=== PATIENT | female | born 1945 ===

== ENCOUNTER → 2020-09-19 12:02 | Outpatient (BNVA) | payer MEDICARE, SELFPAY | PROVIDERS: PCP Internal Medicine Geriatric Medicine; Referring Provider Internal Medicine Geriatric Medicine; Visit Provider Internal Medicine Endocrinology, Diabetes & Metabolism | DX: Z13.89 Encounter for screening for other disorder (principal) | CPT/HCPCS: Q3014 ==

== ENCOUNTER 2020-10-02 09:36 | Outpatient (REF) | payer MEDICARE, SELFPAY ==
[2020-10-02 10:21] LABS: Hematocrit 36.7 % (37-47); Hemoglobin 11.9 g/dl (12.0-16.0); Mean Corpuscular HGB Conc 32.4 g/dl (31.0-35.0); Mean Corpuscular Hemoglobin 28.1 pg (27.0-33.0); Mean Corpuscular Volume 86.8 fL (80-98); Mean Platelet Volume 10.5 fL (9.4-12.3); Platelet Count 343 X10*3/uL (160-400); Red Blood Count 4.23 X10*6/uL (4.20-5.50); Red Cell Distribution Width 14.4 % (11.0-16.0); White Blood Count 7.3 X10*3/uL (4.8-10.8)
[2020-10-02 10:29] LABS: Estimated Average Glucose 171 mg/dL; Hemoglobin A1c % 7.6 %
[2020-10-02 10:35] LABS: Alanine Aminotransferase 13 U/L (0-31); Alkaline Phosphatase 58 U/L (39-117); Anion Gap 13 (12-20); Aspartate Amino Transferase 18 U/L (5-31); Bilirubin Total 0.3 mg/dL (0.0-1.0); Blood Urea Nitrogen 31 mg/dL (9-16); Calcium 9.5 mg/dL (8.4-10.2); Carbon Dioxide 29 mmol/L (22-29); Chloride 101 mmol/L (96-108); Cholesterol 168 mg/dL; Estimated Glomerular Filt Rate 39; Glucose Fasting 141 mg/dL (60-99); HDL Cholesterol 30 mg/dL; Potassium 3.9 mmol/l (3.3-5.1); Sodium 139 mmol/L (135-145); Total Protein 7.2 g/dL (6.5-8.0); Triglycerides 405 mg/dL
[2020-10-02 11:01] LABS: Vitamin B12 938 pg/mL (200-900)
[2020-10-02 11:15] LABS: Creatinine Urine 110.07 mg/dL; Microalbum/Creatinine Ratio Ur 30.8 ug/mg cr
[2020-10-03 06:58] LABS: LDL Cholesterol Direct 67 mg/dL (<100)
[2020-10-10 06:53] LABS: Fructosamine 279 umol/L (205-285)
== END 2020-10-02 09:37 | disposition home or self-care (01) ==
LOC: HO.10HDL 09:36
PROVIDERS: Visit Provider Internal Medicine Endocrinology, Diabetes & Metabolism
DX: E11.65 Type 2 diabetes mellitus with hyperglycemia (principal)
CPT/HCPCS: 36415; 80053; 80061; 82043; 82607; 82985; 83036; 83721; 85027

== ENCOUNTER 2020-12-10 11:28 | Outpatient (REF) | payer MEDICARE, SELFPAY ==
--- NOTE | ~2020-12-10 | US_ITS ---
EXAMINATION: US EXTRACRANIAL CAROTID DUPLEX, BILATERAL CLINICAL INFORMATION: Left carotid stenosis COMPARISON: Previous exams most recent October 2019 TECHNIQUE: Real-time ultrasound and Doppler techniques (integrating B-mode 2-D vascular images, Doppler spectral analysis and color-flow Doppler imaging) were utilized to interrogate the extracranial carotid arteries, the vertebral arteries and proximal subclavian arteries bilaterally. The degree of stenosis is determined by criteria similar to NASCET. FINDINGS: Right Side: 1. There is moderate atherosclerotic plaque seen in the bifurcation/proximal ICA region. 2. The common carotid artery PSV proximally is 112 cm/s and distally 66 cm/s. 3. The proximal internal carotid artery velocities are 79 cm/s systolic and 15 cm/s diastolic. 4. The proximal external carotid artery PSV is 146 cm/s. 5. The vertebral artery shows antegrade flow. 6. The subclavian artery waveforms are normal. Left Side: 1. There is moderate atherosclerotic plaque seen in the bifurcation/proximal ICA region. 2. The common carotid artery PSV proximally is 102 cm/s and distally 83 cm/s. 3. The proximal internal carotid artery velocities are 162 cm/s systolic and 35 cm/s diastolic. 4. The proximal external carotid artery PSV is 204 cm/s. 5. The vertebral artery shows antegrade flow. 6. The subclavian artery waveforms are artery waveforms are normal. US/US carotid duplex BI IMPRESSION: 1. RIGHT: Moderate amount of atherosclerotic plaque. 0-49% right ICA stenosis by velocity criteria. 2. LEFT: Moderate amount of atherosclerotic plaque. 50-79% left ICA stenosis by velocity criteria. New left ECA stenosis. 3. There is no change in the category severity of disease when compared to the previous study dated October 2019.
== END 2020-12-10 11:29 | disposition home or self-care (01) ==
LOC: HO.US 11:28
PROVIDERS: PCP Internal Medicine Geriatric Medicine; Visit Provider Surgery Vascular Surgery
DX: I65.22 Occlusion and stenosis of left carotid artery (principal)
CPT/HCPCS: 93880

== ENCOUNTER → 2020-12-20 13:11 | Outpatient (BNVA) | payer MEDICARE, SELFPAY | PROVIDERS: PCP Internal Medicine Geriatric Medicine; Visit Provider Internal Medicine Endocrinology, Diabetes & Metabolism | DX: Z13.89 Encounter for screening for other disorder (principal) | CPT/HCPCS: Q3014 ==

== ENCOUNTER → 2020-12-25 10:49 | Outpatient (BNVA) | payer MEDICARE, SELFPAY | PROVIDERS: PCP Internal Medicine Geriatric Medicine; Visit Provider Surgery Vascular Surgery | DX: I65.23 Occlusion and stenosis of bilateral carotid arteries (principal) | CPT/HCPCS: 99212 ==

== ENCOUNTER → 2021-03-08 14:44 | Outpatient (BNVA) | payer MEDICARE, SELFPAY | PROVIDERS: Visit Provider Student in an Organized Health Care Education/Training Program | DX: M70.62 Trochanteric bursitis, left hip (principal) | CPT/HCPCS: 20610; 99212 ==

== ENCOUNTER → 2021-03-26 09:11 | Outpatient (BNVA) | payer MEDICARE, SELFPAY | PROVIDERS: PCP Internal Medicine Geriatric Medicine; Visit Provider Internal Medicine Endocrinology, Diabetes & Metabolism | CPT/HCPCS: Q3014 ==

== ENCOUNTER 2021-04-18 08:08 | Outpatient (REF) | payer MEDICARE, SELFPAY ==
[2021-04-18 09:00] LABS: MANUAL DIFF FLAG NO
[2021-04-18 09:11] LABS: Estimated Average Glucose 180 mg/dL; Hemoglobin A1c % 7.9 %
[2021-04-18 09:12] LABS: Basophils Percent Auto 0.3 % (0-2); Eosinophils Absolute Auto 0.1 X10*3/uL (0.0-0.4); Eosinophils Percent Auto 1.6 % (0-4); Hematocrit 37.4 % (37-47); Hemoglobin 12.1 g/dl (12.0-16.0); Imm Gran Abs Auto 0.04 X10*3/uL (0.00-0.03); Imm Gran Pct Auto 0.6 % (0.0-0.4); Lymphocytes Absolute Auto 2.5 X10*3/uL (1.2-4.9); Lymphocytes Percent Auto 38.6 % (20-40); Mean Corpuscular HGB Conc 32.4 g/dl (31.0-35.0); Mean Corpuscular Hemoglobin 28.5 pg (27.0-33.0); Mean Corpuscular Volume 88.2 fL (80-98); Mean Platelet Volume 10.2 fL (9.4-12.3); Monocytes Absolute Auto 0.7 X10*3/uL (0.1-1.2); Monocytes Percent Auto 10.3 % (2-11); Neutrophils Absolute Auto 3.1 X10*3/uL (2.0-8.3); Neutrophils Percent Auto 48.6 % (45-73); Platelet Count 340 X10*3/uL (160-400); Red Blood Count 4.24 X10*6/uL (4.20-5.50); Red Cell Distribution Width 14.2 % (11.0-16.0); White Blood Count 6.4 X10*3/uL (4.8-10.8)
[2021-04-18 09:17] LABS: Glucose Urine UA NEG (NEG); Leukocyte Esterase Urine 2+ (NEG); Nitrite Urine NEG (NEG); Specific Gravity - Urine 1.015 (1.005-1.025); Urine Blood 1+ (NEG); Urine Ketones NEG (NEG); Urine Protein NEG (NEG-TRACE)
[2021-04-18 09:37] LABS: Anion Gap 12 (12-20); Blood Urea Nitrogen 21 mg/dL (9-16); Calcium 10.1 mg/dL (8.4-10.2); Carbon Dioxide 31 mmol/L (22-29); Chloride 100 mmol/L (96-108); Estimated Glomerular Filt Rate 47; Magnesium 1.8 mg/dL (1.6-2.6); Phosphorus 2.8 mg/dL (2.7-4.5); Potassium 4.2 mmol/L (3.3-5.1); Sodium 139 mmol/L (135-145)
[2021-04-18 09:39] LABS: Alanine Aminotransferase 14 U/L (0-31); Alkaline Phosphatase 53 U/L (39-117); Anion Gap 11 (12-20); Aspartate Amino Transferase 19 U/L (5-31); Bilirubin Total 0.3 mg/dL (0.0-1.0); Blood Urea Nitrogen 21 mg/dL (9-16); Calcium 10.1 mg/dL (8.4-10.2); Carbon Dioxide 31 mmol/L (22-29); Chloride 101 mmol/L (96-108); Cholesterol 155 mg/dL; Estimated Glomerular Filt Rate 46; Glucose Fasting 193 mg/dL (60-99); HDL Cholesterol 35 mg/dL; LDL Cholesterol Calculated 64 mg/dl; Potassium 4.3 mmol/L (3.3-5.1); Sodium 139 mmol/L (135-145); Triglycerides 281 mg/dL
[2021-04-18 09:39] LABS: Appearance Urine CLEAR; Color Urine YELLOW
[2021-04-18 09:41] LABS: Bacteria Urine TRACE /LPF; Squamous Epithelial Cell Urine TRACE /LPF; WBC Urine 30-49 /HPF (0-4)
[2021-04-18 09:48] LABS: Creatinine Urine 107.98 mg/dL; Microalbum/Creatinine Ratio Ur 40.7 ug/mg cr; Protein/Creatinine Ratio, Ur 0.14 (<0.2); Total Protein Urine Random 15 mg/dL (<12)
[2021-04-18 09:50] LABS: Free T4 (Free Thyroxine) 0.88 ng/dL (0.71-1.85); Thyroid Stimulating Hormone 1.97 uIU/mL (0.32-4.0)
[2021-04-18 10:03] LABS: Vitamin B12 996 pg/mL (200-900)
[2021-04-18 11:08] LABS: Renal w Reflex Lab Use Only Order verified
[2021-04-19 08:41] LABS: LDL Cholesterol Direct 75 mg/dL (<100)
[2021-04-19 13:36] LABS: Calcium (PTHI) 10.1 mg/dL (8.6-10.4); PTHI 41 pg/mL (14-64)
== END 2021-04-18 08:09 | disposition home or self-care (01) ==
LOC: HO.LAB 08:08
PROVIDERS: Absent Provider Internal Medicine Nephrology; PCP Internal Medicine Geriatric Medicine; Visit Provider Internal Medicine Endocrinology, Diabetes & Metabolism
DX: I12.9 Hypertensive chronic kidney disease with stage 1 through stage 4 chronic kidney disease, or unspecified chronic kidney disease (principal); N18.30 Chronic kidney disease, stage 3 unspecified; D63.8 Anemia in other chronic diseases classified elsewhere; E11.22 Type 2 diabetes mellitus with diabetic chronic kidney disease; E55.9 Vitamin D deficiency, unspecified; E11.65 Type 2 diabetes mellitus with hyperglycemia
CPT/HCPCS: 36415; 80051; 80053; 80061; 81001; 82040; 82043; 82306; 82310; 82565; 82607; 83036; 83721; 83735; 83970; 84100; 84155; 84156; 84439; 84443; 84520; 85025; 87086

== ENCOUNTER 2021-06-25 08:48 | Outpatient (REF) | payer MEDICARE, SELFPAY ==
--- NOTE | ~2021-06-25 | XR_ITS ---
EXAMINATION: XR SHOULDER, LEFT CLINICAL INFORMATION: Left shoulder pain. COMPARISON: Left shoulder radiographs dated 03/29/2015. TECHNIQUE: AP external rotation, Grashey, scapular Y, and axillary views of the left shoulder. FINDINGS: No acute fracture or dislocation. Moderate acromioclavicular osteoarthritis with prominent subacromial spurring, increased when compared to the prior examination. Mild glenohumeral joint space narrowing with small marginal osteophytes, increased when compared to the prior examination. No osseous erosion. XR/XR shoulder LT min 2V IMPRESSION: Moderate acromioclavicular osteoarthritis with prominent subacromial spurring, increased. Mild glenohumeral osteoarthritis, increased.
== END 2021-06-25 08:49 | disposition home or self-care (01) ==
LOC: HO.XRAY 08:48
PROVIDERS: PCP Internal Medicine Geriatric Medicine; Visit Provider Nurse Practitioner Family
DX: M25.512 Pain in left shoulder (principal); M70.62 Trochanteric bursitis, left hip
CPT/HCPCS: 73030; 99212

== ENCOUNTER → 2021-09-20 10:58 | Outpatient (BNVA) | payer MEDICARE, SELFPAY | PROVIDERS: PCP Internal Medicine Geriatric Medicine; Visit Provider Physician Assistant | DX: M75.42 Impingement syndrome of left shoulder (principal) | CPT/HCPCS: 99202; J1040 ==

== ENCOUNTER → 2021-11-21 09:53 | Outpatient (BNVA) | payer MEDICARE, SELFPAY | PROVIDERS: PCP Internal Medicine Geriatric Medicine; Visit Provider Nurse Practitioner Gerontology | DX: Z13.89 Encounter for screening for other disorder (principal) | CPT/HCPCS: Q3014 ==

== ENCOUNTER 2021-12-05 08:16 | Outpatient (REF) | payer MEDICARE, SELFPAY ==
[2021-12-05 10:37] LABS: Hematocrit 37.1 % (37.0-47.0); Hemoglobin 12.2 g/dl (12.0-16.0); Mean Corpuscular HGB Conc 32.9 g/dl (31.0-35.0); Mean Corpuscular Hemoglobin 28.4 pg (27.0-33.0); Mean Corpuscular Volume 86.5 fL (80.0-98.0); Mean Platelet Volume 10.9 fL (9.4-12.3); Platelet Count 329 X10*3/uL (160-400); Red Blood Count 4.29 X10*6/uL (4.20-5.50); Red Cell Distribution Width 14.8 % (11.0-16.0); White Blood Count 7.3 X10*3/uL (4.8-10.8)
[2021-12-05 10:46] LABS: Estimated Average Glucose 183 mg/dL
[2021-12-05 10:52] LABS: Albumin Level 3.9 g/dL (3.5-5.0); Anion Gap 13 (12-20); Blood Urea Nitrogen 26 mg/dL (9-16); Calcium 10.2 mg/dL (8.4-10.2); Carbon Dioxide 30 mmol/L (22-29); Chloride 98 mmol/L (96-108); Estimated Glomerular Filt Rate 44; Magnesium 1.7 mg/dL (1.6-2.6); Phosphorus 3.4 mg/dL (2.7-4.5); Sodium 137 mmol/L (135-145)
[2021-12-05 10:54] LABS: Alanine Aminotransferase 11 U/L (0-31); Albumin Level 3.9 g/dL (3.5-5.0); Alkaline Phosphatase 50 U/L (39-117); Anion Gap 13 (12-20); Aspartate Amino Transferase 15 U/L (5-31); Bilirubin Total 0.4 mg/dL (0.0-1.0); Blood Urea Nitrogen 26 mg/dL (9-16); Calcium 10.3 mg/dL (8.4-10.2); Carbon Dioxide 30 mmol/L (22-29); Chloride 99 mmol/L (96-108); Cholesterol 162 mg/dL; Estimated Glomerular Filt Rate 45; Glucose Fasting 191 mg/dL (60-99); HDL Cholesterol 35 mg/dL; LDL Cholesterol Calculated 77 mg/dl; Potassium 4.2 mmol/L (3.3-5.1); Sodium 138 mmol/L (135-145); Total Protein 7.1 g/dL (6.5-8.0); Triglycerides 252 mg/dL
[2021-12-05 11:06] LABS: Free T4 (Free Thyroxine) 0.84 ng/dL (0.71-1.85); Thyroid Stimulating Hormone 4.61 uIU/mL (0.32-4.0)
[2021-12-05 11:10] LABS: Creatinine Urine 46.66 mg/dL; Microalbum/Creatinine Ratio Ur 27.8 ug/mg cr
[2021-12-05 11:11] LABS: Creatinine Urine 45.81 mg/dL; Total Protein Urine Random < 7 mg/dL (<12)
[2021-12-05 11:14] LABS: Vitamin D 25-OH Total 37.2 ng/mL (>30)
[2021-12-05 11:23] LABS: Vitamin B12 943 pg/mL (200-900)
[2021-12-05 11:26] LABS: Appearance Urine CLEAR; Color Urine YELLOW; Glucose Urine UA NEG (NEG); Leukocyte Esterase Urine NEG (NEG); Nitrite Urine NEG (NEG); PH 6.5 (5.0-8.0); Urine Blood NEG (NEG); Urine Ketones NEG (NEG); Urine Protein NEG (NEG-TRACE)
[2021-12-05 12:12] LABS: RBC Urine 0-2 /HPF (0); WBC Urine 0-2 /HPF (0-4)
[2021-12-06 12:47] LABS: Calcium (PTHI) 10.3 mg/dL (8.6-10.4); PTHI 29 pg/mL (14-64)
[2021-12-07 01:42] LABS: LDL Cholesterol Direct 81 mg/dL (<100)
== END 2021-12-05 08:17 | disposition home or self-care (01) ==
LOC: HO.10HDL 08:16
PROVIDERS: Absent Provider Nurse Practitioner Gerontology; Referring Provider Internal Medicine Nephrology; Visit Provider Internal Medicine Endocrinology, Diabetes & Metabolism
DX: E11.65 Type 2 diabetes mellitus with hyperglycemia (principal); E11.22 Type 2 diabetes mellitus with diabetic chronic kidney disease; E11.21 Type 2 diabetes mellitus with diabetic nephropathy; N18.30 Chronic kidney disease, stage 3 unspecified; D50.9 Iron deficiency anemia, unspecified; D63.8 Anemia in other chronic diseases classified elsewhere
CPT/HCPCS: 36415; 80051; 80053; 80061; 81001; 82040; 82043; 82306; 82310; 82565; 82607; 83036; 83721; 83735; 83970; 84100; 84156; 84439; 84443; 84520; 85027; 87086

== ENCOUNTER 2021-12-16 11:10 | Outpatient (REF) | payer MEDICARE, SELFPAY ==
--- NOTE | ~2021-12-16 | US_ITS ---
EXAMINATION: US EXTRACRANIAL CAROTID DUPLEX, BILATERAL CLINICAL INFORMATION: This is a 76-year-old female with carotid artery disease. Previous left carotid endarterectomy. COMPARISON: Comparison is made to a previous study dated 12/10/2020 which demonstrated 0-49% right internal carotid artery stenosis and 50-79% left internal carotid artery stenosis. TECHNIQUE: Real-time ultrasound and Doppler techniques (integrating B-mode 2-D vascular images, Doppler spectral analysis and color-flow Doppler imaging) were utilized to interrogate the extracranial carotid arteries, the vertebral arteries and proximal subclavian arteries bilaterally. The degree of stenosis is determined by criteria similar to NASCET. FINDINGS: Right Side: 1. There is minimal atherosclerotic plaque seen in the bifurcation/proximal ICA region. 2. The common carotid artery PSV proximally is 67 cm/s and distally 58 cm/s. 3. The proximal internal carotid artery velocities are 66 cm/s systolic and 15 cm/s diastolic. 4. The proximal external carotid artery PSV is 90 cm/s. 5. The vertebral artery shows antegrade flow. 6. The subclavian artery waveforms are normal. Left Side: 1. There is moderate atherosclerotic plaque seen in the bifurcation/proximal ICA region. 2. The common carotid artery PSV proximally is 75 cm/s and distally 68 cm/s. 3. The proximal internal carotid artery velocities are 141 cm/s systolic and 29 cm/s diastolic. 4. The proximal external carotid artery PSV is 160 cm/s. 5. The vertebral artery shows antegrade flow. 6. The subclavian artery waveforms are normal. US/US carotid duplex BI IMPRESSION: 1. RIGHT: Minimal, non-hemodynamically significant stenosis of the proximal right internal carotid artery corresponding to a 0-49% stenosis by velocity criteria. 2. LEFT: Minimal, non-hemodynamically significant stenosis of the proximal left internal carotid artery corresponding to a 0-49% stenosis by velocity criteria. Although the velocity is greater than 125 cm/s, the patient has a history of endarterectomy. The general consensus is to use the velocity greater than 250 cm/s in order to give the patient a 50-79% stenosis following endarterectomy. 3. There is no change in the category severity of disease when compared to the previous study dated 12/10/2020.
== END 2021-12-16 11:11 | disposition home or self-care (01) ==
LOC: HO.US 11:10
PROVIDERS: PCP Internal Medicine Geriatric Medicine; Visit Provider Surgery Vascular Surgery
DX: I65.23 Occlusion and stenosis of bilateral carotid arteries (principal)
CPT/HCPCS: 93880

== ENCOUNTER → 2022-01-28 10:49 | Outpatient (BNVA) | payer OTHER, SELFPAY | PROVIDERS: PCP Internal Medicine Geriatric Medicine; Visit Provider Surgery Vascular Surgery | DX: I65.23 Occlusion and stenosis of bilateral carotid arteries (principal) | CPT/HCPCS: 99212 ==

== ENCOUNTER → 2022-03-14 12:48 | Outpatient (BNVA) | payer OTHER, SELFPAY | PROVIDERS: PCP Internal Medicine Geriatric Medicine; Visit Provider Nurse Practitioner Family | DX: M70.62 Trochanteric bursitis, left hip (principal); M54.50 Low back pain, unspecified; M75.42 Impingement syndrome of left shoulder; M25.561 Pain in right knee | CPT/HCPCS: 99212 ==

== ENCOUNTER → 2022-04-15 10:04 | Outpatient (BNVA) | payer OTHER, SELFPAY | PROVIDERS: PCP Internal Medicine Geriatric Medicine; Visit Provider Nurse Practitioner Family | DX: G89.4 Chronic pain syndrome (principal); M53.3 Sacrococcygeal disorders, not elsewhere classified; M47.816 Spondylosis without myelopathy or radiculopathy, lumbar region; E11.40 Type 2 diabetes mellitus with diabetic neuropathy, unspecified | CPT/HCPCS: 99202 ==

== ENCOUNTER 2022-04-22 11:18 | Outpatient (REF) | payer OTHER, SELFPAY ==
--- NOTE | ~2022-04-22 | XR_ITS ---
EXAMINATION: XR LUMBOSACRAL SPINE WITH OBLIQUES CLINICAL INFORMATION: Spondylosis without myelopathy or radiculopathy. COMPARISON: None TECHNIQUE: AP, both oblique, and lateral views of the lumbar spine. Lateral view of the lumbosacral junction. FINDINGS: There is mild dextroscoliosis of lumbar spine. There is loss of disc at virtually at every disc level with ventral spondylosis. No acute fracture or lytic process seen. There is no pars defect or listhesis. There is bilateral mild facet joint arthropathy. The paravertebral soft tissues are normal. SI joints are normal. There is a likely small bone island right sacrum. XR/XR lumbar spine 6V w bending IMPRESSION: Mild dextroscoliosis mid lumbar spine with degenerative disc changes and spondylosis virtually at every disc level. No visible acute fracture or dislocation seen. No lytic or sclerotic process seen.
== END 2022-04-22 11:19 | disposition home or self-care (01) ==
LOC: HO.XRAY 11:18
PROVIDERS: Absent Provider Nurse Practitioner Family; PCP Internal Medicine Geriatric Medicine; Visit Provider Nurse Practitioner Family
DX: M47.816 Spondylosis without myelopathy or radiculopathy, lumbar region (principal); M53.3 Sacrococcygeal disorders, not elsewhere classified; G89.4 Chronic pain syndrome
CPT/HCPCS: 72114

== ENCOUNTER → 2022-04-28 15:23 | Outpatient (BNVA) | payer OTHER, SELFPAY | PROVIDERS: PCP Internal Medicine Geriatric Medicine; Visit Provider Nurse Practitioner Family | DX: G89.4 Chronic pain syndrome (principal); M47.816 Spondylosis without myelopathy or radiculopathy, lumbar region; M53.3 Sacrococcygeal disorders, not elsewhere classified; E11.40 Type 2 diabetes mellitus with diabetic neuropathy, unspecified | CPT/HCPCS: Q3014 ==

== ENCOUNTER 2022-05-16 07:37 | Day surgery (SDC) | payer OTHER, SELFPAY ==
[2022-05-12 13:24] VITALS: BMI 29.9
--- NOTE | 2022-05-15 08:55 | P.CONAN_ITS ---
Documented by User: Rajwinder Fuller NP 05/15/22 08:59 HPI - Anesthesia Eval Consult details Narrative: 77yo F for Upper Endoscopy with Balloon Dilitation PMFSH Active Problems Active Problems: All Active Problems (Updated 05/12/22 @ 13:17 by Shey Bansal RN) Carotid stenosis, bilateral (Acute) Trochanteric bursitis, left hip (Acute) Left shoulder pain (Acute) Impingement syndrome, shoulder, left (Acute) Chronic painful diabetic neuropathy (Acute) Lumbar spondylosis (Acute) Sacroiliac joint dysfunction of both sides (Acute) Chronic pain syndrome (Acute) Vitamin D deficiency (Acute) Diabetes type 2, uncontrolled (Acute) Obesity (BMI 30-39.9) (Acute) Hypertension (Acute) Dyslipidemia (Acute) assisted (current) use of insulin (Acute) Diabetic nephropathy associated with type 2 diabetes mellitus (Acute) Past Medical History Medical History CVA (cerebral vascular accident) Diabetes type 2, uncontrolled Diabetic nephropathy associated with type 2 diabetes mellitus Dyslipidemia GERD (gastroesophageal reflux disease) 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 Obesity (BMI 30-39.9) Osteoporosis Vitamin D deficiency Family History Family History Father Kidney disease Mother GI bleed Arthritis of knee HTN (hypertension) Surgical History Surgical History History of coronary angioplasty with insertion of stent History of esophagogastroduodenoscopy (EGD) Hx of cholecystectomy Hx of colonoscopy Hx of endarterectomy Hx of hysterectomy Social History Social History Household Members: None Housing: Apartment Alcohol intake: never Patient Tobacco Use Status: Never used Tobacco Use of substances other than those prescribed or required for medical reasons: No Advance Directives: No Advance Directives Information Provided: Yes Meds Allergies Allergy/AdvReac Type Severity Reaction Status Date / Time Sulfa (Sulfonamide Allergy Intermediate RASH Verified 04/28/22 15:25 Antibiotics) [SULFA (SULFONAMIDE ANTIBIOTICS)] ciprofloxacin [CIPROFLOXACIN] Allergy Unknown PER H&P Verified 04/28/22 15:25 Home Medications Medication Instructions Recorded Confirmed Last Taken Type aspirin 81 mg tablet,delayed 81 mg PO DAILY 09/19/20 05/12/22 Unknown History release (Adult Low Dose Aspirin) blood sugar diagnostic (FreeStyle #10 ea 09/19/20 03/14/22 Unknown History Lite Strips) lancets 28 gauge (FreeStyle #100 ea 09/19/20 03/14/22 Unknown History Lancets) losartan 100 1 tab PO DAILY 09/19/20 05/12/22 Unknown History mg-hydrochlorothiazide 25 mg tablet metoprolol succinate 100 mg 100 mg PO BID 09/19/20 05/12/22 Unknown History tablet,extended release 24 hr omeprazole 20 mg capsule,delayed 20 mg PO DAILY 09/19/20 05/12/22 Unknown History release buspirone 30 mg tablet 15 mg PO BID 12/20/20 05/12/22 Unknown History clotrimazole 2 % vaginal cream vaginal 12/20/20 03/14/22 Unknown History hydroxyzine HCl 10 mg tablet 10 mg PO BEDTIME 12/20/20 05/12/22 Unknown History melatonin 3 mg tablet 3 mg PO BEDTIME 12/20/20 05/12/22 Unknown History tramadol 50 mg tablet 50 mg PO TID PRN pain 12/20/20 05/12/22 Unknown History amlodipine 10 mg tablet 10 mg PO DAILY 09/20/21 05/12/22 Unknown History cefdinir 300 mg capsule mg PO 09/20/21 03/14/22 Unknown History clobetasol 0.05 % topical ointment g topical 09/20/21 03/14/22 Unknown History clotrimazole 1 % topical cream appl topical BEDTIME 09/20/21 03/14/22 Unknown History lancets 33 gauge (TRUEplus Lancets) #100 ea 09/20/21 03/14/22 Unknown History lidocaine HCl 2 % mucosal solution ml PO 09/20/21 03/14/22 Unknown History (Lidocaine Viscous) albuterol sulfate 90 mcg/actuation 2 puff PO Q4-6H PRN Wheezing 01/28/2204/19 Unknown History aerosol inhaler dulaglutide 3 mg/0.5 mL 3 mg subcut QWEEK 01/28/22 05/12/22 Unknown History subcutaneous pen injector (Trulicity) ketoconazole 2 % topical cream appl topical 01/28/22 03/14/22 Unknown History lactulose 10 gram/15 mL oral 15 ml PO DAILY 01/28/22 03/14/22 Unknown History solution Exam Exam Date and Time: May 15, 2022 0855 Height,Weight and Vital Signs: Height 4 ft 11.5 in Weight 68.492 kg Pertinent Lab Results Pertinent Lab Results: Laboratory Tests 12/05/21 12/05/21 08:20 08:20 WBC 7.3 Hgb 12.2 Hct 37.1 Plt Count 329 Sodium 137 Potassium 4.0 Chloride 98 Carbon Dioxide 30 H BUN 26 H Creatinine 1.19 Assessment and Plan Assessment Anesthesia Assessment: Chart Reviewed Documented by User: Shayna Mayberry MD 05/16/22 08:41 PMFSH Past Medical History Medical History CVA (cerebral vascular accident) Diabetes type 2, uncontrolled Diabetic nephropathy associated with type 2 diabetes mellitus Dyslipidemia GERD (gastroesophageal reflux disease) Hypertension assisted (current) use of insulin Obesity (BMI 30-39.9) Osteoporosis Vitamin D deficiency Family History Family History Father Kidney disease Mother GI bleed Arthritis of knee HTN (hypertension) Surgical History Surgical History History of coronary angioplasty with insertion of stent History of esophagogastroduodenoscopy (EGD) Hx of cholecystectomy Hx of colonoscopy Hx of endarterectomy Hx of hysterectomy History of Problems with Anesthesia: No Social History Social History Household Members: None Housing: Apartment Alcohol intake: never Patient Tobacco Use Status: Never used Tobacco Use of substances other than those prescribed or required for medical reasons: No Advance Directives: No Advance Directives Information Provided: Yes Meds Allergies Allergy/AdvReac Type Severity Reaction Status Date / Time Sulfa (Sulfonamide Allergy Intermediate RASH Verified 04/28/22 15:25 Antibiotics) [SULFA (SULFONAMIDE ANTIBIOTICS)] ciprofloxacin [CIPROFLOXACIN] Allergy Unknown PER H&P Verified 04/28/22 15:25 Home Medications Medication Instructions Recorded Confirmed Last Taken Type aspirin 81 mg tablet,delayed 81 mg PO DAILY 09/19/20 05/12/22 Unknown History release (Adult Low Dose Aspirin) blood sugar diagnostic (FreeStyle #10 ea 09/19/20 03/14/22 Unknown History Lite Strips) lancets 28 gauge (FreeStyle #100 ea 09/19/20 03/14/22 Unknown History Lancets) losartan 100 1 tab PO DAILY 09/19/20 05/12/22 Unknown History mg-hydrochlorothiazide 25 mg tablet metoprolol succinate 100 mg 100 mg PO BID 09/19/20 05/12/22 Unknown History tablet,extended release 24 hr omeprazole 20 mg capsule,delayed 20 mg PO DAILY 09/19/20 05/12/22 Unknown History release buspirone 30 mg tablet 15 mg PO BID 12/20/20 05/12/22 Unknown History clotrimazole 2 % vaginal cream vaginal 12/20/20 03/14/22 Unknown History hydroxyzine HCl 10 mg tablet 10 mg PO BEDTIME 12/20/20 05/12/22 Unknown History melatonin 3 mg tablet 3 mg PO BEDTIME 12/20/20 05/12/22 Unknown History tramadol 50 mg tablet 50 mg PO TID PRN pain 12/20/20 05/12/22 Unknown History amlodipine 10 mg tablet 10 mg PO DAILY 09/20/21 05/12/22 Unknown History cefdinir 300 mg capsule mg PO 09/20/21 03/14/22 Unknown History clobetasol 0.05 % topical ointment g topical 09/20/21 03/14/22 Unknown History clotrimazole 1 % topical cream appl topical BEDTIME 09/20/21 03/14/22 Unknown History lancets 33 gauge (TRUEplus Lancets) #100 ea 09/20/21 03/14/22 Unknown History lidocaine HCl 2 % mucosal solution ml PO 09/20/21 03/14/22 Unknown History (Lidocaine Viscous) albuterol sulfate 90 mcg/actuation 2 puff PO Q4-6H PRN Wheezing 01/28/22 05/12/22 Unknown History aerosol inhaler dulaglutide 3 mg/0.5 mL 3 mg subcut QWEEK 01/28/22 05/12/22 Unknown History subcutaneous pen injector (Trulicity) ketoconazole 2 % topical cream appl topical 01/28/22 03/14/22 Unknown History lactulose 10 gram/15 mL oral 15 ml PO DAILY 01/28/22 03/14/22 Unknown History solution Exam Airway Mallampati Class: II TM Dist: >3cm Neck ROM: Full Denture: Upper Loose/Missing/Broken Teeth: Yes and Upper Heart: RRR Lungs: CTA Assessment and Plan Assessment Anesthesia Assessment: Anesthesia Plan Discussed Final Anesthetic Review History of Problems with Anesthesia: No NPO: Yes ASA Class: III Final Preanesthetic Review: Meds/Allgs Chart Reviewed, Consent Obtained/Reviewed and Anes Risks/Benef Reviewed Patient Risk: Intermediate Procedure Risk: Intermediate Anesthetic Plan Anesthetic Plan: MAC: Disposition: Standard PACU
[2022-05-16 08:07] VITALS: BMI 29.9
[2022-05-16 08:32] VITALS: BP 130/60; PULSE 56; RESP 15; TEMP 36.2; O2SAT 96
[2022-05-16] MEDS: Lactated Ringers 1,000 ML 100 ML IVCONT (08:33)
[2022-05-16 09:00] LABS: Glucose, Whole Blood 152 mg/dL (60-115)
--- NOTE | 2022-05-16 09:02 | P.HPSUR_ITS ---
Pre-Procedural Eval Section A Date of Service: 05/16/22 Section B Chief Complaint: Dysphagia, unspecified Details of Present Illness: see H&P no changes Relevant Family History (Specify if Yes): No Relevant Social History: None Present Medications: see [facility] assessment Medical History: No relevant PMH Allergies: Allergies Allergy/AdvReac Type Severity Reaction Status Date / Time Sulfa (Sulfonamide Allergy Intermediate RASH Verified 04/28/22 15:25 Antibiotics) [SULFA (SULFONAMIDE ANTIBIOTICS)] ciprofloxacin [CIPROFLOXACIN] Allergy Unknown PER H&P Verified 04/28/22 15:25 Review of Systems Sugical H&P ROS: Negative: Constitution, Cardiovascular, Respiratory, Neurological, Psychiatric, Hem-Onc, Allergic/Immunologic, Gastrointestinal, Genitourinary, Musculoskeletal, Integumentary, Endocrine and Eyes/Ears/Nose/Throat Exam Surgical H&P Exam: Normal: HEENT, Normal: Heart, Normal: Lungs, Normal: Extremities, Normal: Abdomen, Normal: Skin and Normal: Neurological Plan Diagnosis/Plan: Unchanged I have reviewed the history and physical and performed a pertinent physical examination on my patient. No changes have occurred unless specified.
[2022-05-16 09:28] VITALS: BP 125/51; PULSE 83; RESP 16; TEMP 36.8; O2SAT 94
--- NOTE | 2022-05-16 09:32 | PM.OP ---
Brief Operative Note Date of Service: 05/16/22 Pre-op diagnosis: dysphagia Post-op diagnosis: same Procedure: egd balloon dilation Surgeon: Juanpablo Madsen Anesthesia: MAC Was an Report Writer used for this Procedure?: No Estimated blood loss (mL): 2 Pathology: none sent Condition: stable Disposition: PACU
[2022-05-16 09:43] VITALS: BP 117/51; PULSE 75; RESP 17; O2SAT 93
[2022-05-16 09:58] VITALS: BP 147/70; PULSE 75; RESP 17; TEMP 36.8; O2SAT 98
--- NOTE | 2022-05-16 21:18 | OP_ITS ---
SURGEON: Juanpablo Madsen MD INDICATIONS: Dysphagia. PREOPERATIVE DIAGNOSIS: POSTOPERATIVE DIAGNOSIS: PROCEDURE PERFORMED: Upper endoscopy with balloon dilation. ESTIMATED BLOOD LOSS: COMPLICATIONS: ANESTHESIA: Monitored anesthesia care. ASSISTANTS: SPECIMENS: DESCRIPTION OF PROCEDURE: A history and physical was performed. The risks and benefits of the procedure were explained to the patient. Informed consent was obtained. The patient was placed in the supine position. The Olympus video gastroscope was introduced into the esophagus, stomach, and duodenum. Examination was performed. The scope was removed. She tolerated the procedure well was taken to the recovery area in stable condition. FINDINGS: 1. Esophagus: The esophagus had a sigmoid appearance to it with poor motility. There was retained saliva. This was washed and suctioned. The EG junction was easily passed with the endoscope. No stricture was identified, no mass was seen, and there was no esophagitis. 2. Stomach: The stomach showed multiple benign-appearing gastric polyps. 3. Duodenum: The bulb and second portion were normal. 4. Balloon dilation of the lower esophageal sphincter was performed with a 20 mm balloon inflated to its recommended pressure for 60 seconds for 2 separate inflations. The sphincter appeared widely patent at the termination of the procedure. IMPRESSION: Dysphagia. RECOMMENDATION: Follow up as needed. MD LOUISE Crockett/FIDELL / [id number]
== END 2022-05-16 10:27 | disposition home or self-care (01) ==
PROVIDERS: PCP Internal Medicine Geriatric Medicine; Visit Provider Internal Medicine Gastroenterology
PROC: (CPT 43249; principal; 2022-05-16 09:00)
DX: R13.10 Dysphagia, unspecified (principal); K22.4 Dyskinesia of esophagus; K21.9 Gastro-esophageal reflux disease without esophagitis; K31.7 Polyp of stomach and duodenum; I25.10 Atherosclerotic heart disease of native coronary artery without angina pectoris; Z98.61 Coronary angioplasty status; E78.5 Hyperlipidemia, unspecified; I10 Essential (primary) hypertension; E11.40 Type 2 diabetes mellitus with diabetic neuropathy, unspecified; Z79.4 Long term (current) use of insulin; Z79.899 Other long term (current) drug therapy; Z79.82 Long term (current) use of aspirin; Z88.2 Allergy status to sulfonamides; Z88.1 Allergy status to other antibiotic agents; Z86.73 Personal history of transient ischemic attack (TIA), and cerebral infarction without residual deficits; Z90.49 Acquired absence of other specified parts of digestive tract
CPT/HCPCS: 43249; 82947; C1726

== ENCOUNTER → 2022-05-28 10:39 | Outpatient (BNVA) | payer OTHER, SELFPAY | PROVIDERS: PCP Internal Medicine Geriatric Medicine; Visit Provider Registered Nurse Diabetes Educator | DX: E11.21 Type 2 diabetes mellitus with diabetic nephropathy (principal) | CPT/HCPCS: 99211 ==

== ENCOUNTER 2022-07-08 12:02 | Outpatient (REF) | payer OTHER, SELFPAY ==
[2022-07-08 14:25] LABS: Alanine Aminotransferase 14 U/L (0-31); Aspartate Amino Transferase 22 U/L (5-31); Cholesterol 156 mg/dL; HDL Cholesterol 36 mg/dL; LDL Cholesterol Calculated 77 mg/dl; Triglycerides 219 mg/dL
== END 2022-07-08 12:03 | disposition home or self-care (01) ==
LOC: HO.10HDL 12:02
PROVIDERS: Visit Provider Internal Medicine Cardiovascular Disease
DX: E78.5 Hyperlipidemia, unspecified (principal)
CPT/HCPCS: 36415; 80061; 84450; 84460

== ENCOUNTER → 2022-12-04 13:56 | Outpatient (BNVA) | payer OTHER, SELFPAY | PROVIDERS: PCP Internal Medicine Geriatric Medicine; Visit Provider Nurse Practitioner Family | DX: M47.816 Spondylosis without myelopathy or radiculopathy, lumbar region (principal); G89.4 Chronic pain syndrome | CPT/HCPCS: 99212 ==

== ENCOUNTER 2023-01-16 09:46 | Outpatient (REF) | payer OTHER, SELFPAY ==
[2023-01-16 11:30] LABS: MANUAL DIFF FLAG NO
[2023-01-16 11:45] LABS: Appearance Urine Clear; Color Urine Yellow; Glucose Urine UA Negative (Negative); Leukocyte Esterase Urine Moderate (2+) (Negative); Nitrite Urine Negative (Negative); UMIC TRIGGER UA YES; Urine Blood Negative (Negative); Urine Ketones Negative (Negative); Urine Protein Negative (Neg-Trace)
[2023-01-16 11:52] LABS: Basophils Absolute Auto 0.1 X10*3/uL (0.0-0.2); Basophils Percent Auto 0.7 % (0-2); Eosinophils Absolute Auto 0.3 X10*3/uL (0.0-0.4); Eosinophils Percent Auto 3.5 % (0-4); Hematocrit 37.9 % (37.0-47.0); Hemoglobin 12.2 g/dl (12.0-16.0); Imm Gran Abs Auto 0.03 X10*3/uL (0.00-0.03); Imm Gran Pct Auto 0.4 % (0.0-0.4); Lymphocytes Absolute Auto 2.2 X10*3/uL (1.2-4.9); Lymphocytes Percent Auto 29.1 % (20-40); Mean Corpuscular HGB Conc 32.2 g/dl (31.0-35.0); Mean Corpuscular Volume 87.1 fL (80.0-98.0); Mean Platelet Volume 10.4 fL (9.4-12.3); Monocytes Absolute Auto 0.8 X10*3/uL (0.1-1.2); Monocytes Percent Auto 10.1 % (2-11); Neutrophils Absolute Auto 4.2 x10*3/uL (2.0-8.3); Neutrophils Percent Auto 56.2 % (45-73); Platelet Count 334 X10*3/uL (160-400); Red Blood Count 4.35 X10*6/uL (4.20-5.50); White Blood Count 7.5 X10*3/uL (4.8-10.8)
[2023-01-16 12:06] LABS: Bacteria Urine None Seen (None Seen); Hyaline Casts Urine 0-2 /LPF (0-2); RBC Urine 0-2 /HPF (0-2); Squamous Epithelial Cell Urine 0-2 /HPF (0-2)
[2023-01-16 12:21] LABS: Alanine Aminotransferase 13 U/L (0-31); Albumin Level 4.2 g/dL (3.5-5.0); Alkaline Phosphatase 51 U/L (39-117); Anion Gap 14 (12-20); Aspartate Amino Transferase 19 U/L (5-31); Bilirubin Total 0.4 mg/dL (0.0-1.0); Blood Urea Nitrogen 27 mg/dL (9-16); Calcium 10.4 mg/dL (8.4-10.2); Carbon Dioxide 29 mmol/L (22-29); Chloride 101 mmol/L (96-108); Cholesterol 180 mg/dL; Estimated Glomerular Filt Rate 49; Glucose Fasting 164 mg/dL (60-99); HDL Cholesterol 34 mg/dL; LDL Cholesterol Calculated 94 mg/dl; Sodium 140 mmol/L (135-145); Total Protein 7.3 g/dL (6.5-8.0); Triglycerides 260 mg/dL
[2023-01-16 12:31] LABS: Albumin Level 4.2 g/dL (3.5-5.0); Anion Gap 14 (12-20); Blood Urea Nitrogen 27 mg/dL (9-16); Calcium 10.4 mg/dL (8.4-10.2); Carbon Dioxide 28 mmol/L (22-29); Chloride 102 mmol/L (96-108); Estimated Glomerular Filt Rate 50; Magnesium 1.7 mg/dL (1.6-2.6); Phosphorus 3.6 mg/dL (2.7-4.5); Sodium 140 mmol/L (135-145)
[2023-01-16 12:51] LABS: Vitamin D 25-OH Total 42.7 ng/mL (>30)
[2023-01-16 13:05] LABS: Creatinine Urine 147.17 mg/dL; Microalbum/Creatinine Ratio Ur 15.6 ug/mg cr; Protein/Creatinine Ratio, Ur 0.07 (<0.2); Total Protein Urine Random 10 mg/dL (<12)
[2023-01-19 13:28] LABS: Calcium (PTHI) 10.7 mg/dL (8.6-10.4); PTHI 20 pg/mL (16-77)
== END 2023-01-16 09:47 | disposition home or self-care (01) ==
LOC: HO.10HDL 09:46
PROVIDERS: Absent Provider Internal Medicine Geriatric Medicine; Visit Provider Internal Medicine Nephrology
DX: E11.59 Type 2 diabetes mellitus with other circulatory complications (principal); I12.9 Hypertensive chronic kidney disease with stage 1 through stage 4 chronic kidney disease, or unspecified chronic kidney disease; E11.22 Type 2 diabetes mellitus with diabetic chronic kidney disease; N18.31 Chronic kidney disease, stage 3a; R82.90 Unspecified abnormal findings in urine
CPT/HCPCS: 36415; 80051; 80053; 80061; 81001; 82040; 82043; 82306; 82310; 82565; 83735; 83970; 84100; 84156; 84520; 85025; 87086

== ENCOUNTER 2023-02-18 12:38 | Outpatient (REF) | payer OTHER, SELFPAY ==
--- NOTE | ~2023-02-18 | MM_ITS ---
EXAMINATION: MM SCREENING DIGITAL BREAST TOMOSYNTHESIS, BILATERAL CLINICAL INFORMATION: Screening. Asymptomatic. The lifetime risk of breast cancer based on the Tyrer-Cuzick Model is 1.5%. COMPARISON: Mammography: December 04, 2017 and studies dating back to May 23, 2013 TECHNIQUE: Digital breast tomosynthesis is performed in both the craniocaudal and mediolateral oblique views along with computer-aided detection (CAD). Synthesized 2D images are generated from the tomosynthesis. FINDINGS: The breasts are almost entirely fatty (ACR BI-RADS breast composition Category a). There are no significant masses, abnormal calcifications, or other abnormalities. MM/MM tomosynthesis screening BI IMPRESSION: No significant changes from prior exam. ASSESSMENT: BI-RADS 1: Negative RECOMMENDATION: Routine annual mammography screening. This patient's information was entered into a reminder system with a target due date for their next mammogram.
== END 2023-02-18 12:39 | disposition home or self-care (01) ==
LOC: HO.MAMMO 12:38
PROVIDERS: PCP Internal Medicine Geriatric Medicine; Visit Provider Internal Medicine Geriatric Medicine
DX: Z12.31 Encounter for screening mammogram for malignant neoplasm of breast (principal)
CPT/HCPCS: 77063; 77067

== ENCOUNTER 2023-02-19 11:05 | Outpatient (REF) | payer OTHER, SELFPAY ==
--- NOTE | ~2023-02-19 | US_ITS ---
EXAMINATION: US EXTRACRANIAL CAROTID DUPLEX, BILATERAL CLINICAL INFORMATION: History of left endarterectomy. COMPARISON: 12/16/2021. TECHNIQUE: Real-time ultrasound and Doppler techniques (integrating B-mode 2-D vascular images, Doppler spectral analysis and color-flow Doppler imaging) were utilized to interrogate the extracranial carotid arteries, the vertebral arteries and proximal subclavian arteries bilaterally. The degree of stenosis is determined by criteria similar to NASCET. FINDINGS: RIGHT SIDE: 1. There is mild atherosclerotic plaque seen in the bifurcation/proximal ICA region. 2. The common carotid artery PSV proximally is 81 cm/s and distally 70 cm/s. 3. The proximal internal carotid artery velocities are 62 cm/s systolic and 17 cm/s diastolic. 4. The proximal external carotid artery PSV is 110 cm/s. 5. The vertebral artery shows antegrade flow. 6. The subclavian artery waveforms are normal. LEFT SIDE: 1. There is minimal atherosclerotic plaque seen in the bifurcation/proximal ICA region. 2. The common carotid artery PSV proximally is 87 cm/s and distally 76 cm/s. 3. The proximal internal carotid artery velocities are 94 cm/s systolic. The diastolic velocity was not measured. 4. The proximal external carotid artery PSV is 174 cm/s. 5. The vertebral artery shows antegrade flow. 6. The subclavian artery waveforms are normal. US/US carotid duplex BI IMPRESSION: 1. RIGHT: Minimal, non-hemodynamically significant stenosis of the proximal right internal carotid artery corresponding to a 0-49% stenosis by velocity criteria. 2. LEFT: Minimal, non-hemodynamically significant stenosis of the proximal left internal carotid artery corresponding to a 0-49% stenosis by velocity criteria. 3. There is no change in the category severity of disease when compared to the previous study dated 12/16/2021.
== END 2023-02-19 11:06 | disposition home or self-care (01) ==
LOC: HO.US 11:05
PROVIDERS: PCP Internal Medicine Geriatric Medicine; Visit Provider Surgery Vascular Surgery
DX: I65.23 Occlusion and stenosis of bilateral carotid arteries (principal)
CPT/HCPCS: 93880

== ENCOUNTER → 2023-03-24 10:52 | Outpatient (BNVA) | payer OTHER, SELFPAY | PROVIDERS: PCP Internal Medicine Geriatric Medicine; Visit Provider Surgery Vascular Surgery | DX: I65.23 Occlusion and stenosis of bilateral carotid arteries (principal) | CPT/HCPCS: 99212 ==

== ENCOUNTER 2023-05-07 12:53 | Outpatient (REF) | payer OTHER, SELFPAY ==
[2023-05-07 16:13] LABS: MANUAL DIFF FLAG NO
[2023-05-07 16:27] LABS: Basophils Absolute Auto 0.1 X10*3/uL (0.0-0.2); Basophils Percent Auto 0.8 % (0-2); Eosinophils Absolute Auto 0.1 X10*3/uL (0.0-0.4); Eosinophils Percent Auto 1.5 % (0-4); Hematocrit 38.9 % (37.0-47.0); Hemoglobin 12.6 g/dl (12.0-16.0); Imm Gran Abs Auto 0.03 X10*3/uL (0.00-0.03); Imm Gran Pct Auto 0.4 % (0.0-0.4); Lymphocytes Absolute Auto 2.1 X10*3/uL (1.2-4.9); Lymphocytes Percent Auto 27.6 % (20-40); Mean Corpuscular HGB Conc 32.4 g/dl (31.0-35.0); Mean Corpuscular Hemoglobin 28.4 pg (27.0-33.0); Mean Corpuscular Volume 87.8 fL (80.0-98.0); Mean Platelet Volume 10.7 fL (9.4-12.3); Monocytes Absolute Auto 0.7 X10*3/uL (0.1-1.2); Monocytes Percent Auto 8.6 % (2-11); Neutrophils Absolute Auto 4.6 x10*3/uL (2.0-8.3); Neutrophils Percent Auto 61.1 % (45-73); Platelet Count 367 X10*3/uL (160-400); Red Blood Count 4.43 X10*6/uL (4.20-5.50); Red Cell Distribution Width 13.8 % (11.0-16.0); White Blood Count 7.6 X10*3/uL (4.8-10.8)
[2023-05-07 16:55] LABS: Estimated Average Glucose 157 mg/dL; Hemoglobin A1c % 7.1 %
[2023-05-07 17:00] LABS: Alanine Aminotransferase 14 U/L (0-31); Albumin Level 4.2 g/dL (3.5-5.0); Alkaline Phosphatase 55 U/L (39-117); Anion Gap 14 (12-20); Aspartate Amino Transferase 20 U/L (5-31); Bilirubin Total 0.3 mg/dL (0.0-1.0); Blood Urea Nitrogen 17 mg/dL (9-16); Calcium 10.9 mg/dL (8.4-10.2); Carbon Dioxide 28 mmol/L (22-29); Chloride 99 mmol/L (96-108); Estimated Glomerular Filt Rate 52; Glucose Random 194 mg/dL (60-115); Potassium 4.3 mmol/L (3.3-5.1); Sodium 137 mmol/L (135-145); Total Protein 8.1 g/dL (6.5-8.0)
[2023-05-07 17:07] LABS: TSH reflex Free T4 3.03 uIU/mL (0.32-4.0)
== END 2023-05-07 12:54 | disposition home or self-care (01) ==
LOC: HO.HHCL 12:53
PROVIDERS: Visit Provider Student in an Organized Health Care Education/Training Program
DX: R68.81 Early satiety (principal); E11.9 Type 2 diabetes mellitus without complications
CPT/HCPCS: 36415; 80053; 83036; 84443; 85025

== ENCOUNTER 2023-05-20 10:01 | Outpatient (AMB) | payer OTHER, SELFPAY ==
[2023-05-20 10:03] VITALS: BP 132/68; PULSE 65; O2SAT 98; BMI 31.2
--- NOTE | 2023-05-20 10:03 | MHC.OFFVIS ---
Intake Vital Signs 05/20/23 10:03 Height 4 ft 10 in Weight 149 lb 4.047 oz BMI 31.2 BP 132/68 Blood Pressure Location Rt brachial Position Sitting Pulse 65 Pulse Source Pulse Oximeter Pulse Oximetry (%) 98 Oxygen Delivery Method Room Air Intake Visit Reasons: OA Intake Note: Patient presents for follow up OA. Allergies Sulfa (Sulfonamide Antibiotics) [SULFA (SULFONAMIDE ANTIBIOTICS)] Allergy (Intermediate, Verified 05/20/23 10:07) RASH ciprofloxacin [CIPROFLOXACIN] Allergy (Unknown, Verified 05/20/23 10:07) PER H&P Medication List - Last Reconciled 05/20/23 by Norbert Schmidt MD acarbose 100 mg PO TID 90 days acetaminophen ER (Mapap Arthritis Pain) 650 mg PO BID PRN albuterol sulfate 90 mcg/actuation 2 puffs PO Q4-6H PRN amlodipine 10 mg PO DAILY aspirin (Adult Low Dose Aspirin) 81 mg PO DAILY atorvastatin 80 mg PO BEDTIME blood sugar diagnostic (FreeStyle Lite Strips) As directed buspirone 15 mg PO BID cholecalciferol (vitamin D3) 50 mcg PO DAILY 90 days clobetasol 0.05% grams topical clotrimazole 2% vaginal clotrimazole 1% appl topical BEDTIME diclofenac sodium 1% (Arthritis Pain (diclofenac)) 2 grams topical QID dulaglutide (Trulicity) 4.5 mg (0.5 mL) subcut QWEEK fenofibrate 54 mg PO DAILY gabapentin 300 mg PO BID hydroxyzine HCl 10 mg PO BEDTIME insulin degludec (Tresiba FlexTouch U-200 insulin) 50 units (0.25 mL) subcut BEDTIME 90 days ketoconazole 2% appl topical lactulose 15 mL PO DAILY lancets (FreeStyle Lancets) As directed lancets (TRUEplus Lancets) As directed lidocaine 5% PLACE 2 PATCHES TOPICALLY FOR UP TO 12 HOURS DAILY NEEDED FOR PAIN, THEN REMOVE FOR 12 HOURS lidocaine HCl 2% (Lidocaine Viscous) mL PO losartan-hydrochlorothiazide 100-25 mg 1 tab PO DAILY melatonin 3 mg PO BEDTIME metoprolol succinate ER 100 mg PO BID Novolog FlexPen U-100 Insulin (insulin aspart U-100) 10 - 12 units (0.1 - 0.12 mL) subcut TID 30 days NS omega-3 fatty acids 2,000 mg (2 x 1,000 mg) PO BID 90 days omeprazole 20 mg PO DAILY pen needle, diabetic (BD Yary 2nd Gen Pen Needle) 5 times a day tramadol 50 mg PO TID PRN HPI HPI Comments History of Present Illness Details The patient returns for evaluation of her osteoarthritis. Her daughter accompanies her and is translating for us. Patient has had longstanding back pain that radiates to the right buttock area. There is also pain in the knee. She gives a history of a childhood injury in the knee. The knee pain has worsened over the last 10 years. The daughter says there were thoughts about trying surgery but the patient was felt to be a high surgical risk. She did have an injection in the knee but that made the symptoms worse so she does not want to try that option again. She has also seen Pain Management. They were proposing some diagnostic injections but the patient decided against that as well. She currently is taking tramadol 50 t.i.d., gabapentin 300 b.i.d., and acetaminophen 650 t.i.d. if needed. Those measures are somewhat helpful. She denies any daytime sedation. [facility] Medical History CVA (cerebral vascular accident) Diabetes type 2, uncontrolled Diabetic nephropathy associated with type 2 diabetes mellitus Dyslipidemia GERD (gastroesophageal reflux disease) Hypertension [employer] (current) use of insulin Obesity (BMI 30-39.9) Osteoporosis Vitamin D deficiency Surgical History History of coronary angioplasty with insertion of stent History of esophagogastroduodenoscopy (EGD) Hx of cholecystectomy Hx of colonoscopy Hx of endarterectomy Hx of hysterectomy Family History Father Kidney disease Mother GI bleed Arthritis of knee HTN (hypertension) Social History Household Members: None Housing: Apartment Alcohol intake: never Patient Tobacco Use Status: Never used Tobacco Review of Systems Const Details: Some intentional weight loss recently. Negative for appetite change, fever, chills, malaise and fatigue Eyes Details: Negative for vision change, dry eyes,headaches and dizziness ENT Details: Negative for hearing change, tinnitus, oral ulcer, nose bleeds and oral dryness. Card Details: Negative chest pain, edema and syncope Resp Details: Negative for SOB, cough and wheezing GI Details: Negative indigestion/heartburn, nausea, abdominal pain, bowel changes, diarrhea, constipation and bloody stool. Skin/Breast Details: Negative for itching, rash, hives, Raynaud's symptoms, sun sensitivity, and skin cancer Endo Details: Negative for polyuria and polydypsia Haider/Lymph Details: Negative for excessive bruising or bleeding. Physical Exam Vital Signs: Last Vital Signs Pulse 65 05/20/23 10:03 BP 132/68 05/20/23 10:03 Pulse Ox 98 05/20/23 10:03 Oxygen Delivery Method Room Air 05/20/23 10:03 BMI result Body Mass Index 31.2 APPEARANCE: Patient in no acute distress EYES no redness, pupils equal and reactive to light, eyelids normal. No temporal artery tenderness, redness or swelling. EXTREMITIES: No edema, no calf tenderness, normal peripheral pulses. JOINT EXAM: Cervical Spine:? Full range of motion without pain; no tenderness. Thoracic Spine:? Scoliosis.? No tenderness on palpation. Lumbar Spine:? Pain with flexion and extension.? No tenderness to palpation over the lumbar spine.? Tenderness to palpation over the lumbar spinal muscles on the right. Hands: Normal pain-free range of motion without tenderness, swelling, increased warmth or erythema. 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 Wrists: Normal pain-free range of motion without tenderness, swelling, increased warmth or erythema. Elbows: Normal pain-free range of motion without tenderness, swelling, increased warmth or erythema. Shoulders:??LEFT:? Full range of motion, with slight tenderness to palpation over the AC joint. ? RIGHT: Full range of motion without pain. No tenderness, weakness, swelling, increased warmth or erythema. Hips:? Right: There is lumbar pain with the extremes of flexion, internal rotation, or external rotation. No groin pain with motion. Left: Full range of motion without pain. Hip bursa:? Mild bilateral trochanteric tenderness. Knees:? LEFT:?? Normal pain-free range of motion with mild patellofemoral crepitus. There is some slight medial tenderness without effusion, soft tissue swelling, increased warmth or erythema.? Right: There is mild patellofemoral crepitus and moderate pain with flexion more than 45 degrees. There is more pain with attempts at full extension or flexion beyond 90 degrees. There is moderate medial and slight lateral tenderness without redness, warmth or effusion.usion or crepitation Ankles: Normal pain-free range of motion without tenderness, swelling, increased warmth or erythema. Feet: Right: There is mild bony enlargement, mild hallux valgus deformity but no tenderness at the 1st MTP joint. Other joints have no pain-free range of motion without tenderness, swelling, increased warmth or erythema.? Left: There is mild hallux valgus deformity and bony enlargement tenderness at the 1st MTP joint. Second toe crosses over the great toe, slight erythema to the dorsum of the 2nd toe, no swelling or warmth. ? ? Results Reviewed Results Reviewed: [address] [address] XRay Report Signed Patient: Dori Calles MR#: [id number] : 1945 Acct:[id number] Age/Sex: 76 / F ADM Date: 04/22/[address]: Suyapa MCNULTY Ordering Physician: Suyapa Tavarez Date of Service: 04/22/22 Procedure(s): XR lumbar spine 6V w bending Accession Number(s): [id number] cc: Suyapa Tavarez~ EXAMINATION: XR LUMBOSACRAL SPINE WITH OBLIQUES CLINICAL INFORMATION: Spondylosis without myelopathy or radiculopathy.? COMPARISON: None? TECHNIQUE: AP, both oblique, and lateral views of the lumbar spine. Lateral view of the lumbosacral junction.? FINDINGS: There is mild dextroscoliosis of lumbar spine. There is loss of disc at virtually at every disc level with ventral spondylosis. No acute fracture or lytic process seen. There is no pars defect or listhesis. There is bilateral mild facet joint arthropathy. The paravertebral soft tissues are normal. SI joints are normal. There is a likely small bone island right sacrum.? XR/XR lumbar spine 6V w bending IMPRESSION: Mild dextroscoliosis mid lumbar spine with degenerative disc changes and spondylosis virtually at every disc level. No visible acute fracture or dislocation seen. No lytic or sclerotic process seen. Dictated By: Jose Juan Reed MD Assessment & Plan Assessment & Plan (1) Osteoarthritis of knees, bilateral: Comment: much worse on the right Code(s): M17.0 - Bilateral primary osteoarthritis of knee (2) Lumbar spondylosis: Code(s): M47.816 - Spondylosis without myelopathy or radiculopathy, lumbar region Plan The patient has osteoarthritis in the right knee and possibly some in the left as well. The right knee is more symptomatic. Treatment options with corticosteroid injection were tried but not helpful. She does not want to go for physical therapy and she was told that surgery would be too risky. For the lower back pain that radiates to the buttock that also seems like it is due to osteoarthritis. She had gone to Pain Management. They wanted to do a diagnostic injection but she declined. I told him that would be her remaining option to try to pursue something with them. I do not have any additional options to treatment outside of physical therapy which she is not interested in for now. She will follow-up in the future if need be and continue with her medicines to her primary doctor. Coding Level of Care Code Est Pt Level 3 (87483) Diagnoses Osteoarthritis of knees, bilateral M17.0 Lumbar spondylosis M47.816
== END 2023-05-20 11:03 | disposition home or self-care (01) ==
PROVIDERS: PCP Internal Medicine Geriatric Medicine; Visit Provider Internal Medicine Rheumatology
DX: M17.0 Bilateral primary osteoarthritis of knee (principal); M47.816 Spondylosis without myelopathy or radiculopathy, lumbar region
CPT/HCPCS: 99213

== ENCOUNTER → 2023-05-20 10:01 | Outpatient (BNVA) | payer OTHER, SELFPAY | PROVIDERS: Visit Provider Internal Medicine Rheumatology | DX: M17.0 Bilateral primary osteoarthritis of knee (principal); M47.816 Spondylosis without myelopathy or radiculopathy, lumbar region | CPT/HCPCS: 99212 ==

== ENCOUNTER 2023-09-23 08:53 | Outpatient (REF) | payer OTHER, SELFPAY ==
[2023-09-23 09:21] LABS: MANUAL DIFF FLAG NO
[2023-09-23 09:54] LABS: Basophils Percent Auto 0.6 % (0-2); Eosinophils Absolute Auto 0.3 X10*3/uL (0.0-0.4); Eosinophils Percent Auto 4.2 % (0-4); Hematocrit 35.8 % (37.0-47.0); Hemoglobin 11.7 g/dl (12.0-16.0); Imm Gran Abs Auto 0.03 X10*3/uL (0.00-0.03); Imm Gran Pct Auto 0.4 % (0.0-0.4); Lymphocytes Absolute Auto 2.7 X10*3/uL (1.2-4.9); Lymphocytes Percent Auto 38.6 % (20-40); Mean Corpuscular HGB Conc 32.7 g/dl (31.0-35.0); Mean Corpuscular Hemoglobin 28.2 pg (27.0-33.0); Mean Corpuscular Volume 86.3 fL (80.0-98.0); Mean Platelet Volume 9.9 fL (9.4-12.3); Monocytes Absolute Auto 0.7 X10*3/uL (0.1-1.2); Monocytes Percent Auto 10.3 % (2-11); Neutrophils Absolute Auto 3.1 x10*3/uL (2.0-8.3); Neutrophils Percent Auto 45.9 % (45-73); Platelet Count 354 X10*3/uL (160-400); Red Blood Count 4.15 X10*6/uL (4.20-5.50); Red Cell Distribution Width 13.9 % (11.0-16.0); White Blood Count 6.9 X10*3/uL (4.8-10.8)
[2023-09-23 10:39] LABS: Estimated Average Glucose 166 mg/dL; Hemoglobin A1c % 7.4 % (<6.0)
[2023-09-23 10:41] LABS: Alanine Aminotransferase 11 U/L (0-31); Albumin Level 3.8 g/dL (3.5-5.0); Alkaline Phosphatase 46 U/L (39-117); Anion Gap 14 (12-20); Aspartate Amino Transferase 18 U/L (5-31); Bilirubin Total 0.2 mg/dL (0.0-1.0); Blood Urea Nitrogen 16 mg/dL (9-16); Calcium 10.2 mg/dL (8.4-10.2); Carbon Dioxide 27 mmol/L (22-29); Chloride 101 mmol/L (96-108); Estimated Glomerular Filt Rate 59; Glucose Random 102 mg/dL (60-115); Potassium 3.8 mmol/L (3.3-5.1); Sodium 138 mmol/L (135-145); Total Protein 7.4 g/dL (6.5-8.0)
[2023-09-23 10:58] LABS: TSH reflex Free T4 1.99 uIU/mL (0.32-4.0)
== END 2023-09-23 08:54 | disposition home or self-care (01) ==
LOC: HO.LAB 08:53
PROVIDERS: PCP Internal Medicine Geriatric Medicine; Visit Provider Student in an Organized Health Care Education/Training Program
DX: R68.81 Early satiety (principal); E11.9 Type 2 diabetes mellitus without complications
CPT/HCPCS: 36415; 80053; 83036; 84443; 85025

== ENCOUNTER 2024-02-08 07:32 | Outpatient (REF) | payer OTHER, SELFPAY ==
[2024-02-08 10:49] LABS: MANUAL DIFF FLAG NO
[2024-02-08 11:04] LABS: Appearance Urine Clear; Color Urine Yellow; Glucose Urine UA Negative (Negative); Leukocyte Esterase Urine Negative (Negative); Nitrite Urine Negative (Negative); Specific Gravity - Urine 1.015 (1.005-1.025); UMIC TRIGGER UA YES; Urine Blood Trace (Negative); Urine Ketones Negative (Negative); Urine Protein Negative (Neg-Trace)
[2024-02-08 11:07] LABS: Bacteria Urine None Seen (None Seen); Hyaline Casts Urine 0-2 /LPF (0-2); RBC Urine 0-2 /HPF (0-2); Squamous Epithelial Cell Urine 0-2 /HPF (0-2); WBC Urine 0-5 /HPF (0-5)
[2024-02-08 11:13] LABS: Basophils Absolute Auto 0.1 X10*3/uL (0.0-0.2); Basophils Percent Auto 0.7 % (0-2); Eosinophils Absolute Auto 0.2 X10*3/uL (0.0-0.4); Eosinophils Percent Auto 3.1 % (0-4); Hematocrit 36.8 % (37.0-47.0); Hemoglobin 12.3 g/dl (12.0-16.0); Imm Gran Abs Auto 0.03 X10*3/uL (0.00-0.03); Imm Gran Pct Auto 0.4 % (0.0-0.4); Lymphocytes Absolute Auto 2.1 X10*3/uL (1.2-4.9); Lymphocytes Percent Auto 29.8 % (20-40); Mean Corpuscular HGB Conc 33.4 g/dl (31.0-35.0); Mean Corpuscular Hemoglobin 28.3 pg (27.0-33.0); Mean Corpuscular Volume 84.8 fL (80.0-98.0); Mean Platelet Volume 9.8 fL (9.4-12.3); Monocytes Absolute Auto 0.8 X10*3/uL (0.1-1.2); Monocytes Percent Auto 11.9 % (2-11); Neutrophils Absolute Auto 3.8 x10*3/uL (2.0-8.3); Neutrophils Percent Auto 54.1 % (45-73); Platelet Count 339 X10*3/uL (160-400); Red Blood Count 4.34 X10*6/uL (4.20-5.50); Red Cell Distribution Width 13.7 % (11.0-16.0); White Blood Count 7.1 X10*3/uL (4.8-10.8)
[2024-02-08 11:15] LABS: Creatinine Urine 84.83 mg/dL; Microalbum/Creatinine Ratio Ur 43.6 ug/mg cr (<30); Protein/Creatinine Ratio, Ur 0.14 (<0.2); Total Protein Urine Random 12 mg/dL (<12)
[2024-02-08 11:18] LABS: Anion Gap 11 (12-20); Blood Urea Nitrogen 20 mg/dL (9-16); Calcium 10.1 mg/dL (8.4-10.2); Carbon Dioxide 27 mmol/L (22-29); Chloride 101 mmol/L (96-108); Estimated Glomerular Filt Rate 60; Magnesium 1.8 mg/dL (1.6-2.6); Potassium 3.3 mmol/L (3.3-5.1); Sodium 136 mmol/L (135-145)
[2024-02-08 11:23] LABS: Parathyroid Hormone Intact 55.9 pg/mL (8.7-77.1)
[2024-02-08 11:35] LABS: Vitamin D 25-OH Total 32.3 ng/mL (>30)
== END 2024-02-08 07:33 | disposition home or self-care (01) ==
LOC: HO.10HDL 07:32
PROVIDERS: Visit Provider Internal Medicine Nephrology
DX: I12.9 Hypertensive chronic kidney disease with stage 1 through stage 4 chronic kidney disease, or unspecified chronic kidney disease (principal); E11.22 Type 2 diabetes mellitus with diabetic chronic kidney disease; N18.31 Chronic kidney disease, stage 3a; R82.90 Unspecified abnormal findings in urine
CPT/HCPCS: 36415; 80051; 81001; 82040; 82043; 82306; 82310; 82565; 82570; 83735; 83970; 84100; 84156; 84520; 85025; 87086

== ENCOUNTER 2024-02-24 13:10 | Outpatient (REF) | payer OTHER, SELFPAY ==
--- NOTE | ~2024-02-24 | MM_ITS ---
EXAMINATION: MM SCREENING DIGITAL BREAST TOMOSYNTHESIS, BILATERAL CLINICAL INFORMATION: Screening. Asymptomatic. COMPARISON: Mammography: This study is compared with prior exams dating back to 2017. TECHNIQUE: Digital breast tomosynthesis is performed in both the craniocaudal and mediolateral oblique views along with computer-aided detection (CAD). Synthesized 2D images are generated from the tomosynthesis. FINDINGS: There are scattered areas of fibroglandular density (ACR BI-RADS breast composition Category b). There are no significant masses, abnormal calcifications, or other abnormalities. Scattered benign calcifications are present in each breast. MM/MM tomosynthesis screening BI IMPRESSION: No mammographic evidence of malignancy. ASSESSMENT: BI-RADS BI-RADS 2 - Benign Findings RECOMMENDATION: Routine annual mammography screening. 1 year F/U This examination should not preclude the clinical evaluation of a suspicious palpable abnormality. This patient's information was entered into a reminder system with a target due date for their next mammogram.
== END 2024-02-24 13:11 | disposition home or self-care (01) ==
LOC: HO.MAMMO 13:10
PROVIDERS: PCP Internal Medicine Geriatric Medicine; Visit Provider Internal Medicine Geriatric Medicine
DX: Z12.31 Encounter for screening mammogram for malignant neoplasm of breast (principal)
CPT/HCPCS: 77063; 77067

== ENCOUNTER → 2024-02-24 13:30 | Outpatient (BNV) | payer OTHER, SELFPAY | PROVIDERS: PCP Internal Medicine Geriatric Medicine; Visit Provider Radiology Diagnostic Radiology | DX: Z12.31 Encounter for screening mammogram for malignant neoplasm of breast (principal) | CPT/HCPCS: 77063; 77067 ==

== ENCOUNTER 2024-03-23 10:52 | Outpatient (REF) | payer OTHER, SELFPAY ==
--- NOTE | ~2024-03-23 | US_ITS ---
EXAMINATION: US EXTRACRANIAL CAROTID DUPLEX, BILATERAL CLINICAL INFORMATION: Bilateral carotid artery stenosis status post left endarterectomy. COMPARISON: Carotid ultrasound 02/19/2023. TECHNIQUE: Real-time ultrasound and Doppler techniques (integrating B-mode 2-D vascular images, Doppler spectral analysis and color-flow Doppler imaging) were utilized to interrogate the extracranial carotid arteries, the vertebral arteries and proximal subclavian arteries bilaterally. The degree of stenosis is determined by criteria similar to NASCET. FINDINGS: Right Side: 1. There is moderate atherosclerotic plaque seen in the bifurcation/proximal ICA region. 2. The common carotid artery PSV proximally is 74 cm/s and distally 71 cm/s. 3. The proximal internal carotid artery velocities are 70 cm/s systolic and 13 cm/s diastolic. 4. The proximal external carotid artery PSV is 94 cm/s. 5. The vertebral artery shows antegrade flow. 6. The subclavian artery waveforms are normal. Left Side: 1. There is minimal atherosclerotic plaque seen in the bifurcation/proximal ICA region. Postoperative changes are seen. 2. The common carotid artery PSV proximally is 86 cm/s and distally 71 cm/s. 3. The proximal internal carotid artery velocities are 98 cm/s systolic and 17 cm/s diastolic. 4. The proximal external carotid artery PSV is 147 cm/s. 5. The vertebral artery shows antegrade flow. 6. The subclavian artery waveforms are normal. US/US carotid duplex BI IMPRESSION: 1. RIGHT: Minimal, non-hemodynamically significant stenosis of the proximal right internal carotid artery corresponding to a 0-49% stenosis by velocity criteria. 2. LEFT: Minimal, non-hemodynamically significant stenosis of the proximal left internal carotid artery corresponding to a 0-49% stenosis by velocity criteria. 3. There is no change in the category severity of disease when compared to the previous study dated 02/19/2023.
== END 2024-03-23 10:53 | disposition home or self-care (01) ==
LOC: HO.US 10:52
PROVIDERS: PCP Internal Medicine Geriatric Medicine; Visit Provider Surgery Vascular Surgery
DX: I65.23 Occlusion and stenosis of bilateral carotid arteries (principal)
CPT/HCPCS: 93880

== ENCOUNTER 2024-03-29 10:52 | Outpatient (AMB) | payer OTHER, SELFPAY ==
--- NOTE | 2024-03-29 10:58 | A.OFFVIS_ITS ---
Intake Visit Reasons: Follow Up 03/23 carotid US Intake Note: Patient presents for follow up 03/23 Carotid US. Patient has no complaints. Allergies Sulfa (Sulfonamide Antibiotics) [SULFA (SULFONAMIDE ANTIBIOTICS)] Allergy (Intermediate, Verified 05/20/23 10:07) RASH ciprofloxacin [CIPROFLOXACIN] Allergy (Unknown, Verified 05/20/23 10:07) PER H&P HPI HPI Follow Up 03/23 carotid US: Details: Very pleasant 78-year-old female presents for routine surveillance follow-up regarding her carotids. She had carotid endarterectomy performed nearly 5 years ago. She reports she is doing relatively well. Of note she is being maintained on high-dose statin and aspirin. She now presents for routine ultrasound surveillance follow-up. [facility] Medical History CVA (cerebral vascular accident) Diabetes type 2, uncontrolled Diabetic nephropathy associated with type 2 diabetes mellitus Dyslipidemia GERD (gastroesophageal reflux disease) Hypertension [facility] (current) use of insulin Obesity (BMI 30-39.9) Osteoporosis Vitamin D deficiency Surgical History History of coronary angioplasty with insertion of stent History of esophagogastroduodenoscopy (EGD) Hx of cholecystectomy Hx of colonoscopy Hx of endarterectomy Hx of hysterectomy Family History Father Kidney disease Mother GI bleed Arthritis of knee HTN (hypertension) Social History Household Members: None Housing: Apartment Alcohol intake: never Patient Tobacco Use Status: Never used Tobacco Review of Systems Const All systems reviewed & are unremarkable except as noted in HPI and below Reports no additional complaints ENT Reports Normal hearing present Card Denies chest pain, Denies chest pain at rest, Denies chest pain with activity and Denies pedal edema Resp Denies cough GI Denies abdominal pain Musc Denies abnormal gait, Denies muscle cramps and Denies radiating pain into limb Skin/Breast Denies skin ulcer and Denies wounds Neuro Reports Normal hearing present and Denies abnormal gait Psych Reports no additional complaints Physical Exam Const General: cooperative, healthy appearing and comfortable Orientation/consciousness: oriented to person, oriented to place and oriented to time HEENT Head: Yes normal to inspection Neck Neck: Yes normal visual inspection Carotids: no bruits Chest Chest palpation & inspection: normal inspection of the chest Resp Effort & Inspection: normal respiratory effort and able to speak in complete sentences Auscultation: clear to auscultation bilaterally, no crackles, no rales, no rhonchi and no wheezes Cardio Rate: regular rate Rhythm: regular rhythm Heart sounds: S1 normal heart sound present and S2 normal heart sound present Bruits: no carotid bruits Peripheral pulses: Peripheral pulses 2+ throughout GI Inspection: Yes normal to inspection Skin Wounds: no wounds Hair: normal Neuro General: oriented to person, oriented to place and oriented to time Cranial nerves: Yes CN's II-XII intact bilaterally and Yes Normal hearing present Cognition (Neuro): normal cognition Motor exam (neuro): 5/5 motor strength present throughout Extrem Other: venous exam: No significant superficial varicosities or spider telangi ectasias, minimal edema General: No clubbing, No cyanosis and No edema Psych Appearance: grossly normal Mental Status: mental status grossly normal Speech and movement: Normal speech and movement present Results Reviewed Results Reviewed: Carotid ultrasound dated 03/23/2024 demonstrates bilateral 0-49% stenosis with right peak systolic of 70 and left peak systolic of 98. Written report and images were reviewed. Assessment & Plan Assessment & Plan (1) Carotid stenosis, bilateral: Comment: 02/03/2018 - Left carotid endarterectomy Code(s): I65.23 - Occlusion and stenosis of bilateral carotid arteries Category: Medical Plan: In short patient has asymptomatic carotid disease. We have reviewed signs and symptoms of a stroke. We also discussed risk factor modification inclusive a healthy diet low in cholesterol. The patient will follow up with us with surveillance ultrasound of the carotids 1 year. Should there be any changes or signs or symptoms of a stroke we will be happy to see them back sooner. Thank you for allowing us to participate in this patient's care. If there are any questions or concerns please do not hesitate to contact us. Orders: Orders US carotid duplex BI 1 Year I65.23 - Occlusion and stenosis of bilateral carotid arteries Coding Level of Care Code Est Pt Level 4 (48053) Diagnoses Carotid stenosis, bilateral I65.23
== END 2024-03-29 11:29 | disposition home or self-care (01) ==
PROVIDERS: PCP Internal Medicine Geriatric Medicine; Visit Provider Surgery Vascular Surgery
DX: I65.23 Occlusion and stenosis of bilateral carotid arteries (principal)
CPT/HCPCS: 99213

== ENCOUNTER → 2024-03-29 10:52 | Outpatient (BNVA) | payer OTHER, SELFPAY | PROVIDERS: PCP Internal Medicine Geriatric Medicine; Visit Provider Surgery Vascular Surgery | DX: I65.23 Occlusion and stenosis of bilateral carotid arteries (principal); Z95.5 Presence of coronary angioplasty implant and graft; Z98.890 Other specified postprocedural states | CPT/HCPCS: 99212 ==

== ENCOUNTER 2024-05-16 08:49 | Outpatient (REF) | payer OTHER, SELFPAY ==
[2024-05-16 09:10] LABS: MANUAL DIFF FLAG NO
[2024-05-16 09:22] LABS: Basophils Absolute Auto 0.1 X10*3/uL (0.0-0.2); Basophils Percent Auto 0.9 % (0-2); Eosinophils Absolute Auto 0.4 X10*3/uL (0.0-0.4); Eosinophils Percent Auto 5.3 % (0-4); Hematocrit 35.6 % (37.0-47.0); Hemoglobin 11.9 g/dl (12.0-16.0); Imm Gran Abs Auto 0.04 X10*3/uL (0.00-0.03); Imm Gran Pct Auto 0.5 % (0.0-0.4); Lymphocytes Absolute Auto 2.1 X10*3/uL (1.2-4.9); Lymphocytes Percent Auto 27.1 % (20-40); Mean Corpuscular HGB Conc 33.4 g/dl (31.0-35.0); Mean Corpuscular Hemoglobin 28.9 pg (27.0-33.0); Mean Corpuscular Volume 86.4 fL (80.0-98.0); Mean Platelet Volume 9.3 fL (9.4-12.3); Monocytes Absolute Auto 0.9 X10*3/uL (0.1-1.2); Monocytes Percent Auto 11.1 % (2-11); Neutrophils Absolute Auto 4.2 x10*3/uL (2.0-8.3); Neutrophils Percent Auto 55.1 % (45-73); Platelet Count 334 X10*3/uL (160-400); Red Blood Count 4.12 X10*6/uL (4.20-5.50); Red Cell Distribution Width 14.6 % (11.0-16.0); White Blood Count 7.7 X10*3/uL (4.8-10.8)
[2024-05-16 09:48] LABS: Estimated Average Glucose 151 mg/dL; Hemoglobin A1c % 6.9 % (<6.0)
[2024-05-16 10:04] LABS: Alanine Aminotransferase 14 U/L (0-31); Albumin Level 3.9 g/dL (3.5-5.0); Alkaline Phosphatase 43 U/L (39-117); Anion Gap 13 (12-20); Aspartate Amino Transferase 17 U/L (5-31); Bilirubin Total 0.2 mg/dL (0.0-1.0); Blood Urea Nitrogen 20 mg/dL (9-16); Calcium 10.3 mg/dL (8.4-10.2); Carbon Dioxide 26 mmol/L (22-29); Chloride 103 mmol/L (96-108); Cholesterol 126 mg/dL (<200); Estimated Glomerular Filt Rate > 60; Glucose Random 111 mg/dL (60-115); HDL Cholesterol 32 mg/dL (>40); LDL Cholesterol Calculated 49 mg/dL (<100); Potassium 3.6 mmol/L (3.3-5.1); Sodium 138 mmol/L (135-145); Total Protein 6.9 g/dL (6.5-8.0); Triglycerides 229 mg/dL (<150)
[2024-05-16 10:53] LABS: Creatinine Urine 80.24 mg/dL; Microalbum/Creatinine Ratio Ur 21.1 ug/mg cr (<30)
== END 2024-05-16 08:50 | disposition home or self-care (01) ==
LOC: HO.LAB 08:49
PROVIDERS: PCP Internal Medicine Geriatric Medicine; Visit Provider Internal Medicine Geriatric Medicine
DX: I12.9 Hypertensive chronic kidney disease with stage 1 through stage 4 chronic kidney disease, or unspecified chronic kidney disease (principal); E11.22 Type 2 diabetes mellitus with diabetic chronic kidney disease; N18.30 Chronic kidney disease, stage 3 unspecified; E11.59 Type 2 diabetes mellitus with other circulatory complications; I77.9 Disorder of arteries and arterioles, unspecified; Z79.4 Long term (current) use of insulin
CPT/HCPCS: 36415; 80053; 80061; 82043; 82570; 83036; 85025

== ENCOUNTER 2024-08-10 12:40 | Outpatient (AMB) | payer OTHER, SELFPAY ==
--- NOTE | 2024-08-10 12:56 | MHC.OFFVIS ---
Vital Signs 08/10/24 13:01 Height 4 ft 10 in Weight 149 lb 7.574 oz BMI 31.2 BP 112/60 Blood Pressure Location Rt brachial Position Sitting Pulse 64 Pulse Source Pulse Oximeter Pulse Oximetry (%) 94 Oxygen Delivery Method Room Air Intake Visit Reasons: OA Intake Note: Patient presents for OA. 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 Polisher Services: Chopping Machine Operator Offered & Declined Chopping Machine Operator Name: Lizeth Jara Information Interpreted: non-clinical & clinical Accompanied by: Daughter Allergies Sulfa (Sulfonamide Antibiotics) [SULFA (SULFONAMIDE ANTIBIOTICS)] Allergy (Intermediate, Verified 08/10/24 13:01) RASH ciprofloxacin [CIPROFLOXACIN] Allergy (Unknown, Verified 08/10/24 13:01) PER H&P Medication List - Last Reconciled 08/10/24 by Buster Hoang MD acarbose 100 mg PO TID 90 days acetaminophen ER (Mapap Arthritis Pain) 650 mg PO BID PRN albuterol sulfate 90 mcg/actuation 2 puffs PO Q4-6H PRN amlodipine 10 mg PO DAILY aspirin (Adult Low Dose Aspirin) 81 mg PO DAILY atorvastatin 80 mg PO BEDTIME blood sugar diagnostic (FreeStyle Lite Strips) As directed buspirone 15 mg PO BID cholecalciferol (vitamin D3) 50 mcg PO DAILY 90 days clobetasol 0.05% grams topical clotrimazole 2% vaginal clotrimazole 1% appl topical BEDTIME diclofenac sodium 1% (Arthritis Pain (diclofenac)) 2 grams topical QID dulaglutide (Trulicity) 4.5 mg (0.5 mL) subcut QWEEK fenofibrate 54 mg PO DAILY gabapentin 300 mg PO BID hydroxyzine HCl 10 mg PO BEDTIME insulin degludec (Tresiba FlexTouch U-200 insulin) 50 units (0.25 mL) subcut BEDTIME 90 days ketoconazole 2% appl topical lactulose 15 mL PO DAILY lancets (FreeStyle Lancets) As directed lancets (TRUEplus Lancets) As directed lidocaine 5% PLACE 2 PATCHES TOPICALLY FOR UP TO 12 HOURS DAILY NEEDED FOR PAIN, THEN REMOVE FOR 12 HOURS lidocaine HCl 2% (Lidocaine Viscous) mL PO losartan-hydrochlorothiazide 100-25 mg 1 tab PO DAILY melatonin 3 mg PO BEDTIME metoprolol succinate ER 100 mg PO BID Novolog FlexPen U-100 Insulin (insulin aspart U-100) 10 - 12 units (0.1 - 0.12 mL) subcut TID 30 days NS omega-3 fatty acids 2,000 mg (2 x 1,000 mg) PO BID 90 days omeprazole 20 mg PO DAILY pen needle, diabetic (BD Yary 2nd Gen Pen Needle) 5 times a day tramadol 50 mg PO TID PRN HPI Comments Details: This is an 79-year-old female with fibromyalgia and osteoarthritis who presents for follow-up. She was last seen by Dr. Schmidt 05/2023. She states that she has generalized osteoarthritis and gets injections in her shoulders, bilateral trochanteric bursae and knees every 4 months or so by [facility]. With regards to her back pain she was told that her back pain is likely muscular and no injection could be done. Patient was evaluated by pain management in 04/2022 and a diagnostic procedure was suggested but patient did not want to proceed with it. She states that she is here requesting gabapentin refill as no other provider was giving her that. She states that gabapentin does help. She takes it twice a day. The pain gets much worse if she does not take it. COUNT INCLUDES THE [facility] Medical History Osteoporosis GERD (gastroesophageal reflux disease) CVA (cerebral vascular accident) Vitamin D deficiency Diabetes type 2, uncontrolled Obesity (BMI 30-39.9) Hypertension Dyslipidemia [facility] (current) use of insulin Diabetic nephropathy associated with type 2 diabetes mellitus Surgical History History of esophagogastroduodenoscopy (EGD) Hx of cholecystectomy Hx of hysterectomy Hx of endarterectomy Hx of colonoscopy History of coronary angioplasty with insertion of stent Family History Father Kidney disease Mother GI bleed Arthritis of knee HTN (hypertension) Social History Household Members: None Housing: Apartment Alcohol intake: never Patient Tobacco Use Status: Never used Tobacco Review of Systems Const Reports weakness Musc Reports back pain, Reports arthralgias, Reports limited range of motion and Reports radiating pain into limb Neuro Reports weakness Physical Exam Vital Signs: Last Vital Signs Pulse 64 08/10/24 13:01 BP 112/60 08/10/24 13:01 Pulse Ox 94 08/10/24 13:01 Oxygen Delivery Method Room Air 08/10/24 13:01 BMI result Body Mass Index 31.2 Const General: cooperative, healthy appearing and comfortable Nutritional Appearance: obese Orientation/consciousness: patient oriented x3 Limitations: ambulation with walker HEENT Head: Yes normocephalic and Yes atraumatic Mouth: moist mucous membranes Resp Effort & Inspection: normal respiratory effort and able to speak in complete sentences Skin General skin exam: no rashes or lesions noted Neuro General: patient oriented x3 Extrem Other: No active synovitis Normal range of motion of shoulders No knee pain with flexion-extension bilaterally right knee pain with full flexion and extension No knee swelling or warmth bilaterally Negative straight leg raise test bilaterally Few fibromyalgia tender points Assessment & Plan Assessment & Plan (1) Lumbar spondylosis: Code(s): M47.816 - Spondylosis without myelopathy or radiculopathy, lumbar region Category: Medical Plan: This is an 79-year-old female with generalized osteoarthritis and fibromyalgia who presents for follow-up. She states that she is running out of gabapentin and needs refill. States that gabapentin has helped her pain without any side effects. Patient follows up regularly with [facility] and she was told that her back pain is likely muscular and injections would not be helpful. Patient was evaluated by pain management here at [facility] 2 years ago and a diagnostic procedure was suggested and patient did not want to proceed with it. Gabapentin refilled. Referred patient back to pain management (2) Osteoarthritis of knees, bilateral: Comment: much worse on the right Code(s): M17.0 - Bilateral primary osteoarthritis of knee Category: Medical Plan: Gets injections in both knees approximately every 4 months. Follow-up with [facility] Plan I spent 30 minutes reviewing patient's chart, evaluating patient, counseling patient and documenting in the chart Orders: Referrals Pain Management Referral M47.816 - Spondylosis without myelopathy or radiculopathy, lumbar region Coding Level of Care Code Est Pt Level 3 (38270) Diagnoses Lumbar spondylosis M47.816 Osteoarthritis of knees, bilateral M17.0
[2024-08-10 13:01] VITALS: BP 112/60; PULSE 64; O2SAT 94; BMI 31.2
== END 2024-08-10 13:20 | disposition home or self-care (01) ==
PROVIDERS: PCP Internal Medicine Geriatric Medicine; Visit Provider Student in an Organized Health Care Education/Training Program
DX: M47.816 Spondylosis without myelopathy or radiculopathy, lumbar region (principal); M17.0 Bilateral primary osteoarthritis of knee
CPT/HCPCS: 99213

== ENCOUNTER → 2024-08-10 12:40 | Outpatient (BNVA) | payer OTHER, SELFPAY | PROVIDERS: PCP Internal Medicine Geriatric Medicine; Visit Provider Student in an Organized Health Care Education/Training Program | DX: M47.816 Spondylosis without myelopathy or radiculopathy, lumbar region (principal); M17.0 Bilateral primary osteoarthritis of knee | CPT/HCPCS: 99212 ==

== ENCOUNTER 2024-08-30 11:10 | Outpatient (AMB) | payer OTHER, SELFPAY ==
--- NOTE | 2024-08-30 11:17 | MHC.OFFVIS ---
Vital Signs 08/30/24 11:25 Height 4 ft 10 in Weight 149 lb 2 oz BMI 31.2 BP 171/76 H Blood Pressure Location Lt brachial Position Sitting Pulse 69 Pulse Source Pulse Oximeter Pulse Oximetry (%) 97 Oxygen Delivery Method Room Air Intake Visit Reasons: Spondylosis without myelopathy or radiculopathy Intake Note: Pain today 05/28 Carbon Paste Mixer Operator Required: Yes Carbon Paste Mixer Operator Language: Gun Club Manager Services: Carbon Paste Mixer Operator Offered & Declined Carbon Paste Mixer Operator Name: Daughters Accompanied by: Daughter Allergies Sulfa (Sulfonamide Antibiotics) [SULFA (SULFONAMIDE ANTIBIOTICS)] Allergy (Intermediate, Verified 08/30/24 11:27) RASH ciprofloxacin [CIPROFLOXACIN] Allergy (Unknown, Verified 08/30/24 11:27) PER H&P HPI Comments Details: Patient presents today for follow-up for chronic low back pain. director of home health services was declined by patient as she requests her daughter to assist with translation today. She was last seen in our office in 05/07/2022 with plans for diagnostic lumbar medial branch blocks for axial low back pain. Patient denies any recent trauma, injury, or falls. She reports back pain that is mostly axial but also periodically radiates into her left groin and thigh with walking. Patient also suffers from significant right knee pain due to advanced osteoarthritis and was attempted knee surgery at [facility] but could not go through the surgery per family. SLR testing is negative on exam today. Back pain is significantly aggravated with axial rotations and extension. Patient is interested to proceed with diagnostic lumbar medial branch blocks for potential RFA procedure. Denies any fever or chills, burning, numbness or tingling, bladder or bowel dysfunction or saddle anesthesia. PRIOR 04/28/22: Patient presents today via telehealth encounter to discuss lumbar spine xray results. Her daughter Lizeth is present during today's visit to assist with translation per patient's request. Patient continues to reports axial, non-radiating low back pain worsened with back extension and every movement. Her lumbar spine xray showed mild dextroscoliosis mid lumbar spine with degenerative disc changes and spondylosis virtually at every disc level.?We discussed diagnostic lumbar MBBs for potential RFA vs temporary peripheral nerve stimulation with SPRINT device. She was provided with pamphlets at previous visit. Patient cannot tolerate physical therapy due to significant pain. She takes daily Plavix and aspirin. We will obtain clearance from Dr. Thompson to hold medications for 7 days prior to diagnostic lumbar injections. Patient denies any fever, chills, malaise, abdominal or groin pain, numbness, tingling, bladder/bowel dysfunction or saddle anesthesia. PRIOR: Patient is a pleasant 76 years old Indonesian speaking female who presents today for evaluation of chronic and multiple pain generators, including left shoulder, right knee, bilateral hip and axial non radiating lower back pain. Her most concerning pain is lower back pain. She reports her pain is aggravated by any movement, walking, standing, sitting and climbing stairs. Patient is followed by rheumatology for multiple joint pain and orthopedic services for shoulder, knee and hip pain. Patient denies previous back surgery and was told she is not a surgical candidate due to significant cardiac comorbidities. She has right hip pain with internal and external rotations. Patient denies any fever, chills, abdominal or groin pain, numbness, tingling, bladder/bowel dysfunction or saddle anesthesia. She reports intermittent weakness. Ambulates with slow antalgic gait with assistance of a cane. Previously she has tried cortisone injections in her left shoulder, right knee and left hip with good results. Right total knee replacement was attempted twice in 2014, but the patient became sick and currently cannot undergo surgery due to multiple comorbidities. She has cardiac stents, previous left carotid endarterectomy in 2018 and CVA in 2018. Patient follows Dr. Thompson for routine surveillance follow-up regarding her carotid stenosis and has been asymptomatic. She takes Plavix and aspirin daily. Patient reports she is scheduled for endoscopy with Dr. Madsen with sedation next month. Patient tries to manage her pain with tramadol, gabapentin and Tylenol but has continued symptoms which limits her ADL?s, affects her mobility, sleep, mood and quality of life. She denies previous physical therapy, chiropractic manipulation, massage, TENS unit or aquatic therapy. Currently she is not pursuing PT due to significant pain. Lumbar imaging was ordered in February but was not completed yet. She is hesitant about interventional procedures, especially injections. 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 Diabetic nephropathy associated with type 2 diabetes mellitus Surgical History History of esophagogastroduodenoscopy (EGD) Hx of cholecystectomy Hx of hysterectomy Hx of endarterectomy Hx of colonoscopy History of coronary angioplasty with insertion of stent Family History Father Kidney disease Mother GI bleed Arthritis of knee HTN (hypertension) Social History Household Members: None Housing: Apartment Alcohol intake: never Patient Tobacco Use Status: Never used Tobacco Review of Systems Const All systems reviewed & are unremarkable except as noted in HPI and below Physical Exam Vital Signs: Last Vital Signs Pulse 69 08/30/24 11:25 BP 171/76 H 08/30/24 11:25 Pulse Ox 97 08/30/24 11:25 Oxygen Delivery Method Room Air 08/30/24 11:25 BMI result Body Mass Index 31.2 General: Appears afebrile. Alert and oriented. Mood and affect appropriate. Follows and participates in conversation appropriately. Respiratory effort is unlabored. No cough. Able to transition from sit to stand unassisted. Uses walker with ambulation/transfers. Ambulates with normal heel strike and toe off on the left, increased pain on the right due to LBP and knee pain. General: Yes no CVA tenderness Back/Spine/Pelvis Other: Limited lumbar ROM due to pain. Antalgic gait with mild limping. Painful facet loading bilaterally. There is no radiation of the pain in lower extremities but axial low back pain extends into buttocks and lateral hip areas, left>right. The palpation of the lumbar spine reveals significant tenderness on paraspinal regions of lower lumbar spine. Demonstrates 4/5 strength of quadriceps bilaterally as well as 4/5 flexion/dorsiflexion of feet against resistance. 2+ pedal pulses bilaterally. Mild groin and bilateral lateral hip pain with I/E hip rotations. No tenderness in the projection of bilateral GTs. Pallavi signs positive bilaterally. Silas?s and Stinchfield tests positive bilaterally, left>right. Back: no CVA tenderness Cervical Spine: cervical ROM normal, cervical muscular tenderness, No Cervical spine tenderness and No step off deformity Thoracic/Lumbar Spine: thoracic and lumbar spine normal to inspection, No Thoracic/lumbar spine scar(s), Lasegue's sign negative, straight leg raise negative bilaterally, pain with thoraco-lumbar ROM, paraspinal muscle tenderness, thoraco-lumbar ROM limited with forward flexion (WNL) and with lateral flexion to the left (limited by pain), Thoracic/lumbar scoliosis, No thoracic spinal tenderness and lumbar spinal tenderness (L3-S1) Pelvis: buttock tenderness bilaterally and no sciatic notch tenderness Sacroiliac joints: bilaterally tender to palpation Sacrum: no tenderness Extrem General: Yes capillary refill normal, Yes no clubbing, cyanosis or edema and Yes no calf tenderness Right lower extremity: knee (Limited ROM due to pain.) Details: normal to inspection, tenderness Location: of the medial joint line and of the lateral joint line and crepitus; no swelling, no ecchymosis and no unusual warmth Results Reviewed Results Reviewed: XR LUMBOSACRAL SPINE WITH OBLIQUES 04/22/22 FINDINGS: There is mild dextroscoliosis of lumbar spine. There is loss of disc at virtually at every disc level with ventral spondylosis. No acute fracture or lytic process seen. There is no pars defect or listhesis. There is bilateral mild facet joint arthropathy. The paravertebral soft tissues are normal. SI joints are normal. There is a likely small bone island right sacrum. IMPRESSION: Mild dextroscoliosis mid lumbar spine with degenerative disc changes and spondylosis virtually at every disc level. No visible acute fracture or dislocation seen. No lytic or sclerotic process seen. Assessment & Plan Assessment & Plan (1) Lumbar spondylosis: Code(s): M47.816 - Spondylosis without myelopathy or radiculopathy, lumbar region Category: Medical (2) Sacroiliac joint dysfunction of both sides: Code(s): M53.3 - Sacrococcygeal disorders, not elsewhere classified Category: Medical (3) Chronic pain syndrome: Code(s): G89.4 - Chronic pain syndrome Category: Medical (4) Obesity (BMI 30-39.9): Code(s): E66.9 - Obesity, unspecified Category: Medical (5) Osteoarthritis of knees, bilateral: Comment: much worse on the right Code(s): M17.0 - Bilateral primary osteoarthritis of knee Category: Medical Plan Schedule for Diagnostic Bilateral L3-L4-L5 MBBs with local and fluoroscopy for potential lumbar medial branch RFA. We also discussed Sprint PNS, patient lives alone and is hesitant towards any implants. Informational pamphlets provided to patient and family. All questions and concerns have been answered and patient agreed with the plan. Follow up for injections and sooner as needed. Anticoagulation: Patient is on Aspirin and instructions given on when to stop. Justification for interventional therapy: ? Patient with average pain > 6/10 ? Patient has exhausted conservative therapy ? Patient unable to tolerate physical therapy due to pain The risks, consequences, alternatives, and benefits of various treatment options were discussed with the patient in great detail, including conservative management, injections and procedures. Coding Level of Care Code Est Pt Level 4 (83393) Complex EM visit Add On G2211 Diagnoses Lumbar spondylosis M47.816 Sacroiliac joint dysfunction of both sides M53.3 Chronic pain syndrome G89.4 Obesity (BMI 30-39.9) E66.9 Osteoarthritis of knees, bilateral M17.0
[2024-08-30 11:25] VITALS: BP 171/76; PULSE 69; O2SAT 97; BMI 31.2
== END 2024-08-30 12:25 | disposition home or self-care (01) ==
PROVIDERS: PCP Internal Medicine Geriatric Medicine; Visit Provider Nurse Practitioner Family
DX: M47.816 Spondylosis without myelopathy or radiculopathy, lumbar region (principal); M53.3 Sacrococcygeal disorders, not elsewhere classified; G89.4 Chronic pain syndrome; E66.9 Obesity, unspecified; M17.0 Bilateral primary osteoarthritis of knee
CPT/HCPCS: 99214; G2211

== ENCOUNTER → 2024-08-30 11:10 | Outpatient (BNVA) | payer OTHER, SELFPAY | PROVIDERS: PCP Internal Medicine Geriatric Medicine; Visit Provider Nurse Practitioner Family | DX: M47.816 Spondylosis without myelopathy or radiculopathy, lumbar region (principal); M53.3 Sacrococcygeal disorders, not elsewhere classified; M17.0 Bilateral primary osteoarthritis of knee; G89.4 Chronic pain syndrome; E66.9 Obesity, unspecified; Z68.31 Body mass index [BMI] 31.0-31.9, adult | CPT/HCPCS: 99212 ==

== ENCOUNTER 2024-12-13 06:47 | Outpatient (REF) | payer OTHER, SELFPAY ==
--- NOTE | ~2024-12-13 | FL_ITS ---
EXAMINATION: FL GUIDANCE ONLY HISTORY: M47.816 - Spondylosis without myelopathy or radiculopathy, lumbar region COMPARISON: None available. TECHNIQUE: Fluoroscopy time: 0.5 minutes. Cumulative Dose: 7.29 mGy. DAP: 0.112 mGym2 Images: 12. FINDINGS: Images demonstrate needles and contrast material in the regions of the bilateral L3-4, L4-5, L5-S1 facet joints. FL/FL guidance in treatment room IMPRESSION: Fluoroscopy during procedure. Please see procedure report for additional information. Electronically signed by: Austin Brock MD 12/14/2024 07:41 AM EST
--- OUTSIDE RECORDS SUMMARY | 2024-12-13 06:49 | XMS_ITS ---
Author Organization [facility] Address [address] [place] [address] Care Team Providers Care Junk Dealer Name Role Phone Name Suresh BENJAMIN Primary Care Provider Juanpablo Medina Jr Unavailable [phone] ALLERGIES Allergen (clinical drug ingredient) Drug/Non Drug Allergy documented on EMR Reaction Allergy Type Onset Date Status Sulfa blisters Drug Allergy Active ciprofloxacin Cipro itching Drug Allergy Act berta REASON FOR VISIT Patient presents today for abd pain MEDICATIONS Medication SIG (Take, Route, Frequency, Duration) Notes Start Date End Date Status Tresiba FlexTouch 200 UNIT/ML 100 units Subcutaneous QD Ac tive Trulicity 1.5 MG/0.5ML 0.5ml Subcutaneou s once a week Active Melatonin 3 MG 1 capsule at bedtime as needed with food Orally Once a day/bedtime Active Omeprazole 20 MG 1 Orally Twice a day for 30 days 02/08/2024 Active Losartan Potassium-HCTZ 100-25 MG 1 tablet Orally Once a day Active traMADol HCl 50 MG 1 tablet as needed O rally TID Active Acarbose 100 MG as directed Oral thr ee times a day Active Omeprazole 20 MG 1 capsule Orally Twi ce daily Active Metoprolol Succinate ER 100 MG 1 tablet Orally twice a day Active amLODIPine Besylate 10 MG 1 tablet Orall y Once a day Active busPIRone HCl 30 MG 1 tablet Orally once a day Active Aspir-Low 81 MG 1 tablet Orally Once a day Active Atorvastatin Calcium 80 MG 1 tablet Oral ly Once a day Active Acetaminophen ER 650 MG 2 tablets as nee ded Orally every 8 hrs Active Fenofibrate 54 MG 1 tablet with food O rally Once a day Active Vitamin D 50 MCG (1999) 1 tablet Oral ly Once a day Active Vitamin D3 Active [place] 3 1000 MG 1 capsule Orally twi ce a day Active NovoLOG 70/30 FlexPen ReliOn Active Gabapentin 300 MG 1 capsule Orally Onc e a day for 30 day(s) Active VITAL SIGNS Temperature 97.7 degrees Fahrenheit 01/25/20 24 Blood pressure systolic 000 mm Hg 01/25/20 24 Blood pressure diastolic 00 mm Hg 024 Height 59.5 in 01/25/2024 Weight 147 lbs 01/25/2024 BMI 29.19 kg/m2 01/25/2024 Encounters Encounter Location Date Provider Diagnosis [facility] [address] [place] [address] 01/25/2024 Juanpablo Madsen Jr Gastroesophageal reflux disease without esophagitis K21.9 and Dysphagia, unspecified type R13.10 ASSESSMENTS Encounter Date Diagnosis Assessment Notes Treatment Notes Treatment Clinical Notes 01/25/2024 Gastroesophageal reflux disease without esophagitis (ICD-10 - K21.9) Gastroesophageal reflux disease material was printed 01/25/2024 Dysphagia, unspecified type (ICD-10 - R13.10) PLAN OF TREATMENT Medication Medication Name Sig Start Date Stop Date Notes Omeprazole 20 MG 1 Orally Twice a day for 30 days 02/08/20 24 Treatment Notes Assessment Notes Gastroesophageal reflux dise ase without esophagitis Gastroesophageal reflux disease material was printed Next Appt Details Follow Up: 1 Year, Reason:
--- OUTSIDE RECORDS SUMMARY | 2024-12-13 06:49 | XMS_ITS | Clinical Summary ---
Author Organization [facility] Address [address] [facility] [address] [place] [address] Phone Care Team Providers Care Footwear Stitcher Name Role Phone Name, Suresh BENJAMIN Primary Care Provider [phone] Allergies Active Allergy Reactions Criticality Noted Date Comments Ciprofloxacin Other (see comments) 04/09/2021 Sulfa Antibiotics Other (see comments) 04/09/20 21 Trimethoprim Hives Medium 01/17/2011 Medications traMADol (ULTRAM) 50 MG tablet Take 1 tablet by mouth 3 (three) times a day Active senna (SENOKOT) 8.6 MG tablet Take 2 tablets by mouth 1 (one) time each day Active nystatin (MYCOSTATIN) powder Apply topically 3 (three) times a day Active nitroglycerin (NITROSTAT) 0.4 MG SL tablet as directed Activ e metoprolol succinate XL (TOPROL-XL) 100 MG 24 hr tablet Take 1 tablet by mouth 2 (two) times a day Active losartan-hydroCH LOROthiazide (HYZAAR) 100-25 MG per tablet Take 1 tablet by mouth 1 (one) time each day Active lidocaine (LMX) 4 % cream by Other route 1 (one) time each day Active insulin degludec (Tresiba FlexTouch) 200 UNIT/ML injection as directed Active insulin aspart (NovoLOG FLEXPEN) 100 UNIT/ML injection as directed Active gabapentin (NEURONTIN) 100 MG capsule 300 mg Active ergocalciferol (VITAMIN D-2) 1.25 MG (44026 UT) capsule Comments: Filled Date: Jul 30 2020 12:09PM Patient Notes: TAKE 1 CAPSULE BY MOUTH ONCE A MONTH Duration: 84 09/01/20 19 Active Dulaglutide (Trulicity) 1.5 MG/0.5ML solution pen-injector Inject 1.5 mg under the skin 1 (one) time per week Active clopidogrel (PLAVIX) 75 MG tablet Take 1 tablet by mouth 1 (one) time each day Active Cholecalciferol 125 MCG (5000 UT) tablet Take 1 tablet by mouth 1 (one) time each day Active busPIRone (BUSPAR) 15 MG tablet Take 30 mg by mouth in the morning and 30 mg in the evening. Active atorvastatin (LIPITOR) 80 MG tablet Take 1 tablet by mouth at bed time Active aspirin (ST MILO) 81 MG EC tablet Take 1 tablet by mouth 1 (one) time each day Active amLODIPine (NORVASC) 5 MG tablet Take 10 mg by mouth 1 (one) time each day 05/31/20 18 Active albuterol HFA (PROVENTIL HFA;VENTOLIN HFA) 108 (90 Base) MCG/ACT inhaler 2 puffs by Other route 2 (two) times a day Active acetaminophen (TYLENOL) 500 MG tablet Take 2 tablets by mouth 3 (three) times a day Active [place]-3 1000 MG capsule Take 2 capsules by mouth 2 (two) times a day Active acarbose (PRECOSE) 100 MG tablet Take 100 mg by mouth 3 times a day 03/04/20 21 Active Mapap Arthritis Pain 650 MG 8 hr tablet 04/03/20 21 Active cholecalciferol (VITAMIN D-3) 50 MCG (2000 UT) capsule RAHAT Serrano 02/12/20 21 Active [facility] Clotrimazole 3 2 % vaginal cream INSERT 1 APPLICATORFUL VAGINALLY AT BEDTIME FOR 3 DAYS 02/13/20 21 Active Diclofenac Sodium 1 % gel APPLY 2 GRAM BY TOPICAL ROUTE 3 TIMES EVERY DAY TO THE AFFECTED AREA(S) 03/04/20 21 Active fenofibrate (TRICOR) 54 MG tablet Take 54 mg by mouth 1 (one) time each day 03/04/20 21 Active melatonin 3 MG tablet 1.5 mg 04/15/20 21 Active nystatin (MYCOSTATIN) 285364 UNIT/ML suspension TAKE 1 MILLILITER BY ORAL ROUTE 5 TIMES EVERY DAY 01/24/20 21 Active omeprazole (PriLOSEC) [address] capsule 04/09/20 21 Active Active Problems Problem Noted Date Diagnosed Date Computed tomography result abnormal 02/05/2023 Dysphagia 02/05/2023 Gastric polyp 02/05/2023 Coronary arteriosclerosis 01/23/2022 Hyperlipidemia 01/23/2022 Neuropathy 01/23/2022 Retinal disorder 01/23/2022 Hypertensive disorder 01/23/2022 Stage 3a chronic kidney disease 01/23/2022 Stage 3a chronic kidney disease 04/23/2021 Anemia of chronic disease 04/09/2021 Chronic kidney disease stage 3 04/09/2021 Hypertensive chronic kidney disease, unspecified, with chronic kidney disease stage I through stage IV, or unspecified 04/09/2021 Type 2 diabetes mellitus without complication Vitamin D deficiency 04/09/2021 Carotid territory transient ischemic attack 01/18 Disorder of carotid artery 02/10/2018 Stented coronary artery 11/18/2017 Anxiety 04/13/2012 Carpal tunnel syndrome 04/13/2012 Diverticular disease of colon 04/13/2012 Generalized osteoarthritis 04/13/2012 Gastro-esophageal reflux disease without esophag itis 04/13/2012 Hyperparathyroidism due to renal insufficiency 0 04/13/2012 Neuropathy due to diabetes mellitus 04/13/2012 Irritable bowel syndrome 04/13/2012 Iron deficiency anemia 04/13/2012 Nonproliferative retinopathy due to diabetes fahad litus 04/13/2012 Osteoporosis 04/13/2012 Esophageal dysmotility 04/13/2012 Obesity 03/22/2012 Immunizations Name Administration Dates Next Due Hepatitis B 04/12/2004,12/18/2003,11/17/2003 Influenza Split High Dose Pr eservative Free IM 08/03/2019,07/13/2018,07/06/2017 Influenza Vaccine, Quadrival ent, Adjuvanted 06/22/2020 Influenza, Quadrivalent, Pre servative Free 08/04/2019,09/19/2015 Influenza, Quadrivalent, Wit h Preservative 10/10/2022,10/22/2016 Influenza, Trivalent, Adjuvanted 08/23/2014 Influenza, Unspecified 08/05/2021,06/19/2021, Moderna SARS-COV-2 12/31/2022, 2,09/18/2021,12/28,11/30/2020 Pneumococcal Conjugate 13-Valent 11/06/2013 Pneumococcal Polysaccharide 11/18/2017, 4,08/19/2000 Shingrix 05/28/2021,06/22/2020 Td 02/11/1996 Tdap 10/22/2016 Zoster 10/22/2016,11/20/2015 Family History Medical History Relation Comments Diabetes Child 1 daughters Kidney disease Child 2 son Diabetes Mother Heart disease Mother Hypertension Mother Stroke Mother Cancer Sibling pancreais Relation Status Comments Child 1 Child 2 Father Mother Sibling Social History Tobacco Use Types Packs/Day Years Used Date Smoking Tobacco: Never Alcohol Use Standard Drinks/Week Comments No 0 (1 standard drink = 0.6 oz pur e alcohol) Comments Unknown Sex and Gender Information Value Date Recorded Sex Assigned at Not on file Legal Sex Female 5:13 PM EST Gender Identity Not on file Sexual Orientation Not on file Last Filed Vital Signs Vital Sign Reading Time Taken Comments Blood Pressure 119/62 03/15/2024 1:57 PM EDT Pulse 64 03/15/2024 1:57 PM EDT Temperature - - Respiratory Rate - - Oxygen Saturation 94% 03/15/2024 1:57 PM EDT Inhaled Oxygen Concentration - - Weight 90.1 kg (198 lb 9.6 oz) 03/15/2024 1:57 P M EDT Height 147.3 cm (4' 10 ) 02/28/2019 12:00 PM EDT Body Mass Index 41.51 02/28/2019 12:00 PM EDT Plan of Treatment Upcoming Encounters Date Type Department Care Team (Late st Contact Info) Description 03/16/2025 1:00 PM EDT Office Visit [facility] [address] [place] [id number] Rolly Mishra MD [address] [facility] [address] [place] [address] Health Maintenance Due Date Last Done Comments Diabetes: Ophthalmology Exam 11/18/2020 Diabetes: Pedal Pulse Checked 11/18/2020 Diabetes: Sensory Foot Exam 11/18/2020 Diabetes: Visual Foot Exam 11/18/2020 Diabetes: Hemoglobin A1C 12/23/2023 023, 12/31/2022, 10/02/2020, Additional history exists Influenza Vaccine (#1) 2024 2, 08/05/2021, 06/19/2021, Additional history exists Hepatitis B Vaccine Aged Out 04/12/2004, 12/18/2003, 11/17/2003 No longer eligible based on patient's age to complete this topic Pneumococcal Vaccine: 65+ Years Completed 11/18/2017, 11/06/2013, 11/06/2013, Additional history exists Procedures Procedure Name Priority Date/Time Associated Diagnosis Comments BLOOD PANEL (HC) Routine 10/02/2020 12:0 0 AM EST from Last 3 Months or Most Recently Relevant to Health Maintenance Results * (ABNORMAL) Blood Panel (10/02/2020 12:00 AM EST) Potassium 3.9 3.5 - 5.1 mmol/L [facility] Carbon Dioxide (CO2) 29 22 - 30 mmol/L [facility] eGFR Non- 39(L) >60 ml/min [facility] Triglycerides 405(H) <150 mg/dl [facility] Hematocrit 36.7(L) 38 - 50 % [facility] Comments From [facility] [facility] BUN 31(H) 9 - 20 mg/dl [facility] HDL 30(L) >40 mg/dl [facility] Sodium 139 137 - 145 mmol/L [facility] Creatinine 1.32(H) 0.70 - 1.30 mg/dl [facility] Calcium 9.5 8.4 - 10.2 mg/dl [facility] Hgb 11.9(L) 13.0 - 16.5 g/dl [facility] Platelets 343 140 - 440 k/uL [facility] Cholesterol 168 <200 mg/dl [facility] Hemoglobin A1C 7.6(H) <5 % [facility] 10/02/2020 us [facility] [id number] LICITED RESULTS Final Result [facility] from Last 3 Months or Most Recently Relevant to Health Maintenance Insurance , [facility] [address] [place] [address] [facility] ([id number]) [address] [place] [address] [facility] ([id number]) Care Teams Footwear Stitcher Relationship Specialty Start Date End Date Name, MD Suresh [address] [place] [address] [phone] PCP - General 10/29/20
--- OUTSIDE RECORDS SUMMARY | 2024-12-13 06:49 | XMS_ITS | Encounter Summary ---
Author Organization [employer] Address [address] [facility] [address] [place] [address] Care Team Providers Care Environmental Conflict Manager Name Role Phone Name, Suresh BENJAMIN Primary Care Provider [phone] Reason for Visit * Reason Comments Med Refill Encounter Details Date Type Department Care Team ([facility] st Contact Info) Description 06/07/2024 Refill [facility] MEDICINE [address] [place] [address] Renata Ballard FNP [address] [place] [address] Pain Social History Tobacco Use Types Packs/Day Years Used Date Smoking Tobacco: Never Smokeless Tobacco: Never Alcohol Use Standard Drinks/Week Comments Never 0 (1 standard drink = 0.6 oz pur e alcohol) Alcohol Answer Date Recorded Frequency of Alcohol Consumption Not on file 04/15/2024 Average Number of Drinks Not on file 024 Frequency of Binge Drinking Not on file 03/20 Score 0 04/15/2024 Depression Answer Date Recorded Patient Health Questionnaire-9 Score 7 04/15/2024 Patient Health Questionnaire-9 Score 7 04/15/2024 Last PHQ-9: Questionnaire Data Not on file 0 04/15/2024 Housing Stability Answer Date Recorded What is your housing situation today? I have yeimi rutherford 04/15/[address] you li ve. Do you have problems with any of the following? None of the above 04/15/2024 Food Insecurity Answer Date Recorded Within the past 12 months, y ou worried that your food would run out before you got money to buy more: Never True 04/15/2024 Within the past 12 months,th e food you bought just didn't last and you didn't have enough money to get more: Never True Transportation Answer Date Recorded In the past 12 months, has l ack of transportation kept you from medical appts, meetings, work or from getting things needed for daily living? No 04/15/2024 Utilities Answer Date Recorded In the past 12 months, has t he electric, gas, oil or water company threatened to shut off services in your home? No 04/15/2024 Depression Answer Date Recorded Patient Health Questionnaire-2 Score 4 04/15/2024 Comments Unknown Sex and Gender Information Value Date Recorded Sex Assigned at Female 08/18/2022 10:14 AM EDT Legal Sex Female 10:14 AM EDT Gender Identity Female 08/18/2022 10:14 AM EDT Sexual Orientation Straight 08/18/2022 10 :14 AM EDT documented as of this encounter Plan of Treatment Not on file documented as of this encounter Visit Diagnoses Diagnosis Pain Generalized pain documented in this encounter Additional Health Concerns Assessment Noted Time PHQ-9 Depression Total Score: 7 04/15/20 24 11:05 AM EDT documented as of this encounter Care Teams Environmental Conflict Manager Relationship Specialty Start Date End Date Name, MD Suresh [address] [place] [id number] PCP - General Family Medicine 11/18/17 documented as of this encounter
--- OUTSIDE RECORDS SUMMARY | 2024-12-13 06:50 | XMS_ITS | Encounter Summary ---
Author Organization [employer] Address [address] [facility] [address] [place] [address] Care Team Providers Care Patent Drafter Name Role Phone Name, Suresh BENJAMIN Primary Care Provider [phone] Reason for Visit * Reason Comments Med Refill Encounter Details Date Type Department Care Team ([facility] st Contact Info) Description 10/18/2023 Refill [facility] MEDICINE [address] [place] [address] Name, MD Suresh [address] [place] [address] Essential hypertension Social History Tobacco Use Types Packs/Day Years Used Date Smoking Tobacco: Never Smokeless Tobacco: Never Alcohol Use Standard Drinks/Week Comments Never 0 (1 standard drink = 0.6 oz pur e alcohol) PHQ-2 Answer Date Recorded Patient Health Questionnaire-2 Score 0 10/10/2022 Housing Stability Answer Date Recorded What is your housing situation today? I have yeimi rutherford 08/04/[address] you li ve. Do you have problems with any of the following? None of the above 08/04/2023 Food Insecurity Answer Date Recorded Within the past 12 months, y ou worried that your food would run out before you got money to buy more: Never True 08/04/2023 Within the past 12 months,th e food you bought just didn't last and you didn't have enough money to get more: Never True Transportation Answer Date Recorded In the past 12 months, has l ack of transportation kept you from medical appts, meetings, work or from getting things needed for daily living? No 08/04/2023 Utilities Answer Date Recorded In the past 12 months, has t he electric, gas, oil or water company threatened to shut off services in your home? No 08/04/2023 Depression Answer Date Recorded Patient Health Questionnaire-2 Score 0 10/10/2022 Comments Unknown Sex and Gender Information Value Date Recorded Sex Assigned at Female 08/18/2022 10:14 AM EDT Legal Sex Female 10:14 AM EDT Gender Identity Female 08/18/2022 10:14 AM EDT Sexual Orientation Straight 08/18/2022 10 :14 AM EDT documented as of this encounter Plan of Treatment Not on file documented as of this encounter Visit Diagnoses Diagnosis Essential hypertension Unspecified essential hypertension documented in this encounter Care Teams Patent Drafter Relationship Specialty Start Date End Date Name, MD Suresh [address] [place] [address] PCP - General Family Medicine 11/18/17 documented as of this encounter
--- OUTSIDE RECORDS SUMMARY | 2024-12-13 06:50 | XMS_ITS | Encounter Summary ---
Author Organization [employer] Address [address] [facility] [address] [place] [address] Care Team Providers Care Outsole Splicer Name Role Phone Name, Suresh BENJAMIN Primary Care Provider Reason for Visit * Reason Comments Med Refill Encounter Details Date Type Department Care Team ([facility] st Contact Info) Description 11/27/2024 Refill [facility] MEDICINE [address] [place] [address] Name, MD Suresh [address] [place] [address] Social History Tobacco Use Types Packs/Day Years [...] Recorded Patient Health Questionnaire-2 Score 4 04/15/2024 Internet Access Answer Date Recorded Internet Access Q1 No 06/17/2024 Internet Access Q2 I do not want or need it 05/21 Comments Unknown Sex and Gender Information Value Date Recorded Sex Assigned at Female 08/18/2022 10:14 AM EDT Legal Sex Female 10:14 AM EDT Gender Identity Female 08/18/2022 10:14 AM EDT Sexual Orientation Straight 08/18/2022 10 :14 AM EDT documented as of this encounter Plan of Treatment Not on file documented as of this encounter Visit Diagnoses Not on filedocumented in this encounter Additional Health Concerns Assessment Noted Time PHQ-9 Depression Total Score: 7 04/15/20 24 11:05 AM EDT documented as of this encounter Care Teams Outsole Splicer Relationship Specialty Start Date End Date Name, MD Suresh [address] [place] [address] PCP - General Family Medicine 11/18/17 documented as of this encounter
--- OUTSIDE RECORDS SUMMARY | 2024-12-13 06:50 | XMS_ITS | Encounter Summary ---
Author Organization [employer] Address [address] [facility] [address] [place] [address] Care Team Providers Care Safety Coordinator Name Role Phone Name, Suresh BENJAMIN Primary Care Provider Reason for Visit * Reason Comments Med Refill Encounter Details Date Type Department Care Team ([facility] st Contact Info) Description 12/01/2024 Refill [facility] MEDICINE [address] [place] [address] Name, MD Suresh [address] [place] [address] Chronic low back pain without sciatica, unspecified back pain laterality; Pain Social History Tobacco Use Types Packs/Day [...] as of this encounter Visit Diagnoses Diagnosis Chronic low back pain without sciatica, unspecified back pain laterality Pain Generalized pain documented in this encounter Additional Health Concerns Assessment Noted Time PHQ-9 Depression Total Score: 7 04/15/20 24 11:05 AM EDT documented as of this encounter Care Teams Safety Coordinator Relationship Specialty Start Date End Date Name, MD Suresh [address] [place] [id number] PCP - General Family Medicine 11/18/17 documented as of this encounter
--- OUTSIDE RECORDS SUMMARY | 2024-12-13 06:50 | XMS_ITS | Encounter Summary ---
Author Organization [employer] Address [address] [facility] [address] [place] [address] Care Team Providers Care Software Controls Engineer Name Role Phone Name, Suresh BENJAMIN Primary Care Provider [phone] Reason for Visit * Reason Comments Med Refill Encounter Details Date Type Department Care Team ([facility] st Contact Info) Description 05/22/2023 Refill [facility] MEDICINE [address] [place] [address] Name, MD Suresh [address] [place] [id number] Social History Tobacco Use Types Packs/Day Years Used Date Smoking Tobacco: Never Smokeless Tobacco: Never PHQ-2 Answer Date Recorded Patient Health Questionnaire-2 Score 0 10/10/2022 Depression Answer Date Recorded Patient Health Questionnaire-2 [...] Diagnoses Not on filedocumented in this encounter Care Teams Software Controls Engineer Relationship Specialty Start Date End Date NameSuresh MD [address] [place] [id number] PCP - General Family Medicine 11/18/17 documented as of this encounter
--- OUTSIDE RECORDS SUMMARY | 2024-12-13 06:50 | XMS_ITS | Data Portability ---
Author Organization [place] - [facility], Allergy Address [address] [place] [address] Care Team Providers Care Drywall Contractor Name Role Phone NAME, JADA Primary Care Provider Assessment Encounter Date Assessment Date Assessment LastModified by Organization Details LastModified Time 10/05/2024 10/05/2024 Patient presents for evaluation of the ears, reporting frequent pruritus. She has given up Q-tips since last evaluated. Today the ears are free of cerumen. There is no otorrhea. The skin is quite dry. Recommend 2 to 3 drops of mineral oil once weekly at bedtime. Should this provide insufficient relief, patient to call for consideration of fluocinolone. She brings with her a broken pair of hearing aids that are quite old. We reviewed that her, [employer] insurance does provide benefit toward new hearing aids. She was provided with a list of locations that can facilitate this. [email or web address] Not available 10/05/2024 15:15:20 Plan of Treatment Reminders Order Date Submit Date Provider Last Modified By Organization Details Last Modified Time Details Appointments None record ed. Lab None record ed. Referral None record ed. Procedures None record ed. Surgeries None record ed. Imaging None record ed. Medication Orders None record ed. Patient TargetsNo targets recorded. Patient InstructionsNo instructions recorded. Reason for Referral None Reported. Problems Name Problem SNOMED Code Status Onset Date Resolution Date Notes Provider Name and Address Organization Details Recorded Time Mixed conductiv e and sensorine ural hearing loss of right ear [id number] 105 Active 2017 Mixed conductiv e and sensorine ural hearing loss, unilatera l, right ear with restricte d hearing on the contralat eral side; Note: Date Diagnosed : 01/07/2018 1:52 PM (H90.A31) Not Available [facility] 4 02:26:28 [facility] [id number] Active 2022 [facility], unspecifi ed; Note: Date Diagnosed : 03/25/2023 4:15 PM (L21.9) Not Available [facility] 4 02:26:46 Central perforati on of left tympanic membrane [id number] 72888 Active 2016 Central perforati on of tympanic membrane, left ear; Note: Date Diagnosed : 03/06/2017 2:34 PM (H72.02) Not Available [facility] 4 02:26:48 Impacted cerumen of bilateral ears [id number] 08682 Active 2017 Impacted cerumen, bilateral ; Note: Date Diagnosed : 8 1:01 PM (H61.23) Not Available [facility] 4 02:26:40 Sensorine ural hearing loss in left ear 86984210689 109 Active 2017 Sensorine ural hearing loss, unilatera l, left ear, with restricte d hearing on the contralat eral side; Note: Date Diagnosed : 01/07/2018 1:52 PM (H90.A22) Not Available [facility] 4 02:26:42 Sensorine ural hearing loss of bilateral ears 187226269 Active 2015 Sensorine ural hearing loss, bilateral ; Note: Date Diagnosed : 6 1:26 PM (H90.3) Not Available [facility] 4 02:26:17 Impacted cerumen in left ear 62938783906 83054 Active 2017 Impacted cerumen, left ear; Note: Date Diagnosed : 11/24/2017 1:55 PM (H61.22) Not Available [facility] 4 02:26:44 Diffuse otitis externa 83780401 Active 2016 Diffuse otitis externa, left ear; Note: Date Diagnosed : 08/24/2017 11:10 AM (H60.312) Not Available [facility] 4 02:26:26 Mixed conductiv e and sensorine ural hearing loss, bilateral 267614981 Active 11/25/ 2016 Mixed conductiv e and sensorine ural hearing loss, bilateral ; Note: Date Diagnosed : 6 11:59 AM (H90.6) Not Available [facility] 4 02:26:25 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 68904429271 70709 Active 2016 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 , bilateral ; Location: bilateral Note: Date Diagnosed : 08/24/2017 11:10 AM (H61.323) Not Available [facility] 4 02:26:49 Stenosis of bilateral external ear canals due to and following inflammat ion 59228859410 35779 Active 2016 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 , bilateral ; Location: bilateral Note: Date Diagnosed : 08/24/2017 11:10 AM (H61.323) Not Available [facility] 4 02:26:49 Disorder of nasal sinus 8569588 Active 2019 Other specified disorders of nose and nasal sinuses; Note: Date Diagnosed : 06/22/2020 12:34 PM (J34.8) Not Available [facility] 4 02:26:41 Disorder of the nose 72272903 Active 2019 Other specified disorders of nose and nasal sinuses; Note: Date Diagnosed : 06/22/2020 12:34 PM (J34.8) Not Available [facility] 4 02:26:42 Itching of skin 688742682 Active 2023 MERVIN JERONIMO PA-C [address] [place] [address] [place], [address] , [facility] - [facility] 4 15:15:24 Problem Notes None recorded. Medical Equipment None Reported. Allergies Allergen ID Allergen Name Allergen Category Reaction Reaction Severity Criticality Documentation Date Start Date Code Code System Note Provider Name and Address Organization Details Recorded Time 701603 Cipro medicatio n Not available Not available Not available 10/05/2024 62502 3 RxNorm Nandini lowe [place] - [facility] 4 14:42:48 949205 trimethop rim medicatio n Not available Not available Not available 10/05/2024 48281 RxNorm Nandini lowe [place] - [facility] 4 14:42:56 04430 Substance with sulfonami de structure and antibacte rial mechanism of action (substanc e) medicatio n other Not available Not available 03/01/2024 93829 8003 SNOMED React ion: unkno wn, unspe cifie d;; Not Available [facility] 4 00:57:24 Medications Name Sig Start Date Stop Date Status Note LastModified by Organization Details LastModified Time atorvasta tin 40 mg tablet 04/09 completed Medicati on ID: [id number] D uration Value: 90 Reason: () Brand Name: atorvast atin Sen d Method: E-Prescr ibed Sub s Allowed: subs OK Speci al Instruct ion: TAKE 1 TABLET BY MOUTH EVERY DAY Medi cationGe nericNam e: atorvast atin Not Available Not Available Not Available atorvasta tin 80 mg tablet 2017 active Medicati on ID: [id number] D uration Value: 30 Brand Name: atorvast atin Sen d Method: E-Prescr ibed Sub s Allowed: subs OK Medic ationGen ericName : atorvast atin Not Available Not Available Not Available nystatin 100,000 unit/mL oral suspensio n TAKE 4 ML BY MOUTH/TH ROAT 4 TIMES A DAY FOR 14 DAYS active Not Available Not Available No t Available atorvasta tin 20 mg tablet 04/09 completed Medicati on ID: [id number] D uration Value: 90 Reason: () Brand Name: atorvast atin Sen d Method: E-Prescr ibed Sub s Allowed: subs OK Speci al Instruct ion: TAKE 1 TABLET (20MG) BY ORAL ROUTE EVERY DAY Medi cationGe nericNam e: atorvast atin Not Available Not Available Not Available triamcino lone acetonide 0.5 % topical cream 06/22 completed Medicati on ID: [id number] D uration Value: 7 Reason: () Brand Name: triamcin olone acetonid e Send Method: E-Prescr ibed Sub s Allowed: subs OK Speci al Instruct ion: APPLY A THIN LAYER TO THE AFFECTED AREA OF UPPER BACK TWICE DAILY Me dication GenericN jeffry: triamcin olone acetonid e Not Available Not Available Not Available cetirizin e 10 mg tablet TAKE 1 TABLET BY MOUTH EVERY DAY NEEDED active Not Available Not Available No t Available Lidocaine Viscous 2 % mucosal solution TAKE 15 ML BY MOUTH EVERY 3 HOURS. SWISH AND SWALLOW DIRECTED 10/05 completed Not Available Not Available Not Available senna 8.6 mg tablet 10/05 completed Medicati on ID: [id number] D uration Value: 30 Brand Name: senna Se nd Method: E-Prescr ibed Sub s Allowed: subs OK Speci al Instruct ion: TAKE 2 TABLET BY ORAL ROUTE EVERY DAY NEEDED FOR CONSTIPA TION Med icationG enericNa me: senna Not Available Not Available Not Available clonazepa m 0.5 mg tablet 06/22 completed Medicati on ID: [id number] D uration Value: 30 Reason: () Brand Name: clonazep am Send Method: E-Prescr ibed Sub s Allowed: subs OK Medic ationGen ericName : clonazep am Not Available Not Available Not Available betametha sone, augmented 0.05 % topical cream active Medicati on ID: [id number] D uration Value: 7 Brand Name: betameth asone, augmente d Send Method: E-Prescr ibed Sub s Allowed: subs OK Medic ationGen ericName : betameth asone, augmente d Not Available Not Available Not Available metoprolo l succinate ER 100 mg tablet,ex tended release 24 hr TAKE 1 TABLET BY MOUTH TWICE A DAY active Not Available Not Available No t Available triamcino lone acetonide 0.5 % topical ointment 10/05 completed Medicati on ID: [id number] D uration Value: 14 Brand Name: triamcin olone acetonid e Send Method: E-Prescr ibed Sub s Allowed: subs OK Speci al Instruct ion: APPLY TWICE A DAY TO AFFECTED AREA FOR 2 WEEKS,TH EN DAILY FOR 2 WEEKS Me dication GenericN jeffry: triamcin olone acetonid e Not Available Not Available Not Available melatonin 3 mg tablet 10/05 completed Medicati on ID: [id number] D uration Value: 30 Brand Name: doc n Send Method: E-Prescr ibed Sub s Allowed: subs OK Medic ationGen ericName : melatoni n Not Available Not Available Not Available clopidogr el 75 mg tablet 2015 active Medicati on ID: [id number] D uration Value: 90 Brand Name: clopidog rel Send Method: E-Prescr ibed Sub s Allowed: subs OK Speci al Instruct ion: TAKE 1 TABLET EVERY DAY Medi cationGe nericNam e: clopidog rel Not Available Not Available Not Available aspirin 81 mg tablet,de layed release TAKE 1 TABLET BY MOUTH EVERY DAY IN THE MORNING active Not Available Not Available No t Available tramadol 50 mg tablet TAKE 1 TABLET BY MOUTH EVERY 8 (EIGHT) HOURS IF NEEDED FOR SEVERE PAIN FOR UP TO 28 DAYS. active Not Available Not Available No t Available acetamino phen ER 650 mg tablet,ex tended release TAKE 1 TABLET BY MOUTH EVERY 8 HOURS NEEDED. DO NOT CRUSH/BR EAK/CHEW active Not Available Not Available No t Available losartan 100 mg-hydroc hlorothia zide 25 mg tablet TAKE 1 TABLET BY MOUTH EVERY DAY IN THE MORNING active Not Available Not Available No t Available famotidin e 20 mg tablet TAKE 1 TABLET TWICE A DAY ORALLY FOR BREAKTHR OUGH ACID REFLUX 30 DAYS active Not Available Not Available No t Available lidocaine HCl 4 % (40 mg/mL) mucosal solution DIRECTED MOUTH/TH ROAT TWICE A DAY NEEDED. SWISH AND SPIT. DO NOT SWALLOW. 14 DAYS active Not Available Not Available No t Available hydrocort isone-fuad tic acid 1 %-2 % ear drops 06/22 completed Medicati on ID: [id number] D uration Value: 10 Reason: () Brand Name: hydrocor tisone-a cetic acid Sen d Method: E-Prescr ibed Sub s Allowed: subs OK Speci al Instruct ion: INSTILL 3 DROPS IN THE AFFECTED EAR NEEDED FOR ITCHINES S Medica tionGene ricName: hydrocor tisone-a cetic acid Not Available Not Available Not Available OneTouch Ultra Test strips USE TO CHECK BLOOD SUGAR BY SUBCUTAN EOUS ROUTE THREE TIMES PER DAY. active Not Available Not Available No t Available amlodipin e 10 mg tablet TAKE 1 TABLET BY MOUTH EVERY DAY IN THE MORNING active Not Available Not Available No t Available acarbose 100 mg tablet TAKE 1 TABLET BY MOUTH 3 TIMES A DAY WITH BREAKFAS T LUNCH AND EVENING MEAL active Not Available Not Available No t Available buspirone 30 mg tablet TAKE 1 TABLET BY MOUTH EVERY DAY active Not Available Not Available No t Available lidocaine 5 % topical patch APPLY 1 PATCH TOPICALL Y TO SKIN, LEAVE ON FOR 12 HOURS AND OFF FOR 12 HOURS DIRECTED 10/05 completed Not Available Not Available Not Available nitroglyc david 0.4 mg sublingua l tablet PLEASE SEE ATTACHED FOR DETAILED DIRECTIO NS active Not Available Not Available No t Available docusate sodium 100 mg capsule 10/05 completed Medicati on ID: [id number] D uration Value: 30 Brand Name: docusate sodium S end Method: E-Prescr ibed Sub s Allowed: subs OK Speci al Instruct ion: TAKE 1 CAPSULE (100MG) BY ORAL ROUTE 2 TIMES EVERY DAY Medi cationGe nericNam e: docusate sodium Not Available Not Available Not Available gabapenti n 300 mg capsule TAKE 1 CAPSULE BY MOUTH TWICE A DAY active Not Available Not Available No t Available omeprazol e 20 mg capsule,d elayed release TAKE 1 CAPSULE BY MOUTH TWICE A DAY active Not Available Not Available No t Available mupirocin 2 % topical ointment Apply 1 a small amount to affected area twice a day 10/05 completed Medicati on ID: [id number] D uration Value: 14 Prescri bed By Name: CRISTOFER Jackson nd Name: mupiroci n Send Method: E-Prescr ibed Sub s Allowed: subs OK Medic ationGen ericName : mupiroci n Not Available Not Available Not Available mirtazapi ne 15 mg tablet 10/05 completed Medicati on ID: [id number] D uration Value: 30 Brand Name: mirtazap ine Send Method: E-Prescr ibed Sub s Allowed: subs OK Speci al Instruct ion: TAKE 1 TABLET BY MOUTH AT BEDTIME Medicati onGeneri cName: mirtazap ine Not Available Not Available Not Available gabapenti n 100 mg capsule 04/09 completed Medicati on ID: [id number] D uration Value: 90 Reason: () Brand Name: gabapent in Send Method: E-Prescr ibed Sub s Allowed: subs OK Speci al Instruct ion: TAKE 1 CAPSULE IN THE MORNING AND AFTERNOO N, THEN 3 CAPSULES IN THE EV ENING Me dication GenericN jeffry: gabapent in Not Available Not Available Not Available nystatin 100,000 unit/gram topical powder APPLY TO AFFECTED AREA TWICE A DAY active Not Available Not Available No t Available ipratropi um bromide 42 mcg (0.06 %) nasal spray 06/22 completed Medicati on ID: [id number] D uration Value: 90 Reason: () Brand Name: ipratrop ium bromide Send Method: E-Prescr ibed Sub s Allowed: subs OK Speci al Instruct ion: SPRAY ONCE INTO EACH NOSTRIL TWICE A DAY Medi cationGe nericNam e: ipratrop ium bromide Not Available Not Available Not Available hydroxyzi ne HCl 10 mg tablet TAKE 1 TABLET BY MOUTH EVERY DAY NEEDED active Not Available Not Available No t Available clotrimaz ole 1 % topical cream 10/05 completed Medicati on ID: [id number] D uration Value: 45 Brand Name: clotrima zole Sen d Method: E-Prescr ibed Sub s Allowed: subs OK Medic ationGen ericName : clotrima zole Not Available Not Available Not Available Ventolin HFA 90 mcg/actua tion aerosol inhaler 2016 active Medicati on ID: [id number] D uration Value: 17 Brand Name: Ventolin HFA Send Method: E-Prescr ibed Sub s Allowed: subs OK Speci al Instruct ion: INHALE 2 PUFF BY INHALATI ON ROUTE EVERY 4 - 6 HOURS NEEDED M edicatio nGeneric Name: Ventolin HFA Not Available Not Available Not Available buspirone 15 mg tablet 06/22 completed Medicati on ID: [id number] D uration Value: 30 Reason: () Brand Name: buspiron e Send Method: E-Prescr ibed Sub s Allowed: subs OK Speci al Instruct ion: TAKE 1 1/2 TABLET BY MOUTH TWICE A DAY Medi cationGe nericNam e: buspiron e Not Available Not Available Not Available Estrace 0.01% (0.1 mg/gram) vaginal cream 06/22 completed Medicati on ID: [id number] D uration Value: 90 Reason: () Brand Name: Estrace Send Method: E-Prescr ibed Sub s Allowed: subs OK Speci al Instruct ion: APPLY DIRECTED 3 TIMES A WEEK FOR MONTH 1, TWICE A WEEK FOR MONTH 2 , AND ONCE A WEEK FOR MONTH 3 Medica tionGene ricName: Estrace Not Available Not Available Not Available TobraDex 0.3 %-0.1 % eye drops,oswaldo pension 10/05 completed Medicati on ID: [id number] D uration Value: 14 Prescri bed By Name: CRISTOFER Rosa nd Name: TobraDex Send Method: E-Prescr ibed Sub s Allowed: subs OK Speci al Instruct ion: Instill 4 drops into left ear BID for 2 weeks. Sit with drops in ear x 5 minutes Medicati onGeneri cName: TobraDex Not Available Not Available Not Available Novolog FlexPen U-100 Insulin aspart 100 unit/mL (3 mL) subcutane ous INJECT 12-14 UNITS 3 TIMES A DAY WITH MEALS active Not Available Not Available No t Available Ciprodex 0.3 %-0.1 % ear drops,oswaldo pension 4 drop 10/05 completed Medicati on ID: [id number] D uration Value: 14 Prescri bed By Name: CRISTOFER Aguilar nd Name: Ciprodex Send Method: E-Prescr ibed Sub s Allowed: subs OK Medic ationGen ericName : Ciprodex Not Available Not Available Not Available rosuvasta tin 40 mg tablet TAKE 1 TABLET BY MOUTH EVERY DAY active Not Available Not Available No t Available lactulose 10 gram/15 mL oral solution TAKE 15MLS BY MOUTH EVERY DAY 10/05 completed Not Available Not Available Not Available omega-3 acid ethyl esters 1 gram capsule 10/05 completed Medicati on ID: [id number] D uration Value: 90 Brand Name: omega-3 acid ethyl esters S end Method: E-Prescr ibed Sub s Allowed: subs OK Medic ationGen ericName : omega-3 acid ethyl esters Not Available Not Available Not Available Pain Relief Extra Strength (acetamin ophen) 500 mg tablet 10/05 completed Medicati on ID: [id number] D uration Value: 30 Brand Name: Pain Relief Extra Strength Send Method: E-Prescr ibed Sub s Allowed: subs OK Speci al Instruct ion: TOME DOS TABLETAS POR VIA ORAL KACI VECES AL SUNSHINE CUANDO SEA NECESARI O FOR 30 DAYS Med icationG enericNa me: Pain Relief Extra Strength Not Available Not Available Not Available Diphenhis t 06/22 completed Medicati on ID: [id number] D uration Value: 1 Reason: () Brand Name: Diphenhi st Send Method: E-Prescr ibed Sub s Allowed: subs OK Speci al Instruct ion: TAKE 20 ML BY MOUTH EVERY 4 HOURS - EVERY 6 HOURS NEEDED M edicatio nGeneric Name: Diphenhi st Not Available Not Available Not Available fenofibra te nanocryst allized 145 mg tablet 06/22 completed Medicati on ID: [id number] D uration Value: 90 Reason: () Brand Name: fenofibr ate nanocrys tallized Send Method: E-Prescr ibed Sub s Allowed: subs OK Speci al Instruct ion: TAKE 1 TABLET BY MOUTH EVERY DAY Medi cationGe nericNam e: fenofibr ate nanocrys tallized Not Available Not Available Not Available Lantus Solostar U-100 Insulin 100 unit/mL (3 mL) subcutane ous pen 2015 active Medicati on ID: [id number] D uration Value: 30 Brand Name: Lantus Solostar Send Method: E-Prescr ibed Sub s Allowed: subs OK Speci al Instruct ion: INJECT 50 UNITS TWICE A DAY Medi cationGe nericNam e: Lantus Solostar Not Available Not Available Not Available Humalog KwikPen (U-100) Insulin 100 unit/mL subcutane ous 10/05 completed Medicati on ID: [id number] D uration Value: 30 Brand Name: Humalog KwikPen Send Method: E-Prescr ibed Sub s Allowed: subs OK Speci al Instruct ion: INJECT 20 UNTS 3 TIMES A DAY Medi cationGe nericNam e: Humalog KwikPen Not Available Not Available Not Available melatonin 5 mg tablet PLEASE SEE ATTACHED FOR DETAILED DIRECTIO NS active Not Available Not Available No t Available cholecalc iferol (vitamin D3) 50 mcg (2,000 unit) capsule TAKE 1 CAPSULE BY MOUTH EVERY DAY active Not Available Not Available No t Available fenofibra te 54 mg tablet TAKE 1 TABLET BY MOUTH AT NOON DAILY active Not Available Not Available No t Available melatonin -pyridoxi ne HCl (vitamin B6) 1 mg-10 mg tablet 2019 active Medicati on ID: [id number] D uration Value: 90 Brand Name: fahadatorashmi n Send Method: E-Prescr ibed Sub s Allowed: subs OK Speci al Instruct ion: TAKE 1 TABLET BY MOUTH EVERY DAY Medi cationGe nericNam e: melatoni n Not Available Not Available Not Available Systane Balance 0.6 % eye drops 2015 active Medicati on ID: [id number] B rand Name: Systane Balance Send Method: E-Prescr ibed Sub s Allowed: subs OK Medic ationGen ericName : Systane Balance Not Available Not Available Not Available TRUEplus Lancets 33 gauge USE TO CHECK BLOOD SUGAR 3 TIMES A DAY 10/05 completed Not Available Not Available Not Available Trulicity 1.5 mg/0.5 mL subcutane ous pen injector INJECT ONE PEN (=1.5MG) SUBCUTAN EOUSLY ONCE A WEEK DIRECTED active Not Available Not Available No t Available Tresiba FlexTouch U-200 insulin 200 unit/mL (3 mL) subcutane ous pen INJECT 50 UNITS SUBCUTAN EOUSLY AT BEDTIME active Not Available Not Available No t Available BD Yary 2nd Gen Pen Needle 32 gauge x 5/32 USE DIRECTED 4 TIMES A DAY WITH INSULIN active Not Available Not Available No t Available Trulicity 3 mg/0.5 mL subcutane ous pen injector INJECT 1 PEN UNDER THE SKIN ONCE A WEEK DIRECTED 10/05 completed Not Available Not Available Not Available Vitals None Recorded Social History None recorded. Functional Status None recorded. Mental Status None recorded. Family History Nothing Reported. Medical History Condition Response Diabetes Y Anemia Y Anxiety Y GERD/Reflux Y Hyperlipidemia Y Hypertension Y Kidney Disease Y Gynecological HistoryNo gynecological history recorded. Obstetrics History GPAL:G 0 P 0 0 0 0 Past Encounters Encounter ID Performer Location Encounter Start Date Encounter Closed Date Diagnosis/Indication Diagnosis SNOMED-CT Code Diagnosis ICD10 Code Diagnosis Note [id number] ZOE MARY MD [facility] [address] [place] [address] 10/05/2024 14:33:22 10/05/2024 15:12:17 Itching of skin 117143309 L29.9 Sensorineu ral hearing loss of bilateral ears [id number] H90.3 Health Concerns Section Related Observation LastModified by Organization Detai ls LastModified Time None Recorded Concern Status LastModified by Organization Details LastModified Time None Recorded Advance Directives Directive None Recorded Payers Encounter Date Sequence Insurance Name Policy Number Policy Mendoza Covered Member ID Mendoza Member ID Guarantor Name 10/05/2024 1 [facility] - DOS ON OR AFTER 2023 - CUSTODIAL OPTIONS AND ONE CARE (MEDICARE REPLACEMENT/AD VANTAGE - PPO) Dori Palma [id number] Dori Palma Notes Date Note Type Note Provider Name and Address Organization Details Recorded Time 10/05/2024 text/html 79 year old female presents with daughter for evaluation of ears. Reports they are very itchy. Has given up Q-tip use. Brings with her a very old pair of hearing aids, states one isn't working. States the hearing seems stable and there is no otalgia nor otorrhea. ZOE MARY MD [address] [place] [address], [place], [address], [facility] - [facility] 10/05/2024 16:49:15 OBGyn Episode No OBEpisode recorded.
--- OUTSIDE RECORDS SUMMARY | 2024-12-13 06:50 | XMS_ITS | Encounter Summary ---
Author Organization [employer] Address [address] [facility] [address] [place] [address] Care Team Providers Care Vehicle Cost Engineer Name Role Phone Name, Suresh BENJAMIN Primary Care Provider [phone] Encounter Details Date Type Department Care Team ([facility] st Contact Info) Description 11/13/2023 Abstract [facility] [address] [place] [address] Name, MD Suresh [address] [place] [address] Social History Tobacco Use Types Packs/Day Years [...] on filedocumented in this encounter Care Teams Vehicle Cost Engineer Relationship Specialty Start Date End Date Name, MD Suresh [address] [place] [address] PCP - General Family Medicine 11/18/17 documented as of this encounter
--- OUTSIDE RECORDS SUMMARY | 2024-12-13 06:50 | XMS_ITS | Encounter Summary ---
Author Organization [employer] Address [address] [facility] [address] [place] [address] Care Team Providers Care Tick Sewer Name Role Phone Name, Suresh BENJAMIN Primary Care Provider [phone] Reason for Visit * Reason Onset Date Comments Med Refill 06/23/2023 Encounter Details Date Type Department Care Team (Late st Contact Info) Description 06/23/2023 Refill [facility] [address] [place] [address] Michelle Hernandez, DIGITAL FORENSIC ANALYST [address] [place] [address] Routine health maintenance Social History Tobacco Use Types Packs/Day Years [...] as of this encounter Visit Diagnoses Diagnosis Routine health maintenance Unspecified examination documented in this encounter Care Teams Tick Sewer Relationship Specialty Start Date End Date Name, MD Suresh [address] [place] [address] PCP - General Family Medicine 11/18/17 documented as of this encounter
--- OUTSIDE RECORDS SUMMARY | 2024-12-13 06:50 | XMS_ITS | Encounter Summary ---
Author Organization [employer] Address [address] [facility] [address] [place] [address] Care Team Providers Care Fruit Peeler Name Role Phone Name, Suresh BENJAMIN Primary Care Provider [phone] Reason for Visit * Reason Onset Date Comments Appointment Request 12/21/2023 Encounter Details Date Type Department Care Team ([facility] st Contact Info) Description 12/21/2023 Telephone [facility] MEDICINE [address] [place] [address] Name, MD Suresh [address] [place] [address] Appointment Request Social History Tobacco Use Types Packs/Day Years [...] AM EDT documented as of this encounter Miscellaneous Notes * Telephone Encounter - Kaden Joe - 12/21/2023 3:14 PM EST Tc from Daughter requesting to change follow up 01/05 to a telephone visit. Please contact daughter at [phone]. documented in this encounter Plan of Treatment Not on file documented as of this encounter Visit Diagnoses Not on filedocumented in this encounter Care Teams Fruit Peeler Relationship Specialty Start Date End Date Name, MD Suresh [address] [place] [address] PCP - General Family Medicine 11/18/17 documented as of this encounter
--- OUTSIDE RECORDS SUMMARY | 2024-12-13 06:50 | XMS_ITS | Encounter Summary ---
Author Organization [employer] Address [address] [facility] [address] [place] [address] Care Team Providers Care Rn Care Transition Name Role Phone Name, Suresh BENJAMIN Primary Care Provider [phone] Reason for Visit * Reason Onset Date Comments Medication Question 09/23/2023 Durable Medical Equipment 09/23/2023 BOOST Encounter Details Date Type Department Care Team ([facility] st Contact Info) Description 09/23/2023 Telephone [facility] MEDICINE [address] [place] [address] Name, MD Suresh [address] [place] [address] Medication Question; Durable Medical Equipment (BOOST) Social History Tobacco Use Types Packs/Day Years [...] encounter Miscellaneous Notes * Telephone Encounter - Bonnie Joe - 09/25/2023 2:05 PM EST Order for Boost was generated and placed on provider desk for review and signature. * Telephone Encounter - Tom Stern - 09/23/2023 11:17 AM EST Tc from patients daughter requesting a new script for BOOST Glucose Control?? Nutritional Drink states [employer] no longer carry Glucerna documented in this encounter Plan of Treatment Not on file documented as of this encounter Visit Diagnoses Not on filedocumented in this encounter Care Teams Rn Care Transition Relationship Specialty Start Date End Date Name, MD Suresh [address] [place] [id number] PCP - General Family Medicine 11/18/17 documented as of this encounter
--- OUTSIDE RECORDS SUMMARY | 2024-12-13 06:50 | XMS_ITS | Data Portability ---
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 The injection at this time symptoms are most consistent with trochanteric bursitis and hip tendinopathy of the bilateral hips. No evidence of any significant intra-articular findings including osteoarthritis. Patient does have some likely SI joint pathology contributing to her pain discomfort and. Recommended following up with a mortgage protection specialist no significant improvement of such. Recommended at this time also staggered injection secondary to her diabetic status. Patient agrees to this treatment plan. See her back in 2 weeks for injection of the left hip. [email or web address] Not available 02/26/2024 15:11:49 Plan of Treatment Reminders Order Date Submit Date Provider Last Modified By Organization Details Last Modified Time Details Appointments RECHECK 15 2024 10:30A M Rafael Marshall PA-C Not available Not available Not available Lab None recorded . Referral physical therapis t referral - DIAGNOSI S: Suspecte d Left rotator cuff tearEval uate and Lgqps0f/ week x 6 weeksGoa l: - Decrease pain/swe lling - Increase range of motion - Increase strength and/or enduranc eRecomme nded Modaliti es: - Heat prior to stretchi ng- Ice at the end of the session- Addition al modaliti es prn, but emphasis should be on manual therapyP recautio ns: WBAT, no motion restrict ionsTher apeutic Exercise : - Passive, active-a ssist, active range of motion as tolerate d, focusing on gradual progress ion over time- SUBMAXIM AL isometri c rotator cuff strength ening: light only, stop if any pain- Scapular stabiliz er strength ening (shrugs/ retracti ons) WITHOUT resistan ce- Anterior deltoid strength ening: see attached exercise sEmphasi ze importan ce of home program, 2x/day 2023 024 cstamand Not available 07/06/2024 11:28:33 Procedures None recorded . Surgeries None recorded . Imaging XR, shoulder , 2 or more view 2023 0[facility], [address], [place], [address], 08/19/2024 11:38:02 XR, shoulder , 2 or more view - R shoulder 4 view (215) spanishs peaking 2023 024 [facility], [address], [address], [place], [address], 08/19/2024 11:38:02 XR, shoulder , 2 or more view - L shoulder and cspine 1 view, 4 view rm 214 2023 024 cstamand [facility], [address], [address], [place], [address], 07/06/2024 11:28:33 XR, cervical spine, 1 view 2023 024 [facility], [address], [address], [place], [address], 07/06/2024 11:28:33 XR, hip, unilater al, 2 or 3 view - 310 2v left hip new problem 2023 024 bpuchalsori [facility], [address], [address], [place], [address], 02/26/2024 15:25:08 XR, hip, unilater al, 2 or 3 view - 310 2v left hip new problem 2023 024 bpuchalski [facility], [address], [address], , [address], 02/26/2024 15:25:08 Medication Orders None recorded . Patient TargetsNo targets recorded. Patient InstructionsNo instructions recorded. Reason for Referral Physical Therapist Referral for Pain of left shoulder joint DIAGNOSIS: Suspected Left rotator cuff tearEvaluate and Zbype5m/week x 6 weeksGoal: - Decrease pain/swelling - Increase range of motion - Increase strength and/or enduranceRecommended Modalities: - Heat prior to stretching- Ice at the end of the session- Additional modalities prn, but emphasis should be on manual therapyPrecautions: WBAT, no motion restrictionsTherapeutic Exercise: - Passive, active-assist, active range of motion as tolerated, focusing on gradual progression over time- SUBMAXIMAL isometric rotator cuff strengthening: light only, stop if any pain- Scapular stabilizer strengthening (shrugs/retractions) WITHOUT resistance- Anterior deltoid strengthening: see attached exercisesEmphasize importance of home program, 2x/day Referring Physician: Debora García, Orthopedic Surgery, [id number] Encounter Date: 06/13/2024 Results Created Date Observation Date Name Description Value Unit Range Abnormal Flag Note LastModifiedBy Organization Detail LastModifiedTime 02/26/20 24 02/26/2024 XR, hip, unila teral , 2 or 3 view [email or web address]:/ [email or web address] ?Encry pted=s hAaTro YD8dLq bEUv6g %2BXZw aYqtaq 0bqfl% 2Fg9IQ a4ajBk vP9nXo QUaueC m3YtLR FvZlgJ JJ8mAn HZtai3 0n8046 AC0Kva H%2BNU KfeUC8 mr84%3 D INTERFACE [facility] [address], , [address], 02/26/2024 14:24:40 02/26/20 24 02/26/2024 XR, hip, unila teral , 2 or 3 view [email or web address]:/ [email or web address] ?Encry pted=s hAaTro YD8dLq bEUv6g %2BXZw aYqtaq 0bqfl% 2Fg9IQ a4ajBk vP9nXo QUaueC m3YtLR FvZlgJ JJ8mAn HZtai3 2m7728 AC0Kva H%2BNU KfeUC8 mr84%3 D INTERFACE [facility] [address], , [address], 02/26/2024 14:24:42 06/13/20 24 06/13/2024 XR, shoul carolynn, 2 or more view [email or web address]:/ [email or web address] ?Encry pted=s hAaTro YD8dLq bEUv6g %2BXZw aYqtaq 0bqfl% 2Fg9IQ a4ajBk vP9nXo QUaueC m3YtLR FvZlgJ JJ8mAn HZtai3 6w9174 AC0Kra XWGUaf eUC8mr 84%3D [email or web address] [facility] [address], , [address], 06/13/2024 15:36:11 06/13/20 24 06/13/2024 XR, shoul carolynn, 2 or more view [email or web address] ?Encry pted=s hAaTro YD8dLq bEUv6g %2BXZw aYqtaq 0bqfl% 2Fg9IQ a4ajBk vP9nXo QUaueC m3YtLR FvZlgJ JJ8mAn HZtai3 0q4936 AC0Kra XWGUaf eUC8mr 84%3D [email or web address] [facility] [address], , [address], 06/13/2024 15:35:58 06/13/20 24 06/13/2024 XR, cervi italia spine , 1 view [email or web address]:/ [email or web address] ?Encry pted=s hAaTro YD8dLq bEUv6g %2BXZw aYqtaq 0bqfl% 2Fg9IQ a4ajBk vP9nXo QUaueC m3YtLR FvZlgJ JJ8mAn HZtai3 8r3300 AC0Kra XWGUKD eUC8mr 84%3D INTERFACE [facility] [address], , [address], 06/13/2024 15:08:39 06/13/20 24 06/13/2024 XR, cervi italia spine , 1 view [email or web address]:/ [email or web address] ?Encry pted=s hAaTro YD8dLq bEUv6g %2BXZw aYqtaq 0bqfl% 2Fg9IQ a4ajBk vP9nXo QUaueC m3YtLR FvZl JJ8Alamo HZtai3 0y7464 AC0Kra XWGUKD eUC8mr 84%3D INTERFACE [facility] [address], , [address], 06/13/2024 15:08:41 07/25/20 24 07/25/2024 XR, shoul carolynn, 2 or more view [email or web address]:/ [email or web address] ?Encry pted=s hAaTro YD8dLq bEUv6g %2BXZw aYqtaq 0bqfl% 2Fg9IQ a4ajBk vP9nXo QUaueC m3YtLR FvZlg JJ8mAn HZtai3 3j6106 AC0Kqa 36DWau vKiQtr MwF INTERFACE [facility] [address], , [address], 07/25/2024 15:52:11 07/25/20 24 07/25/2024 XR, shoul carolynn, 2 or more view [email or web address]:/ [email or web address] ?Encry pted=s hAaTro YD8dLq bEUv6g %2BXZw aYqtaq 0bqfl% 2Fg9IQ a4ajBk vP9nXo QUaueC m3YtLR FvZlgJ JJ8mAn HZtai3 3t6097 AC0Kqa 36DWau vKiQtr MwF INTERFACE [facility] [address], , [address], 07/25/2024 15:52:14 07/25/20 24 07/25/2024 XR, gus carolynn, 2 or more view http:/ [email or web address] ?Encry pted=s hAaTro YD8dLq bEUv6g %2BXZw aYqtaq 0bqfl% 2Fg9IQ a4ajBk vP9nXo QUaueC m3YtLR FvZlgJ JJ8Alamo HZtai3 9t7435 AC0Kqa nWDUKK iKiQtr MwF INTERFACE [facility] [address], , [address], 07/25/2024 16:06:08 07/25/20 24 07/25/2024 gus GUPTA, 2 or more view http:/ [email or web address] ?Encry pted=s hAaTro YD8dLq bEUv6g %2BXZw aYqtaq 0bqfl% 2Fg9IQ a4ajBk vP9nXo QUaueC m3YtLR FvZlg JJ8mAn HZtai3 2f6146 AC0Kqa nWDUKK iKiQtr MwF INTERFACE [facility] [address] [facility] [address], , [address], 07/25/2024 16:06:11 Result Notes None recorded. Procedures Surgical History Date Name Laterality Status Provider Name and Address Organization Details Recorded Time 5 Knee Kenalog 1cc L/R completed Rafael Marshall PA-C [address], , [address], [facility] 11/10/2024 15:34:31 4 Sports Shoulder completed Debora García MD [address] [facility], , [address], [facility] 08/20/2024 13:07:34 4 Sports Shoulder completed Debora García MD [address] [facility], , [address], [facility] 06/13/2024 15:55:01 4 Hip Kenalog 1cc Injection, L/R completed Rafael Marshall PA-C [address] [facility], , [address], [facility] 03/15/2024 10:48:22 4 Hip Kenalog 1cc Injection, L/R completed Rafael Marshall PA-C [address] [facility], , [address], [facility] 02/26/2024 15:11:06 Imaging Results Imaging Date Name Status LastModified by Organiz ation Details LastModified Time 02/26/2024 XR, hip, unilateral, 2 or 3 view completed [facility] [address] [facility], , [address], 02/26/2024 14:24:40 02/26/2024 XR, hip, unilateral, 2 or 3 view completed INTERFACE [facility] [address] [facility], , [address], 02/26/2024 14:24:42 06/13/2024 XR, shoulder, 2 or more view [place] [address] [facility] [address], , [address], 06/13/2024 15:36:11 06/13/2024 XR, shoulder, 2 or more view completed [place] [address] [facility] [address], , [address], 06/13/2024 15:35:58 06/13/2024 XR, cervical spine, 1 view completed [facility]FACE [facility] [address], , [address], 06/13/2024 15:08:39 06/13/2024 XR, cervical spine, 1 view completed [facility] [address], , [address], 06/13/2024 15:08:41 07/25/2024 XR, shoulder, 2 or more view completed INTERFACE [facility] [address], , [address], 07/25/2024 15:52:11 07/25/2024 XR, shoulder, 2 or more view completed INTERFACE [facility] [address], , [address], 07/25/2024 15:52:14 07/25/2024 XR, shoulder, 2 or more view completed INTERFACE [facility] [address], , [address], 07/25/2024 16:06:08 07/25/2024 XR, shoulder, 2 or more view completed INTERFACE [facility] [address], , [address], 07/25/2024 16:06:11 Procedure Notes None recorded. Medical Equipment None Reported. Allergies Allergen ID Allergen Name Allergen Category Reaction Reaction Severity Criticality Documentation Date Start Date Code Code System Note Provider Name and Address Organization Details Recorded Time 569908 apple extract food Not available Not available Not available 02/26/2024 08934 65 RxNorm SHERINE lowe [facility] 14:06:39 668008 plum preparati on food Not available Not available Not available 02/26/2024 95835 7 RxNorm SHERINE lowe [facility] 14:06:44 063849 Substance with sulfonami de structure and antibacte rial mechanism of action (substanc e) medicatio n Not available Not available Not available 02/26/2024 23170 8003 SNOMED SHERINE BATEMAN [facility]3] [facility] 4 14:06:49 513855 Cipro medicatio n Not available Not available Not available 02/26/2024 65835 3 RxNorm SHERINE BATEMAN [facility]3] [facility] 4 14:06:53 Medications Name Sig Start Date Stop Date Status Note LastModified by Organization Details LastModified Time atorvastati n 80 mg tablet TAKE 1 TABLET BY MOUTH EVERY MORNING active Not Available Not Available No t Available nystatin 100,000 unit/mL oral suspension TAKE 4 ML BY MOUTH/THR OAT 4 TIMES A DAY FOR 14 DAYS active Not Available Not Available No t Available cetirizine 10 mg tablet TAKE 1 TABLET BY MOUTH EVERY DAY NEEDED active Not Available Not Available No t Available Lidocaine Viscous 2 % mucosal solution TAKE 15 ML BY MOUTH EVERY 3 HOURS. SWISH AND SWALLOW DIRECTED 02/25 completed Not Available Not Available Not Available ondansetron HCl 4 mg tablet TAKE 1 TABLET BY MOUTH EVERY 8 HOURS NEEDED FOR NAUSEA AND VOMITING FOR UP TO 7 DAYS 02/25 completed Not Available Not Available Not Available metoprolol succinate ER 100 mg tablet,exte nded release 24 hr TAKE 1 TABLET BY MOUTH TWICE A DAY active Not Available Not Available No t Available melatonin 3 mg tablet TAKE 1 TABLET BY MOUTH AT BEDTIME NEEDED :FOR INSOMNIA active Not Available Not Available No t Available aspirin 81 mg tablet,fernanda yed release TAKE 1 TABLET BY MOUTH EVERY DAY IN THE MORNING active Not Available Not Available No t Available tramadol 50 mg tablet TAKE 1 TABLET BY MOUTH EVERY 8 (EIGHT) HOURS IF NEEDED FOR SEVERE PAIN FOR UP TO 28 DAYS. active Not Available Not Available No t Available acetaminoph en ER 650 mg tablet,exte nded release TAKE 1 TABLET BY MOUTH EVERY 8 HOURS NEEDED. DO NOT CRUSH/KYLEIGH AK/CHEW active Not Available Not Available No t Available losartan 100 mg-hydrochl orothiazide 25 mg tablet TAKE 1 TABLET BY MOUTH EVERY DAY IN THE MORNING active Not Available Not Available No t Available famotidine 20 mg tablet TAKE 1 TABLET TWICE A DAY ORALLY FOR BREAKTHRO UGH ACID REFLUX 30 DAYS active Not Available Not Available No t Available lidocaine HCl 4 % (40 mg/mL) mucosal solution DIRECTED MOUTH/THR OAT TWICE A DAY NEEDED. SWISH AND SPIT. DO NOT SWALLOW. 14 DAYS active Not Available Not Available No t Available OneTouch Ultra Test strips USE TO CHECK BLOOD SUGAR BY SUBCUTANE OUS ROUTE THREE TIMES PER DAY. active Not Available Not Available No t Available amlodipine 10 mg tablet TAKE 1 TABLET BY MOUTH EVERY DAY IN THE MORNING active Not Available Not Available No t Available acarbose 100 mg tablet TAKE 1 TABLET BY MOUTH 3 TIMES A DAY WITH BREAKFAST LUNCH AND EVENING MEAL active Not Available Not Available No t Available buspirone 30 mg tablet TAKE 1 TABLET BY MOUTH EVERY DAY active Not Available Not Available No t Available lidocaine 5 % topical patch APPLY 1 PATCH TOPICALLY TO SKIN, LEAVE ON FOR 12 HOURS AND OFF FOR 12 HOURS DIRECTED active Not Available Not Available No t Available nitroglycer in 0.4 mg sublingual tablet PLEASE SEE ATTACHED FOR DETAILED DIRECTION S active Not Available Not Available No t Available gabapentin 300 mg capsule TAKE 1 CAPSULE BY MOUTH TWICE A DAY active Not Available Not Available No t Available omeprazole 20 mg capsule,del ayed release TAKE 1 CAPSULE BY MOUTH TWICE A DAY active Not Available Not Available No t Available clobetasol 0.05 % topical ointment APPLY A THIN LAYER TOPICALLY TO AFFECTED AREAS AT BEDTIME 02/25 completed Not Available Not Available Not Available nystatin 100,000 unit/gram topical powder APPLY TO AFFECTED AREA TWICE A DAY active Not Available Not Available No t Available albuterol sulfate HFA 90 mcg/actuati on aerosol inhaler INHALE 2 PUFFS EVERY 4 TO 6 HOURS NEEDED FOR WHEEZING active Not Available Not Available No t Available hydroxyzine HCl 10 mg tablet TAKE 1 TABLET BY MOUTH EVERY DAY NEEDED active Not Available Not Available No t Available clotrimazol e 1 % topical cream APPLY TO AFFECTED AREA TWICE A DAY IN THE MORNING AND IN THE EVENING 02/25 completed Not Available Not Available Not Available Novolog FlexPen U-100 Insulin aspart 100 unit/mL (3 mL) subcutaneou s INJECT 12-14 UNITS 3 TIMES A DAY WITH MEALS active Not Available Not Available No t Available rosuvastati n 40 mg tablet TAKE 1 TABLET BY MOUTH EVERY DAY active Not Available Not Available No t Available lactulose 10 gram/15 mL oral solution TAKE 15MLS BY MOUTH EVERY DAY active Not Available Not Available No t Available melatonin 5 mg tablet TAKE 1-2 TABLETS BY MOUTH EVERY NIGHT AT BEDTIME NEEDED FOR INSOMNIA active Not Available Not Available No t Available cholecalcif jordin (vitamin D3) 50 mcg (2,000 unit) capsule TAKE 1 CAPSULE BY MOUTH EVERY DAY active Not Available Not Available No t Available fenofibrate 54 mg tablet TAKE 1 TABLET BY MOUTH AT NOON DAILY active Not Available Not Available No t Available blood pressure test kit-large cuff USE TO CHECK BLOOD PRESSURE ONCE DAILY 02/25 completed Not Available Not Available Not Available TRUEplus Lancets 33 gauge USE TO CHECK BLOOD SUGAR 3 TIMES A DAY 02/25 completed Not Available Not Available Not Available Trulicity 1.5 mg/0.5 mL subcutaneou s pen injector INJECT ONE PEN (=1.5MG) SUBCUTANE OUSLY ONCE A WEEK DIRECTED active Not Available Not Available No t Available Tresiba FlexTouch U-200 insulin 200 unit/mL (3 mL) subcutaneou s pen INJECT 50 UNITS SUBCUTANE OUSLY AT BEDTIME active Not Available Not Available No t Available BD Yary 2nd Gen Pen Needle 32 gauge x 5/32 USE DIRECTED 4 TIMES A DAY WITH INSULIN 02/25 completed Not Available Not Available Not Available OneTouch Ultra2 Meter USE DIRECTED 3 TIMES A DAY 02/25 completed Not Available Not Available Not Available Trulicity 3 mg/0.5 mL subcutaneou s pen injector INJECT 1 PEN UNDER THE SKIN ONCE A WEEK DIRECTED active Not Available Not Available No t Available Vitals Date Recorded Body height Body mass index (BMI) Body weight Provider Name and Address Organization Details Last Updated DateTime 02/26/2024 147.32 cm 31.3 kg/m2 49719.86 g SHERINE BATEMAN [facility] 02/26/2024 14:06:35 Date Recorded Body height Provider Name an d Address Organization Details Last Updated DateTime 03/15/2024 147.32 cm ARCHIE LOBATO [facility] 03/15/2024 10:29:27 Date Recorded Body height Body mass index (BMI) Body weight Provider Name and Address Organization Details Last Updated DateTime 06/13/2024 147.32 cm 31.3 kg/m2 93063.86 g ELSIE SHIN [facility] 06/13/2024 14:59:13 Date Recorded Body height Body mass index (BMI) Body weight Provider Name and Address Organization Details Last Updated DateTime 07/25/2024 147.32 cm 31.3 kg/m2 48892.86 g ELSIE SHIN [facility] 07/25/2024 15:27:05 Date Recorded Body height Body mass index (BMI) Body weight Provider Name and Address Organization Details Last Updated DateTime 11/10/2024 147.32 cm 31.3 kg/m2 05606.86 g Arin Perla [facility] 11/10/2024 14:50:16 Social History None recorded. Functional Status None recorded. Mental Status None recorded. Family History Nothing Reported. Medical History Condition Response Allergies/Hayfever N Coronary Artery Disease N Breathing or lung disorders N Anxiety/Depression N Emphysema N Nerve Disorders N Thyroid Problems N COPD N Pacemaker N Kidney/Bladder Problems Y Anemia N Vascular Disease N Heart Trouble Y Heart Attack (TN) N Gastrointestinal Disease N Cholesterol N Diabetes Y Autoimmune disease N Bleeding Disorder N Orthotics N Seizures/Epilepsy N Arthritis Y Blood Clot N AIDS/HIV N Congestive Heart Failure (CHF) N Acid Reflux (GERD) N Cancer N Stroke Y Asthma N Circulation Problems N Peripheral Vascular Disease N Sleep Apnea N Hepatitis N Heart Disease N Rheumatoid Arthritis N Pulmonary Embolism N Arrhythmia N Headaches N Fibromyalgia N Hypertension Y Osteoporosis N Gynecological HistoryNo gynecological history recorded. Obstetrics History GPAL:G 0 P 0 0 0 0 Past Encounters Encounter ID Performer Location Encounter Start Date Encounter Closed Date Diagnosis/Indication Diagnosis SNOMED-CT Code Diagnosis ICD10 Code Diagnosis Note [id number] C[facility]ST[facility] [address] [place] [address] 02/26/2024 13:54:00 02/26/2024 15:13:27 Pain of left hip joint [id number] 20595 M25.552 Pain in ri ght hip joint 0854820449 10053 M25.551 Bilateral greater trochanteric pain syndrome of lower limbs [id number] 6860339 M70.61 M70.62 You have been provided with a cortisone injection in order to reduce the pain and inflammati on that you are experienci ng. The injection consists of two medication s. Cortisone (an anti-infla mmatory that will take 48-72 hours to take effect) and Lidocaine (a numbing agent that will last 2-3 hours). Please note that not everyone will have a lasting response following the injection. PATIENT INSTRUCTIO NSOnce the Lidocaine wears off, you may have an increase in your pain. I recommend icing the affected area for 20 minutes 3-4 times per day.It is recommende d that you refrain from any high level activities using the joint or limb that was injected for approximat darcy 24-48 hours. Normal day-to-day activities are generally not a problem.PO SSIBLE SIDE EFFECTSInd ividuals with dark complexion s may experience some skin discolorat ion locally at the site of the injection. There is the possibilit y of an increase in discomfort within 48 hours following the injection. This is called a ? f lare? . To help minimize the chances of this, please see the post-injec tion instructio ns above.Ther e is a less than 1% chance of an infection. If you notice any signs of infection (redness, warmth, drainage, fever greater than 100 degrees) please call our office or contact us through the portal [facility]. [id number] C[facility]ST[facility] Silva [address] [place] [address] 03/15/2024 10:27:54 04/05/2024 12:32:37 Trochanteric bursitis of left hip [id number] 61748 M70.62 You have been provided with a cortisone injection in order to reduce the pain and inflammati on that you are experienci ng. The injection consists of two medication s. Cortisone (an anti-infla mmatory that will take 48-72 hours to take effect) and Lidocaine (a numbing agent that will last 2-3 hours). Please note that not everyone will have a lasting response following the injection. PATIENT INSTRUCTIO NSOnce the Lidocaine wears off, you may have an increase in your pain. I recommend icing the affected area for 20 minutes 3-4 times per day.It is recommende d that you refrain from any high level activities using the joint or limb that was injected for approximat darcy 24-48 hours. Normal day-to-day activities are generally not a problem.PO SSIBLE SIDE EFFECTSInd ividuals with dark complexion s may experience some skin discolorat ion locally at the site of the injection. There is the possibilit y of an increase in discomfort within 48 hours following the injection. This is called a ? f lare? . To help minimize the chances of this, please see the post-injec tion instructio ns above.Ther e is a less than 1% chance of an infection. If you notice any signs of infection (redness, warmth, drainage, fever greater than 100 degrees) please call our office or contact us through the portal [facility]. [id number] MD Nicho Reynosoadelaida [address] [place] [address] 06/13/2024 14:40:37 07/06/2024 11:28:33 Pain of left shoulder joint [id number] M25.429 [id number] MD Nicho Reynosoadelaida [address] [place], [place] [address] 07/25/2024 14:39:59 08/19/2024 11:38:02 Pain of right shoulder joint [id number] M25.704 [id number] [facility] [address] [place] [address] 11/10/2024 14:36:46 11/22/2024 15:06:05 Osteoarthritis of right knee joint [id number] 60756 M17.11 The patient is ambulatory , but has weakness and/or instabilit y of their extremity which requires stabilizat ion from this semi-rigid /rigid orthosis to improve their function.V erbal and written instructio ns for the use and applicatio n of this item were given. Patient was instructed that should the brace result in increased pain, decreased sensation, increased swelling or an overall worsening of their medical condition, to please contact our office immediatel y. You have been provided with a cortisone injection in order to reduce the pain and inflammati on that you are experienci ng. The injection consists of two medication s. Cortisone (an anti-infla mmatory that will take 48-72 hours to take effect) and Lidocaine (a numbing agent that will last 2-3 hours). Please note that not everyone will have a lasting response following the injection. PATIENT INSTRUCTIO NSOnce the Lidocaine wears off, you may have an increase in your pain. I recommend icing the affected area for 20 minutes 3-4 times per day.It is recommende d that you refrain from any high level activities using the joint or limb that was injected for approximat darcy 24-48 hours. Normal day-to-day activities are generally not a problem.PO SSIBLE SIDE EFFECTSInd ividuals with dark complexion s may experience some skin discolorat ion locally at the site of the injection. There is the possibilit y of an increase in discomfort within 48 hours following the injection. This is called a ? f lare? . To help minimize the chances of this, please see the post-injec tion instructio ns above.Ther e is a less than 1% chance of an infection. If you notice any signs of infection (redness, warmth, drainage, fever greater than 100 degrees) please call our office or contact us through the portal [facility]. Health Concerns Section Related Observation LastModified by Organization Detai ls LastModified Time None Recorded Concern Status LastModified by Organization Details LastModified Time None Recorded Advance Directives Directive None Recorded Payers Encounter Date Sequence Insurance Name Policy Number Policy Mendoza Covered Member ID Mendoza Member ID Guarantor Name 02/26/2024 1 [facility] - DOS ON OR AFTER 2023 - ONE CARE (MEDICARE REPLACEMENT/AD VANTAGE - HMO) Dori Palma [id number] Dori Urrutia 03/15/2024 1 [facility] - DOS ON OR AFTER 2023 - ONE CARE (MEDICARE REPLACEMENT/AD VANTAGE - HMO) Dori Palma [id number] Dori Urrutia 06/13/2024 1 [facility] - DOS ON OR AFTER 2023 - [employer] (MEDICARE REPLACEMENT/AD VANTAGE - HMO) Dori Urrutia [id number] Dori Urrutia 07/25/2024 1 [facility] - DOS ON OR AFTER 2023 - [employer] (MEDICARE REPLACEMENT/AD VANTAGE - HMO) Dori Urrutia [id number] Dori Urrutia 11/10/2024 1 [facility] - DOS ON OR AFTER 2023 - [employer] (MEDICARE REPLACEMENT/AD VANTAGE - HMO) Dori Urrutia [id number] Dori Urrutia Notes Date Note Type Note Provider Name and Address Organization Details Recorded Time 02/26/2024 text/html I am seeing the patient today under the supervision of {{Dr. Irina Shi* Dr. Torrey Valdez}} who was available but who did not see the patient. Patient is in for evaluation of bilateral hip pain. Patient reports that the pain has been going on for a number of months. Does not recall any injury to account for this. Pain is in the lateral aspect of the bilateral hips and has difficulty ambulating getting up from a seated position. Pain will radiate to the posterior aspect of her hip into her low back. Patient states that she has had similar symptoms years ago underwent cortisone injections which had worked well for her. No groin pain. Rafael Marshall PA-C [address] [facility] [address], , [phone], [facility] 02/26/2024 15:12:42 03/15/2024 text/html I am seeing the patient today under the supervision of {{Dr. Irina Garcia#}} who was available but who did not see the patient. The patient presents today for follow-up. Has known trochanteric bursitis of the {{Left* Right Bi-late ral}} hip. Patient is undergoing staggered injection secondary to diabetes. Patient reports on the right side did get excellent relief of symptoms to date. Did have small increase in her blood sugars which was easily controllable. PAST MEDICAL/SURGICAL HISTORY Past medical history is reviewed per intake sheet. PHYSICAL FINDINGS On physical examination, the patient is well appearing and in no apparent distress, alert and oriented x3. Gait is symmetric. Examination of the hip reveals the skin to be intact, normal musculature, continued tenderness on palpation over the greater trochanter. No pain with range of motion of the hip, has full range of motion, no crepitus noted with range of motion. No significant pain with straight leg raise. ASSESSMENT Symptomatic trochanteric bursitis of the {{Left* Right Bi-late ral}} hip. PLAN I reviewed the findings with the patient, at this time recommend going forward with the left hip injection as previously had plan. Did get excellent relief from the right, did explain to her that I would continue staggered injections going forward approximately 1 to 2 weeks apart to help optimize her blood sugar control. Did also explain to her that she may discuss any sort of premedication with her diabetes provider. Patient agrees to this treatment plan. All questions asked and answered. Rafael Marshall PA-C [address] [place] [address] [address], , [address], [facility] 03/15/2024 10:48:52 06/13/2024 text/html Chief Complaint: Left shoulder pain HPI: This is an 79-year-old wyxba-ypfo-cocgkzvg disabled woman with left shoulder pain beginning about a month ago. She was climbing up into her son's car, using her arm on at overhead handle to pull herself in when she developed sudden pain in the shoulder. This has been persistent since. She has been taking Tylenol, which helps somewhat. No injections or therapy to this point. Complains of pain over the lateral brachium, exacerbated by overhead movements. Occasional crepitus. Denies numbness or tingling. PMH: History of stroke 2021, heart disease, hypertension, hypercholesterolemia, kidney/bladder problems, diabetes, vitamin D deficiency PSH: Carpal tunnel surgery, right knee surgery, kidney stone removal Meds: Amlodipine, nitroglycerin, NovoLog, Trulicity, fenofibrate, gabapentin, lactulose, acarbose, losartan, aspirin, vitamin D, metoprolol, Tresiba, rosuvastatin, melatonin, buspirone, hydroxyzine, omeprazole, tramadol Allergies: Sulfa, ciprofloxacin. Also allergies to apple and plum. Social Hx: Disabled. Presents with her daughter. Ambulates without assistive device. Family Hx: noncontributory ROS: Negative x12 except as noted above in the HPI Past family, medical, social history and review of systems have been reviewed and updated on the medical history sheet saved to the patient's chart. A 12-point review of systems is negative x12 except as noted above and/or on the medical history sheet. Examination: Pleasant 79-year-old woman in no acute distress. 4 feet 10 inches, 150 pounds. On exam of the left upper extremity, skin over the shoulder is intact. No effusion, no gross atrophy. Tendency to shoulder protraction. Tender to palpation throughout. Active and passive forward elevation 160, no crepitus noted. Passive external rotation 65 with negative ER lag. Internal rotation limited to greater trochanter. Limited more by pain and stiffness. 4/5 strength with empty can with pain, 5/5 with internal and external rotation, both also causing pain. Negative Yergason's. Sensation intact in an axillary distribution. Fires EPL, FPL and intrinsics. Hand is warm and well-perfused. Imaginv of the Left shoulder ordered and obtained at [facility] today were reviewed during the visit. These demonstrate increased glenohumeral joint space, which may reflect effusion. Difficult to make out on outlet view, but AP view suggest a large anterior acromial spur. No proximal migration humeral head. Humeral head centered on axillary view. No dystrophic calcium deposition. Impression: 79-year-old rmald-sxxy-oqjcvusf disabled woman with shoulder morphology which would predispose to rotator cuff tear and 1 month history of left pain following a pulling injury. Exam concerning for possible rotator cuff tear. Plan: Findings options for management reviewed the patient. Would recommend starting with a course of nonoperative treatment. To this end, we will go forward with cortisone injection today. Also provided with prescription for physical therapy. Discussed that if the cortisone injection provides complete relief, no need to go forward with therapy, if she continues to have symptoms following cortisone, would recommend moving forward with therapy as prescribed. For occasional aches and pains, the patient can take jpgh-okc-vswvhls medication such as Tylenol or anti-inflammatories as needed; risks and benefits of medication discussed. Should call with more persistent pain. We will leave follow up open ended at this point. However should symptoms worsen or fail to improve to the patient's satisfaction, she is encouraged to give the office a call to be seen back for further evaluation and management. [employer] [facility] speech recognition dishing machine operator software was used to create portions of this document. An attempt at proofreading has been made to minimize errors. Please call for corrections. Debora García MD [address] [place] [address] [address], , [phone], [facility] 06/13/2024 17:20:18 07/25/2024 text/html Chief Complaint: Left shoulder pain HPI: This is an 79-year-old fulal-itzh-xmdfxdmr disabled woman who I met 6 weeks ago with complaints of left shoulder pain after an injury pulling herself up into her son's car. We did a cortisone injection on 06/13/2024 which helped her symptoms here significantly, with improved range of motion and almost no pain. Presents today for new evaluation of her Right shoulder. Pain here began with a fall shortly after our visit in the office. Notes difficulty and pain raising the arm since this occurred. Feels this along the subacromial space radiating to the lateral brachium. Some radiation to the scapula. Denies neck pain. Particularly bothersome at nighttime sleeping and with lifting. Overhead reach not as bothersome. Denies crepitus. No treatment thus far. Pain Complains of pain over the lateral brachium, exacerbated by overhead movements. Occasional crepitus. Denies numbness or tingling. Past family, medical, social history and review of systems have been reviewed and updated on the medical history sheet saved to the patient's chart. A 12-point review of systems is negative x12 except as noted above and/or on the medical history sheet. Examination: Pleasant 79-year-old woman in no acute distress. 4 feet 10 inches, 150 pounds. On exam of the Right upper extremity, skin over the shoulder is intact. No effusion, no gross atrophy. Tendency to shoulder protraction. Tender to palpation throughout. Active and passive forward elevation 160, no crepitus noted. Passive external rotation 65 with negative ER lag. Internal rotation limited to greater trochanter. Limited more by pain than stiffness. 4/5 strength with empty can with pain, 5/5 with internal and external rotation, both also causing pain. Negative Yergason's. Sensation intact in an axillary distribution. Fires EPL, FPL and intrinsics. Hand is warm and well-perfused. Imaginv of the right shoulder ordered and obtained at [facility] today were reviewed during the visit. These demonstrate good preservation of glenohumeral joint space. Type II acromion. No proximal migration humeral head. Humeral head centered on axillary view. No dystrophic calcium deposition. Impression: 79-year-old mvxul-brqr-lkhuzqqg disabled woman with shoulder morphology which would predispose to rotator cuff tear and 2.5 right shoulder month history of left pain following a pulling injury. Symptoms resolved with cortisone injection. Right shoulder symptoms beginning following a fall 5 weeks ago. Exam again concerning for at least degenerative cuff disease is not traumatic rotator cuff tear Plan: Findings options for management reviewed the patient. As with her left shoulder, for the right shoulder I would recommend starting with a course of nonoperative treatment. To this end, we will go forward with cortisone injection today. Also provided with prescription for physical therapy. Discussed that if the cortisone injection provides complete relief, no need to go forward with therapy, if she continues to have symptoms following cortisone, would recommend moving forward with therapy as prescribed. For occasional aches and pains, the patient can take rxhl-itg-ewqsqff medication such as Tylenol or anti-inflammatories as needed; risks and benefits of medication discussed. Should call with more persistent pain. We will leave follow up open ended at this point. However should symptoms worsen or fail to improve to the patient's satisfaction, she is encouraged to give the office a call to be seen back for further evaluation and management. [facility] speech recognition dishing machine operator software was used to create portions of this document. An attempt at proofreading has been made to minimize errors. Please call for corrections. Debora García MD [address] [place] [address] [address], , [address], [facility] 08/20/2024 13:08:33 11/10/2024 text/html I am seeing the patient today under the supervision of {{Dr. Irina Sih* Dr Raymundo Garcia}} Who was available but who did not see the patient. HPI: Patient comes in for recheck of {{left right* bilater al}} knee pain. Has known osteoarthritis in the lateral compartment of the knee(s). Been treated conservatively with cortisone injection to this point with {{ 10#}} weeks relief of symptoms. No new injury or modalities. Patient reports getting prescription for edema knee brace but was unable to obtain 1. Past family, medical, social history and review of systems has been reviewed, updated and is located in the patient? s chart. Examination:The patient is well appearing and in no apparent distress. Alert and oriented x3. Vital signs per intake sheet. Examination of the {{left right* bilater al}} knee reveals no effusion erythema or warmth. Decreased range of motion. Lower extremity valgus deformity with lateral laxity. Point tender over the lateral joint line. Calf soft and nontender. 4+/5 strength of knee flexion extension. Impression: Osteoarthritis Plan: Nature of the diagnosis discussed with the patient today. Both surgical and nonsurgical options were reviewed. This point recommend a repeat cortisone injection. Patient agreed. Recommended a new knee brace and updated prescription given. Anterior lateral portal was used. See prodecure note. Follow-up with us in 3 months for discussion of continued conservative management versus total joint arthroplasty. Rafael Marshall PA-C [address], , [address], [place] [facility] 11/10/2024 15:35:00 OBGyn Episode No OBEpisode recorded.
--- OUTSIDE RECORDS SUMMARY | 2024-12-13 06:50 | XMS_ITS | Encounter Summary ---
Author Organization [employer] Address [address] [facility] [address] [place] [address] Care Team Providers Care Wire Temperer Name Role Phone Name, Suresh BENJAMIN Primary Care Provider [phone] Reason for Visit * Reason Comments Med Refill Encounter Details Date Type Department Care Team ([facility] st Contact Info) Description 08/12/2023 Refill [facility] [address] [place] [address] Michelle Hernandez, DERRICK BOAT RUNNER [address] [place] [address] Type 2 diabetes mellitus with hyperglycemia, with long-term current use of insulin ([facility]) Social History Tobacco Use Types Packs/Day Years [...] as of this encounter Visit Diagnoses Diagnosis Type 2 diabetes mellitus with hyperglycemia, with long-term current use of insulin ([facility]) documented in this encounter Care Teams Wire Temperer Relationship Specialty Start Date End Date Name, MD Suresh [address] [place] [address] PCP - General Family Medicine 11/18/17 documented as of this encounter
--- OUTSIDE RECORDS SUMMARY | 2024-12-13 06:50 | XMS_ITS | Patient Health Record ---
Author Organization [facility] Address [address] [place] [address] Care Team Providers Care Detective Captain Name Role Phone Name Suresh BENJAMIN Primary Care Provider Juanpablo Medina Jr Unavailable ALLERGIES Allergen (clinical drug ingredient) Drug/Non Drug Allergy documented on EMR Reaction Allergy Type Onset Date Status Sulfa blisters Drug Allergy Active ciprofloxacin Cipro itching Drug Allergy Act berta REASON FOR REFERRAL No Information MEDICATIONS Medication SIG (Take, Route, Frequency, Duration) Notes Start Date End Date Status Vitamin D 50 MCG (1999) 1 tablet Oral ly Once a day Active traMADol HCl 50 MG 1 tablet as needed O rally TID Active Vitamin D3 Active Acarbose 100 MG as directed Oral thr ee times a day Active Cyrus 3 1000 MG 1 capsule Orally twi ce a day Active NovoLOG 70/30 FlexPen ReliOn Active Metoprolol Succinate ER 100 MG 1 tablet Orally twice a day Active busPIRone HCl 30 MG 1 tablet Orally once a day Active Aspir-Low 81 MG 1 tablet Orally Once a day Active amLODIPine Besylate 10 MG 1 tablet Orall y Once a day Active Atorvastatin Calcium 80 MG 1 tablet Oral ly Once a day Active Acetaminophen ER 650 MG 2 tablets as nee ded Orally every 8 hrs Active Omeprazole 20 MG TAKE 1 CAPSULE BY UTH TWICE A DAY for 90 Active Fenofibrate 54 MG 1 tablet with food O rally Once a day Active Tresiba FlexTouch 200 UNIT/ML 100 units Subcutaneous QD Ac tive Gabapentin 300 MG 1 capsule Orally Onc e a day for 30 day(s) Active Trulicity 1.5 MG/0.5ML 0.5ml Subcutaneou s once a week Active Melatonin 3 MG 1 capsule at bedtime as needed with food Orally Once a day/bedtime Active Losartan Potassium-HCTZ 100-25 MG 1 tablet Orally Once a day Active IMMUNIZATIONS Vaccine Route Administration Date Status Comme nts Influenza Unknown 09/01/2018 Administered Influenza Unknown 06/19/2021 Administered Influenza Unknown 08/11/2023 Administered SOCIAL HISTORY Sex Assigned At : Social History Observation Description Sex Assigned At Unknown PROBLEMS Problem Type ICD Code Onset Dates Problem Status W/U Status Risk SNOMED Code Notes Problem Irritable bowel syndrome without diarrhea (K58.9) Active confirmed 22318193 Problem Dysphagia (R13.10) Active confirmed Dys phagia (62230960) Problem Gastroesophageal reflux disease without esophagitis (K21.9) Active confirmed 057034738 Problem Gastric polyp (K31.7) Active confirmed Gastric polyp (88077723) Problem Esophageal dysmotility (K22.4) Active confirmed 782069175 Problem Dysphagia, unspecified type (R13.10) Active confirmed 27021024 Problem Abnormal CT scan (R93.89) Active confirmed 333737482 VITAL SIGNS Temperature 97.7 degrees Fahrenheit 01/25/2024 Blood pressure diastolic 00 mm Hg 01/25/2024 Height 59.5 in 01/25/2024 Blood pressure systolic 000 mm Hg 01/25/2024 Weight 147 lbs 01/25/2024 BMI 29.19 kg/m2 01/25/2024 Encounters Encounter Location Date Provider Diagnosis [facility] [address] [place] [address] 01/25/2024 Juanpablo Madsen Jr Gastroesophageal reflux disease without esophagitis K21.9 and Dysphagia, unspecified type R13.10 ASSESSMENTS Encounter Date Diagnosis Assessment Notes Treatment Notes Treatment Clinical Notes 01/25/2024 Gastroesophageal reflux disease without esophagitis (ICD-10 - K21.9) Gastroesophageal reflux disease material was printed 01/25/2024 Dysphagia, unspecified type (ICD-10 - R13.10) PLAN OF TREATMENT Pending Test Test Name Order Date XR BARIUM SWALLOW-ESOPHAGUS 11/12/2016 XR BARIUM SWALLOW-ESOPHAGUS 01/06/2018 XR GI SERIES 08/21/2011 XR GI SERIES 11/19/2012 XR GI SERIES 02/29/2016 Future Test Test Name Order Date UPPER GI ENDOSCOPY BALLOOON DILATION OF ESOPH 01/04/2014 UPPER GI ENDOSCOPY BALLOOON DILATION OF ESOPH 01/06/2018 UPPER GI ENDOSCOPY BALLOOON DILATION OF ESOPH 12/31/2018 UPPER GI ENDOSCOPY 04/10/2022 Insurance Providers Payer Name Payer Address Payer Phone Subscriber Number Group Number Insured Name Patient Relationship to Insured Coverage Start Date Coverage End Date [facility] [address] Attn Claims JASEN Yousif [id number] CL AGUILERA Self - patient is the insured MEDICAL (GENERAL) HISTORY Medical History History ICD Code Gastroesophageal reflux dise ase with esophageal dysmotility, last upper endoscopy with balloon dilation 05/09. coronary artery disease,status-post [employer]LEVATOR INST[employer] APPRENTICE stent placement diabetes with diabetic neuropathy hyperlipidemia degenerative joint disease colonoscopy 2017, tubular adenoma, follo wup optional based on age. stroke Surgical History Surgery Date(Month/Year) cholecystectomy hysterectomy cleaned out artery 02/02/2018
--- OUTSIDE RECORDS SUMMARY | 2024-12-13 06:50 | XMS_ITS | Encounter Summary ---
Author Organization [employer] Address [address] [facility] [address] [place] [address] Care Team Providers Care Greens Cutter Name Role Phone Name, Suresh BENJAMIN Primary Care Provider [phone] Reason for Visit * Reason Onset Date Comments Med Refill 06/23/2023 Encounter Details Date Type Department Care Team (Late st Contact Info) Description 06/23/2023 Refill [facility] [address] [place] [address] Gela Loza MD [address] [place] [address] Social History Tobacco Use Types Packs/Day Years [...] on filedocumented in this encounter Care Teams Greens Cutter Relationship Specialty Start Date End Date Name, MD Suresh [address] [place] [address] PCP - General Family Medicine 11/18/17 documented as of this encounter
--- OUTSIDE RECORDS SUMMARY | 2024-12-13 06:50 | XMS_ITS | Encounter Summary ---
Author Organization [employer] Address [address] [facility] [address] [place] [address] Care Team Providers Care Exercise Physiology Professor Name Role Phone Name, Suresh BENJAMIN Primary Care Provider [phone] Encounter Details Date Type Department Care Team ([facility] st Contact Info) Description 09/27/2022 Orders Only [facility] [address] [place] [address] Name, MD Suresh [address] [place] [address] Social History Tobacco Use Types Packs/Day Years Used Date Smoking Tobacco: Never Assessed Comments Unknown Sex and Gender Information Value Date Recorded Sex Assigned at Female 08/18/2022 10:14 AM EDT Legal Sex Female 10:14 AM EDT Gender Identity Female 08/18/2022 10:14 AM EDT Sexual Orientation Straight 08/18/2022 10 :14 AM EDT documented as of this encounter Plan of Treatment Not on file documented as of this encounter Procedures Procedure Name Priority Date/Time Associated Diagnosis Comments CULTURE, URINE, ROUTINE Routine 01/16/2023 10:38 AM EDT PROTEIN CREATININE RATIO, URINE Routine 01/16/2023 10:20 AM EDT ALBUMIN, RANDOM URINE W/CREATININE Routine 01/16/2023 10:20 AM EDT URINALYSIS, COMPLETE Routine 01/16/2023 10:20 AM EDT COMPREHENSIVE METABOLIC PANEL, FASTING Routine 01/16/2023 10:10 AM EDT VITAMIN D,25-OH,TOTAL,IA Routine 01/16/2023 10:10 AM EDT CREATININE, SERUM Routine 01/16/2023 10: 10 AM EDT CBC WITH AUTO DIFFERENTIAL Routine 01/16/2023 10:10 AM EDT UREA NITROGEN (BUN) Routine 01/16/2023 1 0:10 AM EDT PHOSPHATE ( PHOSPHORUS) Routine 01/16/2023 10:10 AM EDT PTH, INTACT WITHOUT CALCIUM Routine 01/16/2023 10:10 AM EDT MAGNESIUM Routine 01/16/2023 10:10 AM EDT CALCIUM Routine 01/16/2023 10:10 AM EDT ALBUMIN Routine 01/16/2023 10:10 AM EDT LIPID PANEL, STANDARD Routine 01/16/2023 10:10 AM EDT ELECTROLYTE PANEL Routine 01/16/2023 10: 10 AM EDT documented in this encounter Results * Culture, Urine, Routine (01/16/2023 10:38 AM EDT) 01/16/2023 10:3 8 AM EDT 01/16/2023 11:29 AM EDT Comment:[facility] Narrative [facility] - 01/17/2023 1:11 PM EDT Urine Culture Report Result Urine Culture < 10,000 cfu/ml Specimen Source: Urine clean catch us [facility] Exter nal Provider LAB MICROBIOLOGY - GENERAL ORDERABLES Final Result [facility] [address] [place] [address] [phone] * Protein Creatinine Ratio, Urine (01/16/2023 10:20 AM EDT) Protein, Total, Random Urine 10 <12 mg/dL [facility] Protein/Creatin ine Ratio, Ur 0.07 <0.2 [facility] Comment:The spot urine prote in:creatinine ratio may increase to 0.3during normal . 01/16/2023 10:2 0 AM EDT 01/16/2023 11:29 AM EDT [facility] External Provider LAB URI NE ORDERABLES Final Result Performing Organization Address [facility] de Phone Number [facility] [address] [place] [address] [phone] * Albumin, Random Urine W/Creatinine (01/16/2023 10:20 AM EDT) Creatinine, Urine 147.17 mg/dL [facility] Microalbumin Urine 23.0 mg/L [facility] Microalbum Creatinine Ratio Ur 15.6 ug/mg cr [facility] Comment:Albumin/Creatinine R atio Reference Ranges: Normal: < 30 ug/mg creatinine Microalbuminuria: 30 - 300 ug/mg creatinineClinical Albuminuria: > 300 ug/mg creatinine 01/16/2023 10:2 0 AM EDT 01/16/2023 11:29 AM EDT [facility] External Provider LAB URI NE ORDERABLES Final Result Performing Organization Address [facility]/ZIP Co de Phone Number [facility] [address] [place] [address] [phone] * (ABNORMAL) Urinalysis Complete (01/16/2023 10:20 AM EDT) Color Urine Yellow [facility] Appearance Urine Clear [facility] PH 6.0 5.0 - 9.0 [facility] Glucose Urine UA Negative Negative mg/dL [facility] Urine Blood Negative Negative [facility] Specific Wilson - Urine 1.020 1.005 - 1.025 [facility] Urine Protein Negative Neg-Trace mg/dL [facility] Urine Ketones Negative Negative mg/dL [facility] Nitrite Urine Negative Negative [facility] Leukocyte Esterase Urine Moderate (2+)(A) Negative [facility] RBC Urine 0-2 0 - 2 /HPF [facility] Urine WBC 11-20(A) 0 - 5 /HPF [facility] Urine Squamous Epithelial Cell 0-2 0 - 2 /HPF [facility] Urine Bacteria None Seen None Seen [facility] Hyaline Casts, Urine 0-2 0 - 2 /LPF [facility] 01/16/2023 10:2 0 AM EDT 01/16/2023 11:29 AM EDT us [facility] External Provider LAB URI NE ORDERABLES Final Result [facility] [address], [place] [phone] * (ABNORMAL) PTH, Intact Without Calcium (01/16/2023 10:10 AM EDT) PTHI 20 16 - 77 pg/mL [facility] Comment:Interpretive Guide I ntact PTH Calcium -------Normal Parathyroid Normal NormalHypoparathyroidism Low or Low Normal LowHyperparathyroidism Primary Normal or High High Secondary High Normal or Low Tertiary High HighNon-Parathyroid Hypercalcemia Low or Low Normal High Calcium (PTHI) 10.7(A) 8.6 - 10.4 mg/dL [facility] Comment:THIS TEST WAS PERFOR MED AT:[facility] [place] [id number] LEAHY MD 01/16/2023 10:1 0 AM EDT 01/16/2023 11:26 AM EDT [facility] External Provider LAB BLO OD ORDERABLES Final Result [facility] [address] [place] [address] [phone] * Vitamin D, 25-Hydroxy, Total, Immunoassay (01/16/2023 10:10 AM EDT) Vitamin D 25-OH Total 42.7 >30 ng/mL [facility] Comment:Health Based Referen ce Values*< 20 ng/mL [id number] ng/mL Insufficient> 30 ng/mL Sufficient*Whitney MARS. N Engl J Med. 2007;357:266-280Care must be taken in interpreting Vitamin D results fromdifferent laboratories and methodologies. Published datademonstrated that results from patients undergoinghemodialysis may show a negative bias when tested withvarious automated 25-OH vitamin D assays when compared toLC-MS/MS.When testing samples from patients whose predominant form ofVitamin D is Vitamin D2, such as patients receiving VitaminD2 supplementation, results that are subtherapeutic shouldbe confirmed with another method such as LC-MS/MS. 01/16/2023 10:1 0 AM EDT 01/16/2023 11:26 AM EDT [facility] External Provider LAB BLO OD ORDERABLES Final Result [facility] [address] [place] [address] [phone] * Albumin (01/16/2023 10:10 AM EDT) Albumin Level 4.2 3.5 - 5.0 g/dL [facility] 01/16/2023 10:1 0 AM EDT 01/16/2023 11:26 AM EDT [facility] External Provider LAB BLO OD ORDERABLES Final Result Performing Organization Address [facility] Co de Phone Number [facility] [address] [place] [phone] * Magnesium (01/16/2023 10:10 AM EDT) Magnesium 1.7 1.6 - 2.6 mg/dL [facility] 01/16/2023 10:1 0 AM EDT 01/16/2023 11:26 AM EDT [facility] External Provider LAB BLO OD ORDERABLES Final Result Performing Organization Address [facility] Phone Number [facility] [address] [place] [phone] * Phosphate (As Phosphorus) (01/16/2023 10:10 AM EDT) Phosphorus 3.6 2.7 - 4.5 mg/dL [facility] 01/16/2023 10:1 0 AM EDT 01/16/2023 11:26 AM EDT [facility] External Provider LAB BLO OD ORDERABLES Final Result Performing Organization Address [facility] de Phone Number [facility] [address] [place] [phone] * (ABNORMAL) Calcium (01/16/2023 10:10 AM EDT) Calcium 10.4(H) 8.4 - 10.2 mg/dL [facility] 01/16/2023 10:1 0 AM EDT 01/16/2023 11:26 AM EDT [facility] External Provider LAB BLO OD ORDERABLES Final Result Performing Organization Address [facility]/ZIP Co de Phone Number [facility] [address] [place] [phone] [phone] * Creatinine, Serum (01/16/2023 10:10 AM EDT) Creatinine, Serum 1.06 0.5 - 1.4 mg/dL [facility] Estimated Glomerular Filt Rate 50 [facility] Comment:NOTE: For -Am erican individuals, multiply the result by 1.210.Chronic Kidney Disease: Estimated GFR < 60 mL/min/[id number] Kidney Disease: Estimated GFR < 15 mL/min/1.73m2 01/16/2023 10:1 0 AM EDT 01/16/2023 11:26 AM EDT [facility] External Provider LAB BLO OD ORDERABLES Final Result Performing Organization Address [facility] Co de Phone Number [facility] [address] [place] [phone] * (ABNORMAL) BUN (Blood Urea Nitrogen) (01/16/2023 10:10 AM EDT) Urea Nitrogen (BUN) 27(H) 9 - 16 mg/dL [facility] 01/16/2023 10:1 0 AM EDT 01/16/2023 11:26 AM EDT [facility] External Provider LAB BLO OD ORDERABLES Final Result Performing Organization Address City/[facility]/ZIP Co de Phone Number [facility] [address] [place] [phone] * Electrolyte Panel (01/16/2023 10:10 AM EDT) Sodium 140 135 - 145 mmol/L [facility] Potassium 4.0 3.3 - 5.1 mmol/L [facility] Chloride 102 96 - 108 mmol/L [facility] Carbon Dioxide 28 22 - 29 mmol/L [facility] Anion Gap 14 12 - 20 [facility] 01/16/2023 10:1 0 AM EDT 01/16/2023 11:26 AM EDT [facility] External Provider LAB BLO OD ORDERABLES Final Result Performing Organization Address [facility] Co de Phone Number [facility] [address] [place] [phone] * Lipid Panel, Standard (01/16/2023 10:10 AM EDT) Triglycerides 260 mg/dL [facility] Comment:Desirable Triglyceri de: less than 150 mg/dLBorderline High Triglyceride 150-199 mg/dLHigh Triglyceride: 200-499 mg/dLVery High Triglyceride: greater than or equal to 5OO mg/dL Cholesterol 180 mg/dL [facility] Comment:Desirable Cholestero l: less than 200 mg/dLBorderline High Cholesterol: 200-239 mg/dLHigh Cholesterol: greater than 239 mg/dL LDL Cholesterol Calculated 94 mg/dl [facility] Comment:Desirable LDL: less than 100 mg/dLNear Optimal/Above Optimal LDL: 110- 129 mg/dLBorderline High LDL: 130-159 mg/dLHigh LDL: 160-189 mg/dLVery High LDL: greater than or equal to 190 mg/dL HDL Cholesterol 34 mg/dL [facility] Comment:Desirable HDL: great er than 40 mg/dL Note: This HDL assay may give artificially low results in patients with liver disease. 01/16/2023 10:1 0 AM EDT 01/16/2023 11:26 AM EDT [facility] External Provider LAB BLO OD ORDERABLES Final Result Performing Organization Address [facility] Co de Phone Number [facility] [address] [place] [address] [phone] * (ABNORMAL) Comprehensive Metabolic Panel, Fasting (01/16/2023 10:10 AM EDT) Sodium 140 135 - 145 mmol/L [facility] Potassium 4.0 3.3 - 5.1 mmol/L [facility] Chloride 101 96 - 108 mmol/L [facility] Carbon Dioxide 29 22 - 29 mmol/L [facility] Anion Gap 14 12 - 20 [facility] Urea Nitrogen (BUN) 27(H) 9 - 16 mg/dL [facility] Creatinine, Serum 1.08 0.5 - 1.4 mg/dL [facility] Estimated Glomerular Filt Rate 49 [facility] Comment:NOTE: For -Am erican individuals, multiply the result by 1.210.Chronic Kidney Disease: Estimated GFR < 60 mL/min/[id number] Kidney Disease: Estimated GFR < 15 mL/min/1.73m2 Glucose Fasting 164(H) 60 - 99 mg/dL [facility] Comment:A fasting glucose of 126 mg/dl or greater on more than oneoccasion is considered diagnostic of diabetes. Calcium 10.4(H) 8.4 - 10.2 mg/dL [facility] Bilirubin, Total 0.4 0.0 - 1.0 mg/dL [facility] Aspartate Amino Transferase 19 5 - 31 U/L [facility] Alanine Aminotransferase 13 0 - 31 U/L [facility] Total Protein 7.3 6.5 - 8.0 g/dL [facility] Albumin Level 4.2 3.5 - 5.0 g/dL [facility] Alkaline Phosphatase 51 39 - 117 U/L [facility] 01/16/2023 10:1 0 AM EDT 01/16/2023 11:26 AM EDT us [facility] External Provider LAB BLO OD ORDERABLES Final Result [facility] [address] [place] [phone] * CBC auto differential (01/16/2023 10:10 AM EDT) Pathologist [facility] White Blood Count 7.5 4.8 - 10.8 X10*3/uL [facility] Red Blood Count 4.35 4.20 - 5.50 X10*6/uL [facility] Hemoglobin 12.2 12.0 - 16.0 g/dl [facility] Hematocrit 37.9 37.0 - 47.0 % [facility] Mean Corpuscular Volume 87.1 80.0 - 98.0 fL [facility] Mean Corpuscular Hemoglobin 28.0 27.0 - 33.0 pg [facility] Mean Corpuscular HGB Conc 32.2 31.0 - 35.0 g/dl [facility] Red Cell Distribution Width 14.0 11.0 - 16.0 % [facility] Platelet Count 334 160 - 400 X10*3/uL [facility] Mean Platelet Volume 10.4 9.4 - 12.3 fL [facility] Neutrophils Percent Auto 56.2 45 - 73 % [facility] Imm Gran Pct Auto 0.4 0.0 - 0.4 % [facility] Lymphocytes Percent Auto 29.1 20 - 40 % [facility] Monocytes Percent Auto 10.1 2 - 11 % [facility] Eosinophils Percent Auto 3.5 0 - 4 % [facility] Basophils Percent Auto 0.7 0 - 2 % [facility] NRBC Pct Auto 0.0 0.0 - 0.2 /100WBC [facility] Neutrophils Absolute Auto 4.2 2.0 - 8.3 x10*3/uL [facility] Imm Gran Abs Auto 0.03 0.00 - 0.03 X10*3/uL [facility] Lymphocytes Absolute Auto 2.2 1.2 - 4.9 X10*3/uL [facility] Monocytes Absolute Auto 0.8 0.1 - 1.2 X10*3/uL [facility] Eosinophils Absolute Auto 0.3 0.0 - 0.4 X10*3/uL [facility] Basophils Absolute Auto 0.1 0.0 - 0.2 X10*3/uL [facility] NRBC Abs Auto 0.000 0.0 - 0.012 X10*3/uL [facility] 01/16/2023 10:1 0 AM EDT 01/16/2023 11:26 AM EDT [facility] External Provider LAB BLO OD ORDERABLES Final Result [facility] [address] [place] [phone] documented in this encounter Visit Diagnoses Not on filedocumented in this encounter Care Teams Exercise Physiology Professor Relationship Specialty Start Date End Date Name, MD Suresh [address] [place] [address] PCP - General Family Medicine 11/18/17 documented as of this encounter
--- OUTSIDE RECORDS SUMMARY | 2024-12-13 06:50 | XMS_ITS | Clinical Summary ---
Author Organization [employer] Address [address] [place] [address] 7[address] [place] [address] Care Team Providers Care Customs Consultant Name Role Phone Name, Suresh BENJAMIN Primary Care Provider [phone] Allergies Active Allergy Reactions Criticality Noted Date Comments Ciprofloxacin Itching,Rash Medium 06/24/2018 Other Reaction(s): itching Sulfa Antibiotics Hives Medium 01/17/2011 Other Reaction(s): blisters Trimethoprim Hives Medium 01/17/2011 Medications busPIRone (Buspar) 30 MG tablet Take 30 mg by mouth 1 (one) time each day. 022 Active gabapentin (Neurontin) 300 MG capsule TAKE 1 CAPSULE BY MOUTH TWICE A DAY 022 Active hydrOXYzine HCl (Atarax) 10 MG tablet Take 1 tablet by mouth if needed each day. 022 Active melatonin 3 MG tablet Take 1 tablet by mouth if needed at bedtime for sleep. 022 Active Nutritional Supplements (Glucerna Shake) liquid one can twice a day 019 Active Amado-3 Fatty Acids (OMEGA 3 PO) Chew 2 gummies by mouth once daily 018 Active docusate sodium (Colace) 100 MG capsule Take 100 mg by mouth 2 times daily. Active Magnesium Citrate 200 MG tablet Take by mouth. Activ e ergocalciferol (Vitamin D-2) 50 MCG (2000 UT) capsule TAKE 1 CAPSULE BY MOUTH EVERY DAY 90 capsule 1 023 Active Blood Pressure kit Use once a day at home 1 kit 023 Active clobetasol (Temovate) 0.05 % ointment APPLY A THIN LAYER TOPICALLY TO AFFECTED AREAS AT BEDTIME 30 g 023 Active TRUEplus Lancets 33G miscIndications: Type 2 diabetes mellitus with hyperglycemia, with long-term current use of insulin (CMS/HCC) USE TO CHECK BLOOD SUGAR 3 TIMES A DAY 100 each 3 023 Active Blood Glucose Monitoring Suppl (ONE TOUCH ULTRA 2) w/Device kit Use 3 times a day 1 kit 023 Active clotrimazole (Lotrimin) 1 % creamIndications :Tinea APPLY TO AFFECTED AREA TWICE A DAY IN THE MORNING AND IN THE EVENING 15 g 1 023 Active albuterol (Ventolin HFA) 108 (90 Base) MCG/ACT inhaler TAKE 2 PUFFS BY MOUTH EVERY 4 TO 6 HOURS NEEDED 18 g 1 023 Active omeprazole (PriLOSEC) [address] capsuleIndicatio ns:Gastroesophag eal reflux disease without esophagitis TAKE 1 CAPSULE BY MOUTH TWICE A DAY DIRECTED 180 capsule 1 024 Active lactulose (Chronulac) 10 GM/15ML solutionIndicati ons:Routine health maintenance TAKE 15MLS BY MOUTH EVERY DAY 473 mL 3 024 Active lidocaine (Xylocaine) 2 % solutionIndicati ons:Type 2 diabetes mellitus with other circulatory complications (CMS/HCC) TAKE 15 ML BY MOUTH EVERY 3 HOURS. SWISH AND SWALLOW DIRECTED 200 mL 024 Active NovoLOG FLEXPEN 100 UNIT/ML pen INJECT 12-14 UNITS 3 TIMES A DAY WITH MEALS 15 mL 3 024 Active dulaglutide (Trulicity) 1.5 MG/0.5ML solution pen-injectorIndi cations:Type 2 diabetes mellitus with other circulatory complication, with long-term current use of insulin (CMS/HCC) Inject 1.5 mg under the skin 1 (one) time per week. 4 each 024 Active nitroglycerin (Nitrostat) 0.[address] 1 TABLET (0.4 MG) UNDER THE TONGUE EVERY 5 (FIVE) MINUTES IF NEEDED FOR CHEST PAIN. MAY USE UP TO THREE TABLETS. SEEK MEDICAL ATTENTION IF NO RELIEF. 300 tablet 1 024 Active nystatin (Mycostatin) 484708 UNIT/GM powder Apply topically 2 times daily. 60 g 2 024 2024 Active metoprolol succinate XL (Toprol-XL) 100 MG 24 hr tablet TAKE 1 TABLET BY MOUTH TWICE A DAY 180 tablet 3 024 Active rosuvastatin (Crestor) 40 MG tablet TAKE 1 TABLET BY MOUTH EVERY DAY 90 tablet 3 024 Active Tresiba FlexTouch 200 UNIT/ML injection INJECT 50 UNITS SUBCUTANEOUSLY AT BEDTIME 18 mL 3 024 Active aspirin (Aspirin Low Dose) 81 MG EC tablet TAKE 1 TABLET BY MOUTH EVERY DAY IN THE MORNING 90 tablet 1 024 Active losartan-hydroCH LOROthiazide (Hyzaar) 100-25 MG tabletIndication s:Essential hypertension TAKE 1 TABLET BY MOUTH EVERY DAY IN THE MORNING 90 tablet 3 024 Active glucose blood (OneTouch Ultra) test stripIndications :Type 2 diabetes mellitus with other circulatory complications (CMS/HCC) USE TO CHECK BLOOD SUGAR BY SUBCUTANEOUS ROUTE THREE TIMES PER DAY. 100 strip 11 024 Active cetirizine (ZyrTEC) 10 MG tabletIndication s:Seasonal allergies TAKE 1 TABLET BY MOUTH EVERY DAY NEEDED 90 tablet 1 024 Active amLODIPine (Norvasc) 10 MG tabletIndication s:Hypertension, unspecified type TAKE 1 TABLET BY MOUTH EVERY DAY IN THE MORNING 90 tablet 1 024 Active fenofibrate (Tricor) 54 MG tabletIndication s:Hypertriglycer idemia TAKE 1 TABLET BY MOUTH AT NOON DAILY 90 tablet 1 025 Active cholecalciferol VITAMIN D (Vitamin D-3) 50 MCG (1999 UT) capsule TAKE 1 CAPSULE BY MOUTH EVERY DAY 90 capsule 025 Active acarbose (Precose) 100 MG tablet TAKE 1 TABLET BY MOUTH 3 TIMES A DAY WITH BREAKFAST LUNCH AND EVENING MEAL 270 tablet 1 025 Active traMADol (Ultram) 50 MG tabletIndication s:Chronic low back pain without sciatica, unspecified back pain laterality TAKE 1 TABLET BY MOUTH EVERY 8 (EIGHT) HOURS IF NEEDED FOR SEVERE PAIN FOR UP TO 28 DAYS. 84 tablet 025 Active acetaminophen (Tylenol 8 Hour) 650 MG ER tabletIndication s:Pain TAKE 1 TABLET BY MOUTH EVERY 8 HOURS NEEDED. DO NOT CRUSH/BREAK/CHEW 100 tablet 1 025 Active acarbose (Precose) 100 MG tablet TAKE 1 TABLET BY MOUTH 3 TIMES A DAY BREAKFAST LUNCH AND EVENING MEAL 270 tablet 1 024 2024 Discontinued acetaminophen (Tylenol 8 Hour) 650 MG ER tabletIndication s:Pain TAKE 1 TABLET BY MOUTH EVERY 8 HOURS NEEDED. DO NOT CRUSH/BREAK/CHEW 100 tablet 1 024 2024 Discontinued traMADol (Ultram) 50 MG tabletIndication s:Chronic low back pain without sciatica, unspecified back pain laterality TAKE 1 TABLET (50 MG) BY MOUTH EVERY 8 (EIGHT) HOURS IF NEEDED FOR SEVERE PAIN FOR UP TO 28 DAYS. 84 tablet 024 2024 Discontinued Active Problems Problem Noted Date Diagnosed Date Abnormal CT scan 01/06/2024 Dysphagia 01/06/2024 Irritable bowel syndrome without diarrhea 2023 Hammer toe 09/02/2023 Bunion 09/02/2023 Early satiety 05/07/2023 Assessment & Plan (05/07/2023 10:26 PM EDT): Pt reports early satiety x 6 weeks ,and since yesterday some nausea and mild abd discomfort . In no acute distress w benign abd exam Pt w hx of esophageal stricture needing ballon dilation . Pt on GLP1 but states to be using trulicity 3 mg x last couple of years and states tolerating well so seems less likely -CT abd/pelvic 2019: There is fluid distention of the distal esophagus. status post cholecystectomy. There is partial fatty atrophy of the pancreas. There are a few subcentimeter hypoattenuating lesions in the left kidney, suggestive of cysts. No hydronephrosis, hydroureter, or calculi seen. No perinephric stranding. -referred back to her GI may need repeat EGD and gastric empty study . Pt may have symptoms associated w esophageal stricture ,gastroparesis associated w her DM2- did referral but pt states will go today to GI office to try to get an earlier apt -zofran prn and advised to take her PPIs BID as rec by GI -taking now only daily dose -hydration -alarm signs and symptoms in case needs to go to ED -alarm signs and symptoms -labs today -if symptoms persist w no major findings w GI may need to consider to decrease or hold trulicity to monitor x symptoms -pt missed apt w PCP 2 days ago to f chronic conditions -tried to reschedule a earlier f up w PCP but pt can not come in afternoon x found earlier visit ---will be on recall x next 4 weeks - Urethral disorder 05/07/2023 Assessment & Plan (05/08/2023 8:47 AM EDT): Reports chronic on and off itching of her urethra -not currently Denies symptoms as dysuria, freq, SP pain nor foul smelling urine -reports to be responsive to use of clotrimazole -had UA w grain grader in 12/2022 w neg ucx < 10col ,noted WBC -clotrimazole if symptoms recur -if symptoms persist may need to consider to sent for urine fungal cx and eval pyuria and sent swab fungal cx of area of discomfort Hypertriglyceridemia 09/15/2018 Essential hypertension 06/01/2018 Assessment & Plan (05/07/2023 10:23 PM EDT): Mild elevated BP today ,pt reports to be complaint w her BP meds -possible associated w her GI symptoms ? -to f w PCP in 4 weeks to monitor BP TIA involving left internal carotid artery 02/10 Disorder of carotid artery 02/10/2018 Stented coronary artery 11/18/2017 Type 2 diabetes mellitus 11/18/2017 Osteoporosis 04/13/2012 Nonproliferative diabetic retinopathy 04/13/2012 Iron deficiency anemia 04/13/2012 Hyperparathyroidism due to renal insufficiency 0 04/13/2012 Stricture of esophagus 04/13/2012 Diverticular disease of colon 04/13/2012 Diabetic neuropathy 04/13/2012 Peripheral vascular disease 04/13/2012 Anxiety 04/13/2012 Carpal tunnel syndrome 04/13/2012 Gastroesophageal reflux disease without esophagi tis 04/13/2012 Generalized osteoarthritis 04/13/2012 Irritable bowel syndrome 04/13/2012 Stage 3 chronic kidney disease 04/13/2012 Obesity 03/22/2012 Hyperlipidemia 03/22/2012 Assessment & Plan (05/07/2023 10:17 PM EDT): Pt reports not taking atorvastatin given tablets are too big I called pharmacy and confirmed there are no other brands of atorvastatin that pt can take easier but was explained that rosuvastatin is a smaller pill . -stopped atorvastatin and switched to crestor 40 mg for equivalent dose of atorvastatin 80 mg Coronary artery disease involving blackfeet coronar y artery 04/13/1994 Encounters Date Type Department Care Team Description 12/01/2024 Refill [facility] [address] [place] [address] Name, MD Suresh Chronic low back pain without sciatica, unspecified back pain laterality; Pain 11/27/2024 Refill [facility] [address] [place] [address] Name, MD Suresh 10/30/2024 Refill [facility] [address] [place] [address] Name, MD Suresh 10/29/2024 Refill [facility] [address] [place] [address] Name, MD Suresh Hypertriglyceridemia 10/05/2024 Refill [facility] [address] [place] [address] Name, MD Suresh Seasonal allergies; Hypertension, unspecified type 10/03/2024 Telephone [facility] [address] [place] [phone] Sandra Garcia MA DME from [employer] from Last 3 Months Immunizations Name Administration Dates Next Due Hep B, adult 04/12/2004,12/18/2003,11/17/2003 Influenza High-dose Quadriva lent Preservative Free 08/06/2023,08/05/2021 Influenza Quadrivalent Adjuvanted 06/22/2020 Influenza injectable quadriv alent IIV4 with preservative 10/10/2022,10/22/2016 Influenza injectable quadriv alent preservative free 08/04/2019,09/19/2015 Influenza, High Dose Seasona l, Preservative Free 08/03/2019,07/13/2018,07/06/2017 Influenza, IIV3, injectable 06/19/2021, 8 Influenza, Unspecified 08/05/2021,06/19/2021, Influenza, seasonal, injecta ble, preservative free 08/23/2014 Influenza, trivalent, adjuvanted 08/23/2014 Moderna Covid-19 Vaccine 12+ 03/10/2022, 09/18/2021,12/28/2020,11/30 Moderna Covid-19 Vaccine 6+ Bivalent 12/31/2022 Pneumococcal Conjugate PCV 13 11/06/2013 Pneumococcal Polysaccharide PPSV23 11/18/2017,,08/19/2000 RSV Adjuvant 09/15/2023 TD (adult), 2 Lf tetanus tox oid, preservative free, adsorbed 02/11/1996 Tdap 10/22/2016 Zoster, Recombinant 05/28/2021,06/22/2020 Zoster, live 10/22/2016,11/20/2015 Social History Tobacco Use Types Packs/Day Years Used Date Smoking Tobacco: Never Smokeless Tobacco: Never Tobacco Cessation:Counseling Given: Not Answered Alcohol Use Standard Drinks/Week Comments Never 0 [...] Orientation Straight 08/18/2022 10 :14 AM EDT Last Filed Vital Signs Vital Sign Reading Time Taken Comments Blood Pressure 134/62 04/15/2024 10:59 AM EDT Pulse 53 04/15/2024 10:59 AM EDT Temperature 36.2 ??C (97.2 ??F) 04/15/2024 10:59 AM E DT Respiratory Rate 20 04/15/2024 10:59 AM EDT Oxygen Saturation 98% 04/15/2024 10:59 AM EDT Inhaled Oxygen Concentration - - Weight 69.6 kg (153 lb 6.4 oz) 04/15/2024 10:59 AM EDT Height 147.3 cm (4' 10 ) 04/15/2024 10:59 AM EDT Body Mass Index 32.06 04/15/2024 10:59 AM EDT Plan of Treatment Health Maintenance Due Date Last Done Comments Eye Exam 1955 Diabetes: Foot Exam 09/02/2024 09/02/2023, 09/02/2023, 09/02/2023, Additional history exists Diabetes: Hemoglobin A1C 11/16/2024 024, 04/15/2024, 09/23/2023, Additional history exists Alcohol/Substance Use Screening 04/15/2025 04/15/2024 Depression Screening 04/15/2025 04/15/2024, 04/15/20 24 SDOH Screening 04/15/2025 04/15/2024 Tobacco Screening 04/15/2025 04/15/2024 Diabetes: Urine Protein Screening 05/16/2025 05/16/2024, 02/08/2024, 01/16/2023, Additional history exists Lipid Panel 05/16/2025 05/16/2024, 12/19, 04/18/2021, Additional history exists DTaP/Tdap/Td Vaccines (2 - Td or Tdap) 10/22/2026 10/22/2016, 02/11/1996 Hepatitis B Vaccines Completed 04/12/2004, 12/18/2003, 11/17/2003 Pneumococcal Vaccine: 50+ Years Completed 11/18/2017, 11/06/2013, 11/06/2013, Additional history exists Zoster Vaccines Completed 05/28/2021, 01/2020, 10/22/2016, Additional history exists RSV Patients and Patients Aged 60 years or older Completed 09/15/2023 COVID-19 Vaccine Completed 07/27/2024, , 03/10/2022, Additional history exists Influenza Vaccine Completed 07/27/2024, , 08/06/2023, Additional history exists HIB Vaccines Aged Out No longer eligi ble based on patient's age to complete this topic HPV Vaccines Aged Out No longer eligi ble based on patient's age to complete this topic Hepatitis A Vaccines Aged Out No long er eligible based on patient's age to complete this topic IPV Vaccines Aged Out No longer eligi ble based on patient's age to complete this topic Meningococcal Vaccine Aged Out No arya alba eligible based on patient's age to complete this topic RSV under 20 months Aged Out No longe r eligible based on patient's age to complete this topic Rotavirus Vaccines Aged Out No longer eligible based on patient's age to complete this topic Procedures Procedure Name Priority Date/Time Associated Diagnosis Comments HEMOGLOBIN A1C Routine 05/16/2024 9:08 AM EDT Type 2 diabetes mellitus with other circulatory complication, with long-term current use of insulin ([facility]) Essential hypertension LIPID PANEL, STANDARD Routine 05/16/2024 9:08 AM EDT Type 2 diabetes mellitus with other circulatory complication, with long-term current use of insulin ([facility]) Essential hypertension ALBUMIN, RANDOM URINE W/CREATININE Routine 05/16/2024 12:00 AM EDT Type 2 diabetes mellitus with other circulatory complication, with long-term current use of insulin ([facility]) Essential hypertension from Last 3 Months or Most Recently Relevant to Health Maintenance Results * (ABNORMAL) Hemoglobin A1c (05/16/2024 9:08 AM EDT) Hemoglobin A1c 6.9(H) <6.0 % [facility] Comment:Hemoglobin A1C Refer ence Range Adults: 4.8 - 6.0 % Non diabetic: < 6.0 % Goal: < 7.0 %Additional Action Suggested: > 8.0 %Note: Hemoglobin A1c results are invalid for patients with abnormal amounts of HbF. Blood transfusions may impact the HbA1c concentration in the patient sample. Estimated Average Glucose 151 mg/dL [facility] Comment:eAG = Estimated ave rage glucose which is %A1C expressed asaverage glucose, using the formula of the [id number] Glucose study (ADAG), Diabetes Care, Vol.31,#8,May. 2007 Blood Venous blood specimen / Unknown 05/16/2024 9:08 AM EDT 05/16/2024 9:08 AM EDT us Suresh Name LAB BLOOD ORDERABLES Final Resul t [facility] [address] [place] [phone] * (ABNORMAL) Lipid Panel, Standard (05/16/2024 9:08 AM EDT) Triglycerides 229(H) <150 mg/dL [facility] Comment:Desirable Triglyceri de: less than 150 mg/dLBorderline High Triglyceride 150-199 mg/dLHigh Triglyceride: 200-499 mg/dLVery High Triglyceride: greater than or equal to 5OO mg/dL Cholesterol 126 <200 mg/dL [facility] Comment:Desirable Cholestero l: less than 200 mg/dLBorderline High Cholesterol: 200-239 mg/dLHigh Cholesterol: greater than 239 mg/dL LDL Cholesterol Calculated 49 <100 mg/dL [facility] Comment:Desirable LDL: less than 100 mg/dLNear Optimal/Above Optimal LDL: 110- 129 mg/dLBorderline High LDL: 130-159 mg/dLHigh LDL: 160-189 mg/dLVery High LDL: greater than or equal to 190 mg/dL HDL Cholesterol 32(L) >40 mg/dL [facility] Comment:Desirable HDL: great er than 40 mg/dL Note: This HDL assay may give artificially low results in patients with liver disease. Blood Venous blood specimen / Unknown 05/16/2024 9:08 AM EDT 05/16/2024 9:08 AM EDT us Suresh Rosenthal MD LAB BLOOD ORDERABLES Final Resul t Performing Organization Address [facility] Co de Phone Number [facility] [address] [place] [phone] * Albumin, Random Urine W/Creatinine (05/16/2024 12:00 AM EDT) Creatinine, Urine 80.24 mg/dL [facility] Microalbumin Urine 17.0 mg/L [facility] Microalbum Creatinine Ratio Ur 21.1 <30 ug/mg cr [facility] Comment:Albumin/Creatinine R atio Reference Ranges: Normal: < 30 ug/mg creatinine Microalbuminuria: 30 - 300 ug/mg creatinineClinical Albuminuria: > 300 ug/mg creatinine Urine (Urine, Random) 05/16/2024 05/16/2024 us Suresh Rosenthal MD LAB URINE ORDERABLES Final Resul t Performing Organization Address [facility] Co de Phone Number [facility] [address] [place] [phone] from Last 3 Months or Most Recently Relevant to Health Maintenance Insurance [address] [place] [id number] [facility] Care Teams Customs Consultant Relationship Specialty Start Date End Date Name, MD Suresh [address] [place] [address] PCP - General Family Medicine 11/18/17
--- OUTSIDE RECORDS SUMMARY | 2024-12-13 06:50 | XMS_ITS | Encounter Summary ---
Author Organization [employer] Address [address] [facility] [address]t [place] [address] Care Team Providers Care Rocket Engine Component Mechanic Name Role Phone Name, Suresh BENJAMIN Primary Care Provider [phone] Reason for Visit * Reason Comments Med Refill Encounter Details Date Type Department Care Team ([facility] st Contact Info) Description 06/17/2024 Refill [facility] [address] [place] [address] Renata Ballard, PRICILA [address] [place] [address] Chronic low back pain without sciatica, unspecified back pain laterality Social History Tobacco Use Types Packs/Day Years [...] pain without sciatica, unspecified back pain laterality documented in this encounter Additional Health Concerns Assessment Noted Time PHQ-9 Depression Total Score: 7 04/15/20 24 11:05 AM EDT documented as of this encounter Care Teams Rocket Engine Component Mechanic Relationship Specialty Start Date End Date Name, MD Suresh [address] [place] [phone] PCP - General Family Medicine 11/18/17 documented as of this encounter
--- OUTSIDE RECORDS SUMMARY | 2024-12-13 06:50 | XMS_ITS | Encounter Summary ---
Author Organization [employer] Address [address] [facility] [address] [place] [address] Care Team Providers Care Plunket Nurse Name Role Phone Name, Suresh BENJAMIN Primary Care Provider [phone] Reason for Visit * Reason Comments Med Refill Encounter Details Date Type Department Care Team ([facility] st Contact Info) Description 01/02/2023 Refill [facility] [address] [place] [address] Name, MD Suresh [address] [place] [address] Type 2 diabetes mellitus with other circulatory complications (CMS/HCC); Type 2 diabetes mellitus with other circulatory complications (CMS/HCC); Chronic low back pain without sciatica, unspecified [...] Orientation Straight 08/18/2022 10 :14 AM EDT COVID-19 Exposure Response Date Recorded In the last 10 days, have yo u been in contact with someone who was confirmed or suspected to have Coronavirus/COVID-19? Unable to assess 01/03/2023 4:54 PM EDT documented as of this encounter Plan of Treatment Not on file documented as of this encounter Visit Diagnoses Diagnosis Type 2 diabetes mellitus with other circulatory complications (CMS/HCC) Chronic low back pain without sciatica, unspecified back pain laterality documented in this encounter Care Teams Plunket Nurse Relationship Specialty Start Date End Date Name, MD Suresh [address] [place] [address] PCP - General Family Medicine 11/18/17 documented as of this encounter
--- OUTSIDE RECORDS SUMMARY | 2024-12-13 06:50 | XMS_ITS | Encounter Summary ---
Author Organization [employer] Address [address] [facility] [address] [place] [address] Care Team Providers Care Shipping/Receiving Manager Name Role Phone Name, Suresh BENJAMIN Primary Care Provider [phone] Reason for Visit * Reason Comments Med Refill Encounter Details Date Type Department Care Team (Late st Contact Info) Description 12/01/2022 Refill [facility] [address] [place] [address] Michelle Hernandez, PROMOTIONAL REPRESENTATIVE [address] [place] [address] Tinea; Pain Social History Tobacco Use Types Packs/Day [...] as of this encounter Visit Diagnoses Diagnosis Tinea Dermatophytosis of unspecified site Pain Generalized pain documented in this encounter Care Teams Shipping/Receiving Manager Relationship Specialty Start Date End Date Name, MD Suresh [address] [place] [address] PCP - General Family Medicine 11/18/17 documented as of this encounter
== END 2024-12-13 06:48 | disposition home or self-care (01) ==
LOC: CF 06:47
PROVIDERS: Visit Provider Anesthesiology
DX: M47.816 Spondylosis without myelopathy or radiculopathy, lumbar region (principal)
CPT/HCPCS: 64493; 64494; J2003; J2795; Q9967

== ENCOUNTER 2024-12-13 14:13 | Outpatient (AMB) | payer OTHER, SELFPAY ==
--- NOTE | 2024-12-13 14:20 | A.OFFVIS_ITS ---
Vital Signs 12/13/24 15:51 12/13/24 15:52 BP 147/69 H 147/64 H Blood Pressure Location Lt brachial Lt brachial Position Sitting Sitting Pulse 69 63 Pulse Source Pulse Oximeter Pulse Oximeter Pulse Oximetry (%) 94 94 Oxygen Delivery Method Room Air Room Air Comment Pre-Op Post-Op Intake Visit Reasons: BILATERAL DIAGNOSTIC L3, L4, DRL5 MBB Allergies Sulfa (Sulfonamide Antibiotics) [SULFA (SULFONAMIDE ANTIBIOTICS)] Allergy (Intermediate, Verified 08/30/24 11:27) RASH ciprofloxacin [CIPROFLOXACIN] Allergy (Unknown, Verified 08/30/24 11:27) PER H&P PFSH Medical History Osteoporosis GERD (gastroesophageal reflux disease) CVA (cerebral vascular accident) Vitamin D deficiency Diabetes type 2, uncontrolled Obesity (BMI 30-39.9) Hypertension 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 Diabetic nephropathy associated with type 2 diabetes mellitus Surgical History History of esophagogastroduodenoscopy (EGD) Hx of cholecystectomy Hx of hysterectomy Hx of endarterectomy Hx of colonoscopy History of coronary angioplasty with insertion of stent Family History Father Kidney disease Mother GI bleed Arthritis of knee HTN (hypertension) Social History Household Members: None Housing: Apartment Alcohol intake: never Patient Tobacco Use Status: Never used Tobacco Physical Exam Vital Signs: Last Vital Signs Pulse 63 12/13/24 15:52 BP 147/64 H 12/13/24 15:52 Pulse Ox 94 12/13/24 15:52 Oxygen Delivery Method Room Air 12/13/24 15:52 Assessment & Plan Assessment & Plan (1) Spondylosis without myelopathy or radiculopathy, lumbar region: Code(s): M47.816 - Spondylosis without myelopathy or radiculopathy, lumbar region Category: Medical Plan Diagnostic bilateral medial branch block L3, L4, dorsal ramus L5. Informed consent was thoroughly explained to the patient before the procedure.? The patient came to the operating room.? He was positioned prone on operating table with a pillow under her abdomen.? Time-out was performed delineating correct site and side of the procedure, nature of the injection, name and date of of the patient. The lower back and upper buttocks of the patient was prepped with ChloraPrep and draped with sterile utility towels.? C-arm was brought over the operating field and the point of interest were delineated as confluence of the superior articular process of L3, L4 vertebra and L5 vertebra bilaterally with co rresponding transverse process bilateral, as well as confluence of the superior articular process of S1 on the bilaterally with sacral ala on the bilateral. The point of interest projection to the skin was injected with small amount of mixture of lidocaine 2% and ropivacaine 0.5%. After that 22 gauge 3-1/2 inch needle was driven to point of interest in tunnel vision fashion. When needle gently contacted the bone injection of the contrast was performed delineating no intravascular and no intrathecal spread of the contrast. After that injection of the small amount of ropivacaine 0.5% less than 1 cc into each target site was performed. Upon completion of the injections the needle was removed sterile Band-Aids were applied. The patient tolerated procedure well. He was given a pain diary to complete after the procedure. Orders: Orders FL guidance in treatment room Today M47.816 - Spondylosis without myelopathy or radiculopathy, lumbar region Coding Level of Care Code Procedure Only Diagnoses Spondylosis without myelopathy or radiculopathy, lumbar region M47.816
[2024-12-13 15:51] VITALS: BP 147/69; PULSE 69; O2SAT 94
[2024-12-13 15:52] VITALS: BP 147/64; PULSE 63; O2SAT 94
--- OUTSIDE RECORDS SUMMARY | 2024-12-13 17:48 | XMS_ITS | Clinical Summary ---
Author Organization [facility] Address [address] [facility] [address] [place] [address] Phone Care Team Providers Care Wage Hand Name Role Phone Name, Suresh BENJAMIN Primary Care Provider [phone] Allergies Active Allergy Reactions Criticality Noted Date [...] mg Active ergocalciferol (VITAMIN D-2) 1.25 MG (09812 UT) capsule Comments: Filled Date: Jul 30 [...] mouth 3 (three) times a day Active [place]-3 1000 MG capsule Take 2 capsules by [...] 1.5 mg 04/15/20 21 Active nystatin (MYCOSTATIN) 399501 UNIT/ML suspension TAKE 1 MILLILITER BY ORAL [...] Visit [facility] [address] [place] [phone] Rolly Mishra MD [address] [facility] [address] [place] [address] Health Maintenance Due Date Last Done Comments [...] 38 - 50 % PVNMA Comments From [facility]NMA BUN 31(H) 9 - 20 mg/dl [...] % PVNMA 10/02/2020 us [facility] Conversion LAB [id number] LICITED RESULTS Final Result PVNMA from Last 3 Months or Most Recently Relevant to Health Maintenance Insurance , [facility] [address] [place] [address] [facility] ([id number]) [address] [place] [address] [facility] ([id number]) Care Teams Wage Hand Relationship Specialty Start Date End Date Name, MD Suresh [address] [place] [address] [phone] PCP - General 10/29/20
--- OUTSIDE RECORDS SUMMARY | 2024-12-13 17:48 | XMS_ITS | Encounter Summary ---
Author Organization [employer] Address [address] 7t [place] [address] Care Team Providers Care Bridge Ironworker Helper Name Role Phone Name, Suresh BENJAMIN Primary Care Provider [phone] Reason for Visit * Reason Comments Med Refill Encounter Details Date Type Department Care Team ([facility] st Contact Info) Description 06/07/2024 Refill [facility] MEDICINE [address] [place] [address] Renata Ballard FNP 230 [place] [address] Pain Social History Tobacco Use Types Packs/Day [...] documented as of this encounter Care Teams Bridge Ironworker Helper Relationship Specialty Start Date End Date Name, MD Suresh [address] [place] [id number] PCP - General Family Medicine 11/18/17 documented as of this encounter
--- OUTSIDE RECORDS SUMMARY | 2024-12-13 17:48 | XMS_ITS | Encounter Summary ---
Author Organization [employer] Address [address] [facility] 7t [place] [address] Care Team Providers Care Textile Clothing And Footwear Mechanic Name Role Phone Name, Suresh BENJAMIN Primary Care Provider [phone] Reason for Visit * Reason Comments Med Refill Encounter Details Date Type Department Care Team ([facility] st Contact Info) Description 12/01/2024 Refill [facility] MEDICINE 230 [place] [address] Name, MD Suresh 230 [place] [address] Chronic low back pain without sciatica, unspecified [...] documented as of this encounter Care Teams Textile Clothing And Footwear Mechanic Relationship Specialty Start Date End Date Name, MD Suresh [address] [place] [id number] PCP - General Family Medicine 11/18/17 documented as of this encounter
--- OUTSIDE RECORDS SUMMARY | 2024-12-13 17:48 | XMS_ITS | Encounter Summary ---
Author Organization [employer] Address [address] [facility] 7 [place] [address] Care Team Providers Care Block Cleaner Name Role Phone Name, Suresh BENJAMIN Primary Care Provider [phone] Reason for Visit * Reason Comments Med Refill Encounter Details Date Type Department Care Team (Late st Contact Info) Description 05/22/2023 Refill [facility] MEDICINE 230 [place] [address] Name, MD Suresh [address] [place] [address] Social History Tobacco Use Types Packs/Day Years [...] on filedocumented in this encounter Care Teams Block Cleaner Relationship Specialty Start Date End Date NameSuresh MD [address] [place] [phone] PCP - General Family Medicine 11/18/17 documented as of this encounter
--- OUTSIDE RECORDS SUMMARY | 2024-12-13 17:48 | XMS_ITS | Clinical Summary ---
Author Organization [employer] Address [address] [place] [address] 7t [place] [address] Care Team Providers Care Community Relations Officer Name Role Phone Name, Suresh BENJAMIN Primary Care Provider [phone] Allergies Active Allergy Reactions Criticality Noted Date [...] one can twice a day 019 Active Milligan-3 Fatty Acids (OMEGA 3 PO) Chew 2 [...] 300 tablet 1 024 Active nystatin (Mycostatin) 900344 UNIT/GM powder Apply topically 2 times daily. 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 04/13/1994 Encounters Date Type Department Care Team Description 12/01/2024 Refill [facility] MEDICINE [address] [place] [address] Name, MD Suresh Chronic low back pain without sciatica, unspecified back pain laterality; Pain 11/27/2024 Refill [facility] [address] [place] [address] Name, MD Suresh 10/30/2024 Refill [facility] [address] [place] [address] Name, MD Suresh 10/29/2024 Refill [facility] [address] [place] [address] Name, MD Suresh Hypertriglyceridemia 10/05/2024 Refill [facility] [address] [place] [address] Name, MD Suresh Seasonal allergies; Hypertension, unspecified type 10/03/2024 Telephone [facility] MEDICINE [address] [place] [address] Sandra Garcia MA DME from [employer] from [...] complication, with long-term current use of insulin ([facility]) Essential hypertension LIPID PANEL, STANDARD Routine 05/16/2024 9:08 AM EDT Type 2 diabetes mellitus with other circulatory complication, with long-term current use of insulin ([facility]) Essential hypertension ALBUMIN, RANDOM URINE W/CREATININE Routine 05/16/2024 12:00 AM EDT Type 2 diabetes mellitus with other circulatory complication, with long-term current use of insulin ([facility]) Essential hypertension from Last 3 Months or Most Recently Relevant to Health Maintenance Results * (ABNORMAL) Hemoglobin A1c (05/16/2024 9:08 AM EDT) Hemoglobin A1c 6.9(H) <6.0 % [facility] Comment:Hemoglobin A1C Refer ence Range Adults: 4.8 - 6.0 % Non diabetic: < 6.0 % Goal: < 7.0 %Additional Action Suggested: > 8.0 %Note: Hemoglobin A1c results are invalid for patients with abnormal amounts of HbF. Blood transfusions may impact the HbA1c concentration in the patient sample. Estimated Average Glucose 151 mg/dL [facility] Comment:eAG = Estimated ave rage glucose which is %A1C expressed asaverage glucose, using the formula of the K1T-LycrbpfRlzocus Glucose study (ADAG), Diabetes Care, Vol.31,#8,May. 2007 Blood Venous blood specimen / Unknown 05/16/2024 9:08 AM EDT 05/16/2024 9:08 AM EDT us Suresh Name LAB BLOOD ORDERABLES Final Resul t [facility] [address] [place] [phone] * (ABNORMAL) Lipid Panel, Standard (05/16/2024 9:08 AM EDT) Triglycerides 229(H) <150 mg/dL [facility] Comment:Desirable Triglyceri de: less than 150 mg/dLBorderline High Triglyceride 150-199 mg/dLHigh Triglyceride: 200-499 mg/dLVery High Triglyceride: greater than or equal to 5OO mg/dL Cholesterol 126 <200 mg/dL [facility] Comment:Desirable Cholestero l: less than 200 mg/dLBorderline High Cholesterol: 200-239 mg/dLHigh Cholesterol: greater than 239 mg/dL LDL Cholesterol Calculated 49 <100 mg/dL [facility] Comment:Desirable LDL: less than 100 mg/dLNear Optimal/Above Optimal LDL: 110- 129 mg/dLBorderline High LDL: 130-159 mg/dLHigh LDL: 160-189 mg/dLVery High LDL: greater than or equal to 190 mg/dL HDL Cholesterol 32(L) >40 mg/dL [facility] Comment:Desirable HDL: great er than 40 mg/dL Note: This HDL assay may give artificially low results in patients with liver disease. Blood Venous blood specimen / Unknown 05/16/2024 9:08 AM EDT 05/16/2024 9:08 AM EDT us Suresh Rosenthal MD LAB BLOOD ORDERABLES Final Resul t Performing Organization Address [facility] Co de Phone Number [facility] [address] [place] [phone] * Albumin, Random Urine W/Creatinine (05/16/2024 12:00 AM EDT) Creatinine, Urine 80.24 mg/dL [facility] Microalbumin Urine 17.0 mg/L [facility] Microalbum Creatinine Ratio Ur 21.1 <30 ug/mg cr [facility] Comment:Albumin/Creatinine R atio Reference Ranges: Normal: < 30 ug/mg creatinine Microalbuminuria: 30 - 300 ug/mg creatinineClinical Albuminuria: > 300 ug/mg creatinine Urine (Urine, Random) 05/16/2024 05/16/2024 us Suresh Rosenthal MD LAB URINE ORDERABLES Final Resul t Performing Organization Address [facility] Co de Phone Number [facility] [address] [place] [phone] from Last 3 Months or Most Recently Relevant to Health Maintenance Insurance * Guarantor: Dori Calles Account Type Relation to Patient Date of Phone Billing Address Personal/Family Self [address] [place] [address] [place] [id number] [facility] Care Teams Community Relations Officer Relationship Specialty Start Date End Date Name, MD Suresh 230 [place] [address] PCP - General Family Medicine 11/18/17
--- OUTSIDE RECORDS SUMMARY | 2024-12-13 17:48 | XMS_ITS | Encounter Summary ---
Author Organization [employer] Address [address] [facility] 7t [place] [address] Care Team Providers Care Cradle Placer Name Role Phone Name, Suresh BENJAMIN Primary Care Provider [phone] Reason for Visit * Reason Comments Med Refill Encounter Details Date Type Department Care Team ([facility] st Contact Info) Description 10/18/2023 Refill [facility] MEDICINE 230 [place] [address] Name, MD Suresh 230 [place] [address] Essential hypertension Social History Tobacco Use Types [...] hypertension documented in this encounter Care Teams Cradle Placer Relationship Specialty Start Date End Date Name, MD Suresh 230 [place] [address] PCP - General Family Medicine 11/18/17 documented as of this encounter
--- OUTSIDE RECORDS SUMMARY | 2024-12-13 17:48 | XMS_ITS | Encounter Summary ---
Author Organization [employer] Address [address] [facility] 7t [place] [address] Care Team Providers Care Lumber Material Handler Name Role Phone Name, Suresh BENJAMIN Primary Care Provider [phone] Reason for Visit * Reason Comments Med Refill Encounter Details Date Type Department Care Team ([facility] st Contact Info) Description 01/02/2023 Refill [facility] 230 [place] [address] Name, MD Suresh [address] [place] [address] Type 2 diabetes mellitus with other circulatory [...] laterality documented in this encounter Care Teams Lumber Material Handler Relationship Specialty Start Date End Date Name, MD Suresh [address] [place] [address] PCP - General Family Medicine 11/18/17 documented as of this encounter
--- OUTSIDE RECORDS SUMMARY | 2024-12-13 17:48 | XMS_ITS | Encounter Summary ---
Author Organization [employer] Address [address] [facility] 7 [place] [address] Care Team Providers Care Hospital Librarian Name Role Phone Name, Suresh BENJAMIN Primary Care Provider [phone] Reason for Visit * Reason Onset Date Comments Med Refill 06/23/2023 Encounter Details Date Type Department Care Team (Late st Contact Info) Description 06/23/2023 Refill [facility] MEDICINE 230 [place] [address] Gela Loza MD 230 [place] [address] Social History Tobacco Use Types Packs/Day Years [...] on filedocumented in this encounter Care Teams Hospital Librarian Relationship Specialty Start Date End Date Name, MD Suresh [address] [place] [address] PCP - General Family Medicine 11/18/17 documented as of this encounter
--- OUTSIDE RECORDS SUMMARY | 2024-12-13 17:48 | XMS_ITS | Encounter Summary ---
Author Organization [employer] Address [address] [facility] 7t [place] [address] Care Team Providers Care Teacher Vocational Training Name Role Phone Name, Suresh BENJAMIN Primary Care Provider [phone] Reason for Visit * Reason Comments Med Refill Encounter Details Date Type Department Care Team ([facility] st Contact Info) Description 11/27/2024 Refill [facility] MEDICINE 230 [place] [address] Name, MD Suresh [address] [place] [address] Social History Tobacco Use Types Packs/Day Years [...] documented as of this encounter Care Teams Teacher Vocational Training Relationship Specialty Start Date End Date Name, MD Suresh [address] [place] [address] PCP - General Family Medicine 11/18/17 documented as of this encounter
--- OUTSIDE RECORDS SUMMARY | 2024-12-13 17:48 | XMS_ITS | Encounter Summary ---
Author Organization [employer] Address [address] [facility] 7t [place] [address] Care Team Providers Care Correspondence School Teacher Name Role Phone Name, Suresh BENJAMIN Primary Care Provider [phone] Reason for Visit * Reason Comments Med Refill Encounter Details Date Type Department Care Team ([facility] st Contact Info) Description 06/17/2024 Refill [facility] MEDICINE 230 [place] [address] Renata Ballard, PRICILA 230 [place] [address] Chronic low back pain without sciatica, unspecified [...] documented as of this encounter Care Teams Correspondence School Teacher Relationship Specialty Start Date End Date Name, MD Suresh [address] [place] [address] PCP - General Family Medicine 11/18/17 documented as of this encounter
--- OUTSIDE RECORDS SUMMARY | 2024-12-13 17:48 | XMS_ITS | Encounter Summary ---
Author Organization [employer] Address [address] [facility] 7t [place] [address] Care Team Providers Care Emergency Management System Director Name Role Phone Name, Suresh BENJAMIN Primary Care Provider [phone] Reason for Visit * Reason Comments Med Refill Encounter Details Date Type Department Care Team ([facility] st Contact Info) Description 08/12/2023 Refill [facility] MEDICINE 230 [place] [address] Michelle Hernandez, ASSISTANT QUALITY MANAGER [address] [place] [address] Type 2 diabetes mellitus with hyperglycemia, with long-term current use of insulin ([facility]) Social History Tobacco Use Types Packs/Day Years [...] hyperglycemia, with long-term current use of insulin ([facility]) documented in this encounter Care Teams Emergency Management System Director Relationship Specialty Start Date End Date Name, MD Suresh 230 [place] [address] PCP - General Family Medicine 11/18/17 documented as of this encounter
--- OUTSIDE RECORDS SUMMARY | 2024-12-13 17:48 | XMS_ITS | Encounter Summary ---
Author Organization [employer] Address [address] [facility] 7t [place] [address] Care Team Providers Care Lease Operator Name Role Phone Name, Suresh BENJAMIN Primary Care Provider [phone] Reason for Visit * Reason Comments Med Refill Encounter Details Date Type Department Care Team (Late st Contact Info) Description 12/01/2022 Refill [facility] MEDICINE [address] [place] [address] Michelle Hernandez, PLASTIC SHEETS SUPERVISOR [address] [place] [address] Tinea; Pain Social History Tobacco Use Types [...] pain documented in this encounter Care Teams Lease Operator Relationship Specialty Start Date End Date Name, MD Suresh 230 [place] [address] PCP - General Family Medicine 11/18/17 documented as of this encounter
--- OUTSIDE RECORDS SUMMARY | 2024-12-13 17:48 | XMS_ITS | Encounter Summary ---
Author Organization [employer] Address [address] [facility] 7t [place] [address] Care Team Providers Care Food Vendor Name Role Phone Name, Suresh BENJAMIN Primary Care Provider [phone] Reason for Visit * Reason Onset Date Comments Medication Question 09/23/2023 Durable Medical Equipment 09/23/2023 BOOST Encounter Details Date Type Department Care Team ([facility] st Contact Info) Description 09/23/2023 Telephone [facility] MEDICINE 230 [place] [address] Name, MD Suresh [address] [place] [address] Medication Question; Durable Medical Equipment (BOOST) Social [...] on filedocumented in this encounter Care Teams Food Vendor Relationship Specialty Start Date End Date Name, MD Suresh [address] [place] [address] PCP - General Family Medicine 11/18/17 documented as of this encounter
--- OUTSIDE RECORDS SUMMARY | 2024-12-13 17:48 | XMS_ITS | Encounter Summary ---
Author Organization [employer] Address [address] [facility] 7t [place] [address] Care Team Providers Care Aircraft Systems Repairer Name Role Phone Name, Suresh BENJAMIN Primary Care Provider [phone] Reason for Visit * Reason Onset Date Comments Med Refill 06/23/2023 Encounter Details Date Type Department Care Team (Late st Contact Info) Description 06/23/[address] [facility] MEDICINE 230 [place] [address] Michelle Hernandez, COUNT TEAM CLERK [address] [place] [address] Routine health maintenance Social History Tobacco Use [...] examination documented in this encounter Care Teams Aircraft Systems Repairer Relationship Specialty Start Date End Date Name, MD Suresh 230 [place] [address] PCP - General Family Medicine 11/18/17 documented as of this encounter
--- OUTSIDE RECORDS SUMMARY | 2024-12-13 17:48 | XMS_ITS | Encounter Summary ---
Author Organization [employer] Address [address] [facility] [address] [place] [address] Care Team Providers Care Basketball Player Name Role Phone Name, Suresh BENJAMIN Primary Care Provider [phone] Encounter Details Date Type Department Care Team ([facility] st Contact Info) Description 09/27/2022 Orders Only [facility] [address] [place] [address] Name, MD Suresh [address] [place] [address] Social History Tobacco Use Types Packs/Day Years [...] 8 AM EDT 01/16/2023 11:29 AM EDT Comment:[facility] Narrative [facility] - 01/17/2023 1:11 PM EDT Urine Culture Report Result Urine Culture < 10,000 cfu/ml Specimen Source: Urine clean catch us [facility] Exter nal Provider LAB MICROBIOLOGY - GENERAL ORDERABLES Final Result [facility] [address] [place] [address] [phone] * Protein Creatinine Ratio, Urine (01/16/2023 10:20 AM EDT) Protein, Total, Random Urine 10 <12 mg/dL [facility] Protein/Creatin ine Ratio, Ur 0.07 <0.2 [facility] Comment:The spot urine prote in:creatinine ratio may increase to 0.3during normal . 01/16/2023 10:2 0 AM EDT 01/16/2023 11:29 AM EDT [facility] External Provider LAB URI NE ORDERABLES Final Result Performing Organization Address [place] de Phone Number [facility] [address] [place] [address] [phone] * Albumin, Random Urine W/Creatinine (01/16/2023 10:20 AM EDT) Creatinine, Urine 147.17 mg/dL [facility] Microalbumin Urine 23.0 mg/L [facility] Microalbum Creatinine Ratio Ur 15.6 ug/mg cr [facility] Comment:Albumin/Creatinine R atio Reference Ranges: Normal: < 30 ug/mg creatinine Microalbuminuria: 30 - 300 ug/mg creatinineClinical Albuminuria: > 300 ug/mg creatinine 01/16/2023 10:2 0 AM EDT 01/16/2023 11:29 AM EDT [facility] External Provider LAB URI NE ORDERABLES Final Result Performing Organization Address [place]/ZIP Co de Phone Number [facility] [address] [place] [address] [phone] * (ABNORMAL) Urinalysis Complete (01/16/2023 10:20 AM EDT) Color Urine Yellow [facility] Appearance Urine Clear [facility] PH 6.0 5.0 - 9.0 [facility] Glucose Urine UA Negative Negative mg/dL [facility] Urine Blood Negative Negative [facility] Specific [place] - Urine 1.020 1.005 - 1.025 [facility] Urine Protein Negative Neg-Trace mg/dL [facility] Urine Ketones Negative Negative mg/dL [facility] Nitrite Urine Negative Negative [facility] Leukocyte Esterase Urine Moderate (2+)(A) Negative [facility] RBC Urine 0-2 0 - 2 /HPF [facility] Urine WBC 11-20(A) 0 - 5 /HPF [facility] Urine Squamous Epithelial Cell 0-2 0 - 2 /HPF [facility] Urine Bacteria None Seen None Seen [facility] Hyaline Casts, Urine 0-2 0 - 2 /LPF [facility] 01/16/2023 10:2 0 AM EDT 01/16/2023 11:29 AM EDT us [facility] External Provider LAB URI NE ORDERABLES Final Result [facility] [address] [place], [place] [phone] * (ABNORMAL) PTH, Intact Without Calcium (01/16/2023 10:10 AM EDT) PTHI 20 16 - 77 pg/mL [facility] Comment:Interpretive Guide I ntact PTH Calcium -------Normal Parathyroid Normal NormalHypoparathyroidism Low or Low Normal LowHyperparathyroidism Primary Normal or High High Secondary High Normal or Low Tertiary High HighNon-Parathyroid Hypercalcemia Low or Low Normal High Calcium (PTHI) 10.7(A) 8.6 - 10.4 mg/dL [facility] Comment:THIS TEST WAS PERFOR MED AT:[facility] [place] [id number] LEAHY MD 01/16/2023 10:1 0 AM EDT 01/16/2023 11:26 AM EDT [facility] External Provider LAB BLO OD ORDERABLES Final Result [facility] [address] [place] [address] [phone] * Vitamin D, 25-Hydroxy, Total, Immunoassay (01/16/2023 10:10 AM EDT) Vitamin D 25-OH Total 42.7 >30 ng/mL [facility] Comment:Health Based Referen ce Values*< 20 ng/mL Auxgjfcjc09-50 ng/mL Insufficient> 30 ng/mL Sufficient*Whitney MARS. N [...] 0 AM EDT 01/16/2023 11:26 AM EDT [facility] External Provider LAB BLO OD ORDERABLES Final Result [facility] [address] [place] [address] [phone] * Albumin (01/16/2023 10:10 AM EDT) Albumin Level 4.2 3.5 - 5.0 g/dL [facility] 01/16/2023 10:1 0 AM EDT 01/16/2023 11:26 AM EDT [facility] External Provider LAB BLO OD ORDERABLES Final Result Performing Organization Address [place] Co de Phone Number [facility] [address] [place] [phone] * Magnesium (01/16/2023 10:10 AM EDT) Magnesium 1.7 1.6 - 2.6 mg/dL [facility] 01/16/2023 10:1 0 AM EDT 01/16/2023 11:26 AM EDT [facility] External Provider LAB BLO OD ORDERABLES Final Result Performing Organization Address [facility] Phone Number [facility] [address] [place] [phone] * Phosphate (As Phosphorus) (01/16/2023 10:10 AM EDT) Phosphorus 3.6 2.7 - 4.5 mg/dL [facility] 01/16/2023 10:1 0 AM EDT 01/16/2023 11:26 AM EDT [facility] External Provider LAB BLO OD ORDERABLES Final Result Performing Organization Address [facility] de Phone Number [facility] [address] [place] [phone] * (ABNORMAL) Calcium (01/16/2023 10:10 AM EDT) Calcium 10.4(H) 8.4 - 10.2 mg/dL [facility] 01/16/2023 10:1 0 AM EDT 01/16/2023 11:26 AM EDT [facility] External Provider LAB BLO OD ORDERABLES Final Result Performing Organization Address [place]/ZIP Co de Phone Number [facility] [address] [place] [address] [phone] * Creatinine, Serum (01/16/2023 10:10 AM EDT) Creatinine, Serum 1.06 0.5 - 1.4 mg/dL [facility] Estimated Glomerular Filt Rate 50 [facility] Comment:NOTE: For -Am erican individuals, multiply the result by 1.210.Chronic Kidney Disease: Estimated GFR < 60 mL/min/1.90p3Lmfoif Kidney Disease: Estimated GFR < 15 mL/min/1.73m2 01/16/2023 10:1 0 AM EDT 01/16/2023 11:26 AM EDT [facility] External Provider LAB BLO OD ORDERABLES Final Result Performing Organization Address [place] Co de Phone Number [facility] [address] [place] [phone] * (ABNORMAL) BUN (Blood Urea Nitrogen) (01/16/2023 10:10 AM EDT) Urea Nitrogen (BUN) 27(H) 9 - 16 mg/dL [facility] 01/16/2023 10:1 0 AM EDT 01/16/2023 11:26 AM EDT [facility] External Provider LAB BLO OD ORDERABLES Final Result Performing Organization Address City/[facility]/ZIP Co de Phone Number [facility] [address] [place] [address] [phone] * Electrolyte Panel (01/16/2023 10:10 AM EDT) Sodium 140 135 - 145 mmol/L [facility] Potassium 4.0 3.3 - 5.1 mmol/L [facility] Chloride 102 96 - 108 mmol/L [facility] Carbon Dioxide 28 22 - 29 mmol/L [facility] Anion Gap 14 12 - 20 [facility] 01/16/2023 10:1 0 AM EDT 01/16/2023 11:26 AM EDT [facility] External Provider LAB BLO OD ORDERABLES Final Result Performing Organization Address [place] Co de Phone Number [facility] [address] [place] [address] [phone] * Lipid Panel, Standard (01/16/2023 10:10 AM EDT) Triglycerides 260 mg/dL [facility] Comment:Desirable Triglyceri de: less than 150 mg/dLBorderline High Triglyceride 150-199 mg/dLHigh Triglyceride: 200-499 mg/dLVery High Triglyceride: greater than or equal to 5OO mg/dL Cholesterol 180 mg/dL [facility] Comment:Desirable Cholestero l: less than 200 mg/dLBorderline High Cholesterol: 200-239 mg/dLHigh Cholesterol: greater than 239 mg/dL LDL Cholesterol Calculated 94 mg/dl [facility] Comment:Desirable LDL: less than 100 mg/dLNear Optimal/Above Optimal LDL: 110- 129 mg/dLBorderline High LDL: 130-159 mg/dLHigh LDL: 160-189 mg/dLVery High LDL: greater than or equal to 190 mg/dL HDL Cholesterol 34 mg/dL [facility] Comment:Desirable HDL: great er than 40 mg/dL Note: This HDL assay may give artificially low results in patients with liver disease. 01/16/2023 10:1 0 AM EDT 01/16/2023 11:26 AM EDT [facility] External Provider LAB BLO OD ORDERABLES Final Result Performing Organization Address [place] Co de Phone Number [facility] [address] [place] [address] [phone] * (ABNORMAL) Comprehensive Metabolic Panel, Fasting (01/16/2023 10:10 AM EDT) Sodium 140 135 - 145 mmol/L [facility] Potassium 4.0 3.3 - 5.1 mmol/L [facility] Chloride 101 96 - 108 mmol/L [facility] Carbon Dioxide 29 22 - 29 mmol/L [facility] Anion Gap 14 12 - 20 [facility] Urea Nitrogen (BUN) 27(H) 9 - 16 mg/dL [facility] Creatinine, Serum 1.08 0.5 - 1.4 mg/dL [facility] Estimated Glomerular Filt Rate 49 [facility] Comment:NOTE: For -Am erican individuals, multiply the result by 1.210.Chronic Kidney Disease: Estimated GFR < 60 mL/min/1.96m5Nrnpqt Kidney Disease: Estimated GFR < 15 mL/min/1.73m2 Glucose Fasting 164(H) 60 - 99 mg/dL [facility] Comment:A fasting glucose of 126 mg/dl or greater on more than oneoccasion is considered diagnostic of diabetes. Calcium 10.4(H) 8.4 - 10.2 mg/dL [facility] Bilirubin, Total 0.4 0.0 - 1.0 mg/dL [facility] Aspartate Amino Transferase 19 5 - 31 U/L [facility] Alanine Aminotransferase 13 0 - 31 U/L [facility] Total Protein 7.3 6.5 - 8.0 g/dL [facility] Albumin Level 4.2 3.5 - 5.0 g/dL [facility] Alkaline Phosphatase 51 39 - 117 U/L [facility] 01/16/2023 10:1 0 AM EDT 01/16/2023 11:26 AM EDT us [facility] External Provider LAB BLO OD ORDERABLES Final Result [facility] [address] [place] [phone] [phone] * CBC auto differential (01/16/2023 10:10 AM EDT) Pathologist [facility] White Blood Count 7.5 4.8 - 10.8 X10*3/uL [facility] Red Blood Count 4.35 4.20 - 5.50 X10*6/uL [facility] Hemoglobin 12.2 12.0 - 16.0 g/dl [facility] Hematocrit 37.9 37.0 - 47.0 % [facility] Mean Corpuscular Volume 87.1 80.0 - 98.0 fL [facility] Mean Corpuscular Hemoglobin 28.0 27.0 - 33.0 pg [facility] Mean Corpuscular HGB Conc 32.2 31.0 - 35.0 g/dl [facility] Red Cell Distribution Width 14.0 11.0 - 16.0 % [facility] Platelet Count 334 160 - 400 X10*3/uL [facility] Mean Platelet Volume 10.4 9.4 - 12.3 fL [facility] Neutrophils Percent Auto 56.2 45 - 73 % [facility] Imm Gran Pct Auto 0.4 0.0 - 0.4 % [facility] Lymphocytes Percent Auto 29.1 20 - 40 % [facility] Monocytes Percent Auto 10.1 2 - 11 % [facility] Eosinophils Percent Auto 3.5 0 - 4 % [facility] Basophils Percent Auto 0.7 0 - 2 % [facility] NRBC Pct Auto 0.0 0.0 - 0.2 /100WBC [facility] Neutrophils Absolute Auto 4.2 2.0 - 8.3 x10*3/uL [facility] Imm Gran Abs Auto 0.03 0.00 - 0.03 X10*3/uL [facility] Lymphocytes Absolute Auto 2.2 1.2 - 4.9 X10*3/uL [facility] Monocytes Absolute Auto 0.8 0.1 - 1.2 X10*3/uL [facility] Eosinophils Absolute Auto 0.3 0.0 - 0.4 X10*3/uL [facility] Basophils Absolute Auto 0.1 0.0 - 0.2 X10*3/uL [facility] NRBC Abs Auto 0.000 0.0 - 0.012 X10*3/uL [facility] 01/16/2023 10:1 0 AM EDT 01/16/2023 11:26 AM EDT [facility] External Provider LAB BLO OD ORDERABLES Final Result [facility] [address] [place] [address] [phone] documented in this encounter Visit Diagnoses Not on filedocumented in this encounter Care Teams Basketball Player Relationship Specialty Start Date End Date Name, MD Suresh [address] [place] [address] PCP - General Family Medicine 11/18/17 documented as of this encounter
--- OUTSIDE RECORDS SUMMARY | 2024-12-13 17:49 | XMS_ITS | Encounter Summary ---
Author Organization [employer] Address [address] [facility] [address] [place] [address] Care Team Providers Care Electric Fork Operator Name Role Phone Name, Suresh BENJAMIN Primary Care Provider [phone] Reason for Visit * Reason Onset Date Comments Appointment Request 12/21/2023 Encounter Details Date Type Department Care Team ([facility] st Contact Info) Description 12/21/2023 Telephone [facility] [address] [place] [address] Name, MD Suresh [address] [place] [address] Appointment Request Social History Tobacco Use Types [...] a telephone visit. Please contact daughter at [phone]. documented in this encounter Plan of Treatment Not on file documented as of this encounter Visit Diagnoses Not on filedocumented in this encounter Care Teams Electric Fork Operator Relationship Specialty Start Date End Date Name, MD Surehs [address] [place] [address] PCP - General Family Medicine 11/18/17 documented as of this encounter
--- OUTSIDE RECORDS SUMMARY | 2024-12-13 17:49 | XMS_ITS | Encounter Summary ---
Author Organization [employer] Address [address] [facility] [address] [place] [address] Care Team Providers Care Water Regulator And Valve Repairer Name Role Phone Name, Suresh BENJAMIN Primary Care Provider [phone] Encounter Details Date Type Department Care Team ([facility] st Contact Info) Description 11/13/2023 Abstract [facility] [address] [place] [address] Name, MD Suresh [address] [place] [address] Social History Tobacco Use Types Packs/Day Years [...] on filedocumented in this encounter Care Teams Water Regulator And Valve Repairer Relationship Specialty Start Date End Date Name, MD Suresh [address] [place] [address] PCP - General Family Medicine 11/18/17 documented as of this encounter
== END 2024-12-13 16:11 | disposition home or self-care (01) ==
LOC: HO.PMCPRC 14:13
PROVIDERS: PCP Internal Medicine Geriatric Medicine; Visit Provider Anesthesiology
DX: M47.816 Spondylosis without myelopathy or radiculopathy, lumbar region (principal)
CPT/HCPCS: 64493; 64494

== ENCOUNTER 2024-12-16 13:04 | Outpatient (AMB) | payer OTHER, SELFPAY ==
--- NOTE | 2024-12-16 13:06 | MHC.OFFVIS ---
Vital Signs 12/16/24 13:10 Height 4 ft 10 in Weight 150 lb BMI 31.3 BP 170/79 H Blood Pressure Location Lt brachial Position Sitting Pulse 75 Pulse Source Pulse Oximeter Pulse Oximetry (%) 98 Oxygen Delivery Method Room Air Intake Visit Reasons: BILATERAL DIAGNOSTIC L3, L4, DRL5 MBB Intake Note: Pain today 12/26 Waste Transportation Technician Required: Yes Waste Transportation Technician Language: Director Meetings Services: Waste Transportation Technician Offered & Declined Waste Transportation Technician Name: Daugther Accompanied by: Family/Other Allergies Sulfa (Sulfonamide Antibiotics) [SULFA (SULFONAMIDE ANTIBIOTICS)] Allergy (Intermediate, Verified 12/16/24 13:11) RASH ciprofloxacin [CIPROFLOXACIN] Allergy (Unknown, Verified 12/16/24 13:11) PER H&P HPI Comments Details: Patient presents today to assess response to bilateral diagnostic L3-L4 DR L5 MBB on 12/13/[address] Drummond. Patient reports 100% pain relief for first 24 hours and ongoing 70% pain relief since procedure with significant improvement in her daily activities and functioning, better ROM, better tolerance to sit or stand upright and better sleep. Patient denies radiating leg pain. She is interested to proceed with lumbar medial branch RFA as next steps. She is aware repeat diagnostic injections might be necessary prior to radiofrequency. Patient declined neuromodulation with temporary or permanent PNS or SCS devices. Denies any recent cough, cold, infection, fever or other significant changes in medical history since last office visit. Past Procedures: 12/13/24: Bilateral Diagnostic L3-L4 DR L5 MBB-100% pain relief x24 hours, ongoing 70% pain relief PRIOR: Patient presents today for follow-up for chronic low back pain. public health engineer was declined by patient as she requests her daughter to assist with translation today. She was last seen in our office in 05/07/2022 with plans for diagnostic lumbar medial branch blocks for axial low back pain. Patient denies any recent trauma, injury, or falls. She reports back pain that is mostly axial but also periodically radiates into her left groin and thigh with walking. Patient also suffers from significant right knee pain due to advanced osteoarthritis and was attempted knee surgery at [facility] but could not go through the surgery per family. SLR testing is negative on exam today. Back pain is significantly aggravated with axial rotations and extension. Patient is interested to proceed with diagnostic lumbar medial branch blocks for potential RFA procedure. Denies any fever or chills, burning, numbness or tingling, bladder or bowel dysfunction or saddle anesthesia. PRIOR 04/28/22: Patient presents today via telehealth encounter to discuss lumbar spine xray results. Her daughter Lizeth is present during today's visit to assist with translation per patient's request. Patient continues to reports axial, non-radiating low back pain worsened with back extension and every movement. Her lumbar spine xray showed mild dextroscoliosis mid lumbar spine with degenerative disc changes and spondylosis virtually at every disc level.?We discussed diagnostic lumbar MBBs for potential RFA vs temporary peripheral nerve stimulation with SPRINT device. She was provided with pamphlets at previous visit. Patient cannot tolerate physical therapy due to significant pain. She takes daily Plavix and aspirin. We will obtain clearance from Dr. Thompson to hold medications for 7 days prior to diagnostic lumbar injections. Patient denies any fever, chills, malaise, abdominal or groin pain, numbness, tingling, bladder/bowel dysfunction or saddle anesthesia. PRIOR: Patient is a pleasant 76 years old Arabic speaking female who presents today for evaluation of chronic and multiple pain generators, including left shoulder, right knee, bilateral hip and axial non radiating lower back pain. Her most concerning pain is lower back pain. She reports her pain is aggravated by any movement, walking, standing, sitting and climbing stairs. Patient is followed by rheumatology for multiple joint pain and orthopedic services for shoulder, knee and hip pain. Patient denies previous back surgery and was told she is not a surgical candidate due to significant cardiac comorbidities. She has right hip pain with internal and external rotations. Patient denies any fever, chills, abdominal or groin pain, numbness, tingling, bladder/bowel dysfunction or saddle anesthesia. She reports intermittent weakness. Ambulates with slow antalgic gait with assistance of a cane. Previously she has tried cortisone injections in her left shoulder, right knee and left hip with good results. Right total knee replacement was attempted twice in 2014, but the patient became sick and currently cannot undergo surgery due to multiple comorbidities. She has cardiac stents, previous left carotid endarterectomy in 2018 and CVA in 2018. Patient follows Dr. Thompson for routine surveillance follow-up regarding her carotid stenosis and has been asymptomatic. She takes Plavix and aspirin daily. Patient reports she is scheduled for endoscopy with Dr. Madsen with sedation next month. Patient tries to manage her pain with tramadol, gabapentin and Tylenol but has continued symptoms which limits her ADL?s, affects her mobility, sleep, mood and quality of life. She denies previous physical therapy, chiropractic manipulation, massage, TENS unit or aquatic therapy. Currently she is not pursuing PT due to significant pain. Lumbar imaging was ordered in February but was not completed yet. She is hesitant about interventional procedures, especially injections. 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 Diabetic nephropathy associated with type 2 diabetes mellitus Surgical History History of esophagogastroduodenoscopy (EGD) Hx of cholecystectomy Hx of hysterectomy Hx of endarterectomy Hx of colonoscopy History of coronary angioplasty with insertion of stent Family History Father Kidney disease Mother GI bleed Arthritis of knee HTN (hypertension) Social History Household Members: None Housing: Apartment Alcohol intake: never Patient Tobacco Use Status: Never used Tobacco Review of Systems Const All systems reviewed & are unremarkable except as noted in HPI and below Physical Exam Vital Signs: Last Vital Signs Pulse 75 12/16/24 13:10 BP 170/79 H 12/16/24 13:10 Pulse Ox 98 12/16/24 13:10 Oxygen Delivery Method Room Air 12/16/24 13:10 BMI result Body Mass Index 31.3 General: Appears afebrile. Alert and oriented. Mood and affect appropriate. Follows and participates in conversation appropriately. Respiratory effort is unlabored. No cough. Able to transition from sit to stand unassisted. Uses walker with ambulation/transfers. Ambulates with normal heel strike and toe off on the left, increased pain on the right due to LBP and knee pain. General: Yes no CVA tenderness Back/Spine/Pelvis Other: Limited lumbar ROM due to pain. Antalgic gait with mild limping. Painful facet loading bilaterally. The palpation of the lumbar spine reveals mild tenderness on paraspinal regions of lower lumbar spine. Demonstrates 4/5 strength of quadriceps bilaterally as well as 4/5 flexion/dorsiflexion of feet against resistance. 2+ pedal pulses bilaterally. Mild groin and bilateral lateral hip pain with I/E hip rotations. No tenderness in the projection of bilateral GTs. Pallavi signs positive bilaterally. Silas?s and Stinchfield tests positive bilaterally, left>right. Back: no CVA tenderness Cervical Spine: cervical ROM normal, cervical muscular tenderness, No Cervical spine tenderness and No step off deformity Thoracic/Lumbar Spine: thoracic and lumbar spine normal to inspection, No Thoracic/lumbar spine scar(s), Lasegue's sign negative, straight leg raise negative bilaterally, pain with thoraco-lumbar ROM, paraspinal muscle tenderness, thoraco-lumbar ROM limited, Thoracic/lumbar scoliosis, No thoracic spinal tenderness and lumbar spinal tenderness (L4-S1) Pelvis: buttock tenderness bilaterally Sacroiliac joints: bilaterally tender to palpation Sacrum: no tenderness Extrem General: Yes capillary refill normal, Yes no clubbing, cyanosis or edema and Yes no calf tenderness Results Reviewed Results Reviewed: XR LUMBOSACRAL SPINE WITH OBLIQUES 04/22/22 FINDINGS: There is mild dextroscoliosis of lumbar spine. There is loss of disc at virtually at every disc level with ventral spondylosis. No acute fracture or lytic process seen. There is no pars defect or listhesis. There is bilateral mild facet joint arthropathy. The paravertebral soft tissues are normal. SI joints are normal. There is a likely small bone island right sacrum. IMPRESSION: Mild dextroscoliosis mid lumbar spine with degenerative disc changes and spondylosis virtually at every disc level. No visible acute fracture or dislocation seen. No lytic or sclerotic process seen. Assessment & Plan Assessment & Plan (1) Lumbar spondylosis: Code(s): M47.816 - Spondylosis without myelopathy or radiculopathy, lumbar region Category: Medical (2) Sacroiliac joint dysfunction of both sides: Code(s): M53.3 - Sacrococcygeal disorders, not elsewhere classified Category: Medical (3) Chronic pain syndrome: Code(s): G89.4 - Chronic pain syndrome Category: Medical Plan Schedule for Bilateral L3-L4-L5 Medial Branch RFA with sedation (per patient's request) and fluoroscopy given successful results with diagnostic lumbar medial branch blocks. Expectations, risks and benefits were reviewed. We also discussed Sprint PNS and SCS trial vs implant, patient lives alone and is hesitant towards any implants. All questions and concerns have been answered and patient agreed with the plan. Follow up for injections and sooner as needed. Anticoagulation: Patient is on Aspirin and instructions given on when to stop. Justification for interventional therapy: ? Patient with average pain > 6/10 ? Patient has exhausted conservative therapy ? Patient unable to tolerate physical therapy due to pain ? Bilateral Diagnostic L3-L4 DR L5 MBB-100% pain relief x24 hours The risks, consequences, alternatives, and benefits of various treatment options were discussed with the patient in great detail, including conservative management, injections and procedures. Coding Level of Care Code Est Pt Level 3 (60027) Complex EM visit Add On G2211 Diagnoses Lumbar spondylosis M47.816 Sacroiliac joint dysfunction of both sides M53.3 Chronic pain syndrome G89.4
[2024-12-16 13:10] VITALS: BP 170/79; PULSE 75; O2SAT 98; BMI 31.3
--- OUTSIDE RECORDS SUMMARY | 2024-12-16 15:08 | XMS_ITS | Encounter Summary ---
Author Organization [employer] Address [address] [facility] 7t [place] [address] Care Team Providers Care Child Specialist Name Role Phone Name, Suresh BENJAMIN Primary Care Provider [phone] Reason for Visit * Reason Comments Med Refill Encounter Details Date Type Department Care Team ([facility] st Contact Info) Description 06/07/2024 Refill [facility] MEDICINE [address] [place] [address] Renata Ballard FNP [address] [place] [address] Pain Social History Tobacco Use Types Packs/Day [...] documented as of this encounter Care Teams Child Specialist Relationship Specialty Start Date End Date Name, MD Suresh [address] [place] [id number] PCP - General Family Medicine 11/18/17 documented as of this encounter
--- OUTSIDE RECORDS SUMMARY | 2024-12-16 15:08 | XMS_ITS ---
Author Organization [facility] Address [address] [place] [address] Care Team Providers Care Alley Worker Name Role Phone Name Suresh BENJAMIN Primary Care Provider Juanpablo Medina Jr Unavailable ALLERGIES Allergen (clinical drug ingredient) Drug/Non Drug Allergy documented on EMR Reaction Allergy Type Onset Date Status Sulfa blisters Drug Allergy Active Cipro itching Drug Allergy Active REASON FOR VISIT Patient presents today for [...] Once a day Active Vitamin D3 Active Corydon 3 1000 MG 1 capsule Orally twi [...] 01/25/2024 Encounters Encounter Location Date Provider Diagnosis [facility] [address] [place] [address] 01/25/2024 Juanpablo Madsen Jr Gastroesophageal reflux disease [...]
--- OUTSIDE RECORDS SUMMARY | 2024-12-16 15:08 | XMS_ITS | Clinical Summary ---
Author Organization [employer] Address [address] [place] [address] 7t [place] [address] Care Team Providers Care Medicine Assistant Name Role Phone Name, Suresh BENJAMIN Primary Care Provider [phone] Allergies Active Allergy Reactions Criticality Noted Date [...] one can twice a day 019 Active Toomsuba-3 Fatty Acids (OMEGA 3 PO) Chew 2 [...] 300 tablet 1 024 Active nystatin (Mycostatin) 616580 UNIT/GM powder Apply topically 2 times daily. [...] to use of clotrimazole -had UA w neon tube pumper in 12/2022 w neg ucx < 10col [...] atorvastatin 80 mg Coronary artery disease involving [place] coronar y artery 04/13/1994 Encounters Date Type Department Care Team Description 12/01/2024 Refill [facility] MEDICINE [address] [place] [address] Name, MD Suresh Chronic low back pain without sciatica, unspecified back pain laterality; Pain 11/27/2024 Refill [facility] MEDICINE [address] [place] [address] Name, MD Suresh 10/30/2024 Refill [facility] MEDICINE [address] [place] [address] Name, MD Suresh 10/29/2024 Refill [facility] MEDICINE [address] [place] [address] Name, MD Suresh Hypertriglyceridemia 10/05/2024 Refill [facility] MEDICINE [address] [place] [address] Name, MD Suresh Seasonal allergies; Hypertension, unspecified type 10/03/2024 Telephone [facility] MEDICINE [address] [place] [address] Sandra Garcia MA DME from [employer] from [...] complication, with long-term current use of insulin ([facility]) Essential hypertension LIPID PANEL, STANDARD Routine 05/16/2024 9:08 AM EDT Type 2 diabetes mellitus with other circulatory complication, with long-term current use of insulin ([facility]) Essential hypertension ALBUMIN, RANDOM URINE W/CREATININE Routine 05/16/2024 12:00 AM EDT Type 2 diabetes mellitus with other circulatory complication, with long-term current use of insulin ([facility]) Essential hypertension from Last 3 Months or Most Recently Relevant to Health Maintenance Results * (ABNORMAL) Hemoglobin A1c (05/16/2024 9:08 AM EDT) Hemoglobin A1c 6.9(H) <6.0 % [facility] Comment:Hemoglobin A1C Refer ence Range Adults: 4.8 - 6.0 % Non diabetic: < 6.0 % Goal: < 7.0 %Additional Action Suggested: > 8.0 %Note: Hemoglobin A1c results are invalid for patients with abnormal amounts of HbF. Blood transfusions may impact the HbA1c concentration in the patient sample. Estimated Average Glucose 151 mg/dL [facility] Comment:eAG = Estimated ave rage glucose which is %A1C expressed asaverage glucose, using the formula of the [id number] Glucose study (ADAG), Diabetes Care, Vol.31,#8,May. 2007 Blood Venous blood specimen / Unknown 05/16/2024 9:08 AM EDT 05/16/2024 9:08 AM EDT us Suresh Name LAB BLOOD ORDERABLES Final Resul t [facility] [address] [place] [phone] * (ABNORMAL) Lipid Panel, Standard (05/16/2024 9:08 AM EDT) Triglycerides 229(H) <150 mg/dL [facility] Comment:Desirable Triglyceri de: less than 150 mg/dLBorderline High Triglyceride 150-199 mg/dLHigh Triglyceride: 200-499 mg/dLVery High Triglyceride: greater than or equal to 5OO mg/dL Cholesterol 126 <200 mg/dL [facility] Comment:Desirable Cholestero l: less than 200 mg/dLBorderline High Cholesterol: 200-239 mg/dLHigh Cholesterol: greater than 239 mg/dL LDL Cholesterol Calculated 49 <100 mg/dL [facility] Comment:Desirable LDL: less than 100 mg/dLNear Optimal/Above Optimal LDL: 110- 129 mg/dLBorderline High LDL: 130-159 mg/dLHigh LDL: 160-189 mg/dLVery High LDL: greater than or equal to 190 mg/dL HDL Cholesterol 32(L) >40 mg/dL [facility] Comment:Desirable HDL: great er than 40 mg/dL Note: This HDL assay may give artificially low results in patients with liver disease. Blood Venous blood specimen / Unknown 05/16/2024 9:08 AM EDT 05/16/2024 9:08 AM EDT us Suresh Rosenthal MD LAB BLOOD ORDERABLES Final Resul t Performing Organization Address [facility] Co de Phone Number [facility] [address] [place] [phone] * Albumin, Random Urine W/Creatinine (05/16/2024 12:00 AM EDT) Creatinine, Urine 80.24 mg/dL [facility] Microalbumin Urine 17.0 mg/L [facility] Microalbum Creatinine Ratio Ur 21.1 <30 ug/mg cr [facility] Comment:Albumin/Creatinine R atio Reference Ranges: Normal: < 30 ug/mg creatinine Microalbuminuria: 30 - 300 ug/mg creatinineClinical Albuminuria: > 300 ug/mg creatinine Urine (Urine, Random) 05/16/2024 05/16/2024 us Suresh Rosenthal MD LAB URINE ORDERABLES Final Resul t Performing Organization Address [facility] Co de Phone Number [facility] [address] [place] [phone] from Last 3 Months or Most Recently Relevant to Health Maintenance Insurance [address] [place] [id number] [facility] Care Teams Medicine Assistant Relationship Specialty Start Date End Date Name, MD Suresh [address] [place] [address] PCP - General Family Medicine 11/18/17
--- OUTSIDE RECORDS SUMMARY | 2024-12-16 15:08 | XMS_ITS | Encounter Summary ---
Author Organization [employer] Address [address] [facility] 7t [place] [address] Care Team Providers Care Horticultural Specialty Grower Field Name Role Phone Name, Suresh BENJAMIN Primary Care Provider [phone] Reason for Visit * Reason Comments Med Refill Encounter Details Date Type Department Care Team ([facility] st Contact Info) Description 11/27/2024 Refill [facility] MEDICINE [address] [place] [address] Name, MD Suresh [address] [place] [address] Social History Tobacco Use Types Packs/Day Years [...] documented as of this encounter Care Teams Horticultural Specialty Grower Field Relationship Specialty Start Date End Date Name, MD Suresh [address] [place] [address] PCP - General Family Medicine 11/18/17 documented as of this encounter
--- OUTSIDE RECORDS SUMMARY | 2024-12-16 15:08 | XMS_ITS | Encounter Summary ---
Author Organization [employer] Address [address] [facility] 7t [place] [address] Care Team Providers Care Principal Java Developer Name Role Phone Name, Suresh BENJAMIN Primary Care Provider [phone] Reason for Visit * Reason Onset Date Comments Med Refill 06/23/2023 Encounter Details Date Type Department Care Team (Late st Contact Info) Description 06/23/2023 Refill [facility] MEDICINE [address] [place] [address] Michelle Hernandez, SENIOR CYTOTECHNOLOGIST [address] [place] [address] Routine health maintenance Social History Tobacco Use [...] examination documented in this encounter Care Teams Principal Java Developer Relationship Specialty Start Date End Date Name, MD Suresh [address] [place] [address] PCP - General Family Medicine 11/18/17 documented as of this encounter
--- OUTSIDE RECORDS SUMMARY | 2024-12-16 15:08 | XMS_ITS | Encounter Summary ---
Author Organization [facility] Address [address] [facility] 7t [place] [address] Care Team Providers Care Cryptologist Name Role Phone Name, Suresh BENJAMIN Primary Care Provider [phone] Reason for Visit * Reason Comments Med Refill Encounter Details Date Type Department Care Team (Late st Contact Info) Description 05/22/2023 Refill [facility] MEDICINE [address] [place] [address] Name, MD Suresh [address] [place] [phone] Social History Tobacco Use Types Packs/Day Years [...] on filedocumented in this encounter Care Teams Cryptologist Relationship Specialty Start Date End Date NameSuresh MD [address] [place] [phone] PCP - General Family Medicine 11/18/17 documented as of this encounter
--- OUTSIDE RECORDS SUMMARY | 2024-12-16 15:08 | XMS_ITS | Encounter Summary ---
Author Organization [employer] Address [address] [facility] 7t [place] [address] Care Team Providers Care Diplomatic Interpreter/Translator Name Role Phone Name, Suresh BENJAMIN Primary Care Provider [phone] Reason for Visit * Reason Comments Med Refill Encounter Details Date Type Department Care Team ([facility] st Contact Info) Description 12/01/2024 Refill [facility] MEDICINE [address] [place] [address] Name, MD Suresh [address] [place] [address] Chronic low back pain without sciatica, unspecified [...] documented as of this encounter Care Teams Diplomatic Interpreter/Translator Relationship Specialty Start Date End Date Name, MD Suresh [address] [place] [phone] PCP - General Family Medicine 11/18/17 documented as of this encounter
--- OUTSIDE RECORDS SUMMARY | 2024-12-16 15:08 | XMS_ITS | Clinical Summary ---
Author Organization [facility] Address [address] [facility] [address] [place] [address] Phone Care Team Providers Care Stapler Coil Unit Name Role Phone Name, Suresh BENJAMIN Primary Care Provider [phone] Allergies Active Allergy Reactions Criticality Noted Date [...] mg Active ergocalciferol (VITAMIN D-2) 1.25 MG (94184 UT) capsule Comments: Filled Date: Jul 30 [...] mouth 3 (three) times a day Active Felicity-3 1000 MG capsule Take 2 capsules by [...] 1.5 mg 04/15/20 21 Active nystatin (MYCOSTATIN) 031888 UNIT/ML suspension TAKE 1 MILLILITER BY ORAL [...] Visit [facility] [address] [place] [phone] Rolly Mishra MD [address] [facility] [address] [place] [address] Health Maintenance Due Date Last Done Comments [...] 38 - 50 % PVNMA Comments From [facility] PVNMA BUN 31(H) 9 - 20 mg/dl [...] % PVNMA 10/02/2020 us [facility] [id number] LICITED RESULTS Final Result PVNMA from Last 3 Months or Most Recently Relevant to Health Maintenance Insurance , [facility] [address] [place] [address] [facility] ([id number]) [address] [place] [address] [facility] ([id number]) Care Teams Stapler Coil Unit Relationship Specialty Start Date End Date Name, MD Suresh [address] [place] [address] [phone] PCP - General 10/29/20
--- OUTSIDE RECORDS SUMMARY | 2024-12-16 15:08 | XMS_ITS | Encounter Summary ---
Author Organization [employer] Address [address] [facility] 7t [place] [address] Care Team Providers Care Poultry Hatchery Man Name Role Phone Name, Suresh BENJAMIN Primary Care Provider [phone] Reason for Visit * Reason Comments Med Refill Encounter Details Date Type Department Care Team ([facility] st Contact Info) Description 06/17/2024 Refill [facility] MEDICINE [address] [place] [address] Renata Ballard, PRICILA [address] [place] [address] Chronic low back pain without sciatica, unspecified [...] documented as of this encounter Care Teams Poultry Hatchery Man Relationship Specialty Start Date End Date Name, MD Suresh [address] [place] [phone] PCP - General Family Medicine 11/18/17 documented as of this encounter
--- OUTSIDE RECORDS SUMMARY | 2024-12-16 15:08 | XMS_ITS | Encounter Summary ---
Author Organization [employer] Address [address] [facility] [address] [place] [address] Care Team Providers Care Accounting Support Specialist Name Role Phone Name, Suresh BENJAMIN Primary Care Provider [phone] Encounter Details Date Type Department Care Team ([facility] st Contact Info) Description 09/27/2022 Orders Only [facility] [address] [place] [address] Name, MD Suresh [address] [place] [address] Social History Tobacco Use Types Packs/Day Years [...] 8 AM EDT 01/16/2023 11:29 AM EDT Comment:[facility] Narrative [facility] - 01/17/2023 1:11 PM EDT Urine Culture Report Result Urine Culture < 10,000 cfu/ml Specimen Source: Urine clean catch us [facility] Exter nal Provider LAB MICROBIOLOGY - GENERAL ORDERABLES Final Result [facility] [address] [place] [address] [phone] * Protein Creatinine Ratio, Urine (01/16/2023 10:20 AM EDT) Protein, Total, Random Urine 10 <12 mg/dL [facility] Protein/Creatin ine Ratio, Ur 0.07 <0.2 [facility] Comment:The spot urine prote in:creatinine ratio may increase to 0.3during normal . 01/16/2023 10:2 0 AM EDT 01/16/2023 11:29 AM EDT [facility] External Provider LAB URI NE ORDERABLES Final Result Performing Organization Address [facility] de Phone Number [facility] [address] [place] [address] [phone] * Albumin, Random Urine W/Creatinine (01/16/2023 10:20 AM EDT) Creatinine, Urine 147.17 mg/dL [facility] Microalbumin Urine 23.0 mg/L [facility] Microalbum Creatinine Ratio Ur 15.6 ug/mg cr [facility] Comment:Albumin/Creatinine R atio Reference Ranges: Normal: < 30 ug/mg creatinine Microalbuminuria: 30 - 300 ug/mg creatinineClinical Albuminuria: > 300 ug/mg creatinine 01/16/2023 10:2 0 AM EDT 01/16/2023 11:29 AM EDT [facility] External Provider LAB URI NE ORDERABLES Final Result Performing Organization Address [facility]/ZIP Co de Phone Number [facility] [address] [place] [address] [phone] * (ABNORMAL) Urinalysis Complete (01/16/2023 10:20 AM EDT) Color Urine Yellow [facility] Appearance Urine Clear [facility] PH 6.0 5.0 - 9.0 [facility] Glucose Urine UA Negative Negative mg/dL [facility] Urine Blood Negative Negative [facility] Specific [place] - Urine 1.020 1.005 - 1.025 [facility] Urine Protein Negative Neg-Trace mg/dL [facility] Urine Ketones Negative Negative mg/dL [facility] Nitrite Urine Negative Negative [facility] Leukocyte Esterase Urine Moderate (2+)(A) Negative [facility] RBC Urine 0-2 0 - 2 /HPF [facility] Urine WBC 11-20(A) 0 - 5 /HPF [facility] Urine Squamous Epithelial Cell 0-2 0 - 2 /HPF [facility] Urine Bacteria None Seen None Seen [facility] Hyaline Casts, Urine 0-2 0 - 2 /LPF [facility] 01/16/2023 10:2 0 AM EDT 01/16/2023 11:29 AM EDT us [facility] External Provider LAB URI NE ORDERABLES Final Result [facility] [address] [place], [place] [phone] * (ABNORMAL) PTH, Intact Without Calcium (01/16/2023 10:10 AM EDT) PTHI 20 16 - 77 pg/mL [facility] Comment:Interpretive Guide I ntact PTH Calcium -------Normal Parathyroid Normal NormalHypoparathyroidism Low or Low Normal LowHyperparathyroidism Primary Normal or High High Secondary High Normal or Low Tertiary High HighNon-Parathyroid Hypercalcemia Low or Low Normal High Calcium (PTHI) 10.7(A) 8.6 - 10.4 mg/dL [facility] Comment:THIS TEST WAS PERFOR MED AT:[facility] [place] [id number] LEAHY MD 01/16/2023 10:1 0 AM EDT 01/16/2023 11:26 AM EDT [facility] External Provider LAB BLO OD ORDERABLES Final Result [facility] [address] [place] [address] [phone] * Vitamin D, 25-Hydroxy, Total, Immunoassay (01/16/2023 10:10 AM EDT) Vitamin D 25-OH Total 42.7 >30 ng/mL [facility] Comment:Health Based Referen ce Values*< 20 ng/mL Rsiplpiaw20-21 ng/mL Insufficient> 30 ng/mL Sufficient*Whitney MARS. N [...] 0 AM EDT 01/16/2023 11:26 AM EDT [facility] External Provider LAB BLO OD ORDERABLES Final Result [facility] [address] [place] [phone] [phone] * Albumin (01/16/2023 10:10 AM EDT) Albumin Level 4.2 3.5 - 5.0 g/dL [facility] 01/16/2023 10:1 0 AM EDT 01/16/2023 11:26 AM EDT [facility] External Provider LAB BLO OD ORDERABLES Final Result Performing Organization Address [facility] Co de Phone Number [facility] [address] [place] [phone] * Magnesium (01/16/2023 10:10 AM EDT) Magnesium 1.7 1.6 - 2.6 mg/dL [facility] 01/16/2023 10:1 0 AM EDT 01/16/2023 11:26 AM EDT [facility] External Provider LAB BLO OD ORDERABLES Final Result Performing Organization Address [facility] Phone Number [facility] [address] [place] [phone] * Phosphate (As Phosphorus) (01/16/2023 10:10 AM EDT) Phosphorus 3.6 2.7 - 4.5 mg/dL [facility] 01/16/2023 10:1 0 AM EDT 01/16/2023 11:26 AM EDT [facility] External Provider LAB BLO OD ORDERABLES Final Result Performing Organization Address [facility] de Phone Number [facility] [address] [place] [phone] * (ABNORMAL) Calcium (01/16/2023 10:10 AM EDT) Calcium 10.4(H) 8.4 - 10.2 mg/dL [facility] 01/16/2023 10:1 0 AM EDT 01/16/2023 11:26 AM EDT [facility] External Provider LAB BLO OD ORDERABLES Final Result Performing Organization Address [facility]/ZIP Co de Phone Number [facility] [address] [place] [address] [phone] * Creatinine, Serum (01/16/2023 10:10 AM EDT) Creatinine, Serum 1.06 0.5 - 1.4 mg/dL [facility] Estimated Glomerular Filt Rate 50 [facility] Comment:NOTE: For -Am erican individuals, multiply the result by 1.210.Chronic Kidney Disease: Estimated GFR < 60 mL/min/[id number] Kidney Disease: Estimated GFR < 15 mL/min/1.73m2 01/16/2023 10:1 0 AM EDT 01/16/2023 11:26 AM EDT [facility] External Provider LAB BLO OD ORDERABLES Final Result Performing Organization Address [facility] Co de Phone Number [facility] [address] [place] [phone] * (ABNORMAL) BUN (Blood Urea Nitrogen) (01/16/2023 10:10 AM EDT) Urea Nitrogen (BUN) 27(H) 9 - 16 mg/dL [facility] 01/16/2023 10:1 0 AM EDT 01/16/2023 11:26 AM EDT [facility] External Provider LAB BLO OD ORDERABLES Final Result Performing Organization Address City/[facility]/ZIP Co de Phone Number [facility] [address] [place] [phone] [phone] * Electrolyte Panel (01/16/2023 10:10 AM EDT) Sodium 140 135 - 145 mmol/L [facility] Potassium 4.0 3.3 - 5.1 mmol/L [facility] Chloride 102 96 - 108 mmol/L [facility] Carbon Dioxide 28 22 - 29 mmol/L [facility] Anion Gap 14 12 - 20 [facility] 01/16/2023 10:1 0 AM EDT 01/16/2023 11:26 AM EDT [facility] External Provider LAB BLO OD ORDERABLES Final Result Performing Organization Address [facility] Co de Phone Number [facility] [address] [place] [address] [phone] * Lipid Panel, Standard (01/16/2023 10:10 AM EDT) Triglycerides 260 mg/dL [facility] Comment:Desirable Triglyceri de: less than 150 mg/dLBorderline High Triglyceride 150-199 mg/dLHigh Triglyceride: 200-499 mg/dLVery High Triglyceride: greater than or equal to 5OO mg/dL Cholesterol 180 mg/dL [facility] Comment:Desirable Cholestero l: less than 200 mg/dLBorderline High Cholesterol: 200-239 mg/dLHigh Cholesterol: greater than 239 mg/dL LDL Cholesterol Calculated 94 mg/dl [facility] Comment:Desirable LDL: less than 100 mg/dLNear Optimal/Above Optimal LDL: 110- 129 mg/dLBorderline High LDL: 130-159 mg/dLHigh LDL: 160-189 mg/dLVery High LDL: greater than or equal to 190 mg/dL HDL Cholesterol 34 mg/dL [facility] Comment:Desirable HDL: great er than 40 mg/dL Note: This HDL assay may give artificially low results in patients with liver disease. 01/16/2023 10:1 0 AM EDT 01/16/2023 11:26 AM EDT [facility] External Provider LAB BLO OD ORDERABLES Final Result Performing Organization Address [facility] Co de Phone Number [facility] [address] [place] [address] [phone] * (ABNORMAL) Comprehensive Metabolic Panel, Fasting (01/16/2023 10:10 AM EDT) Sodium 140 135 - 145 mmol/L [facility] Potassium 4.0 3.3 - 5.1 mmol/L [facility] Chloride 101 96 - 108 mmol/L [facility] Carbon Dioxide 29 22 - 29 mmol/L [facility] Anion Gap 14 12 - 20 [facility] Urea Nitrogen (BUN) 27(H) 9 - 16 mg/dL [facility] Creatinine, Serum 1.08 0.5 - 1.4 mg/dL [facility] Estimated Glomerular Filt Rate 49 [facility] Comment:NOTE: For -Am erican individuals, multiply the result by 1.210.Chronic Kidney Disease: Estimated GFR < 60 mL/min/[id number] Kidney Disease: Estimated GFR < 15 mL/min/1.73m2 Glucose Fasting 164(H) 60 - 99 mg/dL [facility] Comment:A fasting glucose of 126 mg/dl or greater on more than oneoccasion is considered diagnostic of diabetes. Calcium 10.4(H) 8.4 - 10.2 mg/dL [facility] Bilirubin, Total 0.4 0.0 - 1.0 mg/dL [facility] Aspartate Amino Transferase 19 5 - 31 U/L [facility] Alanine Aminotransferase 13 0 - 31 U/L [facility] Total Protein 7.3 6.5 - 8.0 g/dL [facility] Albumin Level 4.2 3.5 - 5.0 g/dL [facility] Alkaline Phosphatase 51 39 - 117 U/L [facility] 01/16/2023 10:1 0 AM EDT 01/16/2023 11:26 AM EDT us [facility] External Provider LAB BLO OD ORDERABLES Final Result [facility] [address] [place] [phone] * CBC auto differential (01/16/2023 10:10 AM EDT) Pathologist [facility] White Blood Count 7.5 4.8 - 10.8 X10*3/uL [facility] Red Blood Count 4.35 4.20 - 5.50 X10*6/uL [facility] Hemoglobin 12.2 12.0 - 16.0 g/dl [facility] Hematocrit 37.9 37.0 - 47.0 % [facility] Mean Corpuscular Volume 87.1 80.0 - 98.0 fL [facility] Mean Corpuscular Hemoglobin 28.0 27.0 - 33.0 pg [facility] Mean Corpuscular HGB Conc 32.2 31.0 - 35.0 g/dl [facility] Red Cell Distribution Width 14.0 11.0 - 16.0 % [facility] Platelet Count 334 160 - 400 X10*3/uL [facility] Mean Platelet Volume 10.4 9.4 - 12.3 fL [facility] Neutrophils Percent Auto 56.2 45 - 73 % [facility] Imm Gran Pct Auto 0.4 0.0 - 0.4 % [facility] Lymphocytes Percent Auto 29.1 20 - 40 % [facility] Monocytes Percent Auto 10.1 2 - 11 % [facility] Eosinophils Percent Auto 3.5 0 - 4 % [facility] Basophils Percent Auto 0.7 0 - 2 % [facility] NRBC Pct Auto 0.0 0.0 - 0.2 /100WBC [facility] Neutrophils Absolute Auto 4.2 2.0 - 8.3 x10*3/uL [facility] Imm Gran Abs Auto 0.03 0.00 - 0.03 X10*3/uL [facility] Lymphocytes Absolute Auto 2.2 1.2 - 4.9 X10*3/uL [facility] Monocytes Absolute Auto 0.8 0.1 - 1.2 X10*3/uL [facility] Eosinophils Absolute Auto 0.3 0.0 - 0.4 X10*3/uL [facility] Basophils Absolute Auto 0.1 0.0 - 0.2 X10*3/uL [facility] NRBC Abs Auto 0.000 0.0 - 0.012 X10*3/uL [facility] 01/16/2023 10:1 0 AM EDT 01/16/2023 11:26 AM EDT [facility] External Provider LAB BLO OD ORDERABLES Final Result [facility] [address] [place] [phone] documented in this encounter Visit Diagnoses Not on filedocumented in this encounter Care Teams Accounting Support Specialist Relationship Specialty Start Date End Date Name, MD Suresh [address] [place] [address] PCP - General Family Medicine 11/18/17 documented as of this encounter
--- OUTSIDE RECORDS SUMMARY | 2024-12-16 15:08 | XMS_ITS | Data Portability ---
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; Note: Date Diagnosed : 01/07/2018 1:52 PM (H90.A31) Not Available [facility] 08/02/202 4 02:26:28 [facility] dermat[facility] s [id number] Active 2022 [facility], unspecifi ed; Note: Date Diagnosed : 03/25/2023 4:15 PM (L21.9) Not Available [facility] 4 02:26:46 Central perforati on of left tympanic membrane 44701390391 10401 Active 2016 Central perforati on of tympanic membrane, left ear; Note: Date Diagnosed : 03/06/2017 2:34 PM (H72.02) Not Available [facility] 4 02:26:48 Impacted cerumen of bilateral ears [id number] 12842 Active 2017 Impacted cerumen, bilateral ; Note: Date Diagnosed : 8 1:01 PM (H61.23) Not Available [facility] 4 02:26:40 Sensorine ural hearing loss in left ear [id number] 109 Active 2017 Sensorine ural hearing loss, unilatera l, left ear, with restricte d hearing on the contralat eral side; Note: Date Diagnosed : 01/07/2018 1:52 PM (H90.A22) Not Available [facility] 4 02:26:42 Sensorine ural hearing loss of bilateral ears 971204174 Active 2015 Sensorine ural hearing loss, bilateral ; Note: Date Diagnosed : 6 1:26 PM (H90.3) Not Available [facility] 4 02:26:17 Impacted cerumen in left ear [id number] 34042 Active 2017 Impacted cerumen, left ear; Note: Date Diagnosed : 11/24/2017 1:55 PM (H61.22) Not Available [facility] 4 02:26:44 Diffuse otitis externa 14733775 Active 2016 Diffuse otitis externa, left ear; Note: Date Diagnosed : 08/24/2017 11:10 AM (H60.312) Not Available [facility] 4 02:26:26 Mixed conductiv e and sensorine ural hearing loss, bilateral 888407512 Active 11/25/ 2016 Mixed conductiv e and sensorine ural hearing loss, bilateral ; Note: Date Diagnosed : 6 11:59 AM (H90.6) Not Available [facility] 4 02:26:25 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 27980218706 24264 Active 2016 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 , bilateral ; Location: bilateral Note: Date Diagnosed : 08/24/2017 11:10 AM (H61.323) Not Available [facility] 4 02:26:49 Stenosis of bilateral external ear canals due to and following inflammat ion 17575963310 26478 Active 2016 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 , bilateral ; Location: bilateral Note: Date Diagnosed : 08/24/2017 11:10 AM (H61.323) Not Available [facility] 4 02:26:49 Disorder of nasal sinus 7477324 Active 2019 Other specified disorders of nose and nasal sinuses; Note: Date Diagnosed : 06/22/2020 12:34 PM (J34.8) Not Available [facility] 4 02:26:41 Disorder of the nose 05153145 Active 2019 Other specified disorders of nose and nasal sinuses; Note: Date Diagnosed : 06/22/2020 12:34 PM (J34.8) Not Available [facility] 4 02:26:42 Itching of skin 553817807 Active 2023 MERVIN JERONIMO PA-C [address] [place] [address] [place], [id number] , [facility] - [facility] 4 15:15:24 Problem Notes None recorded. Medical Equipment None Reported. Allergies Allergen ID Allergen Name Allergen Category Reaction Reaction Severity Criticality Documentation Date Start Date Code Code System Note Provider Name and Address Organization Details Recorded Time [id number] Cipro medicatio n Not available Not available Not available 10/05/2024 61668 3 RxNorm Nandini lowe [place] - [facility] 4 14:42:48 921621 trimethop rim medicatio n Not available Not available Not available 10/05/2024 01797 RxNorm Nandini lowe [place] - [facility] 4 14:42:56 11171 Substance with sulfonami de structure and antibacte rial mechanism of action (substanc e) medicatio n other Not available Not available 03/01/2024 76797 8003 SNOMED React ion: unkno wn, unspe cifie d;; Not Available [facility] 4 00:57:24 Medications Name Sig Start Date Stop Date Status Note LastModified by Organization Details LastModified Time atorvasta tin 40 mg tablet 04/09 completed Medicati on ID: [id number] D uration Value: 90 Reason: () Brand Name: atorvast atin Sen d Method: E-Prescr ibed Sub s Allowed: subs OK Speci al Instruct ion: TAKE 1 TABLET BY MOUTH EVERY DAY Medi cationGe nericNam e: atorvast atin Not Available Not Available Not Available atorvasta tin 80 mg tablet 2017 active Medicati on ID: [id number] D uration Value: 30 Brand Name: atorvast [...] mg tablet 04/09 completed Medicati on ID: [id number] D uration Value: 90 Reason: () Brand Name: atorvast atin Sen d Method: E-Prescr ibed Sub s Allowed: subs OK Speci al Instruct ion: TAKE 1 TABLET (20MG) BY ORAL ROUTE EVERY DAY Medi cationGe nericNam e: atorvast atin Not Available Not Available Not Available triamcino lone acetonide 0.5 % topical cream 06/22 completed Medicati on ID: [id number] D uration Value: 7 Reason: () Brand [...] mg tablet 10/05 completed Medicati on ID: [id number] D uration Value: 30 Brand Name: senna Se nd Method: E-Prescr ibed Sub s Allowed: subs OK Speci al Instruct ion: TAKE 2 TABLET BY ORAL ROUTE EVERY DAY NEEDED FOR CONSTIPA TION Med icationG enericNa me: senna Not Available Not Available Not Available clonazepa m 0.5 mg tablet 06/22 completed Medicati on ID: [id number] D uration Value: 30 Reason: () Brand Name: clonazep am Send Method: E-Prescr ibed Sub s Allowed: subs OK Medic ationGen ericName : clonazep am Not Available Not Available Not Available betametha sone, augmented 0.05 % topical cream active Medicati on ID: [id number] D uration Value: 7 Brand Name: betameth [...] topical ointment 10/05 completed Medicati on ID: [id number] D uration Value: 14 Brand Name: triamcin olone acetonid e Send Method: E-Prescr ibed Sub s Allowed: subs OK Speci al Instruct ion: APPLY TWICE A DAY TO AFFECTED AREA FOR 2 WEEKS,TH EN DAILY FOR 2 WEEKS Me dication GenericN jeffry: triamcin olone acetonid e Not Available Not Available Not Available melatonin 3 mg tablet 10/05 completed Medicati on ID: 295305 D uration Value: 30 Brand Name: doc n Send Method: E-Prescr ibed Sub s Allowed: subs OK Medic ationGen ericName : melatoni n Not Available Not Available Not Available clopidogr el 75 mg tablet 2015 active Medicati on ID: [id number] D uration Value: 90 Brand Name: clopidog [...] ear drops 06/22 completed Medicati on ID: [id number] D uration Value: 10 Reason: () Brand [...] mg capsule 10/05 completed Medicati on ID: [id number] D uration Value: 30 Brand Name: docusate [...] a day 10/05 completed Medicati on ID: [id number] D uration Value: 14 Prescri bed By Name: CRISTOFER [place] nd Name: mupiroci n Send Method: E-Prescr ibed Sub s Allowed: subs OK Medic ationGen ericName : mupiroci n Not Available Not Available Not Available mirtazapi ne 15 mg tablet 10/05 completed Medicati on ID: [id number] D uration Value: 30 Brand Name: mirtazap ine Send Method: E-Prescr ibed Sub s Allowed: subs OK Speci al Instruct ion: TAKE 1 TABLET BY MOUTH AT BEDTIME Medicati onGeneri cName: mirtazap ine Not Available Not Available Not Available gabapenti n 100 mg capsule 04/09 completed Medicati on ID: [id number] D uration Value: 90 Reason: () Brand [...] nasal spray 06/22 completed Medicati on ID: [id number] D uration Value: 90 Reason: () Brand [...] topical cream 10/05 completed Medicati on ID: [id number] D uration Value: 45 Brand Name: clotrima zole Sen d Method: E-Prescr ibed Sub s Allowed: subs OK Medic ationGen ericName : clotrima zole Not Available Not Available Not Available Ventolin HFA 90 mcg/actua tion aerosol inhaler 2016 active Medicati on ID: [id number] D uration Value: 17 Brand Name: Ventolin HFA Send Method: E-Prescr ibed Sub s Allowed: subs OK Speci al Instruct ion: INHALE 2 PUFF BY INHALATI ON ROUTE EVERY 4 - 6 HOURS NEEDED M edicatio nGeneric Name: Ventolin HFA Not Available Not Available Not Available buspirone 15 mg tablet 06/22 completed Medicati on ID: [id number] D uration Value: 30 Reason: () Brand Name: buspiron e Send Method: E-Prescr ibed Sub s Allowed: subs OK Speci al Instruct ion: TAKE 1 1/2 TABLET BY MOUTH TWICE A DAY Medi cationGe nericNam e: buspiron e Not Available Not Available Not Available Estrace 0.01% (0.1 mg/gram) vaginal cream 06/22 completed Medicati on ID: [id number] D uration Value: 90 Reason: () Brand [...] drops,oswaldo pension 10/05 completed Medicati on ID: [id number] D uration Value: 14 Prescri bed By [...] 4 drop 10/05 completed Medicati on ID: [id number] D uration Value: 14 Prescri bed By [...] gram capsule 10/05 completed Medicati on ID: [id number] D uration Value: 90 Brand Name: omega-3 acid ethyl esters S end Method: E-Prescr ibed Sub s Allowed: subs OK Medic ationGen ericName : omega-3 acid ethyl esters Not Available Not Available Not Available Pain Relief Extra Strength (acetamin ophen) 500 mg tablet 10/05 completed Medicati on ID: [id number] D uration Value: 30 Brand Name: Pain Relief Extra Strength Send Method: E-Prescr ibed Sub s Allowed: subs OK Speci al Instruct ion: TOME DOS TABLETAS POR VIA ORAL KACI VECES AL SUNSHINE CUANDO SEA NECESARI O FOR 30 DAYS Med icationG enericNa me: Pain Relief Extra Strength Not Available Not Available Not Available Diphenhis t 06/22 completed Medicati on ID: [id number] D uration Value: 1 Reason: () Brand Name: Diphenhi st Send Method: E-Prescr ibed Sub s Allowed: subs OK Speci al Instruct ion: TAKE 20 ML BY MOUTH EVERY 4 HOURS - EVERY 6 HOURS NEEDED M edicatio nGeneric Name: Diphenhi st Not Available Not Available Not Available fenofibra te nanocryst allized 145 mg tablet 06/22 completed Medicati on ID: [id number] D uration Value: 90 Reason: () Brand Name: fenofibr ate nanocrys tallized Send Method: E-Prescr ibed Sub s Allowed: subs OK Speci al Instruct ion: TAKE 1 TABLET BY MOUTH EVERY DAY Medi cationGe nericNam e: fenofibr ate nanocrys tallized Not Available Not Available Not Available Lantus Solostar U-100 Insulin 100 unit/mL (3 mL) subcutane ous pen 2015 active Medicati on ID: [id number] D uration Value: 30 Brand Name: Lantus Solostar Send Method: E-Prescr ibed Sub s Allowed: subs OK Speci al Instruct ion: INJECT 50 UNITS TWICE A DAY Medi cationGe nericNam e: Lantus Solostar Not Available Not Available Not Available Humalog KwikPen (U-100) Insulin 100 unit/mL subcutane ous 10/05 completed Medicati on ID: [id number] D uration Value: 30 Brand Name: Humalog [...] mg tablet 2019 active Medicati on ID: [id number] D uration Value: 90 Brand Name: fahadatorashmi n Send Method: E-Prescr ibed Sub s Allowed: subs OK Speci al Instruct ion: TAKE 1 TABLET BY MOUTH EVERY DAY Medi cationGe nericNam e: melatoni n Not Available Not Available Not Available Systane Balance 0.6 % eye drops 2015 active Medicati on ID: [id number] B rand Name: Systane Balance Send Method: [...] SNOMED-CT Code Diagnosis ICD10 Code Diagnosis Note [id number] ZOE MARY MD [facility] [address] [place] [address] 10/05/2024 14:33:22 10/05/2024 15:12:17 Itching of skin [id number] L29.9 Sensorineu ral hearing loss of bilateral ears 405021312 H90.3 Health Concerns Section Related Observation LastModified by Organization Detai ls LastModified Time None Recorded Concern Status LastModified by Organization Details LastModified Time None Recorded Advance Directives Directive None Recorded Payers Encounter Date Sequence Insurance Name Policy Number Policy Mendoza Covered Member ID Mendoza Member ID Guarantor Name 10/05/2024 1 [facility] - DOS ON OR AFTER 2023 - SENIOR [employer]IVING OPTIONS AND ONE CARE (MEDICARE REPLACEMENT/AD VANTAGE - PPO) Dori Palma [id number] Dori Palma Notes Date Note Type Note [...] no otalgia nor otorrhea. ZOE MARY MD [address] [place] [address], [place], [address], [facility] - [facility] 10/05/2024 16:49:15 OBGyn Episode No OBEpisode recorded.
--- OUTSIDE RECORDS SUMMARY | 2024-12-16 15:08 | XMS_ITS | Encounter Summary ---
Author Organization [employer] Address [address] [facility] [address] [place] [address] Care Team Providers Care Digital Field Service Technician Name Role Phone Name, Suresh BENJAMIN Primary Care Provider [phone] Reason for Visit * Reason Onset Date Comments Med Refill 06/23/2023 Encounter Details Date Type Department Care Team (Late st Contact Info) Description 06/23/2023 Refill [facility] MEDICINE [address] [place] [address] Gela Loza MD [address] [place] [address] Social History Tobacco Use Types Packs/Day Years [...] on filedocumented in this encounter Care Teams Digital Field Service Technician Relationship Specialty Start Date End Date Name, MD Suresh [address] [place] [address] PCP - General Family Medicine 11/18/17 documented as of this encounter
--- OUTSIDE RECORDS SUMMARY | 2024-12-16 15:09 | XMS_ITS | Encounter Summary ---
Author Organization [employer] Address [address] [facility] [address] [place] [address] Care Team Providers Care Automatic Profile Sander Operator Name Role Phone Name, Suresh BENJAMIN Primary Care Provider [phone] Reason for Visit * Reason Comments Med Refill Encounter Details Date Type Department Care Team ([facility] st Contact Info) Description 10/18/2023 Refill [facility] MEDICINE [address] [place] [address] Name, MD Suresh [address] [place] [address] Essential hypertension Social History Tobacco Use Types [...] hypertension documented in this encounter Care Teams Automatic Profile Sander Operator Relationship Specialty Start Date End Date Name, MD Suresh [address] [place] [address] PCP - General Family Medicine 11/18/17 documented as of this encounter
--- OUTSIDE RECORDS SUMMARY | 2024-12-16 15:09 | XMS_ITS | Encounter Summary ---
Author Organization [employer] Address [address] [facility] [address] [place] [address] Care Team Providers Care Biosecurity Officer Name Role Phone Name, Suresh BENJAMIN Primary Care Provider [phone] Reason for Visit * Reason Onset Date Comments Medication Question 09/23/2023 Durable Medical Equipment 09/23/2023 BOOST Encounter Details Date Type Department Care Team ([facility] st Contact Info) Description 09/23/2023 Telephone [facility] MEDICINE [address] [place] [address] Name, MD Surseh [address] [place] [address] Medication Question; Durable Medical Equipment (BOOST) Social [...] on filedocumented in this encounter Care Teams Biosecurity Officer Relationship Specialty Start Date End Date Name, MD Suresh [address] [place] [address] PCP - General Family Medicine 11/18/17 documented as of this encounter
--- OUTSIDE RECORDS SUMMARY | 2024-12-16 15:09 | XMS_ITS | Encounter Summary ---
Author Organization [employer] Address [address] [facility] [address] [place] [address] Care Team Providers Care Briquette Machine Operator Name Role Phone Name, Suresh BENJAMIN Primary Care Provider [phone] Reason for Visit * Reason Comments Med Refill Encounter Details Date Type Department Care Team ([facility] st Contact Info) Description 01/02/2023 Refill [facility] MEDICINE [address] [place] [address] Name, MD Suresh [address] [place] [address] Type 2 diabetes mellitus with other circulatory [...] laterality documented in this encounter Care Teams Briquette Machine Operator Relationship Specialty Start Date End Date Name, MD Suresh [address] [place] [address] PCP - General Family Medicine 11/18/17 documented as of this encounter
--- OUTSIDE RECORDS SUMMARY | 2024-12-16 15:09 | XMS_ITS | Data Portability ---
Author Organization [place] - [facility], [facility] Address [address] [place] [address] Care Team Providers Care Account Support Manager Name Role Phone NAME, JADA Primary Care [...] discomfort and. Recommended following up with a framing specialist no significant improvement of such. Recommended [...] d Left rotator cuff tearEval uate and Agxoi9m/ week x 6 weeksGoa l: - Decrease [...] , 2 or more view 2023 024 [facility], [address], [place], [address], 08/19/2024 11:38:02 XR, shoulder , 2 or more view - R shoulder 4 view (215) spanishs peaking 2023 024 [facility], [address], [address], [place], [address], 08/19/2024 11:38:02 XR, shoulder , 2 or more view - L shoulder and cspine 1 view, 4 view rm 214 2023 024 [facility], [address], [address], [place], [address], 07/06/2024 11:28:33 XR, cervical spine, 1 view 2023 024 [facility], [address], [address], [place], [address], 07/06/2024 11:28:33 XR, hip, unilater al, 2 or 3 view - 310 2v left hip new problem 2023 024 [facility], [address], [address], [place], [address], 02/26/2024 15:25:08 XR, hip, unilater al, 2 or 3 view - 310 2v left hip new problem 2023 024 bpuchalski [facility] Office, [address], [address], [place], [address], 02/26/2024 15:25:08 Medication Orders None recorded . Patient TargetsNo targets recorded. Patient InstructionsNo instructions recorded. Reason for Referral Physical Therapist Referral for Pain of left shoulder joint DIAGNOSIS: Suspected Left rotator cuff tearEvaluate and Mvgya0s/week x 6 weeksGoal: - Decrease pain/swelling - [...] 2x/day Referring Physician: Debora García, Orthopedic Surgery, [id number] Encounter Date: 06/13/2024 Results Created Date Observation Date Name Description Value Unit Range Abnormal Flag Note LastModifiedBy Organization Detail LastModifiedTime 02/26/20 24 02/26/2024 XR, hip, unila teral , 2 or 3 view [email or web address]:/ [email or web address] ?Encry pted=s hAaTro YD8dLq bEUv6g %2BXZw aYqtaq 0bqfl% 2Fg9IQ a4ajBk vP9nXo QUaueC m3YtLR FvZlgJ JJ8mAn HZtai3 9i0180 AC0Kva H%2BNU KfeUC8 mr84%3 D INTERFACE [facility] [address], [place], [address], 02/26/2024 14:24:40 02/26/20 24 02/26/2024 XR, hip, unila teral , 2 or 3 view http:/ [email or web address] ?Encry pted=s hAaTro YD8dLq bEUv6g %2BXZw aYqtaq 0bqfl% 2Fg9IQ a4ajBk vP9nXo QUaueC m3YtLR FvZlgJ JJ8mAn HZtai3 7g2621 AC0Kva H%2BNU KfeUC8 mr84%3 D INTERFACE [facility] [address], [place], [address], 02/26/2024 14:24:42 06/13/20 24 06/13/2024 XR, shoul carolynn, 2 or more view [email or web address]:/ [email or web address] ?Encry pted=s hAaTro YD8dLq bEUv6g %2BXZw aYqtaq 0bqfl% 2Fg9IQ a4ajBk vP9nXo QUaueC m3YtLR FvZlgJ JJ8mAn HZtai3 6e3484 AC0Kra XWGUaf eUC8mr 84%3D [email or web address] [facility] [address], [place], [address], 06/13/2024 15:36:11 06/13/20 24 06/13/2024 XR, shoul carolynn, 2 or more view [email or web address]:/ [email or web address] ?Encry pted=s hAaTro YD8dLq bEUv6g %2BXZw aYqtaq 0bqfl% 2Fg9IQ a4ajBk vP9nXo QUaueC m3YtLR FvZlgJ JJ8mAn HZtai3 7a0307 AC0Kra XWGUaf eUC8mr 84%3D [email or web address] [facility] [address], [place], [address], 06/13/2024 15:35:58 06/13/20 24 06/13/2024 XR, cervi italia spine , 1 view [email or web address]:/ [email or web address] ?Encry pted=s hAaTro YD8dLq bEUv6g %2BXZw aYqtaq 0bqfl% 2Fg9IQ a4ajBk vP9nXo QUaueC m3YtLR FvZlgJ JJ8mAn HZtai3 4b6126 AC0Kra XWGUKD eUC8mr 84%3D INTERFACE [facility] [address], [place], [address], 06/13/2024 15:08:39 06/13/20 24 06/13/2024 XR, cervi italia spine , 1 view [email or web address]:/ [email or web address] ?Encry pted=s hAaTro YD8dLq bEUv6g %2BXZw aYqtaq 0bqfl% 2Fg9IQ a4ajBk vP9nXo QUaueC m3YtLR FvZl JJ8Humptulips HZtai3 1h4147 AC0Kra XWGUKD eUC8mr 84%3D INTERFACE [facility] [address], [place], [address], 06/13/2024 15:08:41 07/25/20 24 07/25/2024 XR, shoul carolynn, 2 or more view [email or web address]:/ [email or web address] ?Encry pted=s hAaTro YD8dLq bEUv6g %2BXZw aYqtaq 0bqfl% 2Fg9IQ a4ajBk vP9nXo QUaueC m3YtLR FvZlg JJ8mAn HZtai3 3p4947 AC0Kqa 36DWau vKiQtr MwF INTERFACE [facility] [address], [place], [address], 07/25/2024 15:52:11 07/25/20 24 07/25/2024 XR, shoul carolynn, 2 or more view [email or web address]:/ [email or web address] ?Encry pted=s hAaTro YD8dLq bEUv6g %2BXZw aYqtaq 0bqfl% 2Fg9IQ a4ajBk vP9nXo QUaueC m3YtLR FvZlgJ JJ8mAn HZtai3 9a1324 AC0Kqa 36DWau vKiQtr MwF INTERFACE [facility] [address], [place], [address], 07/25/2024 15:52:14 07/25/20 24 07/25/2024 XR, gus carolynn, 2 or more view http:/ [email or web address] ?Encry pted=s hAaTro YD8dLq bEUv6g %2BXZw aYqtaq 0bqfl% 2Fg9IQ a4ajBk vP9nXo QUaueC m3YtLR FvZlgJ JJ8Humptulips HZtai3 6n3568 AC0Kqa nWDUKK iKiQtr MwF INTERFACE [facility] [address], [place], [address], 07/25/2024 16:06:08 07/25/20 24 07/25/2024 gus GUPTA, 2 or more view http:/ [email or web address] ?Encry pted=s hAaTro YD8dLq bEUv6g %2BXZw aYqtaq 0bqfl% 2Fg9IQ a4ajBk vP9nXo QUaueC m3YtLR FvZlg JJ8mAn HZtai3 5f8425 AC0Kqa nWDUKK iKiQtr MwF INTERFACE [facility] [address], [place], [address], 07/25/2024 16:06:11 Result Notes None recorded. Procedures Surgical History Date Name Laterality Status Provider Name and Address Organization Details Recorded Time 5 Knee Kenalog 1cc L/R completed Rafael Marshall PA-C [address], [place], [address], [facility] 11/10/2024 15:34:31 4 Sports Shoulder completed Debora García MD [address] [facility][note 3], [place], [address], [facility] 08/20/2024 13:07:34 4 Sports Shoulder completed Debora García MD [address] [facility][note 3], [place], [address], [facility] 06/13/2024 15:55:01 4 Hip Kenalog 1cc Injection, L/R completed Rafael Marshall PA-C [address] [facility][note 3], [place], [address], [facility] 03/15/2024 10:48:22 4 Hip Kenalog 1cc Injection, L/R completed Rafael Marshall PA-C [address] [facility][note 3], [place], [address], [facility] 02/26/2024 15:11:06 Imaging Results Imaging Date Name Status LastModified by Organiz ation Details LastModified Time 02/26/2024 XR, hip, unilateral, 2 or 3 view completed INTERFACE [facility] [address] [facility][note 3], [place], [address], 02/26/2024 14:24:40 02/26/2024 XR, hip, unilateral, 2 or 3 view completed INTERFACE [facility] [address] [facility][note 3], [place], [address], 02/26/2024 14:24:42 06/13/2024 XR, shoulder, 2 or more view [place] [address] [facility] [address], [place], [address], 06/13/2024 15:36:11 06/13/2024 XR, shoulder, 2 or more view completed [place] [address] [facility] [address], [place], [address], 06/13/2024 15:35:58 06/13/2024 XR, cervical spine, 1 view completed INTERFACE [facility] [address], [place], [address], 06/13/2024 15:08:39 06/13/2024 XR, cervical spine, 1 view completed INTERFACE [facility] [address], [place], [address], 06/13/2024 15:08:41 07/25/2024 XR, shoulder, 2 or more view completed INTERFACE [facility] [address], [place], [address], 07/25/2024 15:52:11 07/25/2024 XR, shoulder, 2 or more view completed INTERFACE [facility] [address], [place], [address], 07/25/2024 15:52:14 07/25/2024 XR, shoulder, 2 or more view completed INTERFACE [facility] [address], [place], [address], 07/25/2024 16:06:08 07/25/2024 XR, shoulder, 2 or more view completed INTERFACE [facility] [address], [place], [address], 07/25/2024 16:06:11 Procedure Notes None recorded. Medical Equipment None Reported. Allergies Allergen ID Allergen Name Allergen Category Reaction Reaction Severity Criticality Documentation Date Start Date Code Code System Note Provider Name and Address Organization Details Recorded Time 619661 apple extract food Not available Not available Not available 02/26/2024 89360 65 RxNorm SHERINE lowe [facility] 14:06:39 045944 plum preparati on food Not available Not available Not available 02/26/2024 04942 7 RxNorm SHERINE lowe [facility] 14:06:44 602819 Substance with sulfonami de structure and antibacte rial mechanism of action (substanc e) medicatio n Not available Not available Not available 02/26/2024 94499 8003 SNOMED SHERINE BATEMAN [facility] 4 14:06:49 125755 Cipro medicatio n Not available Not available Not available 02/26/2024 28723 3 RxNorm SHERINE BATEMAN [facility] 4 14:06:53 Medications Name Sig Start Date [...] Updated DateTime 02/26/2024 147.32 cm 31.3 kg/m2 78361.86 g SHERINE BATEMAN [facility] 02/26/2024 14:06:35 Date Recorded Body height Provider Name an d Address Organization Details Last Updated DateTime 03/15/2024 147.32 cm ARCHIE LOBATO [facility] 03/15/2024 10:29:27 Date Recorded Body height Body mass index (BMI) Body weight Provider Name and Address Organization Details Last Updated DateTime 06/13/2024 147.32 cm 31.3 kg/m2 41756.86 g ELSIE SHIN [facility] 06/13/2024 14:59:13 Date Recorded Body height Body mass index (BMI) Body weight Provider Name and Address Organization Details Last Updated DateTime 07/25/2024 147.32 cm 31.3 kg/m2 38425.86 g ELSIE SHIN [facility] 07/25/2024 15:27:05 Date Recorded Body height Body mass index (BMI) Body weight Provider Name and Address Organization Details Last Updated DateTime 11/10/2024 147.32 cm 31.3 kg/m2 98188.86 g Arin Perla [facility] 11/10/2024 14:50:16 Social History None recorded. Functional Status None recorded. Mental Status None recorded. Family History Nothing Reported. Medical History Condition Response Allergies/Hayfever N Coronary Artery Disease N Breathing or lung disorders N Anxiety/Depression N Emphysema N Nerve Disorders N Thyroid Problems N COPD N Pacemaker N Kidney/Bladder Problems Y Anemia N Vascular Disease N Heart Trouble Y Gastrointestinal Disease N Heart Attack ([place]) N Cholesterol N Diabetes Y Autoimmune disease N Bleeding Disorder N Orthotics N Arthritis Y Seizures/Epilepsy N Blood Clot N AIDS/HIV N Congestive Heart Failure (CHF) N Acid Reflux (GERD) N Cancer N Stroke Y Asthma N Circulation Problems N Peripheral Vascular Disease N Sleep Apnea N Hepatitis N Heart Disease N Rheumatoid Arthritis N Arrhythmia N Pulmonary Embolism N Headaches N Fibromyalgia N Hypertension Y Osteoporosis N Gynecological HistoryNo gynecological history recorded. 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 [id number] CRISTOFER Silva [address] [place] [address] 03/15/2024 10:27:54 04/05/2024 12:32:37 Trochanteric bursitis of left hip 9906663678 35635 M70.62 You have been provided with a [...] office or contact us through the portal [facility]. [id number] MD Nicho Reynosoadelaida 2nd floor [address] [place] [address] 06/13/2024 14:40:37 07/06/2024 11:28:33 Pain of left shoulder joint 1138649874 5139111 M25.259 [id number] MD Nicho Reynosoadelaida [address] [place], [place] [address] 07/25/2024 14:39:59 08/19/2024 11:38:02 Pain of right shoulder joint 6343245932 4205830 M25.707 [id number] [facility] [address] [place] [address] 11/10/2024 14:36:46 11/22/2024 15:06:05 Osteoarthritis of right knee joint 8653210673 23966 M17.11 The patient is ambulatory , but [...] Mendoza Member ID Guarantor Name 02/26/2024 1 [facility] - DOS ON OR AFTER 2023 - ONE CARE (MEDICARE REPLACEMENT/AD VANTAGE - HMO) Dori Palma [id number] Dori Urrutia 03/15/2024 1 [facility] - DOS ON OR AFTER 2023 - ONE CARE (MEDICARE REPLACEMENT/AD VANTAGE - HMO) Dori Palma [id number] Dori Urrutia 06/13/2024 1 [facility] - DOS ON OR AFTER 2023 - USP OPTIONS (MEDICARE REPLACEMENT/AD VANTAGE - HMO) Dori Urrutia [id number] Dori Urrutia 07/25/2024 1 [facility] - DOS ON OR AFTER 2023 - USP OPTIONS (MEDICARE REPLACEMENT/AD VANTAGE - HMO) Dori Urrutia [id number] Dori Urrutia 11/10/2024 1 [facility] - DOS ON OR AFTER 2023 - [employer] OPT[employer] (MEDICARE REPLACEMENT/AD VANTAGE - HMO) Dori Urrutia [id number] Dori Urrutia Notes Date Note Type Note [...] No groin pain. Rafael Marshall PA-C [address] [facility] [address], [place], [address], [facility] 02/26/2024 15:12:42 03/15/2024 text/html I am seeing [...] questions asked and answered. Rafael Marshall PA-C [address] [place] [address] [address], [place], [address], [facility] 03/15/2024 10:48:52 06/13/2024 text/html Chief Complaint: Left shoulder pain HPI: This is an 79-year-old nxiyd-lmcq-bunljkzl disabled woman with left shoulder pain beginning [...] the Left shoulder ordered and obtained at [facility] today were reviewed during the visit. These demonstrate increased glenohumeral joint space, which may reflect effusion. Difficult to make out on outlet view, but AP view suggest a large anterior acromial spur. No proximal migration humeral head. Humeral head centered on axillary view. No dystrophic calcium deposition. Impression: 79-year-old oofyq-omsn-prbyxsmi disabled woman with shoulder morphology which would [...] aches and pains, the patient can take gfqw-uss-ozvpwvc medication such as Tylenol or anti-inflammatories as needed; risks and benefits of medication discussed. Should call with more persistent pain. We will leave follow up open ended at this point. However should symptoms worsen or fail to improve to the patient's satisfaction, she is encouraged to give the office a call to be seen back for further evaluation and management. [employer] [facility] speech recognition sales support technician software was used to create portions of this document. An attempt at proofreading has been made to minimize errors. Please call for corrections. Debora García MD [address] [place] [address] [address], [place], [address], [facility] 06/13/2024 17:20:18 07/25/2024 text/html Chief Complaint: Left shoulder pain HPI: This is an 79-year-old kkcpl-ubwn-aclgclmv disabled woman who I met 6 weeks [...] the right shoulder ordered and obtained at [facility] today were reviewed during the visit. These demonstrate good preservation of glenohumeral joint space. Type II acromion. No proximal migration humeral head. Humeral head centered on axillary view. No dystrophic calcium deposition. Impression: 79-year-old qopsw-skad-mhvcrtcx disabled woman with shoulder morphology which would [...] aches and pains, the patient can take ushe-snh-jtjldzh medication such as Tylenol or anti-inflammatories as needed; risks and benefits of medication discussed. Should call with more persistent pain. We will leave follow up open ended at this point. However should symptoms worsen or fail to improve to the patient's satisfaction, she is encouraged to give the office a call to be seen back for further evaluation and management. [facility] speech recognition sales support technician software was used to create portions of this document. An attempt at proofreading has been made to minimize errors. Please call for corrections. Debora García MD [address] [place] [address] [address], [place], [address], [facility] 08/20/2024 13:08:33 11/10/2024 text/html I am seeing the patient today under the supervision of {{Dr. Irina Shi* Dr Raymundo Garcia}} Who was available but [...] Marshall PA-C [address], [place], [address], [place] [facility] 11/10/2024 15:35:00 OBGyn Episode No OBEpisode recorded.
--- OUTSIDE RECORDS SUMMARY | 2024-12-16 15:09 | XMS_ITS | Encounter Summary ---
Author Organization [employer] Address [address] [place] [address] Care Team Providers Care Probe Operator Name Role Phone Name, Suresh BENJAMIN Primary Care Provider [phone] Reason for Visit * Reason Onset Date Comments Appointment Request 12/21/2023 Encounter Details Date Type Department Care Team ([facility] st Contact Info) Description 12/21/2023 Telephone [facility] [address] [place] [address] Name, MD Suresh [address] [place] [address] Appointment Request Social History Tobacco Use Types [...] a telephone visit. Please contact daughter at [phone]. documented in this encounter Plan of Treatment Not on file documented as of this encounter Visit Diagnoses Not on filedocumented in this encounter Care Teams Probe Operator Relationship Specialty Start Date End Date Name, MD Suresh [address] [place] [address] PCP - General Family Medicine 11/18/17 documented as of this encounter
--- OUTSIDE RECORDS SUMMARY | 2024-12-16 15:09 | XMS_ITS | Encounter Summary ---
Author Organization [employer] Address [address] [facility] [address] [place] [address] Care Team Providers Care Canal Equipment Mechanic Name Role Phone Name, Suresh BENJAMIN Primary Care Provider [phone] Reason for Visit * Reason Comments Med Refill Encounter Details Date Type Department Care Team ([facility] st Contact Info) Description 08/12/2023 Refill [facility] [address] [place] [address] Michelle Hernandez, MENTAL TESTER [address] [place] [address] Type 2 diabetes mellitus with hyperglycemia, with long-term current use of insulin ([facility]) Social History Tobacco Use Types Packs/Day Years [...] hyperglycemia, with long-term current use of insulin ([facility]) documented in this encounter Care Teams Canal Equipment Mechanic Relationship Specialty Start Date End Date Name, MD Suresh [address] [place] [address] PCP - General Family Medicine 11/18/17 documented as of this encounter
--- OUTSIDE RECORDS SUMMARY | 2024-12-16 15:09 | XMS_ITS | Encounter Summary ---
Author Organization [employer] Address [address] [facility] [address] [place] [address] Care Team Providers Care Optical Instrument Inspector Name Role Phone Name, Suresh BENJAMIN Primary Care Provider [phone] Encounter Details Date Type Department Care Team ([facility] st Contact Info) Description 11/13/2023 Abstract [facility] [address] [place] [address] Name, MD Suresh [address] [place] [address] Social History Tobacco Use Types Packs/Day Years [...] on filedocumented in this encounter Care Teams Optical Instrument Inspector Relationship Specialty Start Date End Date Name, MD Suresh [address] [place] [address] PCP - General Family Medicine 11/18/17 documented as of this encounter
--- OUTSIDE RECORDS SUMMARY | 2024-12-16 15:09 | XMS_ITS | Patient Health Record ---
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 confirmed 75936520 Problem Dysphagia (R13.10) Active confirmed Dys phagia (84565433) Problem Gastroesophageal reflux disease without esophagitis (K21.9) Active confirmed 654747142 Problem Gastric polyp (K31.7) Active confirmed Gastric polyp (26275983) Problem Esophageal dysmotility (K22.4) Active confirmed 946898701 Problem Dysphagia, unspecified type (R13.10) Active confirmed 24215583 Problem Abnormal CT scan (R93.89) Active confirmed 018902073 VITAL SIGNS Temperature 97.7 degrees Fahrenheit 01/25/2024 Blood pressure diastolic 00 mm Hg 01/25/2024 Height 59.5 in 01/25/2024 Blood pressure systolic 000 mm Hg 01/25/2024 Weight 147 lbs 01/25/2024 BMI 29.19 kg/m2 01/25/2024 Encounters Encounter Location Date Provider Diagnosis [facility] [address] [place] [address] 01/25/2024 Juanpablo Madsen Jr Gastroesophageal reflux disease without esophagitis K21.9 and Dysphagia, unspecified type R13.10 ASSESSMENTS Encounter Date Diagnosis Assessment Notes Treatment Notes Treatment Clinical Notes 01/25/2024 Gastroesophageal reflux disease without esophagitis (ICD-10 - K21.9) Gastroesophageal reflux disease material was printed 01/25/2024 Dysphagia, unspecified type (ICD-10 - R13.10) PLAN OF TREATMENT Pending Test Test Name Order Date XR BARIUM SWALLOW-ESOPHAGUS 01/06/2018 XR BARIUM SWALLOW-ESOPHAGUS 11/12/2016 XR GI SERIES 08/21/2011 XR GI SERIES [...] Insured Coverage Start Date Coverage End Date [facility] [address] Attn Claims JASEN Yousif [id number] CL AGUILERA Self - patient is the insured MEDICAL (GENERAL) HISTORY Medical History History ICD Code Gastroesophageal reflux dise ase with esophageal dysmotility, last upper endoscopy with balloon dilation 05/09. coronary artery disease,status-post MINIATURE SET DESIGNER stent placement diabetes with diabetic neuropathy hyperlipidemia degenerative joint disease colonoscopy 2017, tubular adenoma, follo wup optional based on age. stroke Surgical History Surgery Date(Month/Year) cholecystectomy hysterectomy cleaned out artery 02/02/2018
--- OUTSIDE RECORDS SUMMARY | 2024-12-16 15:09 | XMS_ITS | Encounter Summary ---
Author Organization [employer] Address [address] [place] [address] Care Team Providers Care Transitions Manager Rn Name Role Phone Name, Suresh BENJAMIN Primary Care Provider [phone] Reason for Visit * Reason Comments Med Refill Encounter Details Date Type Department Care Team (Late st Contact Info) Description 12/01/2022 Refill [facility] [address] [place] [address] Michelle Hernandez, [employer] [address] [place] [address] Tinea; Pain Social History Tobacco Use Types [...] pain documented in this encounter Care Teams Transitions Manager Rn Relationship Specialty Start Date End Date Name, MD Suresh [address] [place] [address] PCP - General Family Medicine 11/18/17 documented as of this encounter
== END 2024-12-16 13:38 | disposition home or self-care (01) ==
PROVIDERS: PCP Internal Medicine Geriatric Medicine; Visit Provider Nurse Practitioner Family
DX: M47.816 Spondylosis without myelopathy or radiculopathy, lumbar region (principal); M53.3 Sacrococcygeal disorders, not elsewhere classified; G89.4 Chronic pain syndrome
CPT/HCPCS: 99213; G2211

== ENCOUNTER → 2024-12-16 13:04 | Outpatient (BNVA) | payer OTHER, SELFPAY | PROVIDERS: PCP Internal Medicine Geriatric Medicine; Visit Provider Nurse Practitioner Family | DX: M47.816 Spondylosis without myelopathy or radiculopathy, lumbar region (principal); M53.3 Sacrococcygeal disorders, not elsewhere classified; G89.4 Chronic pain syndrome | CPT/HCPCS: 99212 ==

== ENCOUNTER 2025-02-14 16:11 | Outpatient (REF) | payer OTHER, SELFPAY ==
--- OUTSIDE RECORDS SUMMARY | 2025-02-14 18:20 | XMS_ITS | Data Portability ---
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; Note: Date Diagnosed : 01/07/2018 1:52 PM (H90.A31) Not Available [facility] 4 02:26:28 [facility] [id number] Active 2022 [facility], unspecifi ed; Note: Date Diagnosed : 03/25/2023 4:15 PM (L21.9) Not Available [facility] 4 02:26:46 Central perforati on of left tympanic membrane [id number] 41842 Active 2016 Central perforati on of tympanic membrane, left ear; Note: Date Diagnosed : 03/06/2017 2:34 PM (H72.02) Not Available [facility] 4 02:26:48 Impacted cerumen of bilateral ears 10315389661 81322 Active 2017 Impacted cerumen, bilateral ; Note: Date Diagnosed : 8 1:01 PM (H61.23) Not Available [facility] 4 02:26:40 Sensorine ural hearing loss in left ear 31195901226 109 Active 2017 Sensorine ural hearing loss, unilatera l, left ear, with restricte d hearing on the contralat eral side; Note: Date Diagnosed : 01/07/2018 1:52 PM (H90.A22) Not Available [facility] 4 02:26:42 Sensorine ural hearing loss of bilateral ears 116422923 Active 2015 Sensorine ural hearing loss, bilateral ; Note: Date Diagnosed : 6 1:26 PM (H90.3) Not Available [facility] 4 02:26:17 Impacted cerumen in left ear 18370777607 30187 Active 2017 Impacted cerumen, left ear; Note: Date Diagnosed : 11/24/2017 1:55 PM (H61.22) Not Available [facility] 4 02:26:44 Diffuse otitis externa 97704211 Active 2016 Diffuse otitis externa, left ear; Note: Date Diagnosed : 08/24/2017 11:10 AM (H60.312) Not Available [facility] 4 02:26:26 Mixed conductiv e and sensorine ural hearing loss, bilateral 822026035 Active 11/25/ 2016 Mixed conductiv e and sensorine ural hearing loss, bilateral ; Note: Date Diagnosed : 6 11:59 AM (H90.6) Not Available [facility] 4 02:26:25 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 01294593753 64864 Active 2016 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 , bilateral ; Location: bilateral Note: Date Diagnosed : 08/24/2017 11:10 AM (H61.323) Not Available [facility] 4 02:26:49 Stenosis of bilateral external ear canals due to and following inflammat ion 14452117204 29465 Active 2016 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 , bilateral ; Location: bilateral Note: Date Diagnosed : 08/24/2017 11:10 AM (H61.323) Not Available [facility] 4 02:26:49 Disorder of nasal sinus 0747577 Active 2019 Other specified disorders of nose and nasal sinuses; Note: Date Diagnosed : 06/22/2020 12:34 PM (J34.8) Not Available [facility] 4 02:26:41 Disorder of the nose 53176943 Active 2019 Other specified disorders of nose and nasal sinuses; Note: Date Diagnosed : 06/22/2020 12:34 PM (J34.8) Not Available [facility] 4 02:26:42 Itching of skin 320830476 Active 2023 MERVIN JERONIMO PA-C [address] [place] [address] [place], [address] , [facility] - [facility] 4 15:15:24 Problem Notes None recorded. Medical Equipment None Reported. Allergies Allergen ID Allergen Name Allergen Category Reaction Reaction Severity Criticality Documentation Date Start Date Code Code System Note Provider Name and Address Organization Details Recorded Time 203780 Cipro medicatio n Not available Not available Not available 10/05/2024 20431 3 RxNorm Nandini lowe [place] - [facility] 4 14:42:48 070413 trimethop rim medicatio n Not available Not available Not available 10/05/2024 32801 RxNorm Nnadini lowe [place] - [facility] 4 14:42:56 85625 Substance with sulfonami de structure and antibacte rial mechanism of action (substanc e) medicatio n other Not available Not available 03/01/2024 15862 8003 SNOMED React ion: unkno wn, unspe cifie d;; Not Available [facility] 4 00:57:24 Medications Name Sig Start Date Stop Date Status Note LastModified by Organization Details LastModified Time atorvasta tin 40 mg tablet 04/09 completed Medicati on ID: [id number] D uration Value: 90 Reason: () Brand Name: atorvast atin Sen d Method: E-Prescr ibed Sub s Allowed: subs OK Speci al Instruct ion: TAKE 1 TABLET BY MOUTH EVERY DAY Medi cationGe nericNam e: atorvast atin Not Available Not Available Not Available atorvasta tin 80 mg tablet 2017 active Medicati on ID: [id number] D uration Value: 30 Brand Name: atorvast [...] mg tablet 04/09 completed Medicati on ID: [id number] D uration Value: 90 Reason: () Brand Name: atorvast atin Sen d Method: E-Prescr ibed Sub s Allowed: subs OK Speci al Instruct ion: TAKE 1 TABLET (20MG) BY ORAL ROUTE EVERY DAY Medi cationGe nericNam e: atorvast atin Not Available Not Available Not Available triamcino lone acetonide 0.5 % topical cream 06/22 completed Medicati on ID: [id number] D uration Value: 7 Reason: () Brand [...] mg tablet 10/05 completed Medicati on ID: [id number] D uration Value: 30 Brand Name: senna Se nd Method: E-Prescr ibed Sub s Allowed: subs OK Speci al Instruct ion: TAKE 2 TABLET BY ORAL ROUTE EVERY DAY NEEDED FOR CONSTIPA TION Med icationG enericNa me: senna Not Available Not Available Not Available clonazepa m 0.5 mg tablet 06/22 completed Medicati on ID: [id number] D uration Value: 30 Reason: () Brand Name: clonazep am Send Method: E-Prescr ibed Sub s Allowed: subs OK Medic ationGen ericName : clonazep am Not Available Not Available Not Available betametha sone, augmented 0.05 % topical cream active Medicati on ID: [id number] D uration Value: 7 Brand Name: betameth [...] topical ointment 10/05 completed Medicati on ID: [id number] D uration Value: 14 Brand Name: triamcin olone acetonid e Send Method: E-Prescr ibed Sub s Allowed: subs OK Speci al Instruct ion: APPLY TWICE A DAY TO AFFECTED AREA FOR 2 WEEKS,TH EN DAILY FOR 2 WEEKS Me dication GenericN jeffry: triamcin olone acetonid e Not Available Not Available Not Available melatonin 3 mg tablet 10/05 completed Medicati on ID: [id number] D uration Value: 30 Brand Name: doc n Send Method: E-Prescr ibed Sub s Allowed: subs OK Medic ationGen ericName : melatoni n Not Available Not Available Not Available clopidogr el 75 mg tablet 2015 active Medicati on ID: [id number] D uration Value: 90 Brand Name: clopidog [...] ear drops 06/22 completed Medicati on ID: [id number] D uration Value: 10 Reason: () Brand [...] mg capsule 10/05 completed Medicati on ID: [id number] D uration Value: 30 Brand Name: docusate [...] a day 10/05 completed Medicati on ID: [id number] D uration Value: 14 Prescri bed By Name: CRISTOFER Jcakson nd Name: mupiroci n Send Method: E-Prescr ibed Sub s Allowed: subs OK Medic ationGen ericName : mupiroci n Not Available Not Available Not Available mirtazapi ne 15 mg tablet 10/05 completed Medicati on ID: [id number] D uration Value: 30 Brand Name: mirtazap ine Send Method: E-Prescr ibed Sub s Allowed: subs OK Speci al Instruct ion: TAKE 1 TABLET BY MOUTH AT BEDTIME Medicati onGeneri cName: mirtazap ine Not Available Not Available Not Available gabapenti n 100 mg capsule 04/09 completed Medicati on ID: [id number] D uration Value: 90 Reason: () Brand [...] nasal spray 06/22 completed Medicati on ID: [id number] D uration Value: 90 Reason: () Brand [...] topical cream 10/05 completed Medicati on ID: [id number] D uration Value: 45 Brand Name: clotrima zole Sen d Method: E-Prescr ibed Sub s Allowed: subs OK Medic ationGen ericName : clotrima zole Not Available Not Available Not Available Ventolin HFA 90 mcg/actua tion aerosol inhaler 2016 active Medicati on ID: [id number] D uration Value: 17 Brand Name: Ventolin HFA Send Method: E-Prescr ibed Sub s Allowed: subs OK Speci al Instruct ion: INHALE 2 PUFF BY INHALATI ON ROUTE EVERY 4 - 6 HOURS NEEDED M edicatio nGeneric Name: Ventolin HFA Not Available Not Available Not Available buspirone 15 mg tablet 06/22 completed Medicati on ID: [id number] D uration Value: 30 Reason: () Brand Name: buspiron e Send Method: E-Prescr ibed Sub s Allowed: subs OK Speci al Instruct ion: TAKE 1 1/2 TABLET BY MOUTH TWICE A DAY Medi cationGe nericNam e: buspiron e Not Available Not Available Not Available Estrace 0.01% (0.1 mg/gram) vaginal cream 06/22 completed Medicati on ID: [id number] D uration Value: 90 Reason: () Brand [...] drops,oswaldo pension 10/05 completed Medicati on ID: [id number] D uration Value: 14 Prescri bed By [...] 4 drop 10/05 completed Medicati on ID: [id number] D uration Value: 14 Prescri bed By [...] gram capsule 10/05 completed Medicati on ID: [id number] D uration Value: 90 Brand Name: omega-3 acid ethyl esters S end Method: E-Prescr ibed Sub s Allowed: subs OK Medic ationGen ericName : omega-3 acid ethyl esters Not Available Not Available Not Available Pain Relief Extra Strength (acetamin ophen) 500 mg tablet 10/05 completed Medicati on ID: [id number] D uration Value: 30 Brand Name: Pain Relief Extra Strength Send Method: E-Prescr ibed Sub s Allowed: subs OK Speci al Instruct ion: TOME DOS TABLETAS POR VIA ORAL KACI VECES AL SUNSHINE CUANDO SEA NECESARI O FOR 30 DAYS Med icationG enericNa me: Pain Relief Extra Strength Not Available Not Available Not Available Diphenhis t 06/22 completed Medicati on ID: [id number] D uration Value: 1 Reason: () Brand Name: Diphenhi st Send Method: E-Prescr ibed Sub s Allowed: subs OK Speci al Instruct ion: TAKE 20 ML BY MOUTH EVERY 4 HOURS - EVERY 6 HOURS NEEDED M edicatio nGeneric Name: Diphenhi st Not Available Not Available Not Available fenofibra te nanocryst allized 145 mg tablet 06/22 completed Medicati on ID: [id number] D uration Value: 90 Reason: () Brand Name: fenofibr ate nanocrys tallized Send Method: E-Prescr ibed Sub s Allowed: subs OK Speci al Instruct ion: TAKE 1 TABLET BY MOUTH EVERY DAY Medi cationGe nericNam e: fenofibr ate nanocrys tallized Not Available Not Available Not Available Lantus Solostar U-100 Insulin 100 unit/mL (3 mL) subcutane ous pen 2015 active Medicati on ID: [id number] D uration Value: 30 Brand Name: Lantus Solostar Send Method: E-Prescr ibed Sub s Allowed: subs OK Speci al Instruct ion: INJECT 50 UNITS TWICE A DAY Medi cationGe nericNam e: Lantus Solostar Not Available Not Available Not Available Humalog KwikPen (U-100) Insulin 100 unit/mL subcutane ous 10/05 completed Medicati on ID: [id number] D uration Value: 30 Brand Name: Humalog [...] mg tablet 2019 active Medicati on ID: [id number] D uration Value: 90 Brand Name: fahadatorashmi n Send Method: E-Prescr ibed Sub s Allowed: subs OK Speci al Instruct ion: TAKE 1 TABLET BY MOUTH EVERY DAY Medi cationGe nericNam e: melatoni n Not Available Not Available Not Available Systane Balance 0.6 % eye drops 2015 active Medicati on ID: [id number] B rand Name: Systane Balance Send Method: [...] SNOMED-CT Code Diagnosis ICD10 Code Diagnosis Note [id number] ZOE MARY MD [facility] [address] [place] [address] 10/05/2024 14:33:22 10/05/2024 15:12:17 Itching of skin [id number] L29.9 Sensorineu ral hearing loss of bilateral ears [id number] H90.3 Health Concerns Section Related Observation LastModified by Organization Detai ls LastModified Time None Recorded Concern Status LastModified by Organization Details LastModified Time None Recorded Advance Directives Directive None Recorded Payers Encounter Date Sequence Insurance Name Policy Number Policy Mendoza Covered Member ID Mendoza Member ID Guarantor Name 10/05/2024 1 [facility] - DOS ON OR AFTER 2023 - [employer] OPTIONS AND [employer] (MEDICARE REPLACEMENT/AD VANTAGE - PPO) Dori Palma [id number] Dori Palma Notes Date Note Type Note [...] no otalgia nor otorrhea. ZOE MARY MD [address] [place] [address], [place], [address], [facility] - [facility] 10/05/2024 16:49:15 OBGyn Episode No OBEpisode recorded.
--- OUTSIDE RECORDS SUMMARY | 2025-02-14 18:20 | XMS_ITS | Data Portability ---
Author Organization [place] - [facility], [facility] Address [address] [place] [address] Care Team Providers Care Music Store Manager Name Role Phone NAME, JADA Primary Care Provider Assessment No assessment recorded. Plan of Treatment Reminders Order Date Submit Date Provider Last Modified By Organization Details Last Modified Time Details Appointments RECHECK 15 2024 01:00P M Rafael Marshall PA-C Not available Not available Not available Lab None recorded. Referral physical therapist referral - DIAGNOSIS : Suspected Left rotator cuff tearEvalu ate and Avdiz7m/w quileute x 6 weeksGoal : - Decrease pain/swel ling - Increase range of motion - Increase strength and/or endurance Recommend ed Modalitie s: - Heat prior to stretchin g- Ice at the end of the session- Additiona l modalitie s prn, but emphasis should be on manual therapyPr ecautions : WBAT, no motion restricti onsTherap eutic Exercise: - Passive, active-as sist, active range of motion as tolerated , focusing on gradual progressi on over time- SUBMAXIMA L isometric rotator cuff strengthe antonella: light only, stop if any pain- Scapular stabilize r strengthe antonella (shrugs/r etraction s) WITHOUT resistanc e- Anterior deltoid strengthe antonella: see attached exercises Emphasize importanc e of home program, 2x/day 2023 024 [email or web address] Not available 07/06/2024 11:28:33 Procedures None recorded. Surgeries None recorded. Imaging XR, shoulder, 2 or more view 2023 024 [email or web address] Sophie Cesar, [address], [address], [place], [address], 08/19/2024 11:38:02 XR, shoulder, 2 or more view - R shoulder 4 view (215) spanishsp eaking 2023 024 [email or web address], [address], [address], [place], [address], 08/19/2024 11:38:02 XR, shoulder, 2 or more view - L shoulder and cspine 1 view, 4 view rm 214 2023 024 [email or web address], [address], [address], [place], [address], 07/06/2024 11:28:33 XR, cervical spine, 1 view 2023 024 [email or web address], [address], [address], [place], [address], 07/06/2024 11:28:33 Medication Orders None recorded. Patient TargetsNo targets recorded. Patient InstructionsNo instructions recorded. Reason for Referral Physical Therapist Referral for Pain of left shoulder joint DIAGNOSIS: Suspected Left rotator cuff tearEvaluate and Cxczn1o/week x 6 weeksGoal: - Decrease pain/swelling - [...] 2x/day Referring Physician: Debora García, Orthopedic Surgery, [id number] Encounter Date: 06/13/2024 Results Created Date Observation Date Name Description Value Unit Range Abnormal Flag Note LastModifiedBy Organization Detail LastModifiedTime 02/26/20 24 02/26/2024 XR, hip, unila teral , 2 or 3 view [email or web address]:/ [email or web address] ?Encry pted=s hAaTro YD8dLq bEUv6g %2BXZw aYqtaq 0bqfl% 2Fg9IQ a4ajBk vP9nXo QUaueC m3YtLR FvZlgJ JJ8mAn HZtai3 3i5198 AC0Kva H%2BNU KfeUC8 mr84%3 D INTERFACE [facility] [address], [place], [address], 02/26/2024 14:24:40 02/26/20 24 02/26/2024 XR, hip, unila teral , 2 or 3 view http:/ [email or web address] ?Encry pted=s hAaTro YD8dLq bEUv6g %2BXZw aYqtaq 0bqfl% 2Fg9IQ a4ajBk vP9nXo QUaueC m3YtLR FvZlgJ JJ8mAn HZtai3 1e0228 AC0Kva H%2BNU KfeUC8 mr84%3 D INTERFACE [facility] [address], [place], [address], 02/26/2024 14:24:42 06/13/20 24 06/13/2024 XR, shoul carolynn, 2 or more view [email or web address]:/ [email or web address] ?Encry pted=s hAaTro YD8dLq bEUv6g %2BXZw aYqtaq 0bqfl% 2Fg9IQ a4ajBk vP9nXo QUaueC m3YtLR FvZlgJ JJ8mAn HZtai3 1p1394 AC0Kra XWGUaf eUC8mr 84%3D [email or web address] [facility] [address], [place], [address], 06/13/2024 15:36:11 06/13/20 24 06/13/2024 XR, shoul carolynn, 2 or more view [email or web address]:/ [email or web address] ?Encry pted=s hAaTro YD8dLq bEUv6g %2BXZw aYqtaq 0bqfl% 2Fg9IQ a4ajBk vP9nXo QUaueC m3YtLR FvZlgJ JJ8mAn HZtai3 6i3487 AC0Kra XWGUaf eUC8mr 84%3D [email or web address] [facility] [address], [place], [address], 06/13/2024 15:35:58 06/13/20 24 06/13/2024 XR, cervi italia spine , 1 view [email or web address]:/ [email or web address] ?Encry pted=s hAaTro YD8dLq bEUv6g %2BXZw aYqtaq 0bqfl% 2Fg9IQ a4ajBk vP9nXo QUaueC m3YtLR FvZl JJ8[place] HZtai3 5t6128 AC0Kra XWGUKD eUC8mr 84%3D INTERFACE [facility] [address], [place], [address], 06/13/2024 15:08:39 06/13/20 24 06/13/2024 XR, cervi italia spine , 1 view [email or web address]:/ [email or web address] ?Encry pted=s hAaTro YD8dLq bEUv6g %2BXZw aYqtaq 0bqfl% 2Fg9IQ a4ajBk vP9nXo QUaueC m3YtLR FvZlg JJ8mAn HZtai3 4a6682 AC0Kra XWGUKD eUC8mr 84%3D INTERFACE [facility] [address], [place], [address], 06/13/2024 15:08:41 07/25/20 24 07/25/2024 XR, shoul carolynn, 2 or more view [email or web address]:/ [email or web address] ?Encry pted=s hAaTro YD8dLq bEUv6g %2BXZw aYqtaq 0bqfl% 2Fg9IQ a4ajBk vP9nXo QUaueC m3YtLR FvZlgJ JJ8mAn HZtai3 7z6531 AC0Kqa 36DWau vKiQtr MwF INTERFACE [facility] [address], [place], [address], 07/25/2024 15:52:11 07/25/20 24 07/25/2024 XR, shoul carolynn, 2 or more view http:/ [email or web address] ?Encry pted=s hAaTro YD8dLq bEUv6g %2BXZw aYqtaq 0bqfl% 2Fg9IQ a4ajBk vP9nXo QUaueC m3YtLR FvZlgJ JJ8mAn HZtai3 2m4596 AC0Kqa 36DWau vKiQtr MwF INTERFACE [facility] [address] [facility] [facility] [address], [place], [address], 07/25/2024 15:52:14 07/25/20 24 07/25/2024 XR, shoul carolynn, 2 or more view http:/ [email or web address] ?Encry pted=s hAaTro YD8dLq bEUv6g %2BXZw aYqtaq 0bqfl% 2Fg9IQ a4ajBk vP9nXo QUaueC m3YtLR FvZlgJ JJ8mAn HZtai3 9g4989 AC0Kqa nWDUKK iKiQtr MwF INTERFACE [facility] [address], [place], [address], 07/25/2024 16:06:08 07/25/20 24 07/25/2024 XR, shoul carolynn, 2 or more view http:/ [email or web address] ?Encry pted=s hAaTro YD8dLq bEUv6g %2BXZw aYqtaq 0bqfl% 2Fg9IQ a4ajBk vP9nXo QUaueC m3YtLR FvZlgJ JJ8mAn HZtai3 1x3724 AC0Kqa nWDUKK iKiQtr MwF INTERFACE [facility] [address], [place], [address], 07/25/2024 16:06:11 Result Notes None recorded. Procedures Surgical History Date Name Laterality Status Provider Name and Address Organization Details Recorded Time 5 Sports Shoulder Bilateral completed Debora García MD [address], [place], [address], [facility] 01/23/2025 14:46:50 5 Knee Kenalog 1cc L/R completed Rafael Marshall PA-C [address] [facility], [place], [address], [facility] 11/10/2024 15:34:31 4 Sports Shoulder completed Debora García MD [address] [facility], [place], [address], [facility] 08/20/2024 13:07:34 4 Sports Shoulder completed Debora García MD [address], [place], [address], [facility] 06/13/2024 15:55:01 4 Hip Kenalog 1cc Injection, L/R completed Rafael Marshall PA-C [address], [place], [address], [facility] 03/15/2024 10:48:22 4 Hip Kenalog 1cc Injection, L/R completed Rafael Marshall PA-C [address], [place], [address], [facility] 02/26/2024 15:11:06 Imaging Results Imaging Date Name Status LastModified by [facility] Details LastModified Time 02/26/2024 XR, hip, unilateral, 2 or 3 view completed INTERFACE [facility] [address], [place], [address], 02/26/2024 14:24:40 02/26/2024 XR, hip, unilateral, 2 or 3 view completed INTERFACE [facility] [address], [place], [address], 02/26/2024 14:24:42 06/13/2024 XR, shoulder, 2 or more view completed [place] [address] [facility] [address], [place], [address], 06/13/2024 15:36:11 06/13/2024 XR, shoulder, 2 or more view completed [email or web address] [facility] [address], [place], [address], 06/13/2024 15:35:58 06/13/2024 XR, cervical spine, 1 view completed INTERFACE [facility] [address], [place], [address], 06/13/2024 15:08:39 06/13/2024 XR, cervical spine, 1 view completed INTERFACE [facility] [address], [place], [address], 06/13/2024 15:08:41 07/25/2024 XR, shoulder, 2 or more view completed INTERFACE [facility] [address], [place], [address], 07/25/2024 15:52:11 07/25/2024 XR, shoulder, 2 or more view completed INTERFACE [facility] [address], [place], [address], 07/25/2024 15:52:14 07/25/2024 XR, shoulder, 2 or more view completed INTERFACE [facility] [address], [place], [address], 07/25/2024 16:06:08 07/25/2024 XR, shoulder, 2 or more view completed INTERFACE [facility] [address], [place], [address], 07/25/2024 16:06:11 Procedure Notes None recorded. Medical Equipment None Reported. Allergies Allergen ID Allergen Name Allergen Category Reaction Reaction Severity Criticality Documentation Date Start Date Code Code System Note Provider Name and Address Organization Details Recorded Time 408261 apple extract food Not available Not available Not available 02/26/2024 [address] [facility] [place] 14:06:39 727306 plum preparati on food Not available Not available Not available 02/26/2024 96882 [address] [facility] 14:06:44 554778 Substance with sulfonami de structure and antibacte rial mechanism of action (substanc e) medicatio n Not available Not available Not available 02/26/2024 33682 [address] [facility] 4 14:06:49 715009 Cipro medicatio n Not available Not available Not available 02/26/2024 [address] [facility] [place] 14:06:53 Medications Name Sig Start Date Stop Date Status Note LastModified by Organization Details LastModified Time atorvastati n 80 mg tablet TAKE 1 TABLET BY MOUTH EVERY MORNING active Not Available Not Available No t Available nystatin 100,000 unit/mL oral suspension TAKE 4 ML BY MOUTH/THR OAT 4 TIMES A DAY FOR 14 DAYS 01/23 completed Not Available Not Available Not Available cetirizine 10 mg tablet TAKE 1 [...] SUBCUTANE OUS ROUTE THREE TIMES PER DAY. 01/23 completed Not Available Not Available Not Available amlodipine 10 mg tablet TAKE 1 [...] APPLY TO AFFECTED AREA TWICE A DAY 01/23 completed Not Available Not Available Not Available albuterol sulfate HFA 90 mcg/actuati on [...] t Available melatonin 5 mg tablet TAKE 1 TO 2 TABLETS BY MOUTH EVERY DAY AT BEDTIME NEEDED FOR SLEEP active Not Available Not Available No t [...] UNDER THE SKIN ONCE A WEEK DIRECTED 01/23 completed Not Available Not Available Not Available Vitals Date Recorded Body height Provider Name an d Address Organization Details Last Updated DateTime 03/15/2024 147.32 cm ARCHIE LUIS ALFREDO [facility] 03/15/2024 10:29:27 Date Recorded Body height Body mass index (BMI) Body weight Provider Name and Address Organization Details Last Updated DateTime 06/13/2024 147.32 cm 31.3 kg/m2 21942.86 g ELSIE ALEIDA [facility] 06/13/2024 14:59:13 Date Recorded Body height Body mass index (BMI) Body weight Provider Name and Address Organization Details Last Updated DateTime 07/25/2024 147.32 cm 31.3 kg/m2 85796.86 g ELSIE HSIN [facility] 07/25/2024 15:27:05 Date Recorded Body height Body mass index (BMI) Body weight Provider Name and Address Organization Details Last Updated DateTime 11/10/2024 147.32 cm 31.3 kg/m2 75800.86 g Arinbrooks Reynosoton [facility] 11/10/2024 14:50:16 Date Recorded Body height Body mass index (BMI) Body weight Provider Name and Address Organization Details Last Updated DateTime 01/23/2025 147.32 cm 31.3 kg/m2 28160.86 g ELSIE SHIN [facility] 01/23/2025 13:58:41 Social History None recorded. Functional Status None recorded. Mental Status None recorded. Family History Nothing Reported. Medical History Condition Response Allergies/Hayfever N Coronary Artery Disease N Anxiety/Depression N Breathing or lung disorders N Emphysema N Nerve Disorders N Thyroid Problems N COPD N Pacemaker N Anemia N Kidney/Bladder Problems Y Vascular Disease N Heart Trouble Y Heart Attack ([place]) N Gastrointestinal Disease N Cholesterol N Diabetes [...] SNOMED-CT Code Diagnosis ICD10 Code Diagnosis Note [id number] CRISTOFER Silva [address] [place] [address] 02/26/2024 13:54:00 02/26/2024 15:13:27 Pain of left hip joint 8510066120 76862 M25.552 Pain of ri ght hip joint 1711811042 74061 M25.551 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 [id number] CRISTOFER Silva [address] [place] [address] 03/15/2024 10:27:54 04/05/2024 12:32:37 Trochanteric bursitis of left hip 7481001455 21965 M70.62 You have been provided with a [...] or contact us through the portal [facility]. [id number] MD Sophie Reynoso [address] floor [address] [place] [address] 06/13/2024 14:40:37 07/06/2024 11:28:33 Pain of left shoulder joint 4050413028 3100952 M25.724 [id number] Debora García MD Sophie [address] [place] [address] 07/25/2024 14:39:59 08/19/2024 11:38:02 Pain of right shoulder joint 7121645961 2656403 M25.699 [id number] CRISTOFER Silva - Sophie [address] [place] [address] 11/10/2024 14:36:46 11/22/2024 15:06:05 Osteoarthritis of right knee joint 2221062330 54331 M17.11 The patient is ambulatory , but [...] office or contact us through the portal [facility]. [id number] MD RENETTA Reynoso [address] [place] [address] 01/23/2025 13:52:05 02/06/2025 15:58:32 Rotator cuff arthropathy of right shoulder 6255901154 6680825 M12.811 Rotator cu ff arthropathy of left shoulder 8478873595 5869001 M12.812 Health Concerns Section Related Observation LastModified by Organization Detai ls LastModified Time None Recorded Concern Status LastModified by Organization Details LastModified Time None Recorded Advance Directives Directive None Recorded Payers Encounter Date Sequence Insurance Name Policy Number Policy Mendoza Covered Member ID Mendoza Member ID Guarantor Name 03/15/2024 1 [facility] CARE [employer]I[facility] - DOS ON OR AFTER 2023 - ONE CARE (MEDICARE REPLACEMENT/AD VANTAGE - HMO) Dori Louie [id number] Dori [place] 06/13/2024 1 [employer] - DOS ON OR AFTER 2023 - [employer] (MEDICARE REPLACEMENT/AD VANTAGE - HMO) Dori Palma [place] [id number] Dori [place] 07/25/2024 1 [facility] DOS ON OR AFTER 2023 - [employer] OPTIONS (MEDICARE REPLACEMENT/AD VANTAGE - HMO) Dori Palma [place] [id number] Dori Pal[place] 11/10/2024 1 [employer] - DOS ON OR AFTER 2023 - [employer] (MEDICARE REPLACEMENT/AD VANTAGE - HMO) Dori Palma [place] [id number] Dori [place] 01/23/2025 1 [employer] - DOS ON OR AFTER 2023 - [employer] (MEDICARE REPLACEMENT/AD VANTAGE - HMO) Dori Louie Johnsongado [id number] Dori Pal[place] Notes Date Note Type Note Provider Name and Address Organization Details Recorded Time 03/15/2024 text/html I am seeing the patient [...] questions asked and answered. Rafael Marshall PA-C [address] [place], [place] [address] [address], [place], [address], [facility] 03/15/2024 10:48:52 06/13/2024 text/html Chief Complaint: Left shoulder pain HPI: This is an 79-year-old vvixu-irwz-orwejqpv disabled woman with left shoulder pain beginning [...] the Left shoulder ordered and obtained at [facility] today were reviewed during the visit. These demonstrate increased glenohumeral joint space, which may reflect effusion. Difficult to make out on outlet view, but AP view suggest a large anterior acromial spur. No proximal migration humeral head. Humeral head centered on axillary view. No dystrophic calcium deposition. Impression: 79-year-old xizcz-pucz-bqppdhlp disabled woman with shoulder morphology which would [...] aches and pains, the patient can take lnqq-rly-pevojqk medication such as Tylenol or anti-inflammatories as needed; risks and benefits of medication discussed. Should call with more persistent pain. We will leave follow up open ended at this point. However should symptoms worsen or fail to improve to the patient's satisfaction, she is encouraged to give the office a call to be seen back for further evaluation and management. Archive speech recognition international trade compliance manager software was used to create portions of this document. An attempt at proofreading has been made to minimize errors. Please call for corrections. Debora García MD [address] [place] [address] [address], [place], [address], [facility] 06/13/2024 17:20:18 07/25/2024 text/html Chief Complaint: Left shoulder pain HPI: This is an 79-year-old rtixe-mhsv-lzetswla disabled woman who I met 6 weeks [...] the right shoulder ordered and obtained at [facility] today were reviewed during the visit. These demonstrate good preservation of glenohumeral joint space. Type II acromion. No proximal migration humeral head. Humeral head centered on axillary view. No dystrophic calcium deposition. Impression: 79-year-old bbues-umeb-mkgrmllv disabled woman with shoulder morphology which would [...] aches and pains, the patient can take vuxe-cmm-zjrqgbd medication such as Tylenol or anti-inflammatories as needed; risks and benefits of medication discussed. Should call with more persistent pain. We will leave follow up open ended at this point. However should symptoms worsen or fail to improve to the patient's satisfaction, she is encouraged to give the office a call to be seen back for further evaluation and management. Archive speech recognition international trade compliance manager software was used to create portions of this document. An attempt at proofreading has been made to minimize errors. Please call for corrections. Debora García MD [address], [place], [address], [facility] 08/20/2024 13:08:33 11/10/2024 text/html [...] total joint arthroplasty. Rafael Marshall PA-C [address], [place], [address], [facility] 11/10/2024 15:35:00 01/23/2025 text/html Chief Complaint: Bilateral degenerative cuff disease HPI: This is an 79-year-old kwrzc-lbtb-sxopsfhq disabled woman who I met last summer with complaints of left shoulder pain after an injury pulling herself up into her son's car. We did a cortisone injection on 06/13/2024 which helped her symptoms here significantly, with improved range of motion and almost no pain. Symptoms have returned over the past month or two. Pain felt over the anterolateral shoulder, exacerbated by overhead reach. Presents today for new evaluation of her [...] movements. Occasional crepitus. Denies numbness or tingling. Cortisone injection in July provided a lot of relief before gradual return of symptoms over the past month. Past family, medical, social history and review [...] and intrinsics. Hand is warm and well-perfused. On exam of the left upper extremity, [...] the Left shoulder ordered and obtained at [facility] 06/13/2024 were reviewed during the visit. These demonstrate increased glenohumeral joint space, which may reflect effusion. Difficult to make out on outlet view, but AP view suggest a large anterior acromial spur. No proximal migration humeral head. Humeral head centered on axillary view. No dystrophic calcium deposition. 4v of the right shoulder ordered and obtained at [facility] 07/22/2024 were reviewed during the visit. These demonstrate good preservation of glenohumeral joint space. Type II acromion. No proximal migration humeral head. Humeral head centered on axillary view. No dystrophic calcium deposition. Impression: 79-year-old sptvd-aaai-tlhtvcdz disabled woman with shoulder morphology which would predispose to rotator cuff tear and exam and imaging consistent with bilateral cuff tear arthropathy. Plan: Findings options for management reviewed the patient. She has gotten good relief with cortisone injections in the past. She does have some concerns about impact of cortisone on blood sugars, however if she uses insulin, she can always adjust her dose to counteract elevated blood sugars. Would recommend continue with conservative treatment for now. Will make follow-up appointment for approximately 4 months from now for recheck and potential repeat injection if needed (if not, encouraged to call and move back appointment). [facility] speech recognition international trade compliance manager software was used to create portions of this document. An attempt at proofreading has been made to minimize errors. Please call for corrections. Debora García MD [address] [place], [place] [address], [place], [address], [facility] 01/23/2025 14:47:18 OBGyn Episode No OBEpisode recorded.
== END 2025-02-14 16:12 | disposition home or self-care (01) ==
LOC: HO.HHCLNP 16:11
PROVIDERS: Visit Provider Internal Medicine Geriatric Medicine
DX: R30.0 Dysuria (principal)
CPT/HCPCS: 87086

== ENCOUNTER 2025-02-18 07:05 | Outpatient (REF) | payer OTHER, SELFPAY ==
--- OUTSIDE RECORDS SUMMARY | 2025-02-18 07:07 | XMS_ITS | Encounter Summary ---
Author Organization [employer] Address [address] [facility] [address] [place] [address] Care Team Providers Care Stone Trimmer Name Role Phone Name, Suresh BENJAMIN Primary Care Provider [phone] Reason for Visit * Reason Onset Date Comments Chart Prep 02/13/2025 Encounter Details Date Type Department Care Team ([facility] st Contact Info) Description 02/13/2025 Telephone [facility] [address] [place] [address] Name, MD Suresh [address] [place] [address] Chart Prep Social History Tobacco Use Types Packs/Day Years [...] Access Answer Date Recorded Internet Access Q1 Yes 02/02/2025 Internet Access Q2 I do not want or need it 01/17 Comments Unknown Sex and Gender Information Value Date Recorded Sex Assigned at Female 08/18/2022 10:14 AM EDT Legal Sex Female 10:14 AM EDT Gender Identity Female 08/18/2022 10:14 AM EDT Sexual Orientation Straight 08/18/2022 10 :14 AM EDT documented as of this encounter Miscellaneous Notes * Telephone Encounter - Cherri Nuno [place] - 02/13/2025 2:54 PM EDT Chart Prep Labs: not applicable Images: not applicable Referrals: complete Vaccines due: none Screenings: eye exam and foot exam Overdue care gaps: JOEL-7 documented in this encounter Plan of Treatment Not on file documented as of this encounter Visit Diagnoses Not on filedocumented in this encounter Additional Health Concerns Assessment Noted Time PHQ-9 Depression Total Score: 7 04/15/20 24 11:05 AM EDT documented as of this encounter Care Teams Stone Trimmer Relationship Specialty Start Date End Date Name, MD Suresh [address] [place] [address] PCP - General Family Medicine 11/18/17 documented as of this encounter
--- OUTSIDE RECORDS SUMMARY | 2025-02-18 07:07 | XMS_ITS | Encounter Summary ---
Author Organization [employer] Address [address] [facility] [address] [place] [address] Care Team Providers Care Client Strategist Name Role Phone Suresh Rosenthal MD Primary Care Provider [phone] Reason for Referral * Medications - Closed Specialty Diagnoses / Procedures Referred By Contac t Referred To Contact Diagnoses Type 2 diabetes mellitus with other circulatory complication, with long-term current use of insulin (CMS/HCC) Suresh Rosenthal MD [address] [place] [address] Phone: tel: fax: Referral ID Status Reason Start Date Expiration Date Visits Re quested Visits Authorized [id number] Closed 1 1 Reason for Visit * Reason Comments Follow-up Diabetes Encounter Details Date Type Department Care Team (Latest Contact Info) Description 02/14/2025 2:00 PM EDT Office Visit [facility] [address] [place] [address] Suresh Rosenthal MD [address] [place] [address] Type 2 diabetes mellitus with other circulatory complication, with long-term current use of insulin (CMS/HCC) (Primary Dx); Diabetic polyneuropathy associated with type 2 diabetes mellitus (CMS/HCC); Coronary artery disease involving agua caliente coronary artery of agua [place]iente heart without angina pectoris; High triglycerides; Dysuria Social History Tobacco Use Types Packs/Day Years [...] AM EDT documented as of this encounter Last Filed Vital Signs Vital Sign Reading Time Taken Comments Blood Pressure 132/89 02/14/2025 2:31 PM EDT Pulse 69 02/14/2025 2:08 PM EDT Temperature 36.1 ??C (97 ??F) 02/14/2025 2:08 PM EDT Respiratory Rate 12 02/14/2025 2:08 PM EDT Oxygen Saturation 95% 02/14/2025 2:08 PM EDT Inhaled Oxygen Concentration - - Weight 69.2 kg (152 lb 9.6 oz) 02/14/2025 2:08 P M EDT Height 147.3 cm (4' 10 ) 02/14/2025 2:08 PM EDT Body Mass Index 31.89 02/14/2025 2:08 PM EDT documented in this encounter Progress Notes * Suresh Rosenthal MD - 02/14/2025 2:00 PM EDT Subjective Patient ID: Dori Urrutia is a 79 y.o. female who presents for Follow- up and Diabetes. Patient comes for follow-up visit. She is accompanied by one of her daughters. She is feeling good.She is not having any chest pains, no shortness of breath. She has severe generalized DJD and usually only walks around the house. She follows with orthopedics and pain clinic. She is treated with joint steroid injections that usually precipitate hyperglycemia. She tells me she had bilateral shoulder injections last month and her blood sugar was as high as 500 for a few days. She is using her insulins and Trulicity as prescribed. Her blood sugar is good today and her hemoglobin A1c is 7.2. Today I recommended to switch her treatment of hypertriglyceridemia from fenofibrate to Vascepa for cardi ovascular protection and the patient agreed. She is due for repeat fasting blood work. Today she complains of burning pain in her feet at bedtime and this is likely secondary to diabetic neuropathy. Review of Systems Constitutional: Negative for chills and fever. HENT: Negative for sore throat. Respiratory: Negative for cough, shortness of breath and wheezing. Cardiovascular: Negative for chest pain, palpitations and leg swelling. Gastrointestinal: Negative for abdominal pain. Visit Vitals BP 132/89 Pulse 69 Temp 97 ??F (36.1 ??C) (Temporal) Resp 12 Ht 4' 10 (1.473 m) Wt 152 lb 9.6 oz (69.2 kg) SpO2 95% BMI 31.89 kg/m?? Smoking Status Never BSA 1.68 m?? Objective Physical Exam Constitutional: Appearance: Normal appearance. Cardiovascular: Rate and Rhythm: Normal rate and regular rhythm. Pulses: Dorsalis pedis pulses are 2+ on the right side and 2+ on the left side. Posterior tibial pulses are 2+ on the right side and 2+ on the left side. Heart sounds: No murmur heard. No gallop. Pulmonary: Effort: Pulmonary effort is normal. No respiratory distress. Breath sounds: Normal breath sounds. No wheezing. Musculoskeletal: Right lower leg: No edema. Left lower leg: No edema. Right foot: Normal range of motion. Deformity and bunion present. Left foot: Normal range of motion. Deformity and bunion present. Feet: Right foot: Protective Sensation: 5 sites tested. 3 sites sensed. Skin integrity: Skin integrity normal. No ulcer. Toenail Condition: Right toenails are normal. Left foot: Protective Sensation: 3 sites sensed. Skin integrity: Skin integrity normal. No ulcer. Toenail Condition: Left toenails are normal. Neurological: Mental Status: She is alert. Latest Reference Range & Units 05/16/24 09:08 Glucose 60 - 115 mg/dL 111 Urea Nitrogen (BUN) 9 - 16 mg/dL 20 (H) Creatinine, Serum 0.5 - 1.4 mg/dL 0.88 Sodium 135 - 145 mmol/L 138 Potassium 3.3 - 5.1 mmol/L 3.6 Chloride 96 - 108 mmol/L 103 Carbon Dioxide 22 - 29 mmol/L 26 Calcium 8.4 - 10.2 mg/dL 10.3 (H) Albumin Level 3.5 - 5.0 g/dL 3.9 Bilirubin, Total 0.0 - 1.0 mg/dL 0.2 AST 5 - 31 U/L 17 ALT 0 - 31 U/L 14 Anion Gap 12 - 20 13 Total Protein 6.5 - 8.0 g/dL 6.9 Cholesterol <200 mg/dL 126 HDL Cholesterol >40 mg/dL 32 (L) LDL Cholesterol Calculated <100 mg/dL 49 Triglycerides <150 mg/dL 229 (H) Red Blood Count 4.20 - 5.50 X10*6/uL 4.12 (L) Hemoglobin 12.0 - 16.0 g/dl 11.9 (L) Hematocrit 37.0 - 47.0 % 35.6 (L) Mean Corpuscular Volume 80.0 - 98.0 fL 86.4 Mean Corpuscular Hemoglobin 27.0 - 33.0 pg 28.9 Mean Corpuscular HGB Conc 31.0 - 35.0 g/dl 33.4 Red Cell Distribution Width 11.0 - 16.0 % 14.6 Platelet Count 160 - 400 X10*3/uL 334 Eosinophils Percent Auto 0 - 4 % 5.3 (H) Lymphocytes Absolute Auto 1.2 - 4.9 X10*3/uL 2.1 Basophils Absolute Auto 0.0 - 0.2 X10*3/uL 0.1 Monocytes Absolute Auto 0.1 - 1.2 X10*3/uL 0.9 Neutrophils Absolute Auto 2.0 - 8.3 x10*3/uL 4.2 Neutrophils Percent Auto 45 - 73 % 55.1 Basophils Percent Auto 0 - 2 % 0.9 Eosinophils Absolute Auto 0.0 - 0.4 X10*3/uL 0.4 Lymphocytes Percent Auto 20 - 40 % 27.1 Monocytes Percent Auto 2 - 11 % 11.1 (H) Imm Gran Abs Auto 0.00 - 0.03 X10*3/uL 0.04 (H) Imm Gran Pct Auto 0.0 - 0.4 % 0.5 (H) Hemoglobin A1c <6.0 % 6.9 (H) Alkaline Phosphatase 39 - 117 U/L 43 ESTIMATED AVERAGE GLUCOSE mg/dL 151 Estimated Glomerular Filt Rate >60 Mean Platelet Volume 9.4 - 12.3 fL 9.3 (L) NRBC Abs Auto 0.0 - 0.012 X10*3/uL 0.000 NRBC Pct Auto 0.0 - 0.2 /100WBC 0.0 White Blood Count 4.8 - 10.8 X10*3/uL 7.7 (H): Data is abnormally high (L): Data is abnormally low Assessment/Plan Diagnoses and all orders for this visit: Type 2 diabetes mellitus with other circulatory complication, with long-term current use of insulin([facility]) Comments: Well-controlled. I refilled Trulicity and insulins. I switched her fenofibrate to Vascepa. I did not recommend any other medication changes. Continue using medications as prescribed, avoid sweets andsoda, check fasting blood work listed below Orders: - POCT Glucose - POCT HGB A1C - CBC auto differential; Future - Comprehensive Metabolic Panel; Future - Lipid Panel, Standard; Future - Albumin, Random Urine W/Creatinine; Future - Dulaglutide 1.5 MG/0.5ML solution auto-injector; Inject 1.5 mg under the skin 1 (one) time per week. Diabetic polyneuropathy associated with type 2 diabetes mellitus (CMS/HCC) Coronary artery disease involving agua [place] coronary artery of [place] heart without angina pectoris Comments: Asymptomatic. Continue current cardioprotective regimen. I added Vascepa to her medications. Orders: - CBC auto differential; Future - Comprehensive Metabolic Panel; Future - Lipid Panel, Standard; Future - Albumin, Random Urine W/Creatinine; Future High triglycerides Comments: See above. She will go for fasting blood work. Orders: - CBC auto differential; Future - Comprehensive Metabolic Panel; Future - Lipid Panel, Standard; Future - Albumin, Random Urine W/Creatinine; Future Dysuria Comments: Today she complained of dysuria. Urine dipstick is unremarkable. I will send the urine for culture and further recommendation based on the results. She has been using empirical treatment for vaginal yeast infection that she is recommended to continue. Orders: - Culture, Urine, Routine; Future - POCT Urinalysis Other orders - insulin aspart (NovoLOG FLEXPEN) 100 UNIT/ML pen; INJECT 12-14 UNITS 3 TIMES A DAY WITH MEALS - Icosapent Ethyl (Vascepa) 1 g capsule; Take 2 capsules (2 g) by mouth with breakfast and with evening meal. - insulin degludec (Tresiba FlexTouch) 200 UNIT/ML injection; INJECT 50 UNITS SUBCUTANEOUSLY AT BEDTIME documented in this encounter Plan of Treatment Scheduled Orders Name Type Priority Associated Diagnoses Orde r Schedule CBC auto differential Lab Routine Type 2 diabetes mellitus with other circulatory complication, with long-term current use of insulin (CMS/HCC) Coronary artery disease involving ag[place] coronary artery of [place] heart without angina pectoris High triglycerides Expected: 02/14/2025 (Approximate), Expires: 02/14/2026 Comprehensive Metabolic Panel Lab Routine Type 2 diabetes mellitus with other circulatory complication, with long-term current use of insulin (CMS/HCC) Coronary artery disease involving [place] coronary artery of [place] heart without angina pectoris High triglycerides Expected: 02/14/2025 (Approximate), Expires: 02/14/2026 Lipid Panel, Standard Lab Routine Type 2 diabetes mellitus with other circulatory complication, with long-term current use of insulin ([facility]) Coronary artery disease involving [place] coronary artery of [place] heart without angina pectoris High triglycerides Expected: 02/14/2025 (Approximate), Expires: 02/14/2026 Albumin, Random Urine W/Creatinine Lab Routine Type 2 diabetes mellitus with other circulatory complication, with long-term current use of insulin ([facility]) Coronary artery disease involving ag[place] coronary artery of [place] heart without angina pectoris High triglycerides Expected: 02/14/2025 (Approximate), Expires: 02/14/2026 documented as of this encounter Procedures Procedure Name Priority Date/Time Associated Diagnosis Comments POCT URINALYSIS DIPSTICK Routine 02/14/2025 2:21 PM EDT Dysuria POCT GLYCATED HEMOGLOBIN, TOTAL Routine 02/14/2025 2:09 PM EDT Type 2 diabetes mellitus with other circulatory complication, with long-term current use of insulin ([facility]) POCT GLUCOSE Routine 02/14/2025 2:09 PM EDT Type 2 diabetes mellitus with other circulatory complication, with long-term current use of insulin ([facility]) CULTURE, URINE, ROUTINE Routine 02/14/2025 12:00 AM EDT Dysuria documented in this encounter Results * POCT Urinalysis (02/14/2025 2:21 PM EDT) Color, UA Yellow Clarity, UA Clear Glucose, UA Negative Bilirubin, UA Negative Ketones, UA Positive Comment:trace Spec Grav, UA 1.015 Blood, UA Negative Negative, None Detected pH, UA 6.0 Protein, UA Negative Urobilinogen, UA 0.2 Leukocytes, UA Negative Negative, Rare, Trace Nitrite, UA Negative Negative, None Detected Appearance, UA yellow QC Media Lot # [id number] Lot# Expiration Date Urine 02/14/2025 2:21 PM EDT Suresh Rosenthal MD POINT OF CARE TEST ENTER/EDIT OR DERABLES Final Result * (ABNORMAL) POCT HGB A1C (02/14/2025 2:09 PM EDT) Hemoglobin A1C 7.2(A) 4.0 - 6.0 % QC Media Lot # [id number] Lot# Expiration Date 110,[id number] Blood 02/14/2025 2:09 PM EDT Suresh Rosenthal MD POINT OF CARE TEST ENTER/EDIT OR DERABLES Final Result * POCT Glucose (02/14/2025 2:09 PM EDT) Glucose Blood, POC 142 60 - 200 mg/dL QC Media Lot # [id number] Lot# Expiration Date 82,625 Blood Capillary blood specimen / Unknown 02/14/2025 2:09 PM EDT us Suresh Rosenthal MD POINT OF CARE TEST ENTER/EDIT OR DERABLES Final Result * Culture, Urine, Routine (02/14/2025 12:00 AM EDT) Urine Urine specimen obtained by clean catch procedure / Unknown 02/14/2025 02/14/2025 Comment:CC Narrative [facility] - 02/16/2025 11:29 AM EDT Urine Culture Report Result Urine Culture 10,000 to 50,000 cfu/ml Urine Culture Mixed bacterial new characteristic of Urine Culture urogenital contamination. 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
--- OUTSIDE RECORDS SUMMARY | 2025-02-18 07:08 | XMS_ITS | Encounter Summary ---
Author Organization [employer] Address [address] [facility] 7t [place] [address] Care Team Providers Care Assessment Counselor Name Role Phone Name, Suresh BENJAMIN Primary Care Provider [phone] Encounter Details Date Type Department Care Team (Latest Contact Info) Description 02/14/2025 Travel Social History Tobacco Use Types Packs/Day Years [...] documented as of this encounter Care Teams Assessment Counselor Relationship Specialty Start Date End Date Name, MD Suresh [address] [place] [address] PCP - General Family Medicine 11/18/17 documented as of this encounter
--- OUTSIDE RECORDS SUMMARY | 2025-02-18 07:08 | XMS_ITS | Patient Health Record ---
Author Organization [facility] Address [address] [place] [address] Care Team Providers Care Brands Editor Name Role Phone Name Suresh BENJAMIN Primary Care Provider Juanpablo Medina Jr Unavailable Allergies Allergen (clinical drug ingredient) Drug/Non Drug Allergy documented on EMR Reaction Allergy Type Onset Date Status Sulfa blisters Drug Allergy Active ciprofloxacin Cipro itching Drug Allergy Act berta Reason For Referral No Information Medications Medication SIG (Take, Route, Frequency, Duration) Notes Start Date End Date Status Vitamin D 50 MCG (1999) 1 tablet Oral ly Once a day Active traMADol HCl 50 MG 1 tablet as needed O rally TID Active Vitamin D3 Active Acarbose 100 MG as directed Oral thr ee times a day Active [place] 3 1000 MG 1 capsule Orally twi [...] 1 tablet Orally Once a day Active Immunizations Vaccine Route Administration Date Status Comme nts Influenza Unknown 09/01/2018 Administered Influenza Unknown 06/19/2021 Administered Influenza Unknown 08/11/2023 Administered Problems Problem Type SNOMED Code ICD Code Onset Dates Problem Status W/U Status Risk Notes Problem 13700568 Irritable bowel syndrome without diarrhea (K58.9) Active confirmed Problem Dysphagia (45185118) Dysphagia (R13.10) Active confirmed Problem 448824166 Gastroesophageal reflux disease without esophagitis (K21.9) Active confirmed Problem Gastric polyp (68622108) Gastric polyp (K31.7) Active confirmed Problem 881903588 Esophageal dysmotility (K22.4) Active confirmed Problem 86200925 Dysphagia, unspecified type (R13.10) Active confirmed Problem 135861641 Abnormal CT scan (R93.89) Active confirmed Plan Of Treatment Pending Test Test Name Order Date XR BARIUM SWALLOW-ESOPHAGUS 01/06/2018 XR BARIUM SWALLOW-ESOPHAGUS 11/12/2016 XR GI SERIES 08/21/2011 XR GI SERIES 11/19/2012 XR GI SERIES 02/29/2016 Future Test Test Name Order Date UPPER GI ENDOSCOPY BALLOOON DILATION OF ESOPH 01/04/2014 UPPER GI ENDOSCOPY BALLOOON DILATION OF ESOPH 01/06/2018 UPPER GI ENDOSCOPY BALLOOON DILATION OF ESOPH 12/31/2018 UPPER GI ENDOSCOPY 04/10/2022 Next Appt Details Provider Name:Juanpablo cordon , 03/30/2025 02:35:00 PM, [address] [facility], [address], [place], [address], Insurance Providers Payer Name Payer Address Payer Phone Subscriber Number Group Number Insured Name Patient Relationship to Insured Coverage Start Date Coverage End Date [facility] [address] Attn Claims JASEN Yousif [id number] Self - patient is the insured Medical (General) History Medical History History ICD Code Gastroesophageal reflux dise ase with esophageal dysmotility, last upper endoscopy with balloon dilation 05/09. 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 stroke -2017 Surgical History Surgery Date(Month/Year) cholecystectomy hysterectomy cleaned out artery 02/02/2018
--- OUTSIDE RECORDS SUMMARY | 2025-02-18 07:08 | XMS_ITS | Encounter Summary ---
Author Organization [facility] Address [address] [facility] [address] [place] [address] Care Team Providers Care Nursing Education Specialist Name Role Phone Name, Suresh BENJAMIN Primary Care Provider [phone] Reason for Visit * Reason Onset Date Comments Appointment Request 12/21/2023 Encounter Details Date Type Department Care Team ([facility] st Contact Info) Description 12/21/2023 Telephone [facility] [address] [place] [address] Name, MD Suresh [address] [place] [address] Appointment Request Social History Tobacco Use Types [...] a telephone visit. Please contact daughter at [phone]. documented in this encounter Plan of Treatment Not on file documented as of this encounter Visit Diagnoses Not on filedocumented in this encounter Care Teams Nursing Education Specialist Relationship Specialty Start Date End Date Name, MD Suresh [address] [place] [address] PCP - General Family Medicine 11/18/17 documented as of this encounter
--- OUTSIDE RECORDS SUMMARY | 2025-02-18 07:08 | XMS_ITS | Encounter Summary ---
Author Organization [employer] Address [address] [facility] 7t [place] [address] Care Team Providers Care Field Crop Farmer Name Role Phone Name, Suresh BENJAMIN Primary Care Provider [phone] Reason for Visit * Reason Comments Med Refill Encounter Details Date Type Department Care Team ([facility] st Contact Info) Description 06/07/2024 Refill [facility] [address] [place] [address] Renata Ballard FNP [address] [place] [address] Pain Social History Tobacco Use Types Packs/Day [...] documented as of this encounter Care Teams Field Crop Farmer Relationship Specialty Start Date End Date Name, MD Suresh [address] [place] [address] PCP - General Family Medicine 11/18/17 documented as of this encounter
--- OUTSIDE RECORDS SUMMARY | 2025-02-18 07:08 | XMS_ITS | Encounter Summary ---
Author Organization [employer] Address [address] [facility] 7[address] [place] [address] Care Team Providers Care Potato Grader Name Role Phone Name, Suresh BENJAMIN Primary Care Provider Reason for Visit * Reason Onset Date Comments Appointment Request 01/09/2025 Encounter Details Date Type Department Care Team ([facility] st Contact Info) Description 01/09/2025 Telephone [facility] [address] [place] [address] Name, MD Suresh [address] [place] [address] Appointment Request Social History Tobacco Use Types [...] encounter Miscellaneous Notes * Telephone Encounter - Breanna Gonzalez - 01/09/2025 2:35 PM EDT Tc beto Felipa with [facility] requesting a call back to pt for schedule ov extended. [phone] (PT) documented in this encounter Plan of Treatment Not on file documented as of this encounter Visit Diagnoses Not on filedocumented in this encounter Additional Health Concerns Assessment Noted Time PHQ-9 Depression Total Score: 7 04/15/20 24 11:05 AM EDT documented as of this encounter Care Teams Potato Grader Relationship Specialty Start Date End Date Name, MD Suresh [address] [place] [address] PCP - General Family Medicine 11/18/17 documented as of this encounter
--- OUTSIDE RECORDS SUMMARY | 2025-02-18 07:08 | XMS_ITS | Encounter Summary ---
Author Organization [employer] Address [address] [facility] 7 [place] [address] Care Team Providers Care Bodily Injury Adjuster Name Role Phone Name, Suresh BENJAMIN Primary Care Provider [phone] Reason for Visit * Reason Onset Date Comments Med Refill 06/23/2023 Encounter Details Date Type Department Care Team (Late st Contact Info) Description 06/23/2023 Refill [facility] [address] [place] [address] Gela Loza MD [address] [place] [address] Social History Tobacco Use Types Packs/Day Years [...] on filedocumented in this encounter Care Teams Bodily Injury Adjuster Relationship Specialty Start Date End Date Name, MD Suresh [address] [place] [address] PCP - General Family Medicine 11/18/17 documented as of this encounter
--- OUTSIDE RECORDS SUMMARY | 2025-02-18 07:08 | XMS_ITS | Clinical Summary ---
Author Organization [employer] Address [address] [place] [address] 7[address] [place] [address] Care Team Providers Care Freelance Photographer Name Role Phone Name, Suresh BENJAMIN Primary Care Provider [phone] Allergies Active Allergy Reactions Criticality Noted Date [...] one can twice a day 019 Active docusate sodium (Colace) 100 MG capsule Take 100 mg by mouth 2 times daily. Active Magnesium Citrate 200 MG tablet Take by mouth. Activ e ergocalciferol (Vitamin D-2) 50 MCG (1999 UT) capsule TAKE 1 [...] AND SWALLOW DIRECTED 200 mL 024 Active nitroglycerin (Nitrostat) 0.[address] 1 TABLET (0.4 MG) UNDER THE TONGUE EVERY 5 (FIVE) MINUTES IF NEEDED FOR CHEST PAIN. MAY USE UP TO THREE TABLETS. SEEK MEDICAL ATTENTION IF NO RELIEF. 300 tablet 1 024 Active nystatin (Mycostatin) 544545 UNIT/GM powder Apply topically 2 times daily. 60 g 2 024 2024 Active metoprolol succinate XL (Toprol-XL) 100 MG 24 hr tablet TAKE 1 TABLET BY MOUTH TWICE A DAY 180 tablet 3 024 Active rosuvastatin (Crestor) 40 MG tablet TAKE 1 TABLET BY MOUTH EVERY DAY 90 tablet 3 024 Active losartan-hydroCH LOROthiazide (Hyzaar) 100-25 MG tabletIndication s:Essential hypertension TAKE 1 TABLET BY MOUTH EVERY DAY IN THE MORNING 90 tablet 3 024 Active glucose blood (OneTouch Ultra) test stripIndications :Type 2 diabetes mellitus with other circulatory complications ([facility]) USE TO CHECK BLOOD SUGAR BY SUBCUTANEOUS ROUTE THREE TIMES PER DAY. 100 strip 11 024 Active cetirizine (ZyrTEC) 10 MG tabletIndication s:Seasonal allergies TAKE 1 TABLET BY MOUTH EVERY DAY NEEDED 90 tablet 1 024 Active amLODIPine (Norvasc) 10 MG tabletIndication s:Hypertension, unspecified type TAKE 1 TABLET BY MOUTH EVERY DAY IN THE MORNING 90 tablet 1 024 Active cholecalciferol VITAMIN D (Vitamin D-3) 50 [...] NOT CRUSH/BREAK/CHEW 100 tablet 1 025 Active insulin aspart (NovoLOG FLEXPEN) 100 UNIT/ML pen INJECT 12-14 UNITS 3 TIMES A DAY WITH MEALS 15 mL Active Dulaglutide 1.5 MG/0.5ML solution auto-injectorInd ications:Type 2 diabetes mellitus with other circulatory complication, with long-term current use of insulin ([facility]) Inject 1.5 mg under the skin 1 (one) time per week. 2 mL 2025 Active Icosapent Ethyl (Vascepa) 1 g capsule Take 2 capsules (2 g) by mouth with breakfast and with evening meal. 120 capsule 025 2025 Active insulin degludec (Tresiba FlexTouch) 200 UNIT/ML injection INJECT 50 UNITS SUBCUTANEOUSLY AT BEDTIME 18 mL 025 Active aspirin (Aspirin Low Dose) 81 MG EC tablet TAKE 1 TABLET BY MOUTH EVERY DAY IN THE MORNING 90 tablet 1 025 Active [place]-3 Fatty Acids (OMEGA 3 PO) Chew 2 gummies by mouth once daily 018 2024 Discontinued NovoLOG FLEXPEN 100 UNIT/ML pen INJECT 12-14 UNITS 3 TIMES A DAY WITH MEALS 15 mL 3 024 2024 Discontinued(R eorder (will not trigger notification to Pharmacy)) dulaglutide (Trulicity) 1.5 MG/0.5ML solution pen-injectorIndi cations:Type 2 diabetes mellitus with other circulatory complication, with long-term current use of insulin ([facility]) Inject 1.5 mg under the skin 1 (one) time per week. 4 each 024 2024 Discontinued(R eorder (will not trigger notification to Pharmacy)) Tresiba FlexTouch 200 UNIT/ML injection INJECT 50 UNITS SUBCUTANEOUSLY AT BEDTIME 18 mL 3 024 2024 Discontinued(R eorder (will not trigger notification to Pharmacy)) aspirin (Aspirin Low Dose) 81 MG EC tablet TAKE 1 TABLET BY MOUTH EVERY DAY IN THE MORNING 90 tablet 1 024 2024 Discontinued fenofibrate (Tricor) 54 MG tabletIndication s:Hypertriglycer idemia TAKE 1 TABLET BY MOUTH AT NOON DAILY 90 tablet 1 025 2024 Discontinued Active Problems Problem Noted Date [...] to use of clotrimazole -had UA w field sales agent in 12/2022 w neg ucx < 10col [...] atorvastatin 80 mg Coronary artery disease involving [place] coronar y artery 04/13/1994 Encounters Date Type Department Care Team Description 02/17/2025 Refill [facility] [address] [place] [address] Suresh Rosenthal MD 02/14/2025 2:00 PM EDT Office Visit [facility] [address] [place] [address] Suresh Rosenthal MD Type 2 diabetes mellitus with other circulatory complication, with long-term current use of insulin ([facility]) (Primary Dx); Diabetic polyneuropathy associated with type 2 diabetes mellitus ([facility]); Coronary artery disease involving [place] coronary artery of [place] heart without angina pectoris; High triglycerides; Dysuria 02/14/2025 Travel 02/13/2025 Telephone [facility] [address] [place] [address] Suresh Rosenthal MD Chart Prep 02/02/2025 Patient Outreach [facility] [address] [place], [place] [phone] Suresh Rosenthal MD Pre-visit Planning (SDOH negative, Tobacco screening negative. ) 01/10/2025 Telephone [facility] [address] [place] [address] Luís Bellamy [place] Appointment Request (By CCA coordinator) 01/09/2025 Telephone [facility] [address] [facility] [place] [address] NameSuresh MD Appointment Request 01/09/2025 Telephone [facility] [address] [facility] [place] [address] Suresh Rosenthal MD Medication Question 12/20/2024 Telephone [facility] [address] [place] [address] Name, MD Suresh [employer] (Cardinal underwear, protect sm/med) 12/01/2024 Refill [facility] [address] [facility] [place] [id number] Name, MD Suresh Chronic low back pain without sciatica, unspecified back pain laterality; Pain 11/27/2024 Refill [facility] [address] [facility] [place] [address] NameSuresh MD from Last 3 Months Immunizations Name Administration [...] Mass Index 31.89 02/14/2025 2:08 PM EDT Plan of Treatment Health Maintenance Due Date Last Done Comments Eye Exam 1955 Alcohol/Substance Use Screening 04/15/2025 04/15/2024 Depression Screening 04/15/2025 04/15/2024, 04/15/20 24 Diabetes: Hemoglobin A1C 05/16/2025 025, 05/16/2024, 04/15/2024, Additional history exists Diabetes: Urine Protein Screening 05/16/2025 05/16/2024, 02/08/2024, 01/16/2023, Additional history exists Lipid Panel 05/16/2025 05/16/2024, 0310/2022, 04/18/2021, Additional history exists SDOH Screening 02/02/2026 02/02/2025 Diabetes: Foot Exam 02/14/2026 02/14/2025, 02/14/2025, 02/14/2025, Additional history exists Tobacco Screening 02/14/2026 02/14/2025 DTaP/Tdap/Td Vaccines (2 - Td or Tdap) 10/22/2026 10/22/2016, 02/11/1996 Hepatitis B Vaccines Completed 04/12/2004, 12/18/2003, 11/17/2003 Pneumococcal Vaccine: 50+ Years Completed 11/18/2017, 11/06/2013, 11/06/2013, Additional history exists Zoster Vaccines Completed 05/28/2021, 0 01/2020, 10/22/2016, Additional history exists RSV Patients and Patients Aged 60 years or older Completed 09/15/2023 COVID-19 Vaccine Completed 07/27/2024, , 12/31/2022, Additional history exists Influenza Vaccine Completed 07/27/2024, , 10/10/2022, Additional history exists HIB Vaccines Aged Out [...] complication, with long-term current use of insulin ([facility]) POCT GLUCOSE Routine 02/14/2025 2:09 PM EDT Type 2 diabetes mellitus with other circulatory complication, with long-term current use of insulin ([facility]) CULTURE, URINE, ROUTINE Routine 02/14/2025 12:00 AM EDT Dysuria LIPID PANEL, STANDARD Routine 05/16/2024 9:08 AM EDT Type 2 diabetes mellitus with other circulatory complication, with long-term current use of insulin ([facility]) Essential hypertension ALBUMIN, RANDOM URINE W/CREATININE Routine 05/16/2024 12:00 AM EDT Type 2 diabetes mellitus with other circulatory complication, with long-term current use of insulin ([facility]) Essential hypertension from Last 3 Months or Most Recently Relevant to Health Maintenance Results * POCT Urinalysis (02/14/2025 2:21 PM [...] Media Lot # [id number] Lot# Expiration Date [id number] Urine 02/14/2025 2:21 PM EDT us Suresh Rosenthal MD POINT OF CARE TEST ENTER/EDIT OR DERABLES Final Result * (ABNORMAL) POCT HGB A1C (02/14/2025 2:09 PM EDT) Hemoglobin A1C 7.2(A) 4.0 - 6.0 % QC Media Lot # [id number] Lot# Expiration Date [id number] Blood 02/14/2025 2:09 PM EDT us Suresh Rosenthal [...] clean catch procedure / Unknown 02/14/2025 02/14/2025 Comment:UACC Narrative [facility] - 02/16/2025 11:29 AM EDT Urine Culture Report Result Urine Culture 10,000 to 50,000 cfu/ml Urine Culture Mixed bacterial new characteristic of Urine Culture urogenital contamination. Specimen Source: Urine clean catch us Suresh Rosenthal MD LAB MICROBIOLOGY - GENERAL ORDER LALO Final Result Performing Organization Address [facility] Co de Phone Number [facility] [address] [place] [phone] * (ABNORMAL) Lipid Panel, Standard (05/16/2024 9:08 AM EDT) Triglycerides 229(H) <150 mg/dL [facility] Comment:Desirable Triglyceri de: less than 150 mg/dLBorderline High Triglyceride 150-199 mg/dLHigh Triglyceride: 200-499 mg/dLVery High Triglyceride: greater than or equal to 5OO mg/dL Cholesterol 126 <200 mg/dL [facility] Comment:Desirable Cholestero l: less than 200 mg/dLBorderline High Cholesterol: 200-239 mg/dLHigh Cholesterol: greater than 239 mg/dL LDL Cholesterol Calculated 49 <100 mg/dL [facility] Comment:Desirable LDL: less than 100 mg/dLNear Optimal/Above Optimal LDL: 110- 129 mg/dLBorderline High LDL: 130-159 mg/dLHigh LDL: 160-189 mg/dLVery High LDL: greater than or equal to 190 mg/dL HDL Cholesterol 32(L) >40 mg/dL [facility] Comment:Desirable HDL: great er than 40 mg/dL Note: This HDL assay may give artificially low results in patients with liver disease. Blood Venous blood specimen / Unknown 05/16/2024 9:08 AM EDT 05/16/2024 9:08 AM EDT us Suresh Rosenthal MD LAB BLOOD ORDERABLES Final Resul t Performing Organization Address City/[facility]/ZIP Co de Phone Number [facility] [address] [place] [address] [phone] * Albumin, Random Urine W/Creatinine (05/16/2024 12:00 AM EDT) Creatinine, Urine 80.24 mg/dL [facility] Microalbumin Urine 17.0 mg/L [facility] Microalbum Creatinine Ratio Ur 21.1 <30 ug/mg cr [facility] Comment:Albumin/Creatinine R atio Reference Ranges: Normal: < 30 ug/mg creatinine Microalbuminuria: 30 - 300 ug/mg creatinineClinical Albuminuria: > 300 ug/mg creatinine Urine (Urine, Random) 05/16/2024 05/16/2024 us Suresh Rosenthal MD LAB URINE ORDERABLES Final Resul t [facility] [address] [place] [phone] from Last 3 Months or Most Recently Relevant to Health Maintenance Insurance [address] [place] [phone] [facility] [employer]ENTION OPTIONS (O D-SNP) JASEN CORTES [phone] Care Teams Freelance Photographer Relationship Specialty Start Date End Date Name, MD Suresh [address] [place] [phone] PCP - General Family Medicine 11/18/17
--- OUTSIDE RECORDS SUMMARY | 2025-02-18 07:08 | XMS_ITS | Encounter Summary ---
Author Organization [employer] Address [address] [facility] 7t [place] [address] Care Team Providers Care Rn Hospital Name Role Phone Name, Suresh BENJAMIN Primary Care Provider [phone] Reason for Visit * Reason Comments Med Refill Encounter Details Date Type Department Care Team (Late st Contact Info) Description 12/01/2022 Refill [facility] [address] [place] [address] Michelle Hernandez, PIPE FINISHER [address] [place] [address] Tinea; Pain Social History Tobacco Use Types [...] pain documented in this encounter Care Teams Rn Hospital Relationship Specialty Start Date End Date Name, MD Suresh [address] [place] [address] PCP - General Family Medicine 11/18/17 documented as of this encounter
--- OUTSIDE RECORDS SUMMARY | 2025-02-18 07:08 | XMS_ITS | Encounter Summary ---
Author Organization [employer] Address [address] [facility] [address] [place] [address] Care Team Providers Care Link Assembler Name Role Phone Name, Suresh BENJAMIN Primary Care Provider [phone] Reason for Visit * Reason Comments Med Refill Encounter Details Date Type Department Care Team ([facility] st Contact Info) Description 01/02/2023 Refill [facility] [address] [place] [address] Name, MD Suresh [address] [place] [address] Type 2 diabetes mellitus with other circulatory [...] laterality documented in this encounter Care Teams Link Assembler Relationship Specialty Start Date End Date Name, MD Suresh [address] [place] [address] PCP - General Family Medicine 11/18/17 documented as of this encounter
--- OUTSIDE RECORDS SUMMARY | 2025-02-18 07:08 | XMS_ITS | Encounter Summary ---
Author Organization [facility] [facility] Address [address] [facility] [address] [place] [address] Care Team Providers Care Deputy Manager Name Role Phone Name, Suresh BENJAMIN Primary Care Provider [phone] Encounter Details Date Type Department Care Team ([facility] st Contact Info) Description 09/27/2022 Orders Only [facility] [address] [place] [address] Name, MD Suresh [address] [place] [address] Social History Tobacco Use Types Packs/Day Years [...] 8 AM EDT 01/16/2023 11:29 AM EDT Comment:[facility] Narrative [facility] - 01/17/2023 1:11 PM EDT Urine Culture Report Result Urine Culture < 10,000 cfu/ml Specimen Source: Urine clean catch us [facility] Exter nal Provider LAB MICROBIOLOGY - GENERAL ORDERABLES Final Result [facility] [address] [place] [address] [phone] * Protein Creatinine Ratio, Urine (01/16/2023 10:20 AM EDT) Protein, Total, Random Urine 10 <12 mg/dL [facility] Protein/Creatin ine Ratio, Ur 0.07 <0.2 [facility] Comment:The spot urine prote in:creatinine ratio may increase to 0.3during normal . 01/16/2023 10:2 0 AM EDT 01/16/2023 11:29 AM EDT [facility] External Provider LAB URI NE ORDERABLES Final Result Performing Organization Address [facility] de Phone Number [facility] [address] [place] [address] [phone] * Albumin, Random Urine W/Creatinine (01/16/2023 10:20 AM EDT) Creatinine, Urine 147.17 mg/dL [facility] Microalbumin Urine 23.0 mg/L [facility] Microalbum Creatinine Ratio Ur 15.6 ug/mg cr [facility] Comment:Albumin/Creatinine R atio Reference Ranges: Normal: < 30 ug/mg creatinine Microalbuminuria: 30 - 300 ug/mg creatinineClinical Albuminuria: > 300 ug/mg creatinine 01/16/2023 10:2 0 AM EDT 01/16/2023 11:29 AM EDT [facility] External Provider LAB URI NE ORDERABLES Final Result Performing Organization Address [facility]/ZIP Co de Phone Number [facility] [address] [place] [address] [phone] * (ABNORMAL) Urinalysis Complete (01/16/2023 10:20 AM EDT) Color Urine Yellow [facility] Appearance Urine Clear [facility] PH 6.0 5.0 - 9.0 [facility] Glucose Urine UA Negative Negative mg/dL [facility] Urine Blood Negative Negative [facility] Specific [place] - Urine 1.020 1.005 - 1.025 [facility] Urine Protein Negative Neg-Trace mg/dL [facility] Urine Ketones Negative Negative mg/dL [facility] Nitrite Urine Negative Negative [facility] Leukocyte Esterase Urine Moderate (2+)(A) Negative [facility] RBC Urine 0-2 0 - 2 /HPF [facility] Urine WBC 11-20(A) 0 - 5 /HPF [facility] Urine Squamous Epithelial Cell 0-2 0 - 2 /HPF [facility] Urine Bacteria None Seen None Seen [facility] Hyaline Casts, Urine 0-2 0 - 2 /LPF [facility] 01/16/2023 10:2 0 AM EDT 01/16/2023 11:29 AM EDT us [facility] External Provider LAB URI NE ORDERABLES Final Result [facility] [address], [place] [phone] * (ABNORMAL) PTH, Intact Without Calcium (01/16/2023 10:10 AM EDT) PTHI 20 16 - 77 pg/mL [facility] Comment:Interpretive Guide I ntact PTH Calcium -------Normal Parathyroid Normal NormalHypoparathyroidism Low or Low Normal LowHyperparathyroidism Primary Normal or High High Secondary High Normal or Low Tertiary High HighNon-Parathyroid Hypercalcemia Low or Low Normal High Calcium (PTHI) 10.7(A) 8.6 - 10.4 mg/dL [facility] Comment:THIS TEST WAS PERFOR MED AT:[email or web address] [place] [id number] LEAHY MD 01/16/2023 10:1 0 AM EDT 01/16/2023 11:26 AM EDT [facility] External Provider LAB BLO OD ORDERABLES Final Result [facility] [address] [place] [address] [phone] * Vitamin D, 25-Hydroxy, Total, Immunoassay (01/16/2023 10:10 AM EDT) Vitamin D 25-OH Total 42.7 >30 ng/mL [facility] Comment:Health Based Referen ce Values*< 20 ng/mL Xhrnhpqil62-42 ng/mL Insufficient> 30 ng/mL Sufficient*Whitney MARS. N [...] 0 AM EDT 01/16/2023 11:26 AM EDT [facility] External Provider LAB BLO OD ORDERABLES Final Result [facility] [address] [place] [address] [phone] * Albumin (01/16/2023 10:10 AM EDT) Albumin Level 4.2 3.5 - 5.0 g/dL [facility] 01/16/2023 10:1 0 AM EDT 01/16/2023 11:26 AM EDT [facility] External Provider LAB BLO OD ORDERABLES Final Result Performing Organization Address [facility] Co de Phone Number [facility] [address] [place] [phone] * Magnesium (01/16/2023 10:10 AM EDT) Magnesium 1.7 1.6 - 2.6 mg/dL [facility] 01/16/2023 10:1 0 AM EDT 01/16/2023 11:26 AM EDT [facility] External Provider LAB BLO OD ORDERABLES Final Result Performing Organization Address [facility] Phone Number [facility] [address] [place] [phone] * Phosphate (As Phosphorus) (01/16/2023 10:10 AM EDT) Phosphorus 3.6 2.7 - 4.5 mg/dL [facility] 01/16/2023 10:1 0 AM EDT 01/16/2023 11:26 AM EDT [facility] External Provider LAB BLO OD ORDERABLES Final Result Performing Organization Address [facility] de Phone Number [facility] [address] [place] [phone] * (ABNORMAL) Calcium (01/16/2023 10:10 AM EDT) Calcium 10.4(H) 8.4 - 10.2 mg/dL [facility] 01/16/2023 10:1 0 AM EDT 01/16/2023 11:26 AM EDT [facility] External Provider LAB BLO OD ORDERABLES Final Result Performing Organization Address [facility]/ZIP Co de Phone Number [facility] [address] [place] [address] [phone] * Creatinine, Serum (01/16/2023 10:10 AM EDT) Creatinine, Serum 1.06 0.5 - 1.4 mg/dL [facility] Estimated Glomerular Filt Rate 50 [facility] Comment:NOTE: For -Am erican individuals, multiply the result by 1.210.Chronic Kidney Disease: Estimated GFR < 60 mL/min/1.90f4Fzhjqa Kidney Disease: Estimated GFR < 15 mL/min/1.73m2 01/16/2023 10:1 0 AM EDT 01/16/2023 11:26 AM EDT [facility] External Provider LAB BLO OD ORDERABLES Final Result Performing Organization Address [facility] Co de Phone Number [facility] [address] [place] [phone] * (ABNORMAL) BUN (Blood Urea Nitrogen) (01/16/2023 10:10 AM EDT) Urea Nitrogen (BUN) 27(H) 9 - 16 mg/dL [facility] 01/16/2023 10:1 0 AM EDT 01/16/2023 11:26 AM EDT [facility] External Provider LAB BLO OD ORDERABLES Final Result Performing Organization Address City/[facility]/ZIP Co de Phone Number [facility] [address] [place] [phone] * Electrolyte Panel (01/16/2023 10:10 AM EDT) Sodium 140 135 - 145 mmol/L [facility] Potassium 4.0 3.3 - 5.1 mmol/L [facility] Chloride 102 96 - 108 mmol/L [facility] Carbon Dioxide 28 22 - 29 mmol/L [facility] Anion Gap 14 12 - 20 [facility] 01/16/2023 10:1 0 AM EDT 01/16/2023 11:26 AM EDT [facility] External Provider LAB BLO OD ORDERABLES Final Result Performing Organization Address [facility] Co de Phone Number [facility] [address] [place] [address] [phone] * Lipid Panel, Standard (01/16/2023 10:10 AM EDT) Triglycerides 260 mg/dL [facility] Comment:Desirable Triglyceri de: less than 150 mg/dLBorderline High Triglyceride 150-199 mg/dLHigh Triglyceride: 200-499 mg/dLVery High Triglyceride: greater than or equal to 5OO mg/dL Cholesterol 180 mg/dL [facility] Comment:Desirable Cholestero l: less than 200 mg/dLBorderline High Cholesterol: 200-239 mg/dLHigh Cholesterol: greater than 239 mg/dL LDL Cholesterol Calculated 94 mg/dl [facility] Comment:Desirable LDL: less than 100 mg/dLNear Optimal/Above Optimal LDL: 110- 129 mg/dLBorderline High LDL: 130-159 mg/dLHigh LDL: 160-189 mg/dLVery High LDL: greater than or equal to 190 mg/dL HDL Cholesterol 34 mg/dL [facility] Comment:Desirable HDL: great er than 40 mg/dL Note: This HDL assay may give artificially low results in patients with liver disease. 01/16/2023 10:1 0 AM EDT 01/16/2023 11:26 AM EDT [facility] External Provider LAB BLO OD ORDERABLES Final Result Performing Organization Address [facility] Co de Phone Number [facility] [address] [place] [address] [phone] * (ABNORMAL) Comprehensive Metabolic Panel, Fasting (01/16/2023 10:10 AM EDT) Sodium 140 135 - 145 mmol/L [facility] Potassium 4.0 3.3 - 5.1 mmol/L [facility] Chloride 101 96 - 108 mmol/L [facility] Carbon Dioxide 29 22 - 29 mmol/L [facility] Anion Gap 14 12 - 20 [facility] Urea Nitrogen (BUN) 27(H) 9 - 16 mg/dL [facility] Creatinine, Serum 1.08 0.5 - 1.4 mg/dL [facility] Estimated Glomerular Filt Rate 49 [facility] Comment:NOTE: For -Am erican individuals, multiply the result by 1.210.Chronic Kidney Disease: Estimated GFR < 60 mL/min/1.01g5Sqaexn Kidney Disease: Estimated GFR < 15 mL/min/1.73m2 Glucose Fasting 164(H) 60 - 99 mg/dL [facility] Comment:A fasting glucose of 126 mg/dl or greater on more than oneoccasion is considered diagnostic of diabetes. Calcium 10.4(H) 8.4 - 10.2 mg/dL [facility] Bilirubin, Total 0.4 0.0 - 1.0 mg/dL [facility] Aspartate Amino Transferase 19 5 - 31 U/L [facility] Alanine Aminotransferase 13 0 - 31 U/L [facility] Total Protein 7.3 6.5 - 8.0 g/dL [facility] Albumin Level 4.2 3.5 - 5.0 g/dL [facility] Alkaline Phosphatase 51 39 - 117 U/L [facility] 01/16/2023 10:1 0 AM EDT 01/16/2023 11:26 AM EDT [facility] External Provider LAB BLO OD ORDERABLES Final Result [facility] [address] [place] [phone] * CBC auto differential (01/16/2023 10:10 AM EDT) Pathologist [facility] White Blood Count 7.5 4.8 - 10.8 X10*3/uL [facility] Red Blood Count 4.35 4.20 - 5.50 X10*6/uL [facility] Hemoglobin 12.2 12.0 - 16.0 g/dl [facility] Hematocrit 37.9 37.0 - 47.0 % [facility] Mean Corpuscular Volume 87.1 80.0 - 98.0 fL [facility] Mean Corpuscular Hemoglobin 28.0 27.0 - 33.0 pg [facility] Mean Corpuscular HGB Conc 32.2 31.0 - 35.0 g/dl [facility] Red Cell Distribution Width 14.0 11.0 - 16.0 % [facility] Platelet Count 334 160 - 400 X10*3/uL [facility] Mean Platelet Volume 10.4 9.4 - 12.3 fL [facility] Neutrophils Percent Auto 56.2 45 - 73 % [facility] Imm Gran Pct Auto 0.4 0.0 - 0.4 % [facility] Lymphocytes Percent Auto 29.1 20 - 40 % [facility] Monocytes Percent Auto 10.1 2 - 11 % [facility] Eosinophils Percent Auto 3.5 0 - 4 % [facility] Basophils Percent Auto 0.7 0 - 2 % [facility] NRBC Pct Auto 0.0 0.0 - 0.2 /100WBC [facility] Neutrophils Absolute Auto 4.2 2.0 - 8.3 x10*3/uL [facility] Imm Gran Abs Auto 0.03 0.00 - 0.03 X10*3/uL [facility] Lymphocytes Absolute Auto 2.2 1.2 - 4.9 X10*3/uL [facility] Monocytes Absolute Auto 0.8 0.1 - 1.2 X10*3/uL [facility] Eosinophils Absolute Auto 0.3 0.0 - 0.4 X10*3/uL [facility] Basophils Absolute Auto 0.1 0.0 - 0.2 X10*3/uL [facility] NRBC Abs Auto 0.000 0.0 - 0.012 X10*3/uL [facility] 01/16/2023 10:1 0 AM EDT 01/16/2023 11:26 AM EDT [facility] External Provider LAB BLO OD ORDERABLES Final Result [facility] [address] [place] [address] [phone] documented in this encounter Visit Diagnoses Not on filedocumented in this encounter Care Teams Deputy Manager Relationship Specialty Start Date End Date Name, MD Suresh [address] [place] [address] PCP - General Family Medicine 11/18/17 documented as of this encounter
--- OUTSIDE RECORDS SUMMARY | 2025-02-18 07:08 | XMS_ITS ---
Author Organization [facility] Address [address] [place] [address] Care Team Providers Care Economic Analysis Director Name Role Phone Name Suresh BENJAMIN Primary Care Provider Juanpablo Medina Jr Unavailable [phone] Allergies Allergen (clinical drug ingredient) Drug/Non Drug Allergy documented on EMR Reaction Allergy Type Onset Date Status Sulfa blisters Drug Allergy Active ciprofloxacin Cipro itching Drug Allergy Act berta REASON FOR VISIT Patient presents today for abd pain Medications Medication SIG (Take, Route, Frequency, Duration) [...] Once a day Active Vitamin D3 Active Cameron 3 1000 MG 1 capsule Orally twi ce a day Active NovoLOG 70/30 FlexPen ReliOn Active Gabapentin 300 MG 1 capsule Orally Onc e a day for 30 day(s) Active Vital Signs Temperature 97.7 degrees Fahrenheit 01/25/20 24 Blood pressure systolic 000 mm Hg 01/25/20 24 Blood pressure diastolic 00 mm Hg 024 Height 59.5 in 01/25/2024 Weight 147 lbs 01/25/2024 BMI 29.19 kg/m2 01/25/2024 Encounters Encounter Location Date Provider Diagnosis [facility] [address] [place] [address] 01/25/2024 Juanpablo Madsen Jr Gastroesophageal reflux disease without esophagitis K21.9 and Dysphagia, unspecified type R13.10 Assessments Encounter Date Diagnosis (ICD Code) Assessment Notes Treatment Notes Treatment Clinical Notes Section Notes 01/25/2024 Gastroesophageal reflux disease without esophagitis (ICD-10 - K21.9) Gastroesophageal reflux disease material was printed She will use omeprazole 20 mg b.i.d. for better control of her symptoms. Followup will be in 12 months. She does seem to benefit from periodic esophageal dilations for her esophageal dysmotility and she will call if she has worsening symptoms. 01/25/2024 Dysphagia, unspecified type (ICD-10 - R13.10) She will use omeprazole 20 mg b.i.d. for better control of her symptoms. Followup will be in 12 months. She does seem to benefit from periodic esophageal dilations for her esophageal dysmotility and she will call if she has worsening symptoms. Plan Of Treatment Medication Medication Name Sig Start Date Stop Date Notes Omeprazole 20 MG 1 Orally Twice a day for 30 days 02/08/20 24 Treatment Notes Assessment Notes Gastroesophageal reflux dise ase without esophagitis Gastroesophageal reflux disease material was printed Next Appt Details Follow Up: 1 Year, Reason: Provider Name:Juanpablo cordon Jr, 03/30/2025 02:35:00 PM, [address], [address], [place], [address], Progress Notes * STEPHON AGUILERA:[birth year] (78 yo F)Acc No.[id number]:01/25/2024 Progress Notes Patient:CL LAWSON Provider:?Juanpablo Madsen MD :1945???Age:78 Y???Sex:Female D ate:01/25/2024 Address:[address] [place], [place] [id number] Pcp:Suresh Rosenthal MD Subjective: * Chief Complaints: * ???1. Patient presents today for abd pain. * HPI: ???New symptom(s):? The patient is a pleasant 78-year-old woman seen today in followup of gastroesophageal reflux disease and dysphagia. She was last seen in April of 2022 and underwent upper endoscopy with balloon dilation. Since that time, she's done well. She has had some reflux despite omeprazole 20 mg daily. We discussed increasing the dose to 20 mg b.i.d. today. * Medical History:?Gastroesoph ageal reflux disease with esophageal dysmotility, last upper endoscopy with balloon dilation 05/09., coronary artery disease,status-post BELT CUTTER stent placement, Diabetes with diabetic neuropathy, Hyperlipidemia, Degenerative joint disease, Colonoscopy 2017, tubular adenoma, followup optional based on age., Stroke -2017. * Surgical History:?cholecyste ctomy , hysterectomy , cleaned out artery 02/02/2018. * Family History:?Father: dece ased.?Mother: , diagnosed with Diabetes.?Children: pancreatic cancer - daughter.? No family history of liver cancer or colon cancer. Sister had pancreatic cancer. * Social History:?Tobacco Use:?Tobacco Use/Smoking?Are you a: nonsmoker.?Drugs/Alcohol:?Alcohol Screen?Points: 0, Interpretation: Negative.?Miscellaneous:?Marital status: . Occupation: unemployed. * Medications:?Taking Vitamin D3 , Taking Vitamin D 50 MCG (2000 UT) Capsule 1 tablet Orally Once a day, Taking NovoLOG 70/30 FlexPen ReliOn , Taking Cameron 3 1000 MG Capsule 1 capsule Orally twice a day, Taking Gabapentin 300 MG Capsule 1 capsule Orally Once a day, Taking Fenofibrate 54 MG Tablet 1 tablet with food Orally Once a day, Taking Acetaminophen ER 650 MG Tablet Extended Release 2 tablets as needed Orally every 8 hrs, Taking Aspir-Low 81 MG Tablet Delayed Release 1 tablet Orally Once a day, Taking busPIRone HCl 30 MG Tablet 1 tablet Orally once a day, Taking Atorvastatin Calcium 80 MG Tablet 1 tablet Orally Once a day, Taking amLODIPine Besylate 10 MG Tablet 1 tablet Orally Once a day, Taking Acarbose 100 MG Tablet as directed Oral three times a day, Taking traMADol HCl 50 MG Tablet 1 tablet as needed Orally TID, Taking Metoprolol Succinate ER 100 MG Tablet Extended Release 24 Hour 1 tablet Orally twice a day, Taking Omeprazole 20 MG Capsule Delayed Release 1 capsule Orally Twice daily, Taking Trulicity 1.5 MG/0.5ML Solution Pen-injector 0.5ml Subcutaneous once a week, Taking Tresiba FlexTouch 200 UNIT/ML Solution Pen- injector 100 units Subcutaneous QD, Taking Losartan Potassium-HCTZ 100-25 MG Tablet 1 tablet Orally Once a day, Taking Melatonin 3 MG Tablet 1 capsule at bedtime as needed with food Orally Once a day/bedtime, Medication List reviewed and reconciled with the patient * Allergies:?Sulfa: blisters, Cipro: itching. Objective: * Vitals:?Wt: 147 lbs, Ht: 59. 5 in, BMI:29.19 Index, BP: 000/00 mm Hg, Temp: 97.7. * Examination: ???General Examination: ???On examination today, she appears well. Skin is anicteric. Lungs are clear. Heart shows regular rate and rhythm. Abdomen is soft without focal mass or tenderness. Assessment: * Assessment: 1.?Gastroesophageal reflux d isease without esophagitis - K21.9 (Primary)?2.?Dysphagia, unspecified type - R13.10? She will use omeprazole 20 m g b.i.d. for better control of her symptoms. Followup will be in 12 months. She does seem to benefit from periodic esophageal dilations for her esophageal dysmotility and she will call if she has worsening symptoms. Plan: * Treatment: * Procedure Codes:?G9903 Pt sc rn tbco id as non user, G9745 DOC RSN FOR NOT SCREEN/REC F/U HBP * Preventive Medicine:? ??Counseling:?Care goal follow-up plan:?Above Normal BMI Follow-up?Giving encouragement to exercise,?BMI management provided?Yes.? ??Urinary Incontinence:?Urinary Incontinence?Assessment:?Absent,?Plan of care documented:?No, reason not specified.? * Follow Up:?1 Year * * Sign off status: Completed true * Provider:?Juanpablo Madsen MD Date:?0 01/25/2024 Generated for [facility] henok/Chuckie/eTransmitting on:?02/18/2025 07:07 AM EDT History and Physical Notes * HPI (History of Present Illness) Category Sub-Category Detail Notes Category Not es New symptom(s) The patient i s a pleasant 78-year-old woman seen today in followup of gastroesophageal reflux disease and dysphagia. She was last seen in April of 2022 and underwent upper endoscopy with balloon dilation. Since that time, she's done well. She has had some reflux despite omeprazole 20 mg daily. We discussed increasing the dose to 20 mg b.i.d. today. Examination Category Sub-Category Detail Notes Category Not es General Examination On exami nation today, she appears well. Skin is anicteric. Lungs are clear. Heart shows regular rate and rhythm. Abdomen is soft without focal mass or tenderness.
--- OUTSIDE RECORDS SUMMARY | 2025-02-18 07:08 | XMS_ITS | Encounter Summary ---
Author Organization [employer] Address [address] [facility] [address] [place] [address] Care Team Providers Care Brazer Electronic Name Role Phone Name, Suresh BENJAMIN Primary Care Provider [phone] Reason for Visit * Reason Comments Med Refill Encounter Details Date Type Department Care Team ([facility] st Contact Info) Description 08/12/[address] [facility] [address] [place] [address] Michelle Hernandez, REWORK OPERATOR [address] [place] [address] Type 2 diabetes mellitus with hyperglycemia, with long-term current use of insulin ([facility]) Social History Tobacco Use Types Packs/Day Years [...] hyperglycemia, with long-term current use of insulin ([facility]) documented in this encounter Care Teams Brazer Electronic Relationship Specialty Start Date End Date Name, MD Suresh [address] [place] [address] PCP - General Family Medicine 11/18/17 documented as of this encounter
--- OUTSIDE RECORDS SUMMARY | 2025-02-18 07:08 | XMS_ITS | Encounter Summary ---
Author Organization [employer] Address [address] [facility] [address] [place] [address] Care Team Providers Care Auto Brake Mechanic Name Role Phone Name, Suresh BENJAMIN Primary Care Provider [phone] Reason for Visit * Reason Comments Med Refill Encounter Details Date Type Department Care Team ([facility] st Contact Info) Description 06/17/2024 Refill [facility] [address] [place] [address] Renata Ballard, PRICILA [address] [place] [address] Chronic low back pain without sciatica, unspecified [...] documented as of this encounter Care Teams Auto Brake Mechanic Relationship Specialty Start Date End Date Name, MD Suresh [address] [place] [phone] PCP - General Family Medicine 11/18/17 documented as of this encounter
--- OUTSIDE RECORDS SUMMARY | 2025-02-18 07:08 | XMS_ITS | Encounter Summary ---
Author Organization [employer] Address [address] [facility] [address] [place] [address] Care Team Providers Care Surgical Processor Name Role Phone Name, Suresh BENJAMIN Primary Care Provider [phone] Encounter Details Date Type Department Care Team ([facility] st Contact Info) Description 11/13/[address] [facility] [address] [place] [address] Name, MD Suresh [address] [place] [address] Social History Tobacco Use Types Packs/Day Years [...] on filedocumented in this encounter Care Teams Surgical Processor Relationship Specialty Start Date End Date Name, MD Suresh [address] [place] [address] PCP - General Family Medicine 11/18/17 documented as of this encounter
--- OUTSIDE RECORDS SUMMARY | 2025-02-18 07:08 | XMS_ITS | Encounter Summary ---
Author Organization [facility] [facility] [employer] Address [address] [facility] 7t [place] [address] Care Team Providers Care Real Estate Account Executive Name Role Phone Name, Suresh BENJAMIN Primary Care Provider [phone] Reason for Visit * Reason Onset Date Comments Med Refill 06/23/2023 Encounter Details Date Type Department Care Team (Late st Contact Info) Description 06/23/2023 Refill [facility] MED[facility]INE [address] [place] [address] Michelle Hernandez, CASTING TESTER [address] [place] [address] Routine health maintenance Social History Tobacco Use [...] examination documented in this encounter Care Teams Real Estate Account Executive Relationship Specialty Start Date End Date Name, MD Suresh [address] [place] [address] PCP - General Family Medicine 11/18/17 documented as of this encounter
--- OUTSIDE RECORDS SUMMARY | 2025-02-18 07:08 | XMS_ITS | Data Portability ---
Author Organization [place] - [facility], Allergy Address [address] [place] [address] Care Team Providers Care Ex Chef Name Role Phone NAME, JADA Primary Care [...] sensorine ural hearing loss of right ear [id number] 105 Active 2017 Mixed conductiv e and sensorine ural hearing loss, unilatera l, right ear with restricte d hearing on the contralat eral side; Note: Date Diagnosed : 01/07/2018 1:52 PM (H90.A31) Not Available [facility] 4 02:26:28 Seborrhei c dermatiti s [id number] Active 2022 Seborrhei c dermatiti s, unspecifi ed; Note: Date Diagnosed : 03/25/2023 4:15 PM (L21.9) Not Available [facility] 4 02:26:46 Central perforati on of left tympanic membrane [id number] 60410 Active 2016 Central perforati on of tympanic membrane, left ear; Note: Date Diagnosed : 03/06/2017 2:34 PM (H72.02) Not Available [facility] 4 02:26:48 Impacted cerumen of bilateral ears [id number] 36281 Active 2017 Impacted cerumen, bilateral ; Note: Date Diagnosed : 8 1:01 PM (H61.23) Not Available [facility] 4 02:26:40 Sensorine ural hearing loss in left ear 47306162094 109 Active 2017 Sensorine ural hearing loss, unilatera l, left ear, with restricte d hearing on the contralat eral side; Note: Date Diagnosed : 01/07/2018 1:52 PM (H90.A22) Not Available [facility] 4 02:26:42 Sensorine ural hearing loss of bilateral ears 088208126 Active 2015 Sensorine ural hearing loss, bilateral ; Note: Date Diagnosed : 6 1:26 PM (H90.3) Not Available [facility] 4 02:26:17 Impacted cerumen in left ear 95340780845 32020 Active 2017 Impacted cerumen, left ear; Note: Date Diagnosed : 11/24/2017 1:55 PM (H61.22) Not Available [facility] 4 02:26:44 Diffuse otitis externa 66750837 Active 2016 Diffuse otitis externa, left ear; Note: Date Diagnosed : 08/24/2017 11:10 AM (H60.312) Not Available [facility] 4 02:26:26 Mixed conductiv e and sensorine ural hearing loss, bilateral 945012505 Active 11/25/ 2016 Mixed conductiv e and sensorine ural hearing loss, bilateral ; Note: Date Diagnosed : 6 11:59 AM (H90.6) Not Available [facility] 4 02:26:25 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 13660293656 65718 Active 2016 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 , bilateral ; Location: bilateral Note: Date Diagnosed : 08/24/2017 11:10 AM (H61.323) Not Available [facility] 4 02:26:49 Stenosis of bilateral external ear canals due to and following inflammat ion 91841702195 53545 Active 2016 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 , bilateral ; Location: bilateral Note: Date Diagnosed : 08/24/2017 11:10 AM (H61.323) Not Available [facility] 4 02:26:49 Disorder of nasal sinus 2694461 Active 2019 Other specified disorders of nose and nasal sinuses; Note: Date Diagnosed : 06/22/2020 12:34 PM (J34.8) Not Available [facility] 4 02:26:41 Disorder of the nose 91542813 Active 2019 Other specified disorders of nose and nasal sinuses; Note: Date Diagnosed : 06/22/2020 12:34 PM (J34.8) Not Available [facility] 4 02:26:42 Itching of skin 354196282 Active 2023 MERVIN JERONIMO PA-C [address] [place] [address] [place], [address] , [facility] - [facility] 4 15:15:24 Problem Notes None recorded. Medical Equipment None Reported. Allergies Allergen ID Allergen Name Allergen Category Reaction Reaction Severity Criticality Documentation Date Start Date Code Code System Note Provider Name and Address Organization Details Recorded Time 250744 Cipro medicatio n Not available Not available Not available 10/05/2024 56699 3 RxNorm Nandini lowe [place] - [facility] 4 14:42:48 274929 trimethop rim medicatio n Not available Not available Not available 10/05/2024 17484 RxNorm Nandini lowe [place] - [facility] 4 14:42:56 91627 Substance with sulfonami de structure and antibacte rial mechanism of action (substanc e) medicatio n other Not available Not available 03/01/2024 28454 8003 SNOMED React ion: unkno wn, unspe cifie d;; Not Available [facility] 4 00:57:24 Medications Name Sig Start Date Stop Date Status Note LastModified by Organization Details LastModified Time atorvasta tin 40 mg tablet 04/09 completed Medicati on ID: [id number] D uration Value: 90 Reason: () Brand Name: atorvast atin Sen d Method: E-Prescr ibed Sub s Allowed: subs OK Speci al Instruct ion: TAKE 1 TABLET BY MOUTH EVERY DAY Medi cationGe nericNam e: atorvast atin Not Available Not Available Not Available atorvasta tin 80 mg tablet 2017 active Medicati on ID: [id number] D uration Value: 30 Brand Name: atorvast [...] mg tablet 04/09 completed Medicati on ID: [id number] D uration Value: 90 Reason: () Brand Name: atorvast atin Sen d Method: E-Prescr ibed Sub s Allowed: subs OK Speci al Instruct ion: TAKE 1 TABLET (20MG) BY ORAL ROUTE EVERY DAY Medi cationGe nericNam e: atorvast atin Not Available Not Available Not Available triamcino lone acetonide 0.5 % topical cream 06/22 completed Medicati on ID: 375340 D uration Value: 7 Reason: () Brand [...] mg tablet 10/05 completed Medicati on ID: [id number] D uration Value: 30 Brand Name: senna Se nd Method: E-Prescr ibed Sub s Allowed: subs OK Speci al Instruct ion: TAKE 2 TABLET BY ORAL ROUTE EVERY DAY NEEDED FOR CONSTIPA TION Med icationG enericNa me: senna Not Available Not Available Not Available clonazepa m 0.5 mg tablet 06/22 completed Medicati on ID: [id number] D uration Value: 30 Reason: () Brand Name: clonazep am Send Method: E-Prescr ibed Sub s Allowed: subs OK Medic ationGen ericName : clonazep am Not Available Not Available Not Available betametha sone, augmented 0.05 % topical cream active Medicati on ID: 396328 D uration Value: 7 Brand Name: betameth [...] topical ointment 10/05 completed Medicati on ID: [id number] D uration Value: 14 Brand Name: triamcin olone acetonid e Send Method: E-Prescr ibed Sub s Allowed: subs OK Speci al Instruct ion: APPLY TWICE A DAY TO AFFECTED AREA FOR 2 WEEKS,TH EN DAILY FOR 2 WEEKS Me dication GenericN jeffry: triamcin olone acetonid e Not Available Not Available Not Available melatonin 3 mg tablet 10/05 completed Medicati on ID: [id number] D uration Value: 30 Brand Name: doc n Send Method: E-Prescr ibed Sub s Allowed: subs OK Medic ationGen ericName : melatoni n Not Available Not Available Not Available clopidogr el 75 mg tablet 2015 active Medicati on ID: 576530 D uration Value: 90 Brand Name: clopidog [...] ear drops 06/22 completed Medicati on ID: 571327 D uration Value: 10 Reason: () Brand [...] mg capsule 10/05 completed Medicati on ID: [id number] D uration Value: 30 Brand Name: docusate [...] a day 10/05 completed Medicati on ID: 173516 D uration Value: 14 Prescri bed By Name: CRISTOFER [place] nd Name: mupiroci n Send Method: E-Prescr ibed Sub s Allowed: subs OK Medic ationGen ericName : mupiroci n Not Available Not Available Not Available mirtazapi ne 15 mg tablet 10/05 completed Medicati on ID: 658980 D uration Value: 30 Brand Name: mirtazap ine Send Method: E-Prescr ibed Sub s Allowed: subs OK Speci al Instruct ion: TAKE 1 TABLET BY MOUTH AT BEDTIME Medicati onGeneri cName: mirtazap ine Not Available Not Available Not Available gabapenti n 100 mg capsule 04/09 completed Medicati on ID: [id number] D uration Value: 90 Reason: () Brand [...] nasal spray 06/22 completed Medicati on ID: [id number] D uration Value: 90 Reason: () Brand [...] topical cream 10/05 completed Medicati on ID: [id number] D uration Value: 45 Brand Name: clotrima zole Sen d Method: E-Prescr ibed Sub s Allowed: subs OK Medic ationGen ericName : clotrima zole Not Available Not Available Not Available Ventolin HFA 90 mcg/actua tion aerosol inhaler 2016 active Medicati on ID: [id number] D uration Value: 17 Brand Name: Ventolin HFA Send Method: E-Prescr ibed Sub s Allowed: subs OK Speci al Instruct ion: INHALE 2 PUFF BY INHALATI ON ROUTE EVERY 4 - 6 HOURS NEEDED M edicatio nGeneric Name: Ventolin HFA Not Available Not Available Not Available buspirone 15 mg tablet 06/22 completed Medicati on ID: 332952 D uration Value: 30 Reason: () Brand Name: buspiron e Send Method: E-Prescr ibed Sub s Allowed: subs OK Speci al Instruct ion: TAKE 1 1/2 TABLET BY MOUTH TWICE A DAY Medi cationGe nericNam e: buspiron e Not Available Not Available Not Available Estrace 0.01% (0.1 mg/gram) vaginal cream 06/22 completed Medicati on ID: [id number] D uration Value: 90 Reason: () Brand [...] drops,oswaldo pension 10/05 completed Medicati on ID: 590388 D uration Value: 14 Prescri bed By [...] 4 drop 10/05 completed Medicati on ID: [id number] D uration Value: 14 Prescri bed By [...] gram capsule 10/05 completed Medicati on ID: [id number] D uration Value: 90 Brand Name: omega-3 acid ethyl esters S end Method: E-Prescr ibed Sub s Allowed: subs OK Medic ationGen ericName : omega-3 acid ethyl esters Not Available Not Available Not Available Pain Relief Extra Strength (acetamin ophen) 500 mg tablet 10/05 completed Medicati on ID: [id number] D uration Value: 30 Brand Name: Pain Relief Extra Strength Send Method: E-Prescr ibed Sub s Allowed: subs OK Speci al Instruct ion: TOME DOS TABLETAS POR VIA ORAL KACI VECES AL SUNSHINE CUANDO SEA NECESARI O FOR 30 DAYS Med icationG enericNa me: Pain Relief Extra Strength Not Available Not Available Not Available Diphenhis t 06/22 completed Medicati on ID: 982078 D uration Value: 1 Reason: () Brand Name: Diphenhi st Send Method: E-Prescr ibed Sub s Allowed: subs OK Speci al Instruct ion: TAKE 20 ML BY MOUTH EVERY 4 HOURS - EVERY 6 HOURS NEEDED M edicatio nGeneric Name: Diphenhi st Not Available Not Available Not Available fenofibra te nanocryst allized 145 mg tablet 06/22 completed Medicati on ID: [id number] D uration Value: 90 Reason: () Brand Name: fenofibr ate nanocrys tallized Send Method: E-Prescr ibed Sub s Allowed: subs OK Speci al Instruct ion: TAKE 1 TABLET BY MOUTH EVERY DAY Medi cationGe nericNam e: fenofibr ate nanocrys tallized Not Available Not Available Not Available Lantus Solostar U-100 Insulin 100 unit/mL (3 mL) subcutane ous pen 2015 active Medicati on ID: [id number] D uration Value: 30 Brand Name: Lantus Solostar Send Method: E-Prescr ibed Sub s Allowed: subs OK Speci al Instruct ion: INJECT 50 UNITS TWICE A DAY Medi cationGe nericNam e: Lantus Solostar Not Available Not Available Not Available Humalog KwikPen (U-100) Insulin 100 unit/mL subcutane ous 10/05 completed Medicati on ID: [id number] D uration Value: 30 Brand Name: Humalog [...] mg tablet 2019 active Medicati on ID: [id number] D uration Value: 90 Brand Name: fahadatorashmi n Send Method: E-Prescr ibed Sub s Allowed: subs OK Speci al Instruct ion: TAKE 1 TABLET BY MOUTH EVERY DAY Medi cationGe nericNam e: melatoni n Not Available Not Available Not Available Systane Balance 0.6 % eye drops 2015 active Medicati on ID: [id number] B rand Name: Systane Balance Send Method: [...] SNOMED-CT Code Diagnosis ICD10 Code Diagnosis Note 08422 MERVIN JERONIMO PA-C [facility] [address] [place] [address] 10/05/2024 14:33:22 10/05/2024 15:12:17 Itching of skin [id number] L29.9 Sensorineu ral hearing loss of bilateral ears 010275496 H90.3 Health Concerns Section Related Observation LastModified by Organization Detai ls LastModified Time None Recorded Concern Status LastModified by Organization Details LastModified Time None Recorded Advance Directives Directive None Recorded Payers Encounter Date Sequence Insurance Name Policy Number Policy Mendoza Covered Member ID Mendoza Member ID Guarantor Name 10/05/2024 1 [facility] - DOS ON OR AFTER 2023 - LONGTERM OPTIONS AND ONE CARE (MEDICARE REPLACEMENT/AD VANTAGE - PPO) Dori Palma [id number] Dori Palma Notes Date Note Type Note [...] no otalgia nor otorrhea. ZOE MARY MD [address], [address], [facility] - [facility] 10/05/2024 16:49:15 OBGyn Episode No OBEpisode recorded.
--- OUTSIDE RECORDS SUMMARY | 2025-02-18 07:08 | XMS_ITS | Encounter Summary ---
Author Organization [employer] Address [address] [facility] 7t [place] [address] Care Team Providers Care Sculpture Conservator Name Role Phone Name, Suresh BENJAMIN Primary Care Provider [phone] Reason for Visit * Reason Comments Med Refill Encounter Details Date Type Department Care Team ([facility] st Contact Info) Description 02/17/[address] [facility] MEDICINE [address] [place] [address] Name, MD Suresh [address] [place] [address] Social History Tobacco Use Types Packs/Day Years [...] documented as of this encounter Care Teams Sculpture Conservator Relationship Specialty Start Date End Date Name, MD Suresh [address] [place] [address] PCP - General Family Medicine 11/18/17 documented as of this encounter
--- OUTSIDE RECORDS SUMMARY | 2025-02-18 07:08 | XMS_ITS | Encounter Summary ---
Author Organization [employer] Address [address] [facility] 7t [place] [address] Care Team Providers Care Pressure Sealer And Tester Name Role Phone Name, Suresh BENJAMIN Primary Care Provider [phone] Reason for Visit * Reason Comments Med Refill Encounter Details Date Type Department Care Team (Late st Contact Info) Description 05/22/2023 Refill [facility] MEDICINE [address] [place] [address] Name, MD Suresh [address] [place] [phone] Social History Tobacco Use Types Packs/Day Years [...] on filedocumented in this encounter Care Teams Pressure Sealer And Tester Relationship Specialty Start Date End Date NameSuresh MD [address] [place] [address] PCP - General Family Medicine 11/18/17 documented as of this encounter
--- OUTSIDE RECORDS SUMMARY | 2025-02-18 07:08 | XMS_ITS | Clinical Summary ---
Author Organization [facility] Address [address] [facility] [address] [place] [address] Phone Care Team Providers Care Stitch Bonding Machine Drawer In Name Role Phone Name, Suresh BENJAMIN Primary Care Provider Allergies Active Allergy Reactions Criticality Noted Date [...] mg Active ergocalciferol (VITAMIN D-2) 1.25 MG (23198 UT) capsule Comments: Filled Date: Jul 30 [...] mouth 3 (three) times a day Active Duncan-3 1000 MG capsule Take 2 capsules by [...] 1.5 mg 04/15/20 21 Active nystatin (MYCOSTATIN) 458899 UNIT/ML suspension TAKE 1 MILLILITER BY ORAL [...] 04/13/2012 Esophageal dysmotility 04/13/2012 Obesity 03/22/2012 Immunizations Immunization Administration Dates Next Due Hepatitis B 04/12/2004,12/18/2003,11/17/2003 [...] Visit [facility] [address] [place] [address] Rolly Mishra MD [address] [facility] [address] [place] [address] Health Maintenance Due Date Last Done Comments Diabetes: Ophthalmology Exam 11/18/2020 Diabetes: Pedal Pulse Checked 11/18/2020 Diabetes: Sensory Foot Exam 11/18/2020 Diabetes: Visual Foot Exam 11/18/2020 Diabetes: Hemoglobin A1C 12/23/2023 023, 12/31/2022, 10/02/2020, Additional history exists Influenza Vaccine (Season Ended) 2025 10/10/2022, 08/05/2021, 06/19/2021, Additional history exists Hepatitis B Vaccine Aged Out 04/12/2004, 12/18/2003, 11/17/2003 No longer eligible based on patient's age to complete this topic Pneumococcal Vaccine: 50+ Years Completed 11/18/2017, 11/06/2013, 11/06/2013, Additional history exists Pneumococcal Vaccine: Peds (0 to 5 Years) and At-Risk Patients (6 to 49 Years) Discontinued 11/18/2017, 11/06/2013, 11/06/2013, Additional history exists Procedures [...] 38 - 50 % PVNMA Comments From [facility] PVNMA BUN 31(H) 9 - 20 mg/dl [...] % PVNMA 10/02/2020 us [facility]version [facility] [id number] LICITED RESULTS Final Result PVNMA from Last 3 Months or Most Recently Relevant to Health Maintenance Insurance [facility] ([id number]) , [id number] [place] [address] [facility] ([id number]) Care Teams Stitch Bonding Machine Drawer In Relationship Specialty Start Date End Date Name, MD Suresh [address] [place] [address] PCP - General 10/29/20
--- OUTSIDE RECORDS SUMMARY | 2025-02-18 07:08 | XMS_ITS | Encounter Summary ---
Author Organization [employer] Address [address] [facility] 7t [place] [address] Care Team Providers Care Circular Knitter Helper Name Role Phone Name, Suresh BENJAMIN Primary Care Provider [phone] Reason for Visit * Reason Comments Med Refill Encounter Details Date Type Department Care Team ([facility] st Contact Info) Description 10/18/2023 Refill [facility] MED[facility]INE [address] [place] [address] Name, MD Suresh [address] [place] [address] Essential hypertension Social History Tobacco Use Types [...] hypertension documented in this encounter Care Teams Circular Knitter Helper Relationship Specialty Start Date End Date Name, MD Suresh [address] [place] [address] PCP - General Family Medicine 11/18/17 documented as of this encounter
--- OUTSIDE RECORDS SUMMARY | 2025-02-18 07:08 | XMS_ITS | Data Portability ---
Author Organization [place] - [facility], [facility] Address [address] [place] [address] Care Team Providers Care Hospice Director Name Role Phone NAME, JADA Primary Care Provider [phone] Assessment No assessment recorded. Plan of Treatment Reminders Order Date Submit Date Provider Last Modified By Organization Details Last Modified Time Details Appointments RECHECK 15 2024 01:00P M Rafael Marshall PA-C Not available Not available Not available Lab None recorded. Referral physical therapist referral - DIAGNOSIS : Suspected Left rotator cuff tearEvalu ate and Bputx6h/w [place] x 6 weeksGoal : - Decrease pain/swel [...] Sophie Cesar, [address], [address], [place], [address], 08/19/2024 11:38:02 XR, shoulder, 2 or more view - R shoulder 4 view (215) spanishsp eaking 2023 024 [facility], [address], [address], [place], [address], 08/19/2024 11:38:02 XR, shoulder, 2 or more view - L shoulder and cspine 1 view, 4 view rm 214 2023 024 [facility], [address], [address], [place], [address], 07/06/2024 11:28:33 XR, cervical spine, 1 view 2023 024 [facility], [address], [address], [place], [address], 07/06/2024 11:28:33 Medication Orders None recorded. Patient TargetsNo targets recorded. Patient InstructionsNo instructions recorded. Reason for Referral Physical Therapist Referral for Pain of left shoulder joint DIAGNOSIS: Suspected Left rotator cuff tearEvaluate and Uftxb4g/week x 6 weeksGoal: - Decrease pain/swelling - [...] 2x/day Referring Physician: Debora García, Orthopedic Surgery, [id number] Encounter Date: 06/13/2024 Results Created Date Observation Date Name Description Value Unit Range Abnormal Flag Note LastModifiedBy Organization Detail LastModifiedTime 02/26/20 24 02/26/2024 XR, hip, unila teral , 2 or 3 view http:/ [email or web address] ?Encry pted=s hAaTro YD8dLq bEUv6g %2BXZw aYqtaq 0bqfl% 2Fg9IQ a4ajBk vP9nXo QUaueC m3YtLR FvZlgJ JJ8mAn HZtai3 7q7228 AC0Kva H%2BNU KfeUC8 mr84%3 D INTERFACE [facility] [address], [place], [address], 02/26/2024 14:24:40 02/26/20 24 02/26/2024 XR, hip, unila teral , 2 or 3 view http:/ [email or web address] ?Encry pted=s hAaTro YD8dLq bEUv6g %2BXZw aYqtaq 0bqfl% 2Fg9IQ a4ajBk vP9nXo QUaueC m3YtLR FvZlgJ JJ8mAn HZtai3 6j2297 AC0Kva H%2BNU KfeUC8 mr84%3 D INTERFACE [facility] [address], [place], [address], 02/26/2024 14:24:42 06/13/20 24 06/13/2024 XR, shoul carolynn, 2 or more view http:/ [email or web address] ?Encry pted=s hAaTro YD8dLq bEUv6g %2BXZw aYqtaq 0bqfl% 2Fg9IQ a4ajBk vP9nXo QUaueC m3YtLR FvZlgJ JJ8mAn HZtai3 9s5231 AC0Kra XWGUaf eUC8mr 84%3D [email or web address] [facility] [address], [place], [address], 06/13/2024 15:36:11 06/13/20 24 06/13/2024 XR, shoul carolynn, 2 or more view [email or web address]:/ [email or web address] ?Encry pted=s hAaTro YD8dLq bEUv6g %2BXZw aYqtaq 0bqfl% 2Fg9IQ a4ajBk vP9nXo QUaueC m3YtLR FvZlgJ JJ8mAn HZtai3 2t7568 AC0Kra XWGUaf eUC8mr 84%3D [facility] [address], [place], [address], 06/13/2024 15:35:58 06/13/20 24 06/13/2024 XR, cervi italia spine , 1 view http:/ [email or web address] ?Encry pted=s hAaTro YD8dLq bEUv6g %2BXZw aYqtaq 0bqfl% 2Fg9IQ a4ajBk vP9nXo QUaueC m3YtLR FvZl JJ8[place] HZtai3 3j1093 AC0Kra XWGUKD eUC8mr 84%3D INTERFACE [facility] [address], [place], [address], 06/13/2024 15:08:39 06/13/20 24 06/13/2024 XR, cervi italia spine , 1 view http:/ [email or web address] ?Encry pted=s hAaTro YD8dLq bEUv6g %2BXZw aYqtaq 0bqfl% 2Fg9IQ a4ajBk vP9nXo QUaueC m3YtLR FvZlg JJ8mAn HZtai3 2f4769 AC0Kra XWGUKD eUC8mr 84%3D INTERFACE [facility] [address], [place], [address], 06/13/2024 15:08:41 07/25/20 24 07/25/2024 XR, shoul carolynn, 2 or more view http:/ [email or web address] ?Encry pted=s hAaTro YD8dLq bEUv6g %2BXZw aYqtaq 0bqfl% 2Fg9IQ a4ajBk vP9nXo QUaueC m3YtLR FvZlgJ JJ8mAn HZtai3 2i4960 AC0Kqa 36DWau vKiQtr MwF INTERFACE [facility] [address], [place], [address], 07/25/2024 15:52:11 07/25/20 24 07/25/2024 XR, shoul carolynn, 2 or more view http:/ [email or web address] ?Encry pted=s hAaTro YD8dLq bEUv6g %2BXZw aYqtaq 0bqfl% 2Fg9IQ a4ajBk vP9nXo QUaueC m3YtLR FvZlgJ JJ8mAn HZtai3 2f3547 AC0Kqa 36DWau vKiQtr MwF INTERFACE [facility] [address] [facility] [address] [facility] [address], [place], [address], 07/25/2024 15:52:14 07/25/20 24 07/25/2024 XR, shoul carolynn, 2 or more view http:/ [email or web address] ?Encry pted=s hAaTro YD8dLq bEUv6g %2BXZw aYqtaq 0bqfl% 2Fg9IQ a4ajBk vP9nXo QUaueC m3YtLR FvZlgJ JJ8mAn HZtai3 6a3410 AC0Kqa nWDUKK iKiQtr MwF INTERFACE [facility] [address] [facility] [address], [place], [address], 07/25/2024 16:06:08 07/25/20 24 07/25/2024 XR, shoul carolynn, 2 or more view [email or web address]:/ [email or web address] ?Encry pted=s hAaTro YD8dLq bEUv6g %2BXZw aYqtaq 0bqfl% 2Fg9IQ a4ajBk vP9nXo QUaueC m3YtLR FvZlgJ JJ8mAn HZtai3 4z0818 AC0Kqa nWDUKK iKiQtr MwF INTERFACE [facility] [address], [place], [address], 07/25/2024 16:06:11 Result Notes None recorded. Procedures Surgical History Date Name Laterality Status Provider Name and Address Organization Details Recorded Time 5 Sports Shoulder Bilateral completed Debora García MD [address], [place], [address], [facility] 01/23/2025 14:46:50 5 Knee Kenalog 1cc L/R completed aRfael Marshall PA-C [address] Formerly named [facility], [place], [address], [facility] 11/10/2024 15:34:31 4 Sports Shoulder completed Debora García MD [address] [facility] named [facility], [place], [address], [facility] 08/20/2024 13:07:34 4 Sports Shoulder completed Debora García MD [address], [place], [address], [facility] 06/13/2024 15:55:01 4 Hip Kenalog 1cc Injection, L/R completed Rafael Marshall PA-C [address], [place], [address], [facility] 03/15/2024 10:48:22 4 Hip Kenalog 1cc Injection, L/R completed Rafael Marshall PA-C [address], [place], [address], [facility] 02/26/2024 15:11:06 Imaging Results Imaging Date Name Status LastModified by [facility] Details LastModified Time 02/26/2024 XR, hip, unilateral, 2 or 3 view completed INTERFACE [facility] [address], [place], [address], 02/26/2024 14:24:40 02/26/2024 XR, hip, unilateral, 2 or 3 view completed INTERFACE [facility] [address], [place], [address], 02/26/2024 14:24:42 06/13/2024 XR, shoulder, 2 or more view [place] [address] [facility] [address], [place], [address], 06/13/2024 15:36:11 06/13/2024 XR, shoulder, 2 or more view completed [email or web address] [facility] [address], [place], [address], 06/13/2024 15:35:58 06/13/2024 XR, cervical spine, 1 view completed INTERFACE [facility] [address], [place], [address], 06/13/2024 15:08:39 06/13/2024 XR, cervical spine, 1 view completed INTERFACE [facility] [address], [place], [address], 06/13/2024 15:08:41 07/25/2024 XR, shoulder, 2 or more view completed INTERFACE [facility] [address], [place], [address], 07/25/2024 15:52:11 07/25/2024 XR, shoulder, 2 or more view completed INTERFACE [facility] [address], [place], [address], 07/25/2024 15:52:14 07/25/2024 XR, shoulder, 2 or more view completed INTERFACE [facility] [address], [place], [address], 07/25/2024 16:06:08 07/25/2024 XR, shoulder, 2 or more view completed INTERFACE [facility] [address], [place], [address], 07/25/2024 16:06:11 Procedure Notes None recorded. Medical Equipment None Reported. Allergies Allergen ID Allergen Name Allergen Category Reaction Reaction Severity Criticality Documentation Date Start Date Code Code System Note Provider Name and Address Organization Details Recorded Time 724394 apple extract food Not available Not available Not available 02/26/2024 24045 65 RxNorm SHERINE ONEALOUR [facility] 14:06:39 961808 plum preparati on food Not available Not available Not available 02/26/2024 17658 7 RxNorm SHERINE BATEMAN [facility] 14:06:44 385837 Substance with sulfonami de structure and antibacte rial mechanism of action (substanc e) medicatio n Not available Not available Not available 02/26/2024 21631 8003 SNOMED SHERINE ONEALOUR [facility] 4 14:06:49 441228 Cipro medicatio n Not available Not available Not available 02/26/2024 71985 3 RxNorm SHERINE BATEMAN [facility] 14:06:53 Medications Name Sig Start Date Stop [...] DateTime 03/15/2024 147.32 cm ARCHIE LUIS ALFREDO [facility] 03/15/2024 10:29:27 Date Recorded Body height Body mass index (BMI) Body weight Provider Name and Address Organization Details Last Updated DateTime 06/13/2024 147.32 cm 31.3 kg/m2 06357.86 g ELSIE ALEIDA [facility] 06/13/2024 14:59:13 Date Recorded Body height Body mass index (BMI) Body weight Provider Name and Address Organization Details Last Updated DateTime 07/25/2024 147.32 cm 31.3 kg/m2 66106.86 g ELSIE SHIN [facility] 07/25/2024 15:27:05 Date Recorded Body height Body mass index (BMI) Body weight Provider Name and Address Organization Details Last Updated DateTime 11/10/2024 147.32 cm 31.3 kg/m2 81971.86 g Arinbrooks Reynosoton [facility] 11/10/2024 14:50:16 Date Recorded Body height Body mass index (BMI) Body weight Provider Name and Address Organization Details Last Updated DateTime 01/23/2025 147.32 cm 31.3 kg/m2 27809.86 g ELSIE SHIN [facility] 01/23/2025 13:58:41 Social History None recorded. Functional Status None recorded. Mental Status None recorded. Family History Nothing Reported. Medical History Condition Response Coronary Artery Disease N Emphysema N COPD N Heart Trouble Y Gastrointestinal Disease N Autoimmune disease N Arthritis Y Blood Clot N Acid Reflux (GERD) N Cancer N Stroke Y Circulation Problems N Rheumatoid Arthritis N Arrhythmia N Headaches N Fibromyalgia N Breathing or lung disorders N Nerve Disorders N Kidney/Bladder Problems Y Bleeding Disorder N AIDS/HIV N Asthma N Peripheral Vascular Disease N Hepatitis N Pulmonary Embolism N Anxiety/Depression N Pacemaker N Vascular Disease N Orthotics N Allergies/Hayfever N Thyroid Problems N Anemia N Heart Attack ([place]) N Cholesterol N Diabetes Y Seizures/Epilepsy N Congestive Heart Failure (CHF) N Sleep Apnea N Heart Disease N Hypertension Y Osteoporosis N Gynecological HistoryNo gynecological history recorded. 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 [id number] [facility] [address] [place] [address] 03/15/2024 10:27:54 04/05/2024 12:32:37 Trochanteric bursitis of left hip 1104018928 28582 M70.62 You have been provided with a [...] or contact us through the portal [facility]. [id number] MD Sophie [facility] 2nd floor [address] [place] [address] 06/13/2024 14:40:37 07/06/2024 11:28:33 Pain of left shoulder joint 7459431340 1973620 M25.460 [id number] Debora García MD Sophie [address] [place] [address] 07/25/2024 14:39:59 08/19/2024 11:38:02 Pain of right shoulder joint 2627934247 1340820 M25.871 [id number] C[facility]ST[facility] - [address] [place] [address] 11/10/2024 14:36:46 11/22/2024 15:06:05 Osteoarthritis of right knee joint 3792445919 13571 M17.11 The patient is ambulatory , but [...] office or contact us through the portal [facility]. [id number] MD RENETTA Reynoso [address] [place] [address] 01/23/2025 13:52:05 02/06/2025 15:58:32 Rotator cuff arthropathy of right shoulder 0402089967 1268487 M12.811 Rotator cu ff arthropathy of left shoulder 8370957765 9934273 M12.812 Health Concerns Section Related Observation LastModified by Organization Detai ls LastModified Time None Recorded Concern Status LastModified by Organization Details LastModified Time None Recorded Advance Directives Directive None Recorded Payers Encounter Date Sequence Insurance Name Policy Number Policy Mendoza Covered Member ID Mendoza Member ID Guarantor Name 03/15/2024 1 [facility] - DOS ON OR AFTER 2023 - ONE CARE (MEDICARE REPLACEMENT/AD VANTAGE - HMO) Dori Louie [id number] Dori Palma [place]rr[place] 06/13/2024 1 [facility] [facility] - DOS ON OR AFTER 2023 - [employer] OPTIONS (MEDICARE REPLACEMENT/AD VANTAGE - HMO) Dori Palma Urrutia [id number] Dori Palma [place]rr[place] 07/25/2024 1 [facility] - DOS ON OR AFTER 2023 - [employer] OPTIONS (MEDICARE REPLACEMENT/AD VANTAGE - HMO) Dori Palma Urrutia [id number] Dori Palma [place]rr[place] 11/10/2024 1 [facility] - DOS ON OR AFTER 2023 - [employer] OPTIONS (MEDICARE REPLACEMENT/AD VANTAGE - HMO) Dori Palma Urr[place]ia [id number] Dori Palma [place]rr[place] 01/23/2025 1 [facility] - DOS ON OR AFTER 2023 - [employer] OPTIONS (MEDICARE REPLACEMENT/AD VANTAGE - HMO) Dori Louie Johnsongado [id number] Dori Palma [place]rr[place] Notes Date Note Type Note Provider Name and Address Organization Details Recorded Time 03/15/2024 text/html I am seeing the patient today under the supervision of {{Dr. Irina Garica#}} who was available but who did not [...] questions asked and answered. Rafael Marshall PA-C [address] [place], [place] [address] [address], [place], [address], [facility] 03/15/2024 10:48:52 06/13/2024 text/html Chief Complaint: Left shoulder pain HPI: This is an 79-year-old ojvik-jhao-rktrscfp disabled woman with left shoulder pain beginning [...] the Left shoulder ordered and obtained at [facility] today were reviewed during the visit. These demonstrate increased glenohumeral joint space, which may reflect effusion. Difficult to make out on outlet view, but AP view suggest a large anterior acromial spur. No proximal migration humeral head. Humeral head centered on axillary view. No dystrophic calcium deposition. Impression: 79-year-old wfawv-qora-dziymedk disabled woman with shoulder morphology which would [...] aches and pains, the patient can take wice-orw-adqrnrw medication such as Tylenol or anti-inflammatories as needed; risks and benefits of medication discussed. Should call with more persistent pain. We will leave follow up open ended at this point. However should symptoms worsen or fail to improve to the patient's satisfaction, she is encouraged to give the office a call to be seen back for further evaluation and management. [employer] speech recognition film washer software was used to create portions of this document. An attempt at proofreading has been made to minimize errors. Please call for corrections. Debora García MD [address] [place] [address] [address], [place], [address], [facility] 06/13/2024 17:20:18 07/25/2024 text/html Chief Complaint: Left shoulder pain HPI: This is an 79-year-old nssbw-gpyi-aqonwfxj disabled woman who I met 6 weeks [...] the right shoulder ordered and obtained at [facility] today were reviewed during the visit. These demonstrate good preservation of glenohumeral joint space. Type II acromion. No proximal migration humeral head. Humeral head centered on axillary view. No dystrophic calcium deposition. Impression: 79-year-old uvpoi-ndfx-uwgrbxcy disabled woman with shoulder morphology which would [...] aches and pains, the patient can take gswz-kgt-xtcqicn medication such as Tylenol or anti-inflammatories as needed; risks and benefits of medication discussed. Should call with more persistent pain. We will leave follow up open ended at this point. However should symptoms worsen or fail to improve to the patient's satisfaction, she is encouraged to give the office a call to be seen back for further evaluation and management. [employer] speech recognition film washer software was used to create portions of this document. An attempt at proofreading has been made to minimize errors. Please call for corrections. Debora García MD [address], [place], [address], [facility] 08/20/2024 13:08:33 11/10/2024 text/html [...] total joint arthroplasty. Rafael Marshall PA-C [address], [place], [address], [facility] 11/10/2024 15:35:00 01/23/2025 text/html Chief Complaint: Bilateral degenerative cuff disease HPI: This is an 79-year-old tljut-oprx-iofshkje disabled woman who I met last summer [...] the Left shoulder ordered and obtained at [facility] 06/13/2024 were reviewed during the visit. These demonstrate increased glenohumeral joint space, which may reflect effusion. Difficult to make out on outlet view, but AP view suggest a large anterior acromial spur. No proximal migration humeral head. Humeral head centered on axillary view. No dystrophic calcium deposition. 4v of the right shoulder ordered and obtained at [facility] 07/22/2024 were reviewed during the visit. These demonstrate good preservation of glenohumeral joint space. Type II acromion. No proximal migration humeral head. Humeral head centered on axillary view. No dystrophic calcium deposition. Impression: 79-year-old jlixl-ntup-kcmrtktg disabled woman with shoulder morphology which would [...] encouraged to call and move back appointment). [facility] speech recognition film washer software was used to create portions of this document. An attempt at proofreading has been made to minimize errors. Please call for corrections. Debora García MD [address] [place], [place] [address], [place], [address], [facility] 01/23/2025 14:47:18 OBGyn Episode No OBEpisode recorded.
--- OUTSIDE RECORDS SUMMARY | 2025-02-18 07:08 | XMS_ITS | Encounter Summary ---
Author Organization [employer] Address [address] [facility] [address] [place] [address] Care Team Providers Care Air Hose Coupler Name Role Phone Name, Suresh BENJAMIN Primary Care Provider [phone] Reason for Visit * Reason Onset Date Comments Medication Question 09/23/2023 Durable Medical Equipment 09/23/2023 BOOST Encounter Details Date Type Department Care Team ([facility] st Contact Info) Description 09/23/2023 Telephone [facility] MEDICINE [address] [place] [address] Name, MD Suresh [address] [place] [address] Medication Question; Durable Medical Equipment (BOOST) Social [...] on filedocumented in this encounter Care Teams Air Hose Coupler Relationship Specialty Start Date End Date Name, MD Suresh [address] [place] [address] PCP - General Family Medicine 11/18/17 documented as of this encounter
[2025-02-18 07:16] LABS: MANUAL DIFF FLAG NO
[2025-02-18 08:02] LABS: Basophils Absolute Auto 0.1 X10*3/uL (0.0-0.2); Basophils Percent Auto 0.8 % (0-2); Eosinophils Absolute Auto 0.3 X10*3/uL (0.0-0.4); Eosinophils Percent Auto 4.5 % (0-4); Hematocrit 37.6 % (37.0-47.0); Hemoglobin 12.3 g/dl (12.0-16.0); Imm Gran Abs Auto 0.03 X10*3/uL (0.00-0.03); Imm Gran Pct Auto 0.5 % (0.0-0.4); Lymphocytes Absolute Auto 2.5 X10*3/uL (1.2-4.9); Lymphocytes Percent Auto 38.3 % (20-40); Mean Corpuscular HGB Conc 32.7 g/dl (31.0-35.0); Mean Corpuscular Hemoglobin 27.9 pg (27.0-33.0); Mean Corpuscular Volume 85.3 fL (80.0-98.0); Mean Platelet Volume 9.6 fL (9.4-12.3); Monocytes Absolute Auto 0.8 X10*3/uL (0.1-1.2); Monocytes Percent Auto 12.7 % (2-11); Neutrophils Absolute Auto 2.9 x10*3/uL (2.0-8.3); Neutrophils Percent Auto 43.2 % (45-73); Platelet Count 343 X10*3/uL (160-400); Red Blood Count 4.41 X10*6/uL (4.20-5.50); Red Cell Distribution Width 15.1 % (11.0-16.0); White Blood Count 6.6 X10*3/uL (4.8-10.8)
[2025-02-18 08:37] LABS: Alanine Aminotransferase 13 U/L (0-31); Albumin Level 4.1 g/dL (3.5-5.0); Alkaline Phosphatase 47 U/L (39-117); Anion Gap 15 (12-20); Aspartate Amino Transferase 21 U/L (5-31); Bilirubin Total 0.4 mg/dL (0.0-1.0); Blood Urea Nitrogen 18 mg/dL (9-16); Carbon Dioxide 28 mmol/L (22-29); Chloride 102 mmol/L (96-108); Cholesterol 164 mg/dL (<200); Estimated Glomerular Filt Rate > 60; Glucose Random 124 mg/dL (60-115); HDL Cholesterol 40 mg/dL (>40); LDL Cholesterol Calculated 60 mg/dL (<100); Potassium 3.7 mmol/L (3.3-5.1); Sodium 141 mmol/L (135-145); Total Protein 7.1 g/dL (6.5-8.0); Triglycerides 320 mg/dL (<150)
[2025-02-18 08:45] LABS: Creatinine Urine 41.44 mg/dL
== END 2025-02-18 07:06 | disposition home or self-care (01) ==
LOC: HO.LAB 07:05
PROVIDERS: PCP Internal Medicine Geriatric Medicine; Visit Provider Internal Medicine Geriatric Medicine
DX: E11.59 Type 2 diabetes mellitus with other circulatory complications (principal); Z79.4 Long term (current) use of insulin; I25.10 Atherosclerotic heart disease of native coronary artery without angina pectoris; E78.1 Pure hyperglyceridemia
CPT/HCPCS: 36415; 80053; 80061; 82043; 82570; 85025

== ENCOUNTER 2025-03-04 09:23 | Outpatient (REF) | payer OTHER, SELFPAY ==
--- OUTSIDE RECORDS SUMMARY | 2025-03-04 09:26 | XMS_ITS | Encounter Summary ---
Author Organization [employer] Address [address] [facility] [address] [place] [address] Care Team Providers Care Paper Ruler Name Role Phone Name, Suresh BENJAMIN Primary Care Provider [phone] Reason for Visit * Reason Comments Med Refill Encounter Details Date Type Department Care Team ([facility] st Contact Info) Description 06/07/2024 Refill [facility] MEDICINE [address] [place] [address] Renata Ballard FNP [address] [place] [address] Pain Social History Tobacco Use Types Packs/Day [...] documented as of this encounter Care Teams Paper Ruler Relationship Specialty Start Date End Date Name, MD Suresh [address] [place] [address] PCP - General Family Medicine 11/18/17 documented as of this encounter
--- OUTSIDE RECORDS SUMMARY | 2025-03-04 09:26 | XMS_ITS | Encounter Summary ---
Author Organization [employer] Address [address] [facility] [address] [place] [address] Care Team Providers Care Pompom Maker Name Role Phone Name, Suresh BENJAMIN Primary Care Provider [phone] Reason for Visit * Reason Onset Date Comments Appointment Request 01/09/2025 Encounter Details Date Type Department Care Team ([facility] st Contact Info) Description 01/09/[address] [facility] MEDICINE [address] [place] [address] Name, MD Suresh [address] [place] [address] Appointment Request Social History Tobacco Use Types [...] - 01/09/2025 2:35 PM EDT Tc beto Leo with [facility] requesting a call back to pt for schedule ov extended. [phone] (PT) documented in this encounter Plan of Treatment Not on file documented as of this encounter Visit Diagnoses Not on filedocumented in this encounter Additional Health Concerns Assessment Noted Time PHQ-9 Depression Total Score: 7 04/15/20 24 11:05 AM EDT documented as of this encounter Care Teams Pompom Maker Relationship Specialty Start Date End Date Name, MD Suresh [address] [place] [address] PCP - General Family Medicine 11/18/17 documented as of this encounter
--- OUTSIDE RECORDS SUMMARY | 2025-03-04 09:26 | XMS_ITS | Clinical Summary ---
Author Organization [facility] Address [address] [facility] [address] [place] [address] Phone Care Team Providers Care Healthcare Management Consultant Name Role Phone Name, Suresh BENJAMIN Primary Care Provider [phone] Allergies Active Allergy Reactions Criticality Noted Date [...] mg Active ergocalciferol (VITAMIN D-2) 1.25 MG (05995 UT) capsule Comments: Filled Date: Jul 30 [...] mouth 3 (three) times a day Active [place]-3 1000 MG capsule Take 2 capsules by [...] 1.5 mg 04/15/20 21 Active nystatin (MYCOSTATIN) 334943 UNIT/ML suspension TAKE 1 MILLILITER BY ORAL [...] Visit [facility] [address] [place] [address] Rolly Mishra MD [address] [facility] [address] [place] [address] Health Maintenance Due Date Last Done Comments [...] 38 - 50 % PVNMA Comments From [facility] BUN 31(H) 9 - 20 mg/dl [...] % PVNMA 10/02/2020 us [facility]version [facility] AIASMJCJAL-GLSYIMCDIGX-ZEIL LICITED RESULTS Final Result PVNMA from Last 3 Months or Most Recently Relevant to Health Maintenance Insurance [facility] ([id number]) , [id number] [place] [address] [facility] ([id number]) Care Teams Healthcare Management Consultant Relationship Specialty Start Date End Date Name, MD Suresh [address] [place] [address] PCP - General 10/29/20
--- OUTSIDE RECORDS SUMMARY | 2025-03-04 09:27 | XMS_ITS | Encounter Summary ---
Author Organization [employer] Address [address] [facility] 7t [place] [address] Care Team Providers Care Tar Heat Exchanger Cleaner Name Role Phone Name, Suresh BENJAMIN Primary Care Provider [phone] Reason for Visit * Reason Comments Med Refill Encounter Details Date Type Department Care Team ([facility] st Contact Info) Description 08/12/2023 Refill [facility] MEDICINE [address] [place] [address] Michelle Hernandez, PRICILA [address] [place] [address] Type 2 diabetes mellitus with hyperglycemia, with long-term current use of insulin ([facility]) Social [...] hyperglycemia, with long-term current use of insulin ([facility]) documented in this encounter Care Teams Tar Heat Exchanger Cleaner Relationship Specialty Start Date End Date Name, MD Suresh [address] [place] [address] PCP - General Family Medicine 11/18/17 documented as of this encounter
--- OUTSIDE RECORDS SUMMARY | 2025-03-04 09:27 | XMS_ITS | Encounter Summary ---
Author Organization [employer] Address [address] [facility] 7t [place] [address] Care Team Providers Care Radio Producer Name Role Phone Name, Suresh BENJAMIN Primary Care Provider [phone] Reason for Visit * Reason Onset Date Comments Appointment Request 12/21/2023 Encounter Details Date Type Department Care Team ([facility] st Contact Info) Description 12/21/2023 Telephone [facility] MEDICINE [address] [place] [address] Name, MD Suresh [address] [place] [address] Appointment Request Social History Tobacco Use Types [...] a telephone visit. Please contact daughter at [phone]. documented in this encounter Plan of Treatment Not on file documented as of this encounter Visit Diagnoses Not on filedocumented in this encounter Care Teams Radio Producer Relationship Specialty Start Date End Date Name, MD Suresh [address] [place] [address] PCP - General Family Medicine 11/18/17 documented as of this encounter
--- OUTSIDE RECORDS SUMMARY | 2025-03-04 09:27 | XMS_ITS | Encounter Summary ---
Author Organization [employer] Address [address] [facility] 7t [place] [address] Care Team Providers Care Program Consultant Name Role Phone Name, Suresh BENJAMIN Primary Care Provider [phone] Reason for Visit * Reason Onset Date Comments Medication Question 09/23/2023 Durable Medical Equipment 09/23/2023 BOOST Encounter Details Date Type Department Care Team ([facility] st Contact Info) Description 09/23/2023 Telephone [facility] MEDICINE [address] [place] [address] Name, MD Suresh [address] [place] [address] Medication Question; Durable Medical Equipment (BOOST) Social [...] on filedocumented in this encounter Care Teams Program Consultant Relationship Specialty Start Date End Date Name, MD Suresh [address] [place] [id number] PCP - General Family Medicine 11/18/17 documented as of this encounter
--- OUTSIDE RECORDS SUMMARY | 2025-03-04 09:27 | XMS_ITS | Data Portability ---
Author Organization [place] - [facility], Allergy Address [address] [place] [address] Care Team Providers Care Hat Conditioner Name Role Phone NAME, JADA Primary Care Provider [phone] Assessment Encounter Date Assessment Date Assessment LastModified [...] Organization Details Last Modified Time Details Appointments Hearing Test 2024 01:30P M Hearing Test Not available Not available Not available Establish ed 15 2024 02:15P M ARABELLA ASCENCIO PA-C Not available Not available Not available Lab None recorded. Referral None recorded. Procedures None recorded. Surgeries None recorded. Imaging None recorded. Medication Orders None recorded. Patient TargetsNo targets recorded. Patient InstructionsNo instructions recorded. Reason for Referral None Reported. Problems Name Problem SNOMED Code Status Onset Date Resolution Date Notes Provider Name and Address Organization Details Recorded Time Mixed conductiv e and sensorine ural hearing loss of right ear 70547645257 105 Active 2017 Mixed conductiv e and sensorine ural hearing loss, unilatera l, right ear with restricte d hearing on the contralat eral side; Note: Date Diagnosed : 01/07/2018 1:52 PM (H90.A31) Not Available [facility] 4 02:26:28 Seborrhei c dermatiti s 89421213 Active 2022 [facility] dermat[facility], unspecifi ed; Note: Date Diagnosed : 03/25/2023 4:15 PM (L21.9) Not Available [facility] 4 02:26:46 Central perforati on of left tympanic membrane 70640581775 93008 Active 2016 Central perforati on of tympanic membrane, left ear; Note: Date Diagnosed : 03/06/2017 2:34 PM (H72.02) Not Available [facility] 4 02:26:48 Impacted cerumen of bilateral ears 55387194736 35657 Active 2017 Impacted cerumen, bilateral ; Note: Date Diagnosed : 8 1:01 PM (H61.23) Not Available [facility] 4 02:26:40 Sensorine ural hearing loss in left ear 41516503467 109 Active 2017 Sensorine ural hearing loss, unilatera l, left ear, with restricte d hearing on the contralat eral side; Note: Date Diagnosed : 01/07/2018 1:52 PM (H90.A22) Not Available [facility] 4 02:26:42 Sensorine ural hearing loss of bilateral ears 397175567 Active 2015 Sensorine ural hearing loss, bilateral ; Note: Date Diagnosed : 6 1:26 PM (H90.3) Not Available [facility] 4 02:26:17 Impacted cerumen in left ear 70390132137 67229 Active 2017 Impacted cerumen, left ear; Note: Date Diagnosed : 11/24/2017 1:55 PM (H61.22) Not Available [facility] 4 02:26:44 Diffuse otitis externa 33275332 Active 2016 Diffuse otitis externa, left ear; Note: Date Diagnosed : 08/24/2017 11:10 AM (H60.312) Not Available [facility] 4 02:26:26 Mixed conductiv e and sensorine ural hearing loss, bilateral 313400361 Active 2015 Mixed conductiv e and sensorine ural hearing loss, bilateral ; Note: Date Diagnosed : 6 11:59 AM (H90.6) Not Available [facility] 4 02:26:25 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 65226559867 25278 Active 2016 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 , bilateral ; Location: bilateral Note: Date Diagnosed : 08/24/2017 11:10 AM (H61.323) Not Available [facility] 4 02:26:49 Stenosis of bilateral external ear canals due to and following inflammat ion 14703184959 80108 Active 2016 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 , bilateral ; Location: bilateral Note: Date Diagnosed : 08/24/2017 11:10 AM (H61.323) Not Available [facility] 4 02:26:49 Disorder of nasal sinus 9731270 Active 2019 Other specified disorders of nose and nasal sinuses; Note: Date Diagnosed : 06/22/2020 12:34 PM (J34.8) Not Available [facility] 4 02:26:41 Disorder of the nose 31248497 Active 2019 Other specified disorders of nose and nasal sinuses; Note: Date Diagnosed : 06/22/2020 12:34 PM (J34.8) Not Available [facility] 4 02:26:42 Itching of skin 039952059 Active 2023 MERVIN JERONIMO PA-C [address] [place] [address], [place], [address] , [facility] - [facility] 4 15:15:24 Problem Notes None recorded. Medical Equipment None Reported. Allergies Allergen ID Allergen Name Allergen Category Reaction Reaction Severity Criticality Documentation Date Start Date Code Code System Note Provider Name and Address Organization Details Recorded Time 741084 Cipro medicatio n Not available Not available Not available 10/05/202437577 3 RxNorm Nandini lowe [place] - [facility] 4 14:42:48 273336 trimethop rim medicatio n Not available Not available Not available 10/05/2024 16796 RxNorm Nandini lowe [facility] 4 14:42:56 88007 Substance with sulfonami de structure and antibacte rial mechanism of action (substanc e) medicatio n other Not available Not available 03/01/2024 84635 8003 SNOMED React ion: unkno wn, unspe cifie d;; Not Available [facility] 4 00:57:24 Medications Name Sig Start Date Stop Date Status Note LastModified by Organization Details LastModified Time atorvasta tin 40 mg tablet 04/09 completed Medicati on ID: [id number] D uration Value: 90 Reason: () Brand Name: atorvast atin Sen d Method: E-Prescr ibed Sub s Allowed: subs OK Speci al Instruct ion: TAKE 1 TABLET BY MOUTH EVERY DAY Medi cationGe nericNam e: atorvast atin Not Available Not Available Not Available atorvasta tin 80 mg tablet 2017 active Medicati on ID: [id number] D uration Value: 30 Brand Name: atorvast [...] mg tablet 04/09 completed Medicati on ID: [id number] D uration Value: 90 Reason: () Brand Name: atorvast atin Sen d Method: E-Prescr ibed Sub s Allowed: subs OK Speci al Instruct ion: TAKE 1 TABLET (20MG) BY ORAL ROUTE EVERY DAY Medi cationGe nericNam e: atorvast atin Not Available Not Available Not Available triamcino lone acetonide 0.5 % topical cream 06/22 completed Medicati on ID: [id number] D uration Value: 7 Reason: () Brand [...] mg tablet 10/05 completed Medicati on ID: [id number] D uration Value: 30 Brand Name: senna Se nd Method: E-Prescr ibed Sub s Allowed: subs OK Speci al Instruct ion: TAKE 2 TABLET BY ORAL ROUTE EVERY DAY NEEDED FOR CONSTIPA TION Med icationG enericNa me: senna Not Available Not Available Not Available clonazepa m 0.5 mg tablet 06/22 completed Medicati on ID: [id number] D uration Value: 30 Reason: () Brand Name: clonazep am Send Method: E-Prescr ibed Sub s Allowed: subs OK Medic ationGen ericName : clonazep am Not Available Not Available Not Available betametha sone, augmented 0.05 % topical cream active Medicati on ID: [id number] D uration Value: 7 Brand Name: betameth [...] topical ointment 10/05 completed Medicati on ID: [id number] D uration Value: 14 Brand Name: triamcin olone acetonid e Send Method: E-Prescr ibed Sub s Allowed: subs OK Speci al Instruct ion: APPLY TWICE A DAY TO AFFECTED AREA FOR 2 WEEKS,TH EN DAILY FOR 2 WEEKS Me dication GenericN jeffry: triamcin olone acetonid e Not Available Not Available Not Available melatonin 3 mg tablet 10/05 completed Medicati on ID: 851318 D uration Value: 30 Brand Name: melatoni n Send Method: E-Prescr ibed Sub s Allowed: subs OK Medic ationGen ericName : melatoni n Not Available Not Available Not Available clopidogr el 75 mg tablet 2015 active Medicati on ID: [id number] D uration Value: 90 Brand Name: clopidog [...] ear drops 06/22 completed Medicati on ID: 772897 D uration Value: 10 Reason: () Brand [...] mg capsule 10/05 completed Medicati on ID: 258806 D uration Value: 30 Brand Name: docusate [...] a day 10/05 completed Medicati on ID: [id number] D uration Value: 14 Prescri bed By Name: CRISTOFER [place] nd Name: muginoroci n Send Method: E-Prescr ibed Sub s Allowed: subs OK Medic ationGen ericName : mupiroci n Not Available Not Available Not Available mirtazapi ne 15 mg tablet 10/05 completed Medicati on ID: [id number] D uration Value: 30 Brand Name: mirtazap ine Send Method: E-Prescr ibed Sub s Allowed: subs OK Speci al Instruct ion: TAKE 1 TABLET BY MOUTH AT BEDTIME Medicati onGeneri cName: mirtazap ine Not Available Not Available Not Available gabapenti n 100 mg capsule 04/09 completed Medicati on ID: [id number] D uration Value: 90 Reason: () Brand [...] nasal spray 06/22 completed Medicati on ID: [id number] D uration Value: 90 Reason: () Brand [...] topical cream 10/05 completed Medicati on ID: [id number] D uration Value: 45 Brand Name: clotrima zole Sen d Method: E-Prescr ibed Sub s Allowed: subs OK Medic ationGen ericName : clotrima zole Not Available Not Available Not Available Ventolin HFA 90 mcg/actua tion aerosol inhaler 2016 active Medicati on ID: [id number] D uration Value: 17 Brand Name: Ventolin HFA Send Method: E-Prescr ibed Sub s Allowed: subs OK Speci al Instruct ion: INHALE 2 PUFF BY INHALATI ON ROUTE EVERY 4 - 6 HOURS NEEDED M edicatio nGeneric Name: Ventolin HFA Not Available Not Available Not Available buspirone 15 mg tablet 06/22 completed Medicati on ID: [id number] D uration Value: 30 Reason: () Brand Name: buspiron e Send Method: E-Prescr ibed Sub s Allowed: subs OK Speci al Instruct ion: TAKE 1 1/2 TABLET BY MOUTH TWICE A DAY Medi cationGe nericNam e: buspiron e Not Available Not Available Not Available Estrace 0.01% (0.1 mg/gram) vaginal cream 06/22 completed Medicati on ID: [id number] D uration Value: 90 Reason: () Brand [...] drops,oswaldo pension 10/05 completed Medicati on ID: [id number] D uration Value: 14 Prescri bed By [...] 4 drop 10/05 completed Medicati on ID: [id number] D uration Value: 14 Prescri bed By [...] gram capsule 10/05 completed Medicati on ID: [id number] D uration Value: 90 Brand Name: omega-3 acid ethyl esters S end Method: E-Prescr ibed Sub s Allowed: subs OK Medic ationGen ericName : omega-3 acid ethyl esters Not Available Not Available Not Available Pain Relief Extra Strength (acetamin ophen) 500 mg tablet 10/05 completed Medicati on ID: [id number] D uration Value: 30 Brand Name: Pain Relief Extra Strength Send Method: E-Prescr ibed Sub s Allowed: subs OK Speci al Instruct ion: TOME DOS TABLETAS POR VIA ORAL KACI VECES AL SUNSHINE CUANDO SEA NECESARI O FOR 30 DAYS Med icationG enericNa me: Pain Relief Extra Strength Not Available Not Available Not Available Diphenhis t 06/22 completed Medicati on ID: 233043 D uration Value: 1 Reason: () Brand Name: Diphenhi st Send Method: E-Prescr ibed Sub s Allowed: subs OK Speci al Instruct ion: TAKE 20 ML BY MOUTH EVERY 4 HOURS - EVERY 6 HOURS NEEDED M edicatio nGeneric Name: Diphenhi st Not Available Not Available Not Available fenofibra te nanocryst allized 145 mg tablet 06/22 completed Medicati on ID: [id number] D uration Value: 90 Reason: () Brand Name: fenofibr ate nanocrys tallized Send Method: E-Prescr ibed Sub s Allowed: subs OK Speci al Instruct ion: TAKE 1 TABLET BY MOUTH EVERY DAY Medi cationGe nericNam e: fenofibr ate nanocrys tallized Not Available Not Available Not Available Lantus Solostar U-100 Insulin 100 unit/mL (3 mL) subcutane ous pen 2015 active Medicati on ID: [id number] D uration Value: 30 Brand Name: Lantus Solostar Send Method: E-Prescr ibed Sub s Allowed: subs OK Speci al Instruct ion: INJECT 50 UNITS TWICE A DAY Medi cationGe nericNam e: Lantus Solostar Not Available Not Available Not Available Humalog KwikPen (U-100) Insulin 100 unit/mL subcutane ous 10/05 completed Medicati on ID: [id number] D uration Value: 30 Brand Name: Humalog [...] mg tablet 2019 active Medicati on ID: [id number] D uration Value: 90 Brand Name: melatoni n Send Method: E-Prescr ibed Sub s Allowed: subs OK Speci al Instruct ion: TAKE 1 TABLET BY MOUTH EVERY DAY Medi cationGe nericNam e: melatoni n Not Available Not Available Not Available Systane Balance 0.6 % eye drops 2015 active Medicati on ID: [id number] B rand Name: Systane Balance Send Method: [...] 2nd Gen Pen Needle 32 gauge x USE DIRECTED 4 TIMES A DAY WITH [...] SNOMED-CT Code Diagnosis ICD10 Code Diagnosis Note [id number] MERVIN JERONIMO PA-C [facility] [address] [place] [address] 10/05/2024 14:33:22 10/05/2024 15:12:17 Itching of skin [id number] L29.9 Sensorineu ral hearing loss of bilateral ears 970144369 H90.3 Health Concerns Section Related Observation LastModified by Organization Detai ls LastModified Time None Recorded Concern Status LastModified by Organization Details LastModified Time None Recorded Advance Directives Directive None Recorded Payers Insurance Date Sequence Insurance Name Policy Number Policy Mendoza Covered Member ID Mendoza Member ID Guarantor Name 10/05/2024 1 [facility] - DOS ON OR AFTER 2023 - MEDICARE ADVANTAGE [place] (MEDICARE REPLACEMENT/AD VANTAGE - PPO) Dori Palma [id number] Dori Palma 10/05/2024 1 [facility] - DOS ON OR AFTER 2023 - [employer] AND [employer] (MEDICARE REPLACEMENT/AD VANTAGE - PPO) Dori Palma [id number] Dori Palma Notes Date Note Type Note [...] otalgia nor otorrhea. ZOE MARY MD [address], [address], [place] - [facility] 10/05/2024 16:49:15 OBGyn Episode No OBEpisode recorded.
--- OUTSIDE RECORDS SUMMARY | 2025-03-04 09:27 | XMS_ITS | Encounter Summary ---
Author Organization [employer] Address 75 [facility] 7t [place] [address] Care Team Providers Care Data Migration Lead Name Role Phone Name, Suresh BENJAMIN Primary Care Provider [phone] Reason for Visit * Reason Comments Med Refill Encounter Details Date Type Department Care Team ([facility] st Contact Info) Description 03/01/2025 Refill [facility] MEDICINE [address] [place] [address] Marla Richardson, MARTIN [address] [place] [address] Pain Social History Tobacco Use Types Packs/Day [...] documented as of this encounter Care Teams Data Migration Lead Relationship Specialty Start Date End Date Name, MD Suresh [address] [place] [address] PCP - General Family Medicine 11/18/17 documented as of this encounter
--- OUTSIDE RECORDS SUMMARY | 2025-03-04 09:27 | XMS_ITS | Encounter Summary ---
Author Organization [employer] Address 75 [facility] 7t [place] [address] Care Team Providers Care Housekeeper Manager Name Role Phone Name, Suresh BENJAMIN Primary Care Provider [phone] Reason for Visit * Reason Comments Med Refill Encounter Details Date Type Department Care Team ([facility] st Contact Info) Description 10/18/2023 Refill [facility] MEDICINE [address] [place] [address] Name, MD Suresh [address] [place] [address] Essential hypertension Social History Tobacco Use Types [...] hypertension documented in this encounter Care Teams Housekeeper Manager Relationship Specialty Start Date End Date Name, MD Suresh [address] [place] [address] PCP - General Family Medicine 11/18/17 documented as of this encounter
--- OUTSIDE RECORDS SUMMARY | 2025-03-04 09:27 | XMS_ITS | Encounter Summary ---
Author Organization [employer] Address 75 [facility] 7t [place] [address] Care Team Providers Care Undercollar Baster Name Role Phone Name, Suresh BENJAMIN Primary Care Provider [phone] Reason for Visit * Reason Comments Med Refill Encounter Details Date Type Department Care Team (Late st Contact Info) Description 05/22/2023 Refill [facility] MEDICINE [address] [place] [address] Name, MD Suresh [address] [place] [phone] Social History Tobacco Use Types Packs/Day Years [...] on filedocumented in this encounter Care Teams Undercollar Baster Relationship Specialty Start Date End Date NameSuresh MD [address] [place] [id number] PCP - General Family Medicine 11/18/17 documented as of this encounter
--- OUTSIDE RECORDS SUMMARY | 2025-03-04 09:27 | XMS_ITS | Clinical Summary ---
Author Organization [employer] Address 75 [facility] 7t [place] [address] Care Team Providers Care Guard Driver Name Role Phone Name, Suresh BENJAMIN Primary Care Provider [phone] Allergies Active Allergy Reactions Criticality Noted Date [...] 300 tablet 1 024 Active nystatin (Mycostatin) 801519 UNIT/GM powder Apply topically 2 times daily. [...] 2 diabetes mellitus with other circulatory complications ([facility]) USE TO CHECK BLOOD SUGAR [...] TO 28 DAYS. 84 tablet 025 Active insulin aspart (NovoLOG FLEXPEN) 100 UNIT/ML pen INJECT 12-14 UNITS 3 TIMES A DAY WITH MEALS 15 mL 025 Active Dulaglutide 1.5 MG/0.5ML solution auto-injectorInd ications:Type 2 diabetes mellitus with other circulatory complication, with long-term current use of insulin ([facility]) Inject 1.5 mg under the skin 1 (one) time per week. 2 mL 025 2025 Active Icosapent Ethyl (Vascepa) 1 g capsule Take 2 capsules (2 g) by mouth with breakfast and with evening meal. 120 capsule 2025 Active insulin degludec (Tresiba FlexTouch) 200 UNIT/ML injection INJECT 50 UNITS SUBCUTANEOUSLY AT BEDTIME 18 mL 025 Active aspirin (Aspirin Low Dose) 81 MG EC tablet TAKE 1 TABLET BY MOUTH EVERY DAY IN THE MORNING 90 tablet 1 025 Active acetaminophen (Tylenol 8 Hour) 650 MG ER tabletIndication s:Pain TAKE 1 TABLET BY MOUTH EVERY 8 HOURS NEEDED. DO NOT CRUSH/BREAK/CHEW 100 tablet 1 025 Active [place]-3 Fatty Acids (OMEGA 3 PO) Chew 2 gummies by mouth once daily 018 2024 Discontinued NovoLOG FLEXPEN 100 UNIT/ML pen INJECT 12-14 UNITS 3 TIMES A DAY WITH MEALS 15 mL 3 024 2024 Discontinued(R eorder (will not trigger notification to Pharmacy)) dulaglutide (Trulicity) 1.5 MG/0.5ML solution pen-injectorIndi cations:Type 2 diabetes mellitus with other circulatory complication, with long-term current use of insulin ([facility]) Inject 1.5 mg under the [...] DAILY 90 tablet 1 025 2024 Discontinued acetaminophen (Tylenol 8 Hour) 650 MG ER tabletIndication s:Pain TAKE 1 TABLET BY MOUTH EVERY 8 HOURS NEEDED. 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 in 12/2022 w neg ucx < 10col [...] atorvastatin 80 mg Coronary artery disease involving craig coronar y artery 04/13/1994 Encounters Date Type Department Care Team Description 03/01/2025 Refill [facility] [address] [place] [address] Marla Richardson NP Pain 02/17/2025 Refill [facility] [address] [place] [address] NameSuresh MD 02/14/2025 2:00 PM EDT Office Visit [facility] [address] [place] [address] NameSuresh MD Type 2 diabetes mellitus with other circulatory complication, with long-term current use of insulin (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 ) 01/10/[address] [address] [address] Bellamy [place] Appointment Request (By [facility] coordinator) 01/09/[address] [phone] Suresh Rosenthal MD Appointment Request 01/09/[address] [phone] Suresh Rosenthal MD Medication Question 12/20/[address] [phone] Suresh Rosenthal MD [employer] (Cardinal underwear, protect sm/med) from Last 3 Months Immunizations Immunization Administration Dates Next Due Hep B, adult [...] Date Last Done Comments Eye Exam 1955 COVID-19 Vaccine ( season) 2025 07/27/2024, 09/15/2023, 12/31/2022, Additional history exists Alcohol/Substance Use Screening 04/15/2025 04/15/2024 Depression Screening 04/15/2025 04/15/2024, 04/15/20 24 Diabetes: Hemoglobin A1C 05/16/2025 025, 05/16/2024, 04/15/2024, Additional history exists SDOH Screening 02/02/2026 02/02/2025 Diabetes: Foot Exam 02/14/2026 02/14/2025, 02/14/2025, 02/14/2025, Additional history exists Tobacco Screening 02/14/2026 02/14/2025 Diabetes: Urine Protein Screening 02/18/2026 02/18/2025, 05/16/2024, 02/08/2024, Additional history exists Lipid Panel 02/18/2026 02/18/2025, 04/19, 01/16/2023, Additional history exists DTaP/Tdap/Td Vaccines (2 - Td or Tdap) 10/22/2026 10/22/2016, 02/11/1996 Hepatitis B Vaccines Completed 04/12/2004, 12/18/2003, 11/17/2003 Pneumococcal Vaccine: 50+ Years Completed 11/18/2017, 11/06/2013, 11/06/2013, Additional history exists Zoster Vaccines Completed 05/28/2021, 01/2020, 10/22/2016, Additional history exists RSV Patients and Patients Aged 60 years or older Completed 09/15/2023 Influenza Vaccine Completed 07/27/2024, , 10/10/2022, Additional [...] patient's age to complete this topic Meningococcal B Vaccine Aged Out No l onger eligible based on patient's age to complete [...] Procedure Name Priority Date/Time Associated Diagnosis Comments ALBUMIN, RANDOM URINE W/CREATININE Routine 02/18/2025 7:13 AM EDT Type 2 diabetes mellitus with other circulatory complication, with long-term current use of insulin (CMS/HCC) 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 High triglycerides LIPID PANEL, STANDARD Routine 02/18/2025 7:13 AM EDT Type 2 diabetes mellitus with other circulatory complication, with long-term current use of insulin (CMS/HCC) 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) POCT GLUCOSE Routine 02/14/2025 2:09 PM EDT Type 2 diabetes mellitus with other circulatory complication, with long-term current use of insulin ([facility]) CULTURE, URINE, ROUTINE Routine 02/14/2025 12:00 AM EDT Dysuria from Last 3 Months Results * (ABNORMAL) Albumin, Random Urine W/Creatinine (02/18/2025 7:13 AM EDT) Creatinine, Urine 41.44 mg/dL [facility] Microalbumin Urine 17.0 mg/L H [facility] Microalbum Creatinine Ratio Ur 41.0(H) <30 ug/mg cr [facility] Comment:Albumin/Creatinine R atio Reference Ranges: Normal: < 30 ug/mg creatinine Microalbuminuria: 30 - 300 ug/mg creatinineClinical Albuminuria: > 300 ug/mg creatinine Urine (Urine, Random) 02/18/2025 7:13 AM EDT 02/18/2025 7:59 AM EDT us Suresh Rosenthal MD LAB URINE ORDERABLES Final Resul t [facility] [address] [place] [phone] * (ABNORMAL) CBC auto differential (02/18/2025 7:13 AM EDT) White Blood Count 6.6 4.8 - 10.8 X10*3/uL [facility] Red Blood Count 4.41 4.20 - 5.50 X10*6/uL [facility] Hemoglobin 12.3 12.0 - 16.0 g/dl [facility] Hematocrit 37.6 37.0 - 47.0 % [facility] Mean Corpuscular Volume 85.3 80.0 - 98.0 fL [facility] Mean Corpuscular Hemoglobin 27.9 27.0 - 33.0 pg [facility] Mean Corpuscular HGB Conc 32.7 31.0 - 35.0 g/dl [facility] Red Cell Distribution Width 15.1 11.0 - 16.0 % [facility] Platelet Count 343 160 - 400 X10*3/uL [facility] Mean Platelet Volume 9.6 9.4 - 12.3 fL [facility] Neutrophils Percent Auto 43.2(L) 45 - 73 % [facility] Imm Gran Pct Auto 0.5(H) 0.0 - 0.4 % [facility] Lymphocytes Percent Auto 38.3 20 - 40 % [facility] Monocytes Percent Auto 12.7(H) 2 - 11 % [facility] Eosinophils Percent Auto 4.5(H) 0 - 4 % [facility] Basophils Percent Auto 0.8 0 - 2 % [facility] NRBC Pct Auto 0.0 0.0 - 0.2 /100WBC [facility] Neutrophils Absolute Auto 2.9 2.0 - 8.3 x10*3/uL [facility] Imm Gran Abs Auto 0.03 0.00 - 0.03 X10*3/uL [facility] Lymphocytes Absolute Auto 2.5 1.2 - 4.9 X10*3/uL [facility] Monocytes Absolute Auto 0.8 0.1 - 1.2 X10*3/uL [facility] Eosinophils Absolute Auto 0.3 0.0 - 0.4 X10*3/uL [facility] Basophils Absolute Auto 0.1 0.0 - 0.2 X10*3/uL [facility] NRBC Abs Auto 0.000 0.0 - 0.012 X10*3/uL [facility] Blood Venous blood specimen / Unknown 02/18/2025 7:13 AM EDT 02/18/2025 7:14 AM EDT us Suresh Rosenthal MD LAB BLOOD ORDERABLES Final Resul t Performing Organization Address [facility] de Phone Number [facility] [address] [place] [phone] * (ABNORMAL) Lipid Panel, Standard (02/18/2025 7:13 AM EDT) Triglycerides 320(H) <150 mg/dL [facility] Comment:Desirable Triglyceri de: less than 150 mg/dLBorderline High Triglyceride 150-199 mg/dLHigh Triglyceride: 200-499 mg/dLVery High Triglyceride: greater than or equal to 5OO mg/dL Cholesterol 164 <200 mg/dL [facility] Comment:Desirable Cholestero l: less than 200 mg/dLBorderline High Cholesterol: 200-239 mg/dLHigh Cholesterol: greater than 239 mg/dL LDL Cholesterol Calculated 60 <100 mg/dL [facility] Comment:Desirable LDL: less than 100 mg/dLNear Optimal/Above Optimal LDL: 110- 129 mg/dLBorderline High LDL: 130-159 mg/dLHigh LDL: 160-189 mg/dLVery High LDL: greater than or equal to 190 mg/dL HDL Cholesterol 40(L) >40 mg/dL [facility] Comment:Desirable HDL: great er than 40 mg/dL Note: This HDL assay may give artificially low results in patients with liver disease. Blood Venous blood specimen / Unknown 02/18/2025 7:13 AM EDT 02/18/2025 7:14 AM EDT us Suresh Rosenthal MD LAB BLOOD ORDERABLES Final Resul t Performing Organization Address [facility] Co de Phone Number [facility] [address] [place] [phone] * (ABNORMAL) Comprehensive Metabolic Panel (02/18/2025 7:13 AM EDT) Sodium 141 135 - 145 mmol/L [facility] Potassium 3.7 3.3 - 5.1 mmol/L [facility] Chloride 102 96 - 108 mmol/L [facility] Carbon Dioxide 28 22 - 29 mmol/L [facility] Anion Gap 15 12 - 20 [facility] Urea Nitrogen (BUN) 18(H) 9 - 16 mg/dL [facility] Creatinine, Serum 0.84 0.5 - 1.4 mg/dL [facility] Estimated Glomerular Filt Rate >60 [facility] Comment:Chronic Kidney Disea se: Estimated GFR < 60 mL/min/[id number] Kidney Disease: Estimated GFR < 15 mL/min/1.73m2 Glucose 124(H) 60 - 115 mg/dL [facility] Calcium 10.0 8.4 - 10.2 mg/dL [facility] Bilirubin, Total 0.4 0.0 - 1.0 mg/dL [facility] Aspartate Amino Transferase 21 5 - 31 U/L [facility] Alanine Aminotransferase 13 0 - 31 U/L [facility] Total Protein 7.1 6.5 - 8.0 g/dL [facility] Albumin Level 4.1 3.5 - 5.0 g/dL [facility] Alkaline Phosphatase 47 39 - 117 U/L [facility] Blood Venous blood specimen / Unknown 02/18/2025 7:13 AM EDT 02/18/2025 7:14 AM EDT us Suresh Rosenthal MD LAB BLOOD ORDERABLES Final Resul t [facility] [address] [place] [phone] * POCT Urinalysis (02/14/2025 2:21 PM EDT) [...] POCT HGB A1C (02/14/2025 2:09 PM EDT) Pathologist [facility] Hemoglobin A1C 7.2(A) 4.0 - 6.0 % QC Media Lot # [id number] Lot# Expiration Date [id number] Blood 02/14/2025 2:09 PM EDT us Suresh Rosenthal MD POINT OF CARE TEST ENTER/EDIT OR DERABLES Final Result * POCT Glucose (02/14/2025 2:09 PM EDT) Pathologist [facility] Glucose Blood, POC 142 60 - 200 mg/dL QC Media Lot # [id number] Lot# Expiration Date [id number] Blood Capillary blood specimen / Unknown 02/14/2025 2:09 PM EDT us Suresh Rosenthal MD POINT OF CARE TEST ENTER/EDIT OR DERABLES Final Result * Culture, Urine, Routine (02/14/2025 12:00 AM EDT) Urine Urine specimen obtained by clean catch procedure / Unknown 02/14/2025 02/14/2025 Comment:[facility] Narrative [facility] - 02/16/2025 11:29 AM EDT Urine Culture Report Result Urine Culture 10,000 to 50,000 cfu/ml Urine Culture Mixed bacterial new characteristic of Urine Culture urogenital contamination. Specimen Source: Urine clean catch Suresh Rosenthal MD LAB MICROBIOLOGY - GENERAL ORDER LALO Final Result [facility] [address] [place] [phone] from Last 3 Months Insurance [facility] [employer]SING OPT[employer] (HMO D-SNP) Care Teams Guard Driver Relationship Specialty Start Date End Date Name, MD Suresh [address] [place] [phone] PCP - General Family Medicine 11/18/17
--- OUTSIDE RECORDS SUMMARY | 2025-03-04 09:27 | XMS_ITS | Encounter Summary ---
Author Organization [employer] Address [address] [facility] [address]t [place] [address] Care Team Providers Care Supervisor Sunglasses Name Role Phone Name, Suresh BENJAMIN Primary Care Provider [phone] Reason for Visit * Reason Comments Med Refill Encounter Details Date Type Department Care Team ([facility] st Contact Info) Description 06/17/[address] [facility] [address] [place] [address] Renata Ballard, PRICILA [address] [place] [address] Chronic low back pain without sciatica, unspecified [...] documented as of this encounter Care Teams Supervisor Sunglasses Relationship Specialty Start Date End Date Name, MD Suresh [address] [place] [phone] PCP - General Family Medicine 11/18/17 documented as of this encounter
--- OUTSIDE RECORDS SUMMARY | 2025-03-04 09:27 | XMS_ITS | Encounter Summary ---
Author Organization [employer] Address [address] [facility] [address]t [place] [address] Care Team Providers Care Last Dipper Name Role Phone Name, Suresh BENJAMIN Primary Care Provider [phone] Reason for Visit * Reason Onset Date Comments Med Refill 06/23/2023 Encounter Details Date Type Department Care Team (Late st Contact Info) Description 06/23/2023 Refill [facility] [address] [place] [address] Gela Loza MD [address] [place] [address] Social History Tobacco Use Types Packs/Day Years [...] on filedocumented in this encounter Care Teams Last Dipper Relationship Specialty Start Date End Date Name, MD Suresh [address] [place] [address] PCP - General Family Medicine 11/18/17 documented as of this encounter
--- OUTSIDE RECORDS SUMMARY | 2025-03-04 09:27 | XMS_ITS | Patient Health Record ---
Author Organization [facility] Address [address] [place] [address] Care Team Providers Care [employer] Manager Name Role Phone Name Suresh BENJAMIN Primary [...] Oral thr ee times a day Active [place] 3 1000 MG 1 capsule Orally twi [...] Problem Status W/U Status Risk Notes Problem 12577285 Irritable bowel syndrome without diarrhea (K58.9) Active confirmed Problem Dysphagia (68091042) Dysphagia (R13.10) Active confirmed Problem 305949799 Gastroesophageal reflux disease without esophagitis (K21.9) Active confirmed Problem Gastric polyp (38967564) Gastric polyp (K31.7) Active confirmed Problem 543460656 Esophageal dysmotility (K22.4) Active confirmed Problem 39060607 Dysphagia, unspecified type (R13.10) Active confirmed Problem 666903825 Abnormal CT scan (R93.89) Active confirmed Plan [...] Name:Juanpablo cordon , 03/30/2025 02:35:00 PM, [address] [facility], [address], [place], [phone], Insurance Providers Payer Name Payer Address Payer Phone Subscriber Number Group Number Insured Name Patient Relationship to Insured Coverage Start Date Coverage End Date [facility] [address] Attn Claims JASEN Yousif [id number] CL AGUILERA Self - patient is the insured Medical (General) History Medical History History ICD Code Gastroesophageal reflux dise ase with esophageal dysmotility, last upper endoscopy with balloon dilation 05/09. coronary artery disease,status-post [employer] OPERATOR stent placement diabetes with diabetic neuropathy hyperlipidemia degenerative joint disease colonoscopy 2018, tubular adenoma, follo wup optional based on age. stroke -2017 Surgical History Surgery Date(Month/Year) cholecystectomy hysterectomy cleaned out artery 02/02/2018
--- OUTSIDE RECORDS SUMMARY | 2025-03-04 09:27 | XMS_ITS | Encounter Summary ---
Author Organization [employer] Address 75 [facility] 7t [place] [address] Care Team Providers Care Assistant Professor Of Theater Name Role Phone Name, Suresh BENJAMIN Primary Care Provider [phone] Reason for Visit * Reason Comments Med Refill Encounter Details Date Type Department Care Team ([facility] st Contact Info) Description 01/02/2023 Refill [facility] [address] [place] [address] Name, MD Suresh [address] [place] [address] Type 2 diabetes mellitus with other circulatory [...] laterality documented in this encounter Care Teams Assistant Professor Of Theater Relationship Specialty Start Date End Date Name, MD Suresh [address] [place] [address] PCP - General Family Medicine 11/18/17 documented as of this encounter
--- OUTSIDE RECORDS SUMMARY | 2025-03-04 09:27 | XMS_ITS | Encounter Summary ---
Author Organization [employer] Address [address] [facility] [address] [place] [address] Care Team Providers Care Supervisor Special Education Name Role Phone Name, Suresh BENJAMIN Primary Care Provider [phone] Encounter Details Date Type Department Care Team (Late st Contact Info) Description 09/27/2022 Orders Only [facility] [address] [place] [address] Name, MD Suresh [address] [place] [address] Social History Tobacco Use Types Packs/Day Years [...] 8 AM EDT 01/16/2023 11:29 AM EDT Comment:[facility] Narrative [facility] - 01/17/2023 1:11 PM EDT Urine Culture Report Result Urine Culture < 10,000 cfu/ml Specimen Source: Urine clean catch us [facility] Exter nal Provider LAB MICROBIOLOGY - GENERAL ORDERABLES Final Result [facility] [address] [place] [address] [phone] * Protein Creatinine Ratio, Urine (01/16/2023 10:20 AM EDT) Protein, Total, Random Urine 10 <12 mg/dL [facility] Protein/Creatin ine Ratio, Ur 0.07 <0.2 [facility] Comment:The spot urine prote in:creatinine ratio may increase to 0.3during normal . 01/16/2023 10:2 0 AM EDT 01/16/2023 11:29 AM EDT [facility] External Provider LAB URI NE ORDERABLES Final Result Performing Organization Address [facility] de Phone Number [facility] [address] [place] [phone] * Albumin, Random Urine W/Creatinine (01/16/2023 10:20 AM EDT) Creatinine, Urine 147.17 mg/dL [facility] Microalbumin Urine 23.0 mg/L [facility] Microalbum Creatinine Ratio Ur 15.6 ug/mg cr [facility] Comment:Albumin/Creatinine R atio Reference Ranges: Normal: < 30 ug/mg creatinine Microalbuminuria: 30 - 300 ug/mg creatinineClinical Albuminuria: > 300 ug/mg creatinine 01/16/2023 10:2 0 AM EDT 01/16/2023 11:29 AM EDT [facility] External Provider LAB URI NE ORDERABLES Final Result Performing Organization Address [facility] Co de Phone Number [facility] [address] [place] [phone] * (ABNORMAL) Urinalysis Complete (01/16/2023 10:20 AM EDT) Color Urine Yellow [facility] Appearance Urine Clear [facility] PH 6.0 5.0 - 9.0 [facility] Glucose Urine UA Negative Negative mg/dL [facility] Urine Blood Negative Negative [facility] Specific [place] - Urine 1.020 1.005 - 1.025 [facility] Urine Protein Negative Neg-Trace mg/dL [facility] Urine Ketones Negative Negative mg/dL [facility] Nitrite Urine Negative Negative [facility] Leukocyte Esterase Urine Moderate (2+)(A) Negative [facility] RBC Urine 0-2 0 - 2 /HPF [facility] Urine WBC 11-20(A) 0 - 5 /HPF [facility] Urine Squamous Epithelial Cell 0-2 0 - 2 /HPF [facility] Urine Bacteria None Seen None Seen [facility] Hyaline Casts, Urine 0-2 0 - 2 /LPF [facility] 01/16/2023 10:2 0 AM EDT 01/16/2023 11:29 AM EDT us [facility] External Provider LAB URI NE ORDERABLES Final Result [facility] [address] [place] [address] [phone] * (ABNORMAL) PTH, Intact Without Calcium (01/16/2023 10:10 AM EDT) PTHI 20 16 - 77 pg/mL [facility] Comment:Interpretive Guide I ntact PTH Calcium -------Normal Parathyroid Normal NormalHypoparathyroidism Low or Low Normal LowHyperparathyroidism Primary Normal or High High Secondary High Normal or Low Tertiary High HighNon-Parathyroid Hypercalcemia Low or Low Normal High Calcium (PTHI) 10.7(A) 8.6 - 10.4 mg/dL [facility] Comment:THIS TEST WAS PERFOR MED AT:[employer] [place] [id number] LEAHY MD 01/16/2023 10:1 0 AM EDT 01/16/2023 11:26 AM EDT [facility] External Provider LAB BLO OD ORDERABLES Final Result Performing Organization Address [facility]/ZIP Co de Phone Number [facility] [address] [place] [phone] [phone] * Vitamin D, 25-Hydroxy, Total, Immunoassay (01/16/2023 10:10 AM EDT) Vitamin D 25-OH Total 42.7 >30 ng/mL [facility] Comment:Health Based Referen ce Values*< 20 ng/mL [id number] ng/mL Insufficient> 30 ng/mL Sufficient*Whitney MARS. N [...] 0 AM EDT 01/16/2023 11:26 AM EDT [facility] External Provider LAB BLO OD ORDERABLES Final Result [facility] [address] [place] [phone] * Albumin (01/16/2023 10:10 AM EDT) Albumin Level 4.2 3.5 - 5.0 g/dL [facility] 01/16/2023 10:1 0 AM EDT 01/16/2023 11:26 AM EDT [facility] External Provider LAB BLO OD ORDERABLES Final Result Performing Organization Address [facility] Co de Phone Number [facility] [address] [place] [phone] * Magnesium (01/16/2023 10:10 AM EDT) Magnesium 1.7 1.6 - 2.6 mg/dL [facility] 01/16/2023 10:1 0 AM EDT 01/16/2023 11:26 AM EDT [facility] External Provider LAB BLO OD ORDERABLES Final Result Performing Organization Address [facility] Phone Number [facility] [address] [place] [phone] * Phosphate (As Phosphorus) (01/16/2023 10:10 AM EDT) Phosphorus 3.6 2.7 - 4.5 mg/dL [facility] 01/16/2023 10:1 0 AM EDT 01/16/2023 11:26 AM EDT [facility] External Provider LAB BLO OD ORDERABLES Final Result Performing Organization Address [facility] de Phone Number [facility] [address] [place] [phone] [phone] * (ABNORMAL) Calcium (01/16/2023 10:10 AM EDT) Calcium 10.4(H) 8.4 - 10.2 mg/dL [facility] 01/16/2023 10:1 0 AM EDT 01/16/2023 11:26 AM EDT [facility] External Provider LAB BLO OD ORDERABLES Final Result Performing Organization Address [facility] Co de Phone Number [facility] [address] [place] [phone] * Creatinine, Serum (01/16/2023 10:10 AM EDT) Creatinine, Serum 1.06 0.5 - 1.4 mg/dL [facility] Estimated Glomerular Filt Rate 50 [facility] Comment:NOTE: For -Am erican individuals, multiply the result by 1.210.Chronic Kidney Disease: Estimated GFR < 60 mL/min/[id number] Kidney Disease: Estimated GFR < 15 mL/min/1.73m2 01/16/2023 10:1 0 AM EDT 01/16/2023 11:26 AM EDT [facility] External Provider LAB BLO OD ORDERABLES Final Result Performing Organization Address [facility]/ZIP Co de Phone Number [facility] [address] [place] [phone] * (ABNORMAL) BUN (Blood Urea Nitrogen) (01/16/2023 10:10 AM EDT) Urea Nitrogen (BUN) 27(H) 9 - 16 mg/dL [facility] 01/16/2023 10:1 0 AM EDT 01/16/2023 11:26 AM EDT [facility] External Provider LAB BLO OD ORDERABLES Final Result [facility] [address] [place] [phone] * Electrolyte Panel (01/16/2023 10:10 AM EDT) Sodium 140 135 - 145 mmol/L [facility] Potassium 4.0 3.3 - 5.1 mmol/L [facility] Chloride 102 96 - 108 mmol/L [facility] Carbon Dioxide 28 22 - 29 mmol/L [facility] Anion Gap 14 12 - 20 [facility] 01/16/2023 10:1 0 AM EDT 01/16/2023 11:26 AM EDT [facility] External Provider LAB BLO OD ORDERABLES Final Result Performing Organization Address [facility] Co de Phone Number [facility] [address] [place] [phone] * Lipid Panel, Standard (01/16/2023 10:10 AM EDT) Triglycerides 260 mg/dL [facility] Comment:Desirable Triglyceri de: less than 150 mg/dLBorderline High Triglyceride 150-199 mg/dLHigh Triglyceride: 200-499 mg/dLVery High Triglyceride: greater than or equal to 5OO mg/dL Cholesterol 180 mg/dL [facility] Comment:Desirable Cholestero l: less than 200 mg/dLBorderline High Cholesterol: 200-239 mg/dLHigh Cholesterol: greater than 239 mg/dL LDL Cholesterol Calculated 94 mg/dl [facility] Comment:Desirable LDL: less than 100 mg/dLNear Optimal/Above Optimal LDL: 110- 129 mg/dLBorderline High LDL: 130-159 mg/dLHigh LDL: 160-189 mg/dLVery High LDL: greater than or equal to 190 mg/dL HDL Cholesterol 34 mg/dL [facility] Comment:Desirable HDL: great er than 40 mg/dL Note: This HDL assay may give artificially low results in patients with liver disease. 01/16/2023 10:1 0 AM EDT 01/16/2023 11:26 AM EDT [facility] External Provider LAB BLO OD ORDERABLES Final Result Performing Organization Address [facility] Co de Phone Number [facility] [address] [place] [phone] * (ABNORMAL) Comprehensive Metabolic Panel, Fasting (01/16/2023 10:10 AM EDT) Sodium 140 135 - 145 mmol/L [facility] Potassium 4.0 3.3 - 5.1 mmol/L [facility] Chloride 101 96 - 108 mmol/L [facility] Carbon Dioxide 29 22 - 29 mmol/L [facility] Anion Gap 14 12 - 20 [facility] Urea Nitrogen (BUN) 27(H) 9 - 16 mg/dL [facility] Creatinine, Serum 1.08 0.5 - 1.4 mg/dL [facility] Estimated Glomerular Filt Rate 49 [facility] Comment:NOTE: For -Am erican individuals, multiply the result by 1.210.Chronic Kidney Disease: Estimated GFR < 60 mL/min/1.25j1Nmbegb Kidney Disease: Estimated GFR < 15 mL/min/1.73m2 Glucose Fasting 164(H) 60 - 99 mg/dL [facility] Comment:A fasting glucose of 126 mg/dl or greater on more than oneoccasion is considered diagnostic of diabetes. Calcium 10.4(H) 8.4 - 10.2 mg/dL [facility] Bilirubin, Total 0.4 0.0 - 1.0 mg/dL [facility] Aspartate Amino Transferase 19 5 - 31 U/L [facility] Alanine Aminotransferase 13 0 - 31 U/L [facility] Total Protein 7.3 6.5 - 8.0 g/dL [facility] Albumin Level 4.2 3.5 - 5.0 g/dL [facility] Alkaline Phosphatase 51 39 - 117 U/L [facility] 01/16/2023 10:1 0 AM EDT 01/16/2023 11:26 AM EDT us [facility] External Provider LAB BLO OD ORDERABLES Final Result [facility] [address] [place] [phone] * CBC auto differential (01/16/2023 10:10 AM EDT) Pathologist [facility] White Blood Count 7.5 4.8 - 10.8 X10*3/uL [facility] Red Blood Count 4.35 4.20 - 5.50 X10*6/uL [facility] Hemoglobin 12.2 12.0 - 16.0 g/dl [facility] Hematocrit 37.9 37.0 - 47.0 % [facility] Mean Corpuscular Volume 87.1 80.0 - 98.0 fL [facility] Mean Corpuscular Hemoglobin 28.0 27.0 - 33.0 pg [facility] Mean Corpuscular HGB Conc 32.2 31.0 - 35.0 g/dl [facility] Red Cell Distribution Width 14.0 11.0 - 16.0 % [facility] Platelet Count 334 160 - 400 X10*3/uL [facility] Mean Platelet Volume 10.4 9.4 - 12.3 fL [facility] Neutrophils Percent Auto 56.2 45 - 73 % [facility] Imm Gran Pct Auto 0.4 0.0 - 0.4 % [facility] Lymphocytes Percent Auto 29.1 20 - 40 % [facility] Monocytes Percent Auto 10.1 2 - 11 % [facility] Eosinophils Percent Auto 3.5 0 - 4 % [facility] Basophils Percent Auto 0.7 0 - 2 % [facility] NRBC Pct Auto 0.0 0.0 - 0.2 /100WBC [facility] Neutrophils Absolute Auto 4.2 2.0 - 8.3 x10*3/uL [facility] Imm Gran Abs Auto 0.03 0.00 - 0.03 X10*3/uL [facility] Lymphocytes Absolute Auto 2.2 1.2 - 4.9 X10*3/uL [facility] Monocytes Absolute Auto 0.8 0.1 - 1.2 X10*3/uL [facility] Eosinophils Absolute Auto 0.3 0.0 - 0.4 X10*3/uL [facility] Basophils Absolute Auto 0.1 0.0 - 0.2 X10*3/uL [facility] NRBC Abs Auto 0.000 0.0 - 0.012 X10*3/uL [facility] 01/16/2023 10:1 0 AM EDT 01/16/2023 11:26 AM EDT [facility] External Provider LAB BLO OD ORDERABLES Final Result [facility] [address] [place] [phone] documented in this encounter Visit Diagnoses Not on filedocumented in this encounter Care Teams Supervisor Special Education Relationship Specialty Start Date End Date Name, MD Suresh [address] [place] [address] PCP - General Family Medicine 11/18/17 documented as of this encounter
--- OUTSIDE RECORDS SUMMARY | 2025-03-04 09:27 | XMS_ITS | Data Portability ---
Author Organization [place] - [facility], [facility] Address [address] [place] [address] Care Team Providers Care Tobacco Weigher Name Role Phone NAME, JADA Primary Care Provider Assessment No assessment recorded. Plan of Treatment Reminders Order Date Submit Date Provider Last Modified By Organization Details Last Modified Time Details Appointments RECHECK 15 2024 01:00P M Rafael Marshall PA-C Not available Not available Not available Lab None recorded. Referral physical therapist referral - DIAGNOSIS : Suspected Left rotator cuff tearEvalu ate and Velri5x/w [place] x 6 weeksGoal : - Decrease pain/swel [...] Sophie Cesar, [address], [address], [place], [address], 08/19/2024 11:38:02 XR, shoulder, 2 or more view - R shoulder 4 view (215) spanishsp eaking 2023 024 [facility] [employer] [facility], [address], [address], [place], [address], 08/19/2024 11:38:02 XR, shoulder, 2 or more view - L shoulder and cspine 1 view, 4 view rm 214 2023 024 [facility] [employer] [facility], [address], [address], [place], [address], 07/06/2024 11:28:33 XR, cervical spine, 1 view 2023 024 [facility] [employer] [facility], [address], [address], [place], [address], 07/06/2024 11:28:33 Medication Orders None recorded. Patient TargetsNo targets recorded. Patient InstructionsNo instructions recorded. Reason for Referral Physical Therapist Referral for Pain of left shoulder joint DIAGNOSIS: Suspected Left rotator cuff tearEvaluate and Vqvei2l/week x 6 weeksGoal: - Decrease pain/swelling - [...] 2x/day Referring Physician: Debora García, Orthopedic Surgery, [id number] Encounter Date: 06/13/2024 Results Created Date Observation Date Name Description Value Unit Range Abnormal Flag Note LastModifiedBy Organization Detail LastModifiedTime 02/26/20 24 02/26/2024 XR, hip, unila teral , 2 or 3 view [email or web address]:/ [email or web address] ?Encry pted=s hAaTro YD8dLq bEUv6g %2BXZw aYqtaq 0bqfl% 2Fg9IQ a4ajBk vP9nXo QUaueC m3YtLR FvZlgJ JJ8mAn HZtai3 3f1985 AC0Kva H%2BNU KfeUC8 mr84%3 D INTERFACE [facility] [address], [place], [address], 02/26/2024 14:24:40 02/26/20 24 02/26/2024 XR, hip, unila teral , 2 or 3 view http:/ [email or web address] ?Encry pted=s hAaTro YD8dLq bEUv6g %2BXZw aYqtaq 0bqfl% 2Fg9IQ a4ajBk vP9nXo QUaueC m3YtLR FvZlgJ JJ8mAn HZtai3 3v1245 AC0Kva H%2BNU KfeUC8 mr84%3 D INTERFACE [facility] [address], [place], [address], 02/26/2024 14:24:42 06/13/20 24 06/13/2024 XR, shoul carolynn, 2 or more view http:/ [email or web address] ?Encry pted=s hAaTro YD8dLq bEUv6g %2BXZw aYqtaq 0bqfl% 2Fg9IQ a4ajBk vP9nXo QUaueC m3YtLR FvZlgJ JJ8mAn HZtai3 7n1165 AC0Kra XWGUaf eUC8mr 84%3D [email or web address] [facility] [address], [place], [address], 06/13/2024 15:36:11 06/13/20 24 06/13/2024 XR, shoul carolynn, 2 or more view [email or web address]:/ [email or web address] ?Encry pted=s hAaTro YD8dLq bEUv6g %2BXZw aYqtaq 0bqfl% 2Fg9IQ a4ajBk vP9nXo QUaueC m3YtLR FvZlgJ JJ8mAn HZtai3 7s6314 AC0Kra XWGUaf eUC8mr 84%3D [facility] [address], [place], [address], 06/13/2024 15:35:58 06/13/20 24 06/13/2024 XR, cervi italia spine , 1 view http:/ [email or web address] ?Encry pted=s hAaTro YD8dLq bEUv6g %2BXZw aYqtaq 0bqfl% 2Fg9IQ a4ajBk vP9nXo QUaueC m3YtLR FvZl JJ8Coram HZtai3 4r3752 AC0Kra XWGUKD eUC8mr 84%3D INTERFACE [facility] [address], [place], [address], 06/13/2024 15:08:39 06/13/20 24 06/13/2024 XR, cervi italia spine , 1 view http:/ [email or web address] ?Encry pted=s hAaTro YD8dLq bEUv6g %2BXZw aYqtaq 0bqfl% 2Fg9IQ a4ajBk vP9nXo QUaueC m3YtLR FvZlg JJ8mAn HZtai3 6l4367 AC0Kra XWGUKD eUC8mr 84%3D INTERFACE [facility] [address], [place], [address], 06/13/2024 15:08:41 07/25/20 24 07/25/2024 XR, shoul carolynn, 2 or more view http:/ [email or web address] ?Encry pted=s hAaTro YD8dLq bEUv6g %2BXZw aYqtaq 0bqfl% 2Fg9IQ a4ajBk vP9nXo QUaueC m3YtLR FvZlgJ JJ8mAn HZtai3 7b8878 AC0Kqa 36DWau vKiQtr MwF INTERFACE [facility] [address], [place], [address], 07/25/2024 15:52:11 07/25/20 24 07/25/2024 XR, shoul carolynn, 2 or more view http:/ [email or web address] ?Encry pted=s hAaTro YD8dLq bEUv6g %2BXZw aYqtaq 0bqfl% 2Fg9IQ a4ajBk vP9nXo QUaueC m3YtLR FvZlgJ JJ8mAn HZtai3 0s2341 AC0Kqa 36DWau vKiQtr MwF INTERFACE [facility] [address] [facility] [address], [place], [address], 07/25/2024 15:52:14 07/25/20 24 07/25/2024 XR, shoul carolynn, 2 or more view http:/ [email or web address] ?Encry pted=s hAaTro YD8dLq bEUv6g %2BXZw aYqtaq 0bqfl% 2Fg9IQ a4ajBk vP9nXo QUaueC m3YtLR FvZlgJ JJ8mAn HZtai3 7u4279 AC0Kqa nWDUKK iKiQtr MwF INTERFACE [facility] [address], [place], [address], 07/25/2024 16:06:08 07/25/20 24 07/25/2024 XR, shoul carolynn, 2 or more view [email or web address]:/ [email or web address] ?Encry pted=s hAaTro YD8dLq bEUv6g %2BXZw aYqtaq 0bqfl% 2Fg9IQ a4ajBk vP9nXo QUaueC m3YtLR FvZlgJ JJ8mAn HZtai3 3s8933 AC0Kqa nWDUKK iKiQtr MwF INTERFACE [facility] [address], [place], [address], 07/25/2024 16:06:11 Result Notes None recorded. Procedures Surgical History Date Name Laterality Status Provider Name and Address Organization Details Recorded Time 5 Sports Shoulder Bilateral completed Debora García MD [address], [place], [address], [facility] 01/23/2025 14:46:50 5 Knee Kenalog 1cc L/R completed Rafael Marshall PA-C [address] [facility], [place], [address], [facility] 11/10/2024 15:34:31 4 Sports Shoulder completed Debora García MD [address] [facility], [place], [address], [facility] 08/20/2024 13:07:34 4 Sports Shoulder completed Debora García MD [address], [place], [address], [facility] 06/13/2024 15:55:01 4 Hip Kenalog 1cc Injection, L/R completed Rafael Marshall PA-C [address], [place], [address], [facility] 03/15/2024 10:48:22 4 Hip Kenalog 1cc Injection, L/R completed Rafael Marshall PA-C [address], [place], [address], [facility] 02/26/2024 15:11:06 Imaging Results Imaging Date Name Status LastModified by [facility] Details LastModified Time 02/26/2024 XR, hip, unilateral, 2 or 3 view completed INTERFACE [facility] [address], [place], [address], 02/26/2024 14:24:40 02/26/2024 XR, hip, unilateral, 2 or 3 view completed INTERFACE [facility] [address], [place], [address], 02/26/2024 14:24:42 06/13/2024 XR, shoulder, 2 or more view completed [place] [address] [facility] [address], [place], [address], 06/13/2024 15:36:11 06/13/2024 XR, shoulder, 2 or more view completed [email or web address] [facility] [address], [place], [address], 06/13/2024 15:35:58 06/13/2024 XR, cervical spine, 1 view completed INTERFACE [facility] [address], [place], [address], 06/13/2024 15:08:39 06/13/2024 XR, cervical spine, 1 view completed INTERFACE [facility] [address], [place], [address], 06/13/2024 15:08:41 07/25/2024 XR, shoulder, 2 or more view completed INTERFACE [facility] [address], [place], [address], 07/25/2024 15:52:11 07/25/2024 XR, shoulder, 2 or more view completed INTERFACE [facility] [address], [place], [address], 07/25/2024 15:52:14 07/25/2024 XR, shoulder, 2 or more view completed INTERFACE [facility] [address], [place], [address], 07/25/2024 16:06:08 07/25/2024 XR, shoulder, 2 or more view completed INTERFACE [facility] [address], [place], [address], 07/25/2024 16:06:11 Procedure Notes None recorded. Medical Equipment None Reported. Allergies Allergen ID Allergen Name Allergen Category Reaction Reaction Severity Criticality Documentation Date Start Date Code Code System Note Provider Name and Address Organization Details Recorded Time 970334 apple extract food Not available Not available Not available 02/26/2024 11986 65 RxNorm SHERINE ONEALOUR [facility] 14:06:39 839607 plum preparati on food Not available Not available Not available 02/26/2024 53329 7 RxNorm SHERINE BATEMAN [facility] 14:06:44 531057 Substance with sulfonami de structure and antibacte rial mechanism of action (substanc e) medicatio n Not available Not available Not available 02/26/2024 16899 8003 SNOMED SHERINE ONEALOUR [facility] 4 14:06:49 988391 Cipro medicatio n Not available Not available Not available 02/26/2024 98508 3 RxNorm SHERINE BATEMAN [facility] 14:06:53 Medications Name Sig Start [...] DateTime 03/15/2024 147.32 cm ARCHIE LUIS ALFREDO [facility] 03/15/2024 10:29:27 Date Recorded Body height Body mass index (BMI) Body weight Provider Name and Address Organization Details Last Updated DateTime 06/13/2024 147.32 cm 31.3 kg/m2 88576.86 g ELSIE ALEIDA [facility] 06/13/2024 14:59:13 Date Recorded Body height Body mass index (BMI) Body weight Provider Name and Address Organization Details Last Updated DateTime 07/25/2024 147.32 cm 31.3 kg/m2 15342.86 g ELSIE ALEIDA [facility] 07/25/2024 15:27:05 Date Recorded Body height Body mass index (BMI) Body weight Provider Name and Address Organization Details Last Updated DateTime 11/10/2024 147.32 cm 31.3 kg/m2 71882.86 g Arin Reynosoton [facility] 11/10/2024 14:50:16 Date Recorded Body height Body mass index (BMI) Body weight Provider Name and Address Organization Details Last Updated DateTime 01/23/2025 147.32 cm 31.3 kg/m2 34391.86 g ELSIE ALEIDA [facility] 01/23/2025 13:58:41 Social History None recorded. Functional Status None recorded. Mental Status None recorded. Family History Nothing Reported. Medical History Condition Response Coronary Artery Disease N Anxiety/Depression N Emphysema N COPD N Pacemaker N Vascular Disease N Heart Trouble Y Gastrointestinal Disease N Autoimmune disease N Orthotics N Arthritis Y Blood Clot N Acid Reflux (GERD) N Cancer N Stroke Y Circulation Problems N Rheumatoid Arthritis N Arrhythmia N Headaches N Fibromyalgia N Allergies/Hayfever N Breathing or lung disorders N Nerve Disorders N Thyroid Problems N Kidney/Bladder Problems Y Anemia N Heart Attack ([place]) N Cholesterol N Diabetes Y Bleeding Disorder N Seizures/Epilepsy N AIDS/HIV N Congestive Heart Failure (CHF) N Asthma N Peripheral Vascular Disease N Sleep Apnea N Hepatitis N Heart Disease N Pulmonary Embolism N Hypertension Y Osteoporosis N Gynecological HistoryNo gynecological history recorded. 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 [id number] C[facility] Silva [address] [place] [address] 03/15/2024 10:27:54 04/05/2024 12:32:37 Trochanteric bursitis of left hip 3579199056 54286 M70.62 You have been provided with a [...] or contact us through the portal [facility]. [id number] MD Sophie Reynoso 2nd floor [address] [place] [address] 06/13/2024 14:40:37 07/06/2024 11:28:33 Pain of left shoulder joint 2886336867 5375583 M25.977 [id number] Debora García MD Sophie [address] [place] [address] 07/25/2024 14:39:59 08/19/2024 11:38:02 Pain of right shoulder joint 1357258070 9738687 M25.491 [id number] CRIST[facility] Silva - [address] [place] [address] 11/10/2024 14:36:46 11/22/2024 15:06:05 Osteoarthritis of right knee joint 9681642546 25732 M17.11 The patient is ambulatory , but [...] office or contact us through the portal [facility]. [id number] MD RENETTA Reynoso [address]nd floor [address] [place] [address] 01/23/2025 13:52:05 02/06/2025 15:58:32 Rotator cuff arthropathy of right shoulder 8788547402 8683376 M12.811 Rotator cu ff arthropathy of left shoulder 6130816017 0445838 M12.812 Health Concerns Section Related Observation LastModified by Organization Detai ls LastModified Time None Recorded Concern Status LastModified by Organization Details LastModified Time None Recorded Advance Directives Directive None Recorded Payers Encounter Date Sequence Insurance Name Policy Number Policy Mendoza Covered Member ID Mendoza Member ID Guarantor Name 03/15/2024 1 [facility] - DOS ON OR AFTER 2023 - ONE CARE (MEDICARE REPLACEMENT/AD VANTAGE - HMO) Dori Louie [id number] Dori Palma [place] 06/13/2024 1 [employer] - DOS ON OR AFTER 2023 - JAIL OPTIONS (MEDICARE REPLACEMENT/AD VANTAGE - HMO) Dori Palma [place]rr[place] [id number] Dori Pal[place] 07/25/2024 1 [facility] [employer] - DOS ON OR AFTER 2023 - JAIL OPTIONS (MEDICARE REPLACEMENT/AD VANTAGE - HMO) Dori Palma [place]rr[place] [id number] Dori Palma [place] 11/10/2024 1 [facility] - DOS ON OR AFTER 2023 - JAIL OPTIONS (MEDICARE REPLACEMENT/AD VANTAGE - HMO) Dori Palma [place] [id number] Dori Palma [place] 01/23/2025 1 [facility] - DOS ON OR AFTER 2023 - JAIL OPTIONS (MEDICARE REPLACEMENT/AD VANTAGE - HMO) Dori Louie Johnsongado [id number] Dori Palma [place] Notes Date Note Type [...] questions asked and answered. Rafael Marshall PA-C [address] [place], [place] [address] [address], [place], [address], [facility] 03/15/2024 10:48:52 06/13/2024 text/html Chief Complaint: Left shoulder pain HPI: This is an 79-year-old jfndq-gqto-eceiudjx disabled woman with left shoulder pain beginning [...] the Left shoulder ordered and obtained at [facility] today were reviewed during the visit. These demonstrate increased glenohumeral joint space, which may reflect effusion. Difficult to make out on outlet view, but AP view suggest a large anterior acromial spur. No proximal migration humeral head. Humeral head centered on axillary view. No dystrophic calcium deposition. Impression: 79-year-old gvnhp-vzzt-ncizdzfy disabled woman with shoulder morphology which would [...] aches and pains, the patient can take teun-rce-fkwympp medication such as Tylenol or anti-inflammatories as needed; risks and benefits of medication discussed. Should call with more persistent pain. We will leave follow up open ended at this point. However should symptoms worsen or fail to improve to the patient's satisfaction, she is encouraged to give the office a call to be seen back for further evaluation and management. [employer] speech recognition community nutrition educator software was used to create portions of this document. An attempt at proofreading has been made to minimize errors. Please call for corrections. Debora García MD [address] [place] [address] [address], [place], [address], [facility] 06/13/2024 17:20:18 07/25/2024 text/html Chief Complaint: Left shoulder pain HPI: This is an 79-year-old ookit-vsco-ypuiwike disabled woman who I met 6 weeks [...] the right shoulder ordered and obtained at [facility] today were reviewed during the visit. These demonstrate good preservation of glenohumeral joint space. Type II acromion. No proximal migration humeral head. Humeral head centered on axillary view. No dystrophic calcium deposition. Impression: 79-year-old ygoej-svxj-anhrsppr disabled woman with shoulder morphology which would [...] aches and pains, the patient can take shhb-gko-arnhmuv medication such as Tylenol or anti-inflammatories as needed; risks and benefits of medication discussed. Should call with more persistent pain. We will leave follow up open ended at this point. However should symptoms worsen or fail to improve to the patient's satisfaction, she is encouraged to give the office a call to be seen back for further evaluation and management. [employer] speech recognition community nutrition educator software was used to create portions of this document. An attempt at proofreading has been made to minimize errors. Please call for corrections. Debora García MD [address], [place], [address], [facility] 08/20/2024 13:08:33 11/10/2024 text/html [...] total joint arthroplasty. Rafael Marshall PA-C [address], [place], [address], [facility] 11/10/2024 15:35:00 01/23/2025 text/html Chief Complaint: Bilateral degenerative cuff disease HPI: This is an 79-year-old cxbyd-dgjg-yjiqdfnr disabled woman who I met last summer [...] the Left shoulder ordered and obtained at [facility] 06/13/2024 were reviewed during the visit. These demonstrate increased glenohumeral joint space, which may reflect effusion. Difficult to make out on outlet view, but AP view suggest a large anterior acromial spur. No proximal migration humeral head. Humeral head centered on axillary view. No dystrophic calcium deposition. 4v of the right shoulder ordered and obtained at [facility] 07/22/2024 were reviewed during the visit. These demonstrate good preservation of glenohumeral joint space. Type II acromion. No proximal migration humeral head. Humeral head centered on axillary view. No dystrophic calcium deposition. Impression: 79-year-old dlget-zxvp-lyzclail disabled woman with shoulder morphology which would [...] encouraged to call and move back appointment). [facility] speech recognition community nutrition educator software was used to create portions of this document. An attempt at proofreading has been made to minimize errors. Please call for corrections. Debora García MD [address] [place], [place] [address], [place], [address], [facility] 01/23/2025 14:47:18 OBGyn Episode No OBEpisode recorded.
--- OUTSIDE RECORDS SUMMARY | 2025-03-04 09:27 | XMS_ITS | Encounter Summary ---
Author Organization [employer] Address [address] [facility] [address]t [place] [address] Care Team Providers Care Quill Worker Name Role Phone Name, Suresh BENJAMIN Primary Care Provider [phone] Encounter Details Date Type Department Care Team ([facility] st Contact Info) Description 11/13/2023 Abstract [facility] [address] [place] [address] Name, MD Suresh [address] [place] [address] Social History Tobacco Use Types Packs/Day Years [...] on filedocumented in this encounter Care Teams Quill Worker Relationship Specialty Start Date End Date Name, MD Suresh [address] [place] [address] PCP - General Family Medicine 11/18/17 documented as of this encounter
--- OUTSIDE RECORDS SUMMARY | 2025-03-04 09:27 | XMS_ITS | Encounter Summary ---
Author Organization [employer] Address [address] [facility] [address] [place] [address] Care Team Providers Care Government Operations Consultant Name Role Phone Name, Suresh BENJAMIN Primary Care Provider Reason for Visit * Reason Comments Med Refill Encounter Details Date Type Department Care Team (Late st Contact Info) Description 12/01/2022 Refill [facility] [address] [place] [address] Michelle Hernandez, TOOL SPECIALIST [address] [place] [address] Tinea; Pain Social History Tobacco Use Types [...] pain documented in this encounter Care Teams Government Operations Consultant Relationship Specialty Start Date End Date Name, MD Suresh [address] [place] [address] PCP - General Family Medicine 11/18/17 documented as of this encounter
--- OUTSIDE RECORDS SUMMARY | 2025-03-04 09:27 | XMS_ITS | Encounter Summary ---
Author Organization [employer] Address [address] [facility] [address] [place] [address] Care Team Providers Care Hired Hand Name Role Phone Name, Suresh BENJAMIN Primary Care Provider [phone] Reason for Visit * Reason Onset Date Comments Med Refill 06/23/2023 Encounter Details Date Type Department Care Team ([facility] st Contact Info) Description 06/23/2023 Refill [facility] [address] [place] [address] Michelle Hernandez FNP [address] [place] [address] Routine health maintenance Social History Tobacco Use [...] examination documented in this encounter Care Teams Hired Hand Relationship Specialty Start Date End Date Name, MD Suresh [address] [place] [address] PCP - General Family Medicine 11/18/17 documented as of this encounter
[2025-03-04 10:24] LABS: Appearance Urine Clear; Color Urine Yellow; Glucose Urine UA Negative (Negative); Leukocyte Esterase Urine Trace (Negative); Nitrite Urine Negative (Negative); PH 6.5 (5.0-9.0); Specific Gravity - Urine 1.015 (1.005-1.025); UMIC TRIGGER UACC YES; Urine Blood Negative (Negative); Urine Ketones Negative (Negative); Urine Protein 300 (3+) mg/dL (Neg-Trace)
[2025-03-04 10:29] LABS: Bacteria Urine None Seen (None Seen); Hyaline Casts Urine 0-2 /LPF (0-2); RBC Urine 0-2 /HPF (0-2); Squamous Epithelial Cell Urine 0-2 /HPF (0-2); UACC Culture Trigger YES
[2025-03-04 11:23] LABS: Creatinine Urine 86.19 mg/dL; Total Protein Urine Random 155 mg/dL (<12)
[2025-03-04 11:41] LABS: Microalbum/Creatinine Ratio Ur 1384.1 ug/mg cr (<30)
== END 2025-03-04 09:24 | disposition home or self-care (01) ==
LOC: HO.LAB 09:23
PROVIDERS: PCP Internal Medicine Geriatric Medicine; Visit Provider Internal Medicine Nephrology
DX: E11.22 Type 2 diabetes mellitus with diabetic chronic kidney disease (principal); N18.31 Chronic kidney disease, stage 3a; R82.90 Unspecified abnormal findings in urine
CPT/HCPCS: 36415; 80051; 81001; 82043; 82310; 82565; 82570; 84156; 84520; 87086

== ENCOUNTER 2025-03-17 14:17 | Outpatient (REF) | payer OTHER, SELFPAY ==
--- OUTSIDE RECORDS SUMMARY | 2025-03-17 14:19 | XMS_ITS ---
Author Organization [facility] Address [address] [place] [address] Care Team Providers Care Carbide Tool Maker Name Role Phone Name Suresh BENJAMIN Primary Care Provider Juanpablo Medina Jr Unavailable [phone] Allergies Allergen (clinical drug ingredient) Drug/Non [...] Once a day Active Vitamin D3 Active Palmer 3 1000 MG 1 capsule Orally twi [...] 01/25/2024 Encounters Encounter Location Date Provider Diagnosis [facility] [address] [place] [address] 01/25/2024 Juanpablo Madsen Jr Gastroesophageal reflux disease [...] 02:35:00 PM, [address], [address], [place], [address], Progress Notes * STEPHON AGUILERA:[birth year] (78 yo F)Acc No.[id number]:01/25/2024 Progress Notes Patient:CL LAWSON Provider:?Juanpablo Madsen MD :1945???Age:78 Y???Sex:Female D ate:01/25/2024 Address:[address] [place], [place] [id number] Pcp:Suresh Rosenthal MD Subjective: * Chief Complaints: [...] with balloon dilation 05/09., coronary artery disease,status-post EDITOR NEWS stent placement, Diabetes with diabetic neuropathy, Hyperlipidemia, [...] Taking NovoLOG 70/30 FlexPen ReliOn , Taking Palmer 3 1000 MG Capsule 1 capsule Orally [...] Provider:?Juanpablo Madsen MD Date:?0 01/25/2024 [facility]/Chuckie/eTransmitting on:?03/17/2025 02:19 PM EDT History and Physical Notes * HPI [...]
== END 2025-03-17 14:18 | disposition home or self-care (01) ==
LOC: HO.MAMMO 14:17
PROVIDERS: PCP Internal Medicine Geriatric Medicine; Visit Provider Internal Medicine Geriatric Medicine
DX: Z12.31 Encounter for screening mammogram for malignant neoplasm of breast (principal)
CPT/HCPCS: 77063; 77067

== ENCOUNTER → 2025-03-17 14:30 | Outpatient (BNV) | payer OTHER, SELFPAY | PROVIDERS: PCP Internal Medicine Geriatric Medicine; Visit Provider Internal Medicine | DX: Z12.31 Encounter for screening mammogram for malignant neoplasm of breast (principal) | CPT/HCPCS: 77063; 77067 ==

== ENCOUNTER 2025-03-29 11:25 | Outpatient (REF) | payer OTHER, SELFPAY ==
--- NOTE | ~2025-03-29 | US_ITS ---
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 Mild plaque within both carotid bulbs. Normal color doppler and waveforms morphology. Peak systolic velocities: Right CCA: 75 cm/s. Right ICA: 73 cm/s. ICA/CCA ratio: 0.9 Right ECA: 98.2 cm/s. Right vertebral artery flow antegrade. Left CCA: 92 cm/s. Left ICA: 168 cm/s. ICA/CCA ratio: 1.8 Left ECA: 122 cm/s. Left vertebral artery flow antegrade. IMPRESSION: 0-49% stenosis in the right ICA 50-79% stenosis in the left ICA. This document has been electronically signed by: Jessica Bazan MD on 03/29/2025 19:59:19
--- OUTSIDE RECORDS SUMMARY | 2025-03-29 13:10 | XMS_ITS ---
Author Organization [facility] Address [address] [place] [address] Care Team Providers Care Mobile Phone Salesperson Name Role Phone Name Suresh BENJAMIN Primary [...] Once a day Active Vitamin D3 Active Riddleton 3 1000 MG 1 capsule Orally twi [...] 01/25/2024 Encounters Encounter Location Date Provider Diagnosis [facility] [address] [place] [address] 01/25/2024 Juanpablo Madsen Jr Gastroesophageal reflux disease [...] 02:35:00 PM, [address], [address], [place], [address], Progress Notes * STEPHON AGUILERA:[birth year] (78 yo F)Acc No.[id number]:01/25/2024 Progress Notes Patient:CL LAWSON Provider:?Juanpablo Madsen MD :1945???Age:78 Y???Sex:Female D ate:01/25/2024 Address:[address] [place], [place] [id number] Pcp:Suresh Rosenthal MD Subjective: * Chief Complaints: [...] with balloon dilation 05/09., coronary artery disease,status-post SHIRRING TENDER stent placement, Diabetes with diabetic neuropathy, Hyperlipidemia, [...] Taking NovoLOG 70/30 FlexPen ReliOn , Taking Riddleton 3 1000 MG Capsule 1 capsule Orally [...] Provider:?Juanpablo Madsen MD Date:?0 01/25/2024 Generated for [facility] henok/Chuckie/eTransmitting on:?03/29/2025 01:09 PM EDT History and Physical Notes * [...]
[2025-03-29 14:14] LABS: Appearance Urine Clear; Color Urine Yellow; Glucose Urine UA Negative (Negative); Leukocyte Esterase Urine Small (1+) (Negative); Nitrite Urine Negative (Negative); PH 6.5 (5.0-9.0); Specific Gravity - Urine 1.015 (1.005-1.025); UMIC TRIGGER UACC YES; Urine Blood Negative (Negative); Urine Ketones Negative (Negative); Urine Protein Negative (Neg-Trace)
[2025-03-29 14:17] LABS: Bacteria Urine None Seen (None Seen); Hyaline Casts Urine 0-2 /LPF (0-2); RBC Urine 0-2 /HPF (0-2); Squamous Epithelial Cell Urine 0-2 /HPF (0-2); UACC Culture Trigger YES
[2025-03-29 14:32] LABS: Anion Gap 13 (12-20); Blood Urea Nitrogen 18 mg/dL (9-16); Calcium 10.4 mg/dL (8.4-10.2); Carbon Dioxide 30 mmol/L (22-29); Chloride 98 mmol/L (96-108); Estimated Glomerular Filt Rate > 60; Glucose Random 114 mg/dL (60-115); Potassium 3.6 mmol/L (3.3-5.1); Sodium 137 mmol/L (135-145)
[2025-03-29 14:36] LABS: Creatinine Urine 105.91 mg/dL; Microalbum/Creatinine Ratio Ur 40.6 ug/mg cr (<30)
== END 2025-03-29 11:26 | disposition home or self-care (01) ==
LOC: HO.US 11:25
PROVIDERS: Absent Provider Internal Medicine Geriatric Medicine; PCP Internal Medicine Geriatric Medicine; Visit Provider Surgery Vascular Surgery
DX: I65.23 Occlusion and stenosis of bilateral carotid arteries (principal); R80.9 Proteinuria, unspecified
CPT/HCPCS: 36415; 80048; 81001; 81003; 82043; 82570; 87086; 93880

== ENCOUNTER → 2025-03-29 11:31 | Outpatient (BNV) | payer OTHER, SELFPAY | PROVIDERS: Absent Provider Internal Medicine Geriatric Medicine; PCP Internal Medicine Geriatric Medicine; Visit Provider Radiology Diagnostic Radiology | DX: I65.23 Occlusion and stenosis of bilateral carotid arteries (principal) | CPT/HCPCS: 93880 ==

== ENCOUNTER 2025-04-13 14:13 | Outpatient (AMB) | payer OTHER, SELFPAY ==
--- NOTE | 2025-04-13 14:16 | MHC.OFFVIS ---
Intake Visit Reasons: 1y follow up s/p Carotid US 03/29/25 Intake Note: Patient presents for follow up US. No complaints. Accompanied by: Daughter Allergies Sulfa (Sulfonamide Antibiotics) (SULFA (SULFONAMIDE ANTIBIOTICS)) Allergy (Intermediate, Verified 04/13/25 14:20) RASH ciprofloxacin (CIPROFLOXACIN) Allergy (Unknown, Verified 04/13/25 14:20) PER H&P HPI HPI 1y follow up s/p Carotid US 03/29/25: Details: Pleasant 79-year-old female presents for routine carotid surveillance. She has undergone carotid endarterectomy on the left side in January of 2018. She has had no interval issues appears to be doing relatively well. She is being maintained on aspirin and high-dose statin. [facility] Medical History Osteoporosis GERD (gastroesophageal reflux disease) CVA (cerebral vascular accident) Vitamin D deficiency Diabetes type 2, uncontrolled Obesity (BMI 30-39.9) Hypertension Dyslipidemia senior living (current) use of insulin Diabetic nephropathy associated with type 2 diabetes mellitus Surgical History History of esophagogastroduodenoscopy (EGD) Hx of cholecystectomy Hx of hysterectomy Hx of endarterectomy Hx of colonoscopy History of coronary angioplasty with insertion of stent Family History Father Kidney disease Mother GI bleed Arthritis of knee HTN (hypertension) Social History Household Members: None Housing: Apartment Alcohol intake: never Patient Tobacco Use Status: Never used Tobacco Review of Systems Const All systems reviewed & are unremarkable except as noted in HPI and below Reports no additional complaints ENT Reports Normal hearing present Card Denies chest pain, Denies chest pain at rest, Denies chest pain with activity and Denies pedal edema Resp Denies cough GI Denies abdominal pain Musc Denies abnormal gait, Denies muscle cramps and Denies radiating pain into limb Skin/Breast Denies skin ulcer and Denies wounds Neuro Reports Normal hearing present and Denies abnormal gait Psych Reports no additional complaints Physical Exam Const General: cooperative, healthy appearing and comfortable Orientation/consciousness: oriented to person, oriented to place and oriented to time HEENT Head: Yes normal to inspection Neck Neck: Yes normal visual inspection Carotids: no bruits Chest Chest palpation & inspection: normal inspection of the chest Resp Effort & Inspection: normal respiratory effort and able to speak in complete sentences Auscultation: clear to auscultation bilaterally, no crackles, no rales, no rhonchi and no wheezes Cardio Rate: regular rate Rhythm: regular rhythm Heart sounds: S1 normal heart sound present and S2 normal heart sound present Bruits: no carotid bruits Peripheral pulses: Peripheral pulses 2+ throughout GI Inspection: Yes normal to inspection Skin Wounds: no wounds Hair: normal Neuro General: oriented to person, oriented to place and oriented to time Cranial nerves: Yes CN's II-XII intact bilaterally and Yes Normal hearing present Cognition (Neuro): normal cognition Motor exam (neuro): 5/5 motor strength present throughout Extrem Other: venous exam: No significant superficial varicosities or spider telangiectasias, minimal edema General: No clubbing, No cyanosis and No edema Psych Appearance: grossly normal Mental Status: mental status grossly normal Speech and movement: Normal speech and movement present Results Reviewed Results Reviewed: Carotid testing dated 03/29/2025 demonstrates right-sided stenosis 0-49 and left side 50-79% stenosis. Written report and images were reviewed. Assessment & Plan Assessment & Plan (1) Carotid stenosis, bilateral: Comment: 02/03/2018 - Left carotid endarterectomy Code(s): I65.23 - Occlusion and stenosis of bilateral carotid arteries Category: Medical Plan: In short patient has asymptomatic carotid disease. We have reviewed signs and symptoms of a stroke. We also discussed risk factor modification inclusive a healthy diet low in cholesterol. The patient will follow up with us with surveillance ultrasound of the carotids 1 year. Should there be any changes or signs or symptoms of a stroke we will be happy to see them back sooner. Thank you for allowing us to participate in this patient's care. If there are any questions or concerns please do not hesitate to contact us. Orders: Orders US carotid duplex BI 1 Year I65.23 - Occlusion and stenosis of bilateral carotid arteries Coding Level of Care Code Est Pt Level 4 (53506) Complex EM visit Add On G2211 Diagnoses Carotid stenosis, bilateral I65.23
--- OUTSIDE RECORDS SUMMARY | 2025-04-13 17:20 | XMS_ITS | Encounter Summary ---
Author Organization [employer] Address [address] [facility] 7[address] [place] [address] Care Team Providers Care Custom Leather Products Maker Name Role Phone Name, Suresh BENJAMIN Primary Care Provider [phone] Reason for Visit * Reason Onset Date Comments Appointment Request 01/09/2025 Encounter Details Date Type Department Care Team ([facility] st Contact Info) Description 01/09/2025 Telephone [facility] [address] [place] [address] Name, MD Suresh [address] [place] [address] Appointment Request Social History Tobacco Use Types [...] Gonzalez - 01/09/2025 2:35 PM EDT Tc from Fleip[place] with [facility] requesting a call back to pt for schedule ov extended. [phone] (PT) documented in this encounter Plan of Treatment Upcoming Encounters Date Type Department Care Team (Late st Contact Info) Description 07/12/2025 11:15 AM EDT Office Visit [facility] [address] [place] [address] Name, MD Suresh [address] [place] [address] documented as of this encounter Visit Diagnoses Not on filedocumented in this encounter Additional Health Concerns Assessment Noted Time PHQ-9 Depression Total Score: 7 04/15/20 24 11:05 AM EDT documented as of this encounter Care Teams Custom Leather Products Maker Relationship Specialty Start Date End Date NameSuresh MD [address] [place] [address] PCP - General Family Medicine 11/18/17 documented as of this encounter
== END 2025-04-13 14:57 | disposition home or self-care (01) ==
LOC: HO.HVS 14:14
PROVIDERS: PCP Internal Medicine Geriatric Medicine; Visit Provider Surgery Vascular Surgery
DX: I65.23 Occlusion and stenosis of bilateral carotid arteries (principal)
CPT/HCPCS: 99214; G2211

== ENCOUNTER → 2025-04-13 14:13 | Outpatient (BNVA) | payer OTHER, SELFPAY | PROVIDERS: PCP Internal Medicine Geriatric Medicine; Visit Provider Surgery Vascular Surgery | DX: I65.23 Occlusion and stenosis of bilateral carotid arteries (principal) | CPT/HCPCS: 99212 ==

== ENCOUNTER 2025-06-06 07:37 | Outpatient (REF) | payer OTHER, SELFPAY ==
--- OUTSIDE RECORDS SUMMARY | 2025-03-30 10:35 | XMS_ITS ---
Author Organization [facility] Address [address] [place] [address] Care Team Providers Care Felt Hat Mellowing Machine Operator Name Role Phone Name Suresh BENJAMIN Primary Care Provider Eden Madsen Jr, Juanpablo Unavailable [phone] REASON FOR VISIT DYSPHAGIA Encounters Encounter Location Date Provider Diagnosis [facility] [address] [facility] [place] [address] 03/30/2025 Juanpablo Madsen Jr Plan Of Treatment Next Appt Details Provider Name:Juanpablo cordon Jr, 07/20/2025 02:15:00 PM, [address], [address], [place], [address], Progress Notes * DONNA AGUILERATHADDOB:[birth year] (80 yo F)Acc No.[id number]:03/30/2025 Progress Notes Patient: CL PAULINO Provider: Jess Madsen MD :1945 A ge:79 Y S ex:Female Date:03/30/2025 Address:[address] [place] [address] , [place], [place] Pcp:Suresh Rosenthal MD Subjective: * Chief Complaints: [...] 03/30/2025 Generated for Nadege whiting/Chuckie/Mata on: 0 06/06/2025 07:39 AM LULUT
--- NOTE | ~2025-06-06 | FL_ITS ---
EXAMINATION: FL GUIDANCE ONLY HISTORY: M47.816 - Spondylosis without myelopathy or radiculopathy, lumbar region COMPARISON: None available. TECHNIQUE: Fluoroscopy time: 48.2 seconds. Cumulative Dose: 14.554 mGy. DAP: 6.0009 mGym2 Images: 13. FINDINGS: Fluoroscopic spot films of the lumbar spine in the AP projection demonstrate needles and contrast material in the regions of the bilateral L3-4, L4-5, and L5-S1 facet joints. FL/FL guidance in treatment room IMPRESSION: Fluoroscopy during procedure. Please see procedure report for additional information. Electronically signed by: Austin Brock MD 06/06/2025 03:03 PM EDT
--- OUTSIDE RECORDS SUMMARY | 2025-06-06 07:39 | XMS_ITS | Encounter Summary ---
Author Organization [employer] Address [address] [facility] 7[address] [place] [address] Care Team Providers Care Nitrating Acid Mixer Name Role Phone Name, Suresh BENJAMIN Primary Care Provider [phone] Reason for Visit * Reason Onset Date Comments Appointment Request 01/09/2025 Encounter Details Date Type Department Care Team ([facility] st Contact Info) Description 01/09/2025 Telephone [facility] [address] [place] [address] Name, MD Suresh [address] [place] [address] Appointment Request Social History Tobacco Use Types [...] - 01/09/2025 2:35 PM EDT Tc from Felipa with [facility] requesting a call back to pt for schedule ov extended. [phone] (PT) documented in this encounter Plan of Treatment Upcoming Encounters Date Type Department Care Team (Late st Contact Info) Description 07/12/2025 11:15 AM EDT Office Visit [facility] [address] [place] [address] Name, MD Suresh [address] [place] [address] documented as of this encounter Visit Diagnoses Not on filedocumented in this encounter Additional Health Concerns Assessment Noted Time PHQ-9 Depression Total Score: 7 04/15/20 24 11:05 AM EDT documented as of this encounter Care Teams Nitrating Acid Mixer Relationship Specialty Start Date End Date NameSuresh MD [address] [place] [address] PCP - General Family Medicine 11/18/17 documented as of this encounter
--- OUTSIDE RECORDS SUMMARY | 2025-06-06 07:39 | XMS_ITS | Clinical Summary ---
Author Organization [facility] Address [address] [place] [address] Phone Care Team Providers Care Submarine Advisory Team Watch Officer Name Role Phone Name, Suresh BENJAMIN Primary Care Provider [phone] Allergies Active Allergy Reactions Criticality Noted Date [...] mg Active ergocalciferol (VITAMIN D-2) 1.25 MG (28494 UT) capsule Comments: Filled Date: Jul 30 [...] mouth 3 (three) times a day Active [place]-3 1000 MG capsule Take 2 capsules by [...] 1.5 mg 04/15/20 21 Active nystatin (MYCOSTATIN) 967673 UNIT/ML suspension TAKE 1 MILLILITER BY ORAL ROUTE 5 TIMES EVERY DAY 01/24/20 21 Active omeprazole (PriLOSEC) [address] capsule 04/09/20 21 Active cetirizine (ZyrTEC) 10 MG tablet Take 10 mg by mouth 1 (one) time each day if needed 10/05/20 24 Active hydrOXYzine (ATARAX) 10 MG tablet Take 10 mg by mouth 1 (one) time each day if needed Active rosuvastatin (CRESTOR) 40 MG tablet Take 40 mg by mouth 1 (one) time each day 07/01/20 24 Active Active Problems Problem Noted Date Diagnosed Date Chronic kidney disease, stage 2 (mild) Computed tomography result abnormal 02/05/2023 Dysphagia 02/05/2023 [...] Osteoporosis 04/13/2012 Esophageal dysmotility 04/13/2012 Obesity 03/22/2012 Encounters Date Type Department Care Team Description 03/16/2025 1:00 PM EDT Office Visit [facility] [address] [place] [address] Rolly Mishra MD Chronic kidney disease, stage 2 (mild) (Primary Dx); Type 2 diabetes mellitus without complication (HCC) from Last 3 Months Immunizations Immunization Administration Dates Next Due Hepatitis [...] Sign Reading Time Taken Comments Blood Pressure 116/60 03/16/2025 12:47 PM EDT Pulse 68 03/16/2025 12:47 PM EDT Temperature - - Respiratory Rate - - Oxygen Saturation 97% 03/16/2025 12:47 PM EDT Inhaled Oxygen Concentration - - Weight 68.9 kg (152 lb) 03/16/2025 12:47 PM EDT Height 147.3 cm (4' 10 ) 02/28/2019 12:00 PM EDT Body Mass Index 31.77 02/28/2019 12:00 PM EDT Plan of Treatment Upcoming Encounters Date Type Department Care Team (Late st Contact Info) Description 03/19/2026 1:00 PM EDT Office Visit [facility] [address] [place] [address] [place] [address] Rolly Mishra MD [address] [facility] [address] [place] [address] Health Maintenance Due Date Last Done Comments Diabetes: Ophthalmology Exam 11/18/2020 Diabetes: Pedal Pulse Checked 11/18/2020 Diabetes: Sensory Foot Exam 11/18/2020 Diabetes: Visual Foot Exam 11/18/2020 Diabetes: Hemoglobin A1C 05/16/2025 025, 09/23/2023, 12/31/2022, Additional history exists Influenza Vaccine (#1) 2025 2, 08/05/2021, 06/19/2021, Additional history exists Hepatitis [...] 38 - 50 % PVNMA Comments From [facility]NMA BUN 31(H) 9 - 20 mg/dl [...] % PVNMA 10/02/2020 us Rtama Conversion LAB [id number] LICITED RESULTS Final Result PVNMA from Last 3 Months or Most Recently Relevant to Health Maintenance Insurance , [id number] [place] [address] [facility] ([id number]) , [id number] [place] [address] [facility] ([id number]) Care Teams Submarine Advisory Team Watch Officer Relationship Specialty Start Date End Date Name, MD Suresh [address] [place] [id number] PCP - General 10/29/20
== END 2025-06-06 07:38 | disposition home or self-care (01) ==
LOC: CF 07:37
PROVIDERS: Visit Provider Anesthesiology
DX: M47.816 Spondylosis without myelopathy or radiculopathy, lumbar region (principal)
CPT/HCPCS: 64493; 64494; J2003; J2795; Q9967

== ENCOUNTER 2025-06-06 13:14 | Outpatient (AMB) | payer OTHER, SELFPAY ==
--- NOTE | 2025-06-06 13:15 | A.OFFVIS_ITS ---
Vital Signs 06/06/25 13:24 06/06/25 13:46 Weight 154 lb BP 169/88 H 135/69 Blood Pressure Location Lt brachial Lt brachial Position Right Lateral Sitting Respiration 20 18 Pulse 68 71 Pulse Source Pulse Oximeter Pulse Oximeter Pulse Oximetry (%) 99 100 Oxygen Delivery Method Room Air Room Air Intake Visit Reasons: BILATERAL DIAGNOSTIC L3, L4, DRL5 MBB Outsole Beveler Required: Yes Outsole Beveler Name: daughter Allergies Sulfa (Sulfonamide Antibiotics) (SULFA (SULFONAMIDE ANTIBIOTICS)) Allergy (Intermediate, Verified 04/13/25 14:20) RASH ciprofloxacin (CIPROFLOXACIN) Allergy (Unknown, Verified 04/13/25 14:20) PER H&P PFSH Medical History Osteoporosis GERD (gastroesophageal reflux disease) CVA (cerebral vascular accident) Vitamin D deficiency Diabetes type 2, uncontrolled Obesity (BMI 30-39.9) Hypertension Dyslipidemia senior care (current) use of insulin Diabetic nephropathy associated with type 2 diabetes mellitus Surgical History History of esophagogastroduodenoscopy (EGD) Hx of cholecystectomy Hx of hysterectomy Hx of endarterectomy Hx of colonoscopy History of coronary angioplasty with insertion of stent Family History Father Kidney disease Mother GI bleed Arthritis of knee HTN (hypertension) Social History Household Members: None Housing: Apartment Alcohol intake: never Patient Tobacco Use Status: Never used Tobacco Physical Exam Vital Signs: Last Vital Signs Pulse 71 06/06/25 13:46 Resp 18 06/06/25 13:46 BP 135/69 06/06/25 13:46 Pulse Ox 100 06/06/25 13:46 Oxygen Delivery Method Room Air 06/06/25 13:46 Assessment & Plan Assessment & Plan (1) Spondylosis without myelopathy or radiculopathy, lumbar region: Code(s): M47.816 - Spondylosis without myelopathy or radiculopathy, lumbar region Category: Medical Plan Diagnostic medial branch block L3,L4 dorsal ramus L5 bilateral.? ? ?Informed consent was explained to the patient. All questions were explained and? answered.? The patient was taken inside the operating room where she was positioned prone on the operating table. Time-out was performed delineating correct site, side, the nature of the procedu re, patient's allergy, . All operating room staff was participating in OR time- out procedure. ? ? The lower back was prepped with ChloraPrep and draped with sterile utility towels.? C-arm was brought over the operating field and sq picture of L4-, L5 vertebra and S1 AREA were delineated on the screen.? Point of interest were delineated as confluence of superior articular process of L4 and L5 vertebra bilaterally with corresponding transverse processes as well as confluence of the sacral alae bilaterally with superior articular process of S1.? The projection of the point of interest to the skin were injected with the small amount of local anesthetic lidocaine 2% mixed with ropivacaine 0.5% 1-1 approximately 1 cc.? After that 22 gauge 3.5 inch spinal needle was driven sequentially to the points of interest in tunnel vision fashion. After needles gently contacted the bone at the point of interests the needle was injected with small amount of the contrast.? The injection of the contrast did not demonstrate any intravascular or intrathecal spread of the contrast.? After that injection of the? ropivacaine 0.5%-1cc was performed at each needle location.?After that the needles were removed and Bandaids were applied. ? Upon completion of the injections? needle was? removed and sterile Band-Aids were applied.? The patient tolerated procedure very well. Orders: Orders FL guidance in treatment room Today M47.816 - Spondylosis without myelopathy or radiculopathy, lumbar region Coding Level of Care Code Procedure Only Diagnoses Spondylosis without myelopathy or radiculopathy, lumbar region M47.816
[2025-06-06 13:24] VITALS: BP 169/88; PULSE 68; RESP 20; O2SAT 99
[2025-06-06 13:46] VITALS: BP 135/69; PULSE 71; RESP 18; O2SAT 100
== END 2025-06-06 13:46 | disposition home or self-care (01) ==
LOC: HO.PMCPRC 13:14
PROVIDERS: PCP Internal Medicine Geriatric Medicine; Visit Provider Anesthesiology
DX: M47.816 Spondylosis without myelopathy or radiculopathy, lumbar region (principal)
CPT/HCPCS: 64493; 64494

== ENCOUNTER 2025-06-30 14:01 | Outpatient (AMB) | payer OTHER, SELFPAY ==
--- OUTSIDE RECORDS SUMMARY | 2025-03-30 10:35 | XMS_ITS ---
Author Organization [facility] Address [address] [place] [address] Care Team Providers Care Repairer Auto Clocks Name Role Phone Name Suresh BENJAMIN Primary Care Provider Eden Madsen Jr, Juanpablo Unavailable REASON FOR VISIT DYSPHAGIA Encounters Encounter Location Date Provider Diagnosis [facility] [address] [facility] [address] [place] [address] 03/30/2025 Juanpablo Madsen Jr Plan Of Treatment Next Appt Details Provider Name:Juanpablo cordon Jr, 07/20/2025 02:15:00 PM, [address], [address], [place], [address], Progress Notes * DONNA AGUILERAMERAJARONDOB:[birth year] (80 yo F)Acc No.[id number]:03/30/2025 Progress Notes Patient: CL PAULINO Provider: Jess Madsen MD :1945 A ge:79 Y S ex:Female Date:03/30/2025 Address:[address] [place] [address] , [place], [place] Pcp:Suresh Rosenthal MD Subjective: * Chief Complaints: [...] 03/30/2025 Generated for Nadege whiting/Chuckie/Mata on: 0 06/30/2025 04:58 PM EDT
--- NOTE | 2025-06-30 14:04 | A.OFFVIS_ITS ---
Vital Signs 06/30/25 14:09 Height 4 ft 10 in Weight 153 lb BMI 32.0 BP 145/68 H Blood Pressure Location Lt brachial Position Sitting Pulse 63 Pulse Source Pulse Oximeter Pulse Oximetry (%) 98 Oxygen Delivery Method Room Air Intake Visit Reasons: BILATERAL DIAGNOSTIC L3, L4, DRL5 MBB Intake Note: Pain today 10/10 in right hip Gameroom Technician Required: Yes Gameroom Technician Language: Refractory Repairer Services: Gameroom Technician Offered & Declined Gameroom Technician Name: Daughter- Gela Accompanied by: Self / Same As Patient Allergies Sulfa (Sulfonamide Antibiotics) (SULFA (SULFONAMIDE ANTIBIOTICS)) Allergy (Intermediate, Verified 06/30/25 14:10) RASH ciprofloxacin (CIPROFLOXACIN) Allergy (Unknown, Verified 06/30/25 14:10) PER H&P HPI Comments Details: The patient is an 80-year-old female presenting to assess response to repeat bilateral diagnostic lumbar medial branch block on 06/06/[address] Drummond. Patient reports low back pain has been completely relieved for 3 days with im proved functioning, movements, and sleep. She reports axial low back pain has returned to baseline and she also experiences right buttock pain. The pain has been persistent and is exacerbated by sitting and certain movements, particularly on the right side. The patient reports that the pain began after a fall last year, which involved landing on her back and knee. Her right buttock pain is consistent with sacroiliac joint pain easily reproduced with provocative testing. Patient is interested to proceed with radiofrequency ablation and consider right therapeutic SIJ injection. The patient has a history of diabetes mellitus, with recent blood glucose levels noted at 199 mg/dL and an A1c of 6.9% a year ago. She declined neuromodulation with temporary or permanent PNS or SCS devices. Denies any recent cough, cold, infection, fever or other significant changes in medical history since last office visit. Past Procedures: 06/06/25: Bilateral Diagnostic L3-L4 DR L5 MBB-100% pain relief x3 days 12/13/24: Bilateral Diagnostic L3-L4 DR L5 MBB-100% pain relief x24 hours PRIOR: Patient presents today for follow-up for chronic low back pain. full time staff interpreter was declined by patient as she requests her daughter to assist with translation today. She was last seen in our office in 05/07/2022 with plans for diagnostic lumbar medial branch blocks for axial low back pain. Patient denies any recent trauma, injury, or falls. She reports back pain that is mostly axial but also periodically radiates into her left groin and thigh with walking. Patient also suffers from significant right knee pain due to advanced osteoarthritis and was attempted knee surgery at [facility] but could not go through the surgery per family. SLR testing is negative on exam today. Back pain is significantly aggravated with axial rotations and extension. Patient is interested to proceed with diagnostic lumbar medial branch blocks for potential RFA procedure. Denies any fever or chills, burning, numbness or tingling, bladder or bowel dysfunction or saddle anesthesia. PRIOR 04/28/22: Patient presents today via telehealth encounter to discuss lumbar spine xray results. Her daughter Lizeth is present during today's visit to assist with translation per patient's request. Patient continues to reports axial, non- radiating low back pain worsened with back extension and every movement. Her lumbar spine xray showed mild dextroscoliosis mid lumbar spine with degenerative disc changes and spondylosis virtually at every disc level.?We discussed diagnostic lumbar MBBs for potential RFA vs temporary peripheral nerve stimulation with SPRINT device. She was provided with pamphlets at previous visit. Patient cannot tolerate physical therapy due to significant pain. She takes daily Plavix and aspirin. We will obtain clearance from Dr. Thompson to hold medications for 7 days prior to diagnostic lumbar injections. Patient denies any fever, chills, malaise, abdominal or groin pain, numbness, tingling, bladder/bowel dysfunction or saddle anesthesia. PRIOR: Patient is a pleasant 76 years old Lao speaking female who presents today for evaluation of chronic and multiple pain generators, including left shoulder, right knee, bilateral hip and axial non radiating lower back pain. Her most concerning pain is lower back pain. She reports her pain is aggravated by any movement, walking, standing, sitting and climbing stairs. Patient is followed by rheumatology for multiple joint pain and orthopedic services for shoulder, knee and hip pain. Patient denies previous back surgery and was told she is not a surgical candidate due to significant cardiac comorbidities. She has right hip pain with internal and external rotations. Patient denies any fever, chills, abdominal or groin pain, numbness, tingling, bladder/bowel dysfunction or saddle anesthesia. She reports intermittent weakness. Ambulates with slow antalgic gait with assistance of a cane. Previously she has tried cortisone injections in her left shoulder, right knee and left hip with good results. Right total knee replacement was attempted twice in 2014, but the patient became sick and currently cannot undergo surgery due to multiple comorbidities. She has cardiac stents, previous left carotid endarterectomy in 2018 and CVA in 2018. Patient follows Dr. Thompson for routine surveillance follow-up regarding her carotid stenosis and has been asymptomatic. She takes Plavix and aspirin daily. Patient reports she is scheduled for endoscopy with Dr. Madsen with sedation next month. Patient tries to manage her pain with tramadol, gabapentin and Tylenol but has continued symptoms which limits her ADL?s, affects her mobility, sleep, mood and quality of life. She denies previous physical therapy, chiropractic manipulation, massage, TENS unit or aquatic therapy. Currently she is not pursuing PT due to significant pain. Lumbar imaging was ordered in February but was not completed yet. She is hesitant about interventional procedures, especially injections. [facility] Medical History Osteoporosis GERD (gastroesophageal reflux disease) CVA (cerebral vascular accident) Vitamin D deficiency Diabetes type 2, uncontrolled Obesity (BMI 30-39.9) Hypertension Dyslipidemia [facility] (current) use of insulin Diabetic nephropathy associated with type 2 diabetes mellitus Surgical History History of esophagogastroduodenoscopy (EGD) Hx of cholecystectomy Hx of hysterectomy Hx of endarterectomy Hx of colonoscopy History of coronary angioplasty with insertion of stent Family History Father Kidney disease Mother GI bleed Arthritis of knee HTN (hypertension) Social History Household Members: None Housing: Apartment Alcohol intake: never Patient Tobacco Use Status: Never used Tobacco Review of Systems Const All systems reviewed & are unremarkable except as noted in HPI and below Physical Exam Vital Signs: Last Vital Signs Pulse 63 06/30/25 14:09 BP 145/68 H 06/30/25 14:09 Pulse Ox 98 06/30/25 14:09 Oxygen Delivery Method Room Air 06/30/25 14:09 BMI result Body Mass Index 32.0 General: Appears afebrile. Alert and oriented. Mood and affect appropriate. Follows and participates in conversation appropriately. Respiratory effort is unlabored. No cough. Able to transition from sit to stand unassisted. Uses walker with ambulation. Ambulates with normal heel strike and toe off on the left, increased pain on the right. General: Yes no CVA tenderness Back/Spine/Pelvis Other: Limited lumbar ROM due to pain. Antalgic gait with mild limping. Painful facet loading bilaterally. The palpation of the lumbar spine reveals mild tenderness on paraspinal regions of lower lumbar spine. Demonstrates 4/5 strength of quadriceps bilaterally as well as 4/5 flexion/dorsiflexion of feet against resistance. 2+ pedal pulses bilaterally. Mild groin and bilateral lateral hip pain with I/E hip rotations. No tenderness in the projection of bilateral GTs. Pallavi signs positive bilaterally. Silas?s and Stinchfield tests positive bilaterally, left>right. Back: no CVA tenderness Cervical Spine: cervical ROM normal, cervical muscular tenderness and No Cervical spine tenderness Thoracic/Lumbar Spine: thoracic and lumbar spine normal to inspection, No Thoracic/lumbar spine scar(s), Lasegue's sign negative, straight leg raise negative bilaterally, pain with thoraco-lumbar ROM, paraspinal muscle tenderness, thoraco-lumbar ROM limited, Thoracic/lumbar scoliosis, No thoracic spinal tenderness and lumbar spinal tenderness (L4-S1) Pelvis: buttock tenderness on the right Sacroiliac joints: on the right tender to palpation and on the left nontender Extrem General: Yes capillary refill normal, Yes no clubbing, cyanosis or edema and Yes no calf tenderness Results Reviewed Results Reviewed: XR LUMBOSACRAL SPINE WITH OBLIQUES 04/22/22 FINDINGS: There is mild dextroscoliosis of lumbar spine. There is loss of disc at virtually at every disc level with ventral spondylosis. No acute fracture or lytic process seen. There is no pars defect or listhesis. There is bilateral mild facet joint arthropathy. The paravertebral soft tissues are normal. SI joints are normal. There is a likely small bone island right sacrum. IMPRESSION: Mild dextroscoliosis mid lumbar spine with degenerative disc changes and spondylosis virtually at every disc level. No visible acute fracture or dislocation seen. No lytic or sclerotic process seen. Assessment & Plan Assessment & Plan (1) Lumbar spondylosis: Code(s): M47.816 - Spondylosis without myelopathy or radiculopathy, lumbar region Category: Medical (2) Sacroiliac joint dysfunction of both sides: Code(s): M53.3 - Sacrococcygeal disorders, not elsewhere classified Category: Medical (3) Chronic pain syndrome: Code(s): G89.4 - Chronic pain syndrome Category: Medical Plan Schedule for Bilateral L3-L4-L5 Medial Branch RFA with sedation (per patient's request) and fluoroscopy given successful results with diagnostic lumbar medial branch blocks. Expectations, risks and benefits were reviewed. We also discussed Sprint PNS and SCS trial vs implant, patient lives alone and is hesitant towards any implants. After lumbar RFA, we will re-evaluate right buttock pain with SI joint pain components for potential therapeutic injection. All questions and concerns have been answered and patient agreed with the plan. Follow up for injections and sooner as needed. Anticoagulation: Patient is on Aspirin and instructions given on when to stop. Justification for interventional therapy: ? Patient with average pain > 6/10 ? Patient has exhausted conservative therapy ? Patient unable to tolerate physical therapy due to pain ? Bilateral Diagnostic L3-L4 DR L5 MBB-100% pain relief x24 hours The risks, consequences, alternatives, and benefits of various treatment options were discussed with the patient in great detail, including conservative management, injections and procedures. Medications: Discontinued dulaglutide (Trulicity) Discontinued Reason: Patient no longer taking 4.5 mg (0.5 mL) subcut QWEEK 2 mL 5RF Coding Level of Care Code Est Pt Level 3 (39752) Complex EM visit Add On G2211 Diagnoses Lumbar spondylosis M47.816 Sacroiliac joint dysfunction of both sides M53.3 Chronic pain syndrome G89.4
[2025-06-30 14:09] VITALS: BP 145/68; PULSE 63; O2SAT 98; BMI 32.0
--- OUTSIDE RECORDS SUMMARY | 2025-06-30 16:58 | XMS_ITS | Encounter Summary ---
Author Organization [employer] Address [address] [facility] [address] [place] [address] Care Team Providers Care Film Processor Name Role Phone Name, Suresh BENJAMIN Primary Care Provider [phone] Reason for Visit * Reason Comments Med Refill Encounter Details Date Type Department Care Team (Late st Contact Info) Description 12/01/2022 Refill [facility] [address] [place] [phone] Michelle Hernandez, GROUP SEGMENT CONSULTANT [address] [place] [address] Tinea; Pain Social History Tobacco Use Types [...] as of this encounter Plan of Treatment Upcoming Encounters Date Type Department Care Team (Late st Contact Info) Description 07/12/2025 11:15 AM EDT Office Visit [facility] [address] [place] [phone] Name, MD Suresh [address] [place] [address] documented as of this encounter Visit Diagnoses Diagnosis Tinea Dermatophytosis of unspecified site Pain Generalized pain documented in this encounter Care Teams Film Processor Relationship Specialty Start Date End Date Name, MD Suresh [address] [place] [address] PCP - General Family Medicine 11/18/17 documented as of this encounter
--- OUTSIDE RECORDS SUMMARY | 2025-06-30 16:58 | XMS_ITS | Encounter Summary ---
Author Organization [employer] Address [address] [facility] [address] [place] [address] Care Team Providers Care Citrix Administrator Name Role Phone Name, Suresh BENJAMIN Primary Care Provider [phone] Reason for Visit * Reason Onset Date Comments Appointment Request 01/09/2025 Encounter Details Date Type Department Care Team ([facility] st Contact Info) Description 01/09/2025 Telephone [facility] [address] [place] [address] Name, MD Suresh [address] [place] [address] Appointment Request Social History Tobacco Use Types [...] back to pt for schedule ov extended. [phone] (PT) documented in this encounter Plan of Treatment Upcoming Encounters Date Type Department Care Team (Late st Contact Info) Description 07/12/2025 11:15 AM EDT Office Visit [facility] [address] [place] [address] Name, MD Suresh [address] [place] [address] documented as of this encounter Visit Diagnoses Not on filedocumented in this encounter Additional Health Concerns Assessment Noted Time PHQ-9 Depression Total Score: 7 04/15/20 24 11:05 AM EDT documented as of this encounter Care Teams [employer] Administrator Relationship Specialty Start Date End Date NameSuresh MD [address] [place] [address] PCP - General Family Medicine 11/18/17 documented as of this encounter
--- OUTSIDE RECORDS SUMMARY | 2025-06-30 16:58 | XMS_ITS | Encounter Summary ---
Author Organization [employer] Address [address] [facility] [address] [place] [address] Care Team Providers Care Special Distribution Clerk Name Role Phone Name, Suresh BENJAMIN Primary Care Provider [phone] Reason for Visit * Reason Onset Date Comments Appointment Request 04/03/2025 Encounter Details Date Type Department Care Team ([facility] st Contact Info) Description 04/03/2025 Telephone [facility] [address] [place] [address] Name, MD Suresh [address] [place] [address] Appointment Request Social History Tobacco Use Types [...] * Telephone Encounter - Kaden Joe - 04/03/2025 4:14 PM EDT Tc from daughter requesting italia back regarding a letter they received to schedule a follow up appt.Hospice Nurse unable to find availability. Please contact pt at [phone]. (Fijian Speaker) documented in this encounter Plan of Treatment Upcoming Encounters Date Type Department Care Team (Late st Contact Info) Description 07/12/2025 11:15 AM EDT Office Visit [facility] [address] [place] [address] Name, MD Suresh [address] [place] [address] documented as of this encounter Visit Diagnoses Not on filedocumented in this encounter Additional Health Concerns Assessment Noted Time PHQ-9 Depression Total Score: 7 04/15/20 24 11:05 AM EDT documented as of this encounter Care Teams Special Distribution Clerk Relationship Specialty Start Date End Date Name, MD Suresh [address] [place] [address] PCP - General Family Medicine 11/18/17 documented as of this encounter
--- OUTSIDE RECORDS SUMMARY | 2025-06-30 16:58 | XMS_ITS | Encounter Summary ---
Author Organization [employer] Address [address] [facility] 7t [place] [address] Care Team Providers Care Asbestos Brake Lining Finisher Helper Name Role Phone Name, Suresh BENJAMIN Primary Care Provider [phone] Encounter Details Date Type Department Care Team (Late st Contact Info) Description 09/27/2022 Orders Only [facility] [address] [place] [address] NameSuresh MD [address] [place] [address] Social History Tobacco Use Types Packs/Day Years [...] Description 07/12/2025 11:15 AM EDT Office Visit [facility] [address] [place] [address] Suresh Rosenthal MD [address] [place] [address] [phone] documented as of this encounter Procedures Procedure [...] 8 AM EDT 01/16/2023 11:29 AM EDT Comment:UACC Narrative [facility] - 01/17/2023 1:11 PM EDT Urine Culture Report Result Urine Culture < 10,000 cfu/ml Specimen Source: Urine clean catch [facility] Exter nal Provider LAB MICROBIOLOGY - GENERAL ORDERABLES Final Result Performing Organization Address [facility] Co de Phone Number [facility] [address] [place] [phone] * Protein Creatinine Ratio, Urine (01/16/2023 10:20 AM EDT) Protein, Total, Random Urine 10 <12 mg/dL [facility] Protein/Creatin ine Ratio, Ur 0.07 <0.2 [facility] Comment:The spot urine prote in:creatinine ratio may increase to 0.3during normal . 01/16/2023 10:2 0 AM EDT 01/16/2023 11:29 AM EDT [facility] External Provider LAB URI NE ORDERABLES Final Result Performing Organization Address [facility] de Phone Number [facility] [address] [place] [address] [phone] * Albumin, Random Urine W/Creatinine (01/16/2023 10:20 AM EDT) Creatinine, Urine 147.17 mg/dL [facility] Microalbumin Urine 23.0 mg/L [facility] Microalbum Creatinine Ratio Ur 15.6 ug/mg cr [facility] Comment:Albumin/Creatinine R atio Reference Ranges: Normal: < 30 ug/mg creatinine Microalbuminuria: 30 - 300 ug/mg creatinineClinical Albuminuria: > 300 ug/mg creatinine 01/16/2023 10:2 0 AM EDT 01/16/2023 11:29 AM EDT [facility] External Provider LAB URI NE ORDERABLES Final Result Performing Organization Address [facility] Co de Phone Number [facility] [address] [place] [address] [phone] * (ABNORMAL) Urinalysis Complete (01/16/2023 10:20 AM EDT) Color Urine Yellow [facility] Appearance Urine Clear [facility] PH 6.0 5.0 - 9.0 [facility] Glucose Urine UA Negative Negative mg/dL [facility] Urine Blood Negative Negative [facility] Specific [place] - Urine 1.020 1.005 - 1.025 [facility] Urine Protein Negative Neg-Trace mg/dL [facility] Urine Ketones Negative Negative mg/dL [facility] Nitrite Urine Negative Negative [facility] Leukocyte Esterase Urine Moderate (2+)(A) Negative [facility] RBC Urine 0-2 0 - 2 /HPF [facility] Urine WBC 11-20(A) 0 - 5 /HPF [facility] Urine Squamous Epithelial Cell 0-2 0 - 2 /HPF [facility] Urine Bacteria None Seen None Seen [facility] Hyaline Casts, Urine 0-2 0 - 2 /LPF [facility] 01/16/2023 10:2 0 AM EDT 01/16/2023 11:29 AM EDT us [facility] External Provider LAB URI NE ORDERABLES Final Result Performing Organization Address City/State/[facility] Co de Phone Number [facility] [address] [place] [phone] * (ABNORMAL) PTH, Intact Without Calcium (01/16/2023 10:10 AM EDT) PTHI 20 16 - 77 pg/mL [facility] Comment:Interpretive Guide I ntact PTH Calcium -------Normal Parathyroid Normal NormalHypoparathyroidism Low or Low Normal LowHyperparathyroidism Primary Normal or High High Secondary High Normal or Low Tertiary High HighNon-Parathyroid Hypercalcemia Low or Low Normal High Calcium (PTHI) 10.7(A) 8.6 - 10.4 mg/dL [facility] Comment:THIS TEST WAS PERFOR MED AT:[facility] [place] [phone] LEAHY MD 01/16/2023 10:1 0 AM EDT 01/16/2023 11:26 AM EDT [facility] External Provider LAB BLO OD ORDERABLES Final Result Performing Organization Address [facility]/ZIP Co de Phone Number [facility] [address] [place] [phone] * Vitamin D, 25-Hydroxy, Total, Immunoassay (01/16/2023 10:10 AM EDT) Vitamin D 25-OH Total 42.7 >30 ng/mL [facility] Comment:Health Based Referen ce Values*< 20 ng/mL [id number] ng/mL Insufficient> 30 ng/mL Sufficient*Whitney MARS. N [...] 0 AM EDT 01/16/2023 11:26 AM EDT [facility] External Provider LAB BLO OD ORDERABLES Final Result Performing Organization Address [facility]/ZIP Co de Phone Number [facility] [address] [place] [phone] * Albumin (01/16/2023 10:10 AM EDT) Albumin Level 4.2 3.5 - 5.0 g/dL [facility] 01/16/2023 10:1 0 AM EDT 01/16/2023 11:26 AM EDT [facility] External Provider LAB BLO OD ORDERABLES Final Result Performing Organization Address [facility] de Phone Number [facility] [address] [place] [phone] * Magnesium (01/16/2023 10:10 AM EDT) Magnesium 1.7 1.6 - 2.6 mg/dL [facility] 01/16/2023 10:1 0 AM EDT 01/16/2023 11:26 AM EDT [facility] External Provider LAB BLO OD ORDERABLES Final Result Performing Organization Address [facility] de Phone Number [facility] [address] [place] [address] [phone] * Phosphate (As Phosphorus) (01/16/2023 10:10 AM EDT) Phosphorus 3.6 2.7 - 4.5 mg/dL [facility] 01/16/2023 10:1 0 AM EDT 01/16/2023 11:26 AM EDT [facility] External Provider LAB BLO OD ORDERABLES Final Result Performing Organization Address [facility] de Phone Number [facility] [address] [place] [address] [phone] * (ABNORMAL) Calcium (01/16/2023 10:10 AM EDT) Calcium 10.4(H) 8.4 - 10.2 mg/dL [facility] 01/16/2023 10:1 0 AM EDT 01/16/2023 11:26 AM EDT [facility] External Provider LAB BLO OD ORDERABLES Final Result Performing Organization Address [facility] Co de Phone Number [facility] [address] [place] [phone] * Creatinine, Serum (01/16/2023 10:10 AM EDT) Creatinine, Serum 1.06 0.5 - 1.4 mg/dL [facility] Estimated Glomerular Filt Rate 50 [facility] Comment:NOTE: For -Am erican individuals, multiply the result by 1.210.Chronic Kidney Disease: Estimated GFR < 60 mL/min/1.05n7Obimgk Kidney Disease: Estimated GFR < 15 mL/min/1.73m2 01/16/2023 10:1 0 AM EDT 01/16/2023 11:26 AM EDT [facility] External Provider LAB BLO OD ORDERABLES Final Result Performing Organization Address [facility] de Phone Number [facility] [address] [place] [phone] * (ABNORMAL) BUN (Blood Urea Nitrogen) (01/16/2023 10:10 AM EDT) Urea Nitrogen (BUN) 27(H) 9 - 16 mg/dL [facility] 01/16/2023 10:1 0 AM EDT 01/16/2023 11:26 AM EDT [facility] External Provider LAB BLO OD ORDERABLES Final Result Performing Organization Address [facility] Co de Phone Number [facility] [address] [place] [phone] * Electrolyte Panel (01/16/2023 10:10 AM EDT) Sodium 140 135 - 145 mmol/L [facility] Potassium 4.0 3.3 - 5.1 mmol/L [facility] Chloride 102 96 - 108 mmol/L [facility] Carbon Dioxide 28 22 - 29 mmol/L [facility] Anion Gap 14 12 - 20 [facility] 01/16/2023 10:1 0 AM EDT 01/16/2023 11:26 AM EDT [facility] External Provider LAB BLO OD ORDERABLES Final Result [facility] [address] [place] [phone] * Lipid Panel, Standard (01/16/2023 10:10 AM EDT) Triglycerides 260 mg/dL [facility] Comment:Desirable Triglyceri de: less than 150 mg/dLBorderline High Triglyceride 150-199 mg/dLHigh Triglyceride: 200-499 mg/dLVery High Triglyceride: greater than or equal to 5OO mg/dL Cholesterol 180 mg/dL [facility] Comment:Desirable Cholestero l: less than 200 mg/dLBorderline High Cholesterol: 200-239 mg/dLHigh Cholesterol: greater than 239 mg/dL LDL Cholesterol Calculated 94 mg/dl [facility] Comment:Desirable LDL: less than 100 mg/dLNear Optimal/Above Optimal LDL: 110- 129 mg/dLBorderline High LDL: 130-159 mg/dLHigh LDL: 160-189 mg/dLVery High LDL: greater than or equal to 190 mg/dL HDL Cholesterol 34 mg/dL [facility] Comment:Desirable HDL: great er than 40 mg/dL Note: This HDL assay may give artificially low results in patients with liver disease. 01/16/2023 10:1 0 AM EDT 01/16/2023 11:26 AM EDT [facility] External Provider LAB BLO OD ORDERABLES Final Result [facility] [address] [place] [phone] * (ABNORMAL) Comprehensive Metabolic Panel, Fasting (01/16/2023 10:10 AM EDT) Sodium 140 135 - 145 mmol/L [facility] Potassium 4.0 3.3 - 5.1 mmol/L [facility] Chloride 101 96 - 108 mmol/L [facility] Carbon Dioxide 29 22 - 29 mmol/L [facility] Anion Gap 14 12 - 20 [facility] Urea Nitrogen (BUN) 27(H) 9 - 16 mg/dL [facility] Creatinine, Serum 1.08 0.5 - 1.4 mg/dL [facility] Estimated Glomerular Filt Rate 49 [facility] Comment:NOTE: For -Am erican individuals, multiply the result by 1.210.Chronic Kidney Disease: Estimated GFR < 60 mL/min/1.83h9Qdotex Kidney Disease: Estimated GFR < 15 mL/min/1.73m2 Glucose Fasting 164(H) 60 - 99 mg/dL [facility] Comment:A fasting glucose of 126 mg/dl or greater on more than oneoccasion is considered diagnostic of diabetes. Calcium 10.4(H) 8.4 - 10.2 mg/dL [facility] Bilirubin, Total 0.4 0.0 - 1.0 mg/dL [facility] Aspartate Amino Transferase 19 5 - 31 U/L [facility] Alanine Aminotransferase 13 0 - 31 U/L [facility] Total Protein 7.3 6.5 - 8.0 g/dL [facility] Albumin Level 4.2 3.5 - 5.0 g/dL [facility] Alkaline Phosphatase 51 39 - 117 U/L [facility] 01/16/2023 10:1 0 AM EDT 01/16/2023 11:26 AM EDT [facility] External Provider LAB BLO OD ORDERABLES Final Result [facility] [address] [place] [phone] * CBC auto differential (01/16/2023 10:10 AM EDT) White Blood Count 7.5 4.8 - 10.8 X10*3/uL [facility] Red Blood Count 4.35 4.20 - 5.50 X10*6/uL [facility] Hemoglobin 12.2 12.0 - 16.0 g/dl [facility] Hematocrit 37.9 37.0 - 47.0 % [facility] Mean Corpuscular Volume 87.1 80.0 - 98.0 fL [facility] Mean Corpuscular Hemoglobin 28.0 27.0 - 33.0 pg [facility] Mean Corpuscular HGB Conc 32.2 31.0 - 35.0 g/dl [facility] Red Cell Distribution Width 14.0 11.0 - 16.0 % [facility] Platelet Count 334 160 - 400 X10*3/uL [facility] Mean Platelet Volume 10.4 9.4 - 12.3 fL [facility] Neutrophils Percent Auto 56.2 45 - 73 % [facility] Imm Gran Pct Auto 0.4 0.0 - 0.4 % [facility] Lymphocytes Percent Auto 29.1 20 - 40 % [facility] Monocytes Percent Auto 10.1 2 - 11 % [facility] Eosinophils Percent Auto 3.5 0 - 4 % [facility] Basophils Percent Auto 0.7 0 - 2 % [facility] NRBC Pct Auto 0.0 0.0 - 0.2 /100WBC [facility] Neutrophils Absolute Auto 4.2 2.0 - 8.3 x10*3/uL [facility] Imm Gran Abs Auto 0.03 0.00 - 0.03 X10*3/uL [facility] Lymphocytes Absolute Auto 2.2 1.2 - 4.9 X10*3/uL [facility] Monocytes Absolute Auto 0.8 0.1 - 1.2 X10*3/uL [facility] Eosinophils Absolute Auto 0.3 0.0 - 0.4 X10*3/uL [facility] Basophils Absolute Auto 0.1 0.0 - 0.2 X10*3/uL [facility] NRBC Abs Auto 0.000 0.0 - 0.012 X10*3/uL [facility] 01/16/2023 10:1 0 AM EDT 01/16/2023 11:26 AM EDT us [facility] External Provider LAB BLO OD ORDERABLES Final Result Performing Organization Address City/State/[facility] Co de Phone Number [facility] [address] [place] [phone] documented in this encounter Visit Diagnoses Not on filedocumented in this encounter Care Teams Asbestos Brake Lining Finisher Helper Relationship Specialty Start Date End Date Name, MD Suresh [address] [place] [phone] PCP - General Family Medicine 11/18/17 documented as of this encounter
--- OUTSIDE RECORDS SUMMARY | 2025-06-30 16:58 | XMS_ITS | Clinical Summary ---
Author Organization [facility] Address [address] [place] [phone] Phone Care Team Providers Care Application Development Intern Name Role Phone Name, Suresh BENJAMIN Primary Care Provider [phone] Allergies Active Allergy Reactions Criticality Noted Date [...] mg Active ergocalciferol (VITAMIN D-2) 1.25 MG (03741 UT) capsule Comments: Filled Date: Jul 30 [...] mouth 3 (three) times a day Active [place]-3 1000 MG capsule Take 2 capsules by [...] 1.5 mg 04/15/20 21 Active nystatin (MYCOSTATIN) 851490 UNIT/ML suspension TAKE 1 MILLILITER BY ORAL [...] Visit [facility] [address] [place] [address] [place] [phone] Rolly Mishra MD [address] [facility] [address] [place] [address] Health Maintenance Due Date Last Done [...] 38 - 50 % PVNMA Comments From [facility] PVNMA BUN 31(H) 9 - 20 mg/dl [...] % PVNMA 10/02/2020 us [facility] [id number] LICITED RESULTS Final Result PVNMA from Last 3 Months or Most Recently Relevant to Health Maintenance Insurance [address] [place] [address] [facility] ([id number]) , [facility] [address] [place] [address] [facility] ([id number]) Care Teams Application Development Intern Relationship Specialty Start Date End Date Name, MD Suresh [address] [place], [place] [phone] PCP - General 10/29/20
--- OUTSIDE RECORDS SUMMARY | 2025-06-30 16:58 | XMS_ITS | Encounter Summary ---
Author Organization [employer] Address [address] [facility] 7t [place] [address] Care Team Providers Care Executive Services Administrator Name Role Phone Name, Suresh BENJAMIN Primary Care Provider [phone] Reason for Visit * Reason Comments Med Refill Encounter Details Date Type Department Care Team ([facility] st Contact Info) Description 06/07/2024 Refill [facility] [address] [place] [address] Renata Ballard FNP [address] [place] [address] Pain Social History Tobacco Use Types Packs/Day [...] Description 07/12/2025 11:15 AM EDT Office Visit [facility] [address] [place] [phone] NameSuresh MD [address] [place] [address] documented as of this encounter Visit Diagnoses Diagnosis Pain Generalized pain documented in this encounter Additional Health Concerns Assessment Noted Time PHQ-9 Depression Total Score: 7 04/15/20 24 11:05 AM EDT documented as of this encounter Care Teams Executive Services Administrator Relationship Specialty Start Date End Date Name, MD Suresh [address] [place] [phone] PCP - General Family Medicine 11/18/17 documented as of this encounter
--- OUTSIDE RECORDS SUMMARY | 2025-06-30 16:58 | XMS_ITS | Encounter Summary ---
Author Organization [employer] Address [address] [facility] 7t [place] [address] Care Team Providers Care Gang Leader Name Role Phone Name, Suresh BENJAMIN Primary Care Provider [phone] Reason for Visit * Reason Comments Med Refill Encounter Details Date Type Department Care Team (Late st Contact Info) Description 05/22/2023 Refill [facility] [address] [place] [phone] NameSuresh MD [address] [place] [phone] Social History Tobacco Use Types Packs/Day Years [...] Description 07/12/2025 11:15 AM EDT Office Visit [facility] [address] [place] [phone] Suresh Rosenthal MD [address] [place] [address] [phone] documented as of this encounter Visit Diagnoses Not on filedocumented in this encounter Care Teams Gang Leader Relationship Specialty Start Date End Date Name, MD Suresh [address] [place] [address] PCP - General Family Medicine 11/18/17 documented as of this encounter
--- OUTSIDE RECORDS SUMMARY | 2025-06-30 16:58 | XMS_ITS | Encounter Summary ---
Author Organization [employer] Address [address] [facility] 7t [place] [address] Care Team Providers Care Wrapper Stemmer Hand Name Role Phone Name, Suresh BENJAMIN Primary Care Provider [phone] Reason for Visit * Reason Comments Med Refill Encounter Details Date Type Department Care Team ([facility] st Contact Info) Description 06/17/[address] [facility] [address] [place] [address] Renata Ballard, PRICILA [address] [place] [address] Chronic low back pain without sciatica, unspecified [...] Description 07/12/2025 11:15 AM EDT Office Visit [facility] [address] [place] [address] NameSuresh MD [address] [place] [address] documented as of this encounter Visit Diagnoses Diagnosis Chronic low back pain without sciatica, unspecified back pain laterality documented in this encounter Additional Health Concerns Assessment Noted Time PHQ-9 Depression Total Score: 7 04/15/20 24 11:05 AM EDT documented as of this encounter Care Teams Wrapper Stemmer Hand Relationship Specialty Start Date End Date Suresh Rosenthal MD [address] [place] [address] PCP - General Family Medicine 11/18/17 documented as of this encounter
--- OUTSIDE RECORDS SUMMARY | 2025-06-30 16:58 | XMS_ITS | Clinical Summary ---
Author Organization [employer] Address [address] [place] [address] 7t [place] [address] Care Team Providers Care Currency Counter Name Role Phone Name, Suresh BENJAMIN Primary Care Provider [phone] Allergies Active Allergy Reactions Criticality Noted Date Comments Ciprofloxacin Itching,Rash Medium 06/24/2018 Other Reaction(s): itching Sulfa Antibiotics Hives Medium 01/17/2011 Other Reaction(s): blisters Trimethoprim Hives Medium 01/17/2011 Medications busPIRone (Buspar) 30 MG tablet Take 30 mg by mouth 1 (one) time each day. 09/21/20 22 Active gabapentin (Neurontin) 300 MG capsule TAKE 1 CAPSULE BY MOUTH TWICE A DAY 08/18/20 22 Active hydrOXYzine HCl (Atarax) 10 MG tablet Take 1 tablet by mouth if needed each day. 09/21/20 22 Active melatonin 3 MG tablet Take 1 tablet by mouth if needed at bedtime for sleep. 05/31/20 22 Active Nutritional Supplements (Glucerna Shake) liquid one can twice a day 11/30/19 19 Active docusate sodium (Colace) 100 MG capsule Take 100 mg by mouth 2 times daily. Active Magnesium Citrate 200 MG tablet Take by mouth. A ctive ergocalciferol (Vitamin D-2) 50 MCG (1999 UT) capsule TAKE 1 CAPSULE BY MOUTH EVERY DAY 90 capsule 1 06/24/20 23 Active Blood Pressure kit Use once a day at home 1 kit 06/24/20 23 Active clobetasol (Temovate) 0.05 % ointment APPLY A THIN LAYER TOPICALLY TO AFFECTED AREAS AT BEDTIME 30 g 07/10/20 23 Active TRUEplus Lancets 33G miscIndications:T ype 2 diabetes mellitus with hyperglycemia, with long-term current use of insulin ([facility]) USE TO CHECK BLOOD SUGAR 3 TIMES A DAY 100 each 3 08/12/20 23 Active Blood Glucose Monitoring Suppl (ONE TOUCH ULTRA 2) w/Device kit Use 3 times a day 1 kit 08/14/20 23 Active clotrimazole (Lotrimin) 1 % creamIndications: Tinea APPLY TO AFFECTED AREA TWICE A DAY IN THE MORNING AND IN THE EVENING 15 g 1 09/02/20 23 Active albuterol (Ventolin HFA) 108 (90 Base) MCG/ACT inhaler TAKE 2 PUFFS BY MOUTH EVERY 4 TO 6 HOURS NEEDED 18 g 1 09/24/20 23 Active omeprazole (PriLOSEC) [address] capsuleIndication s:Gastroesophagea l reflux disease without esophagitis TAKE 1 CAPSULE BY MOUTH TWICE A DAY DIRECTED 180 capsule 1 12/18/19 24 Active lactulose (Chronulac) 10 GM/15ML solutionIndicatio ns:Routine health maintenance TAKE 15MLS BY MOUTH EVERY DAY 473 mL 3 12/18/19 24 Active nitroglycerin (Nitrostat) 0.[address] 1 TABLET (0.4 MG) UNDER THE TONGUE EVERY 5 (FIVE) MINUTES IF NEEDED FOR CHEST PAIN. MAY USE UP TO THREE TABLETS. SEEK MEDICAL ATTENTION IF NO RELIEF. 300 tablet 1 05/23/20 24 Active rosuvastatin (Crestor) 40 MG tablet TAKE 1 TABLET BY MOUTH EVERY DAY 90 tablet 3 07/01/20 24 Active losartan-hydroCHL OROthiazide (Hyzaar) 100-25 MG tabletIndications :Essential hypertension TAKE 1 TABLET BY MOUTH EVERY DAY IN THE MORNING 90 tablet 3 08/22/20 24 Active glucose blood (OneTouch Ultra) test stripIndications: Type 2 diabetes mellitus with other circulatory complications ([facility]) USE TO CHECK BLOOD SUGAR BY SUBCUTANEOUS ROUTE THREE TIMES PER DAY. 100 strip 11 09/06/20 24 Active cholecalciferol VITAMIN D (Vitamin D-3) 50 MCG (2000 UT) capsule TAKE 1 CAPSULE BY MOUTH EVERY DAY 90 capsule 10/31/19 25 Active insulin aspart (NovoLOG FLEXPEN) 100 UNIT/ML pen INJECT 12-14 UNITS 3 TIMES A DAY WITH MEALS 15 mL 3 02/15/20 25 Active Icosapent Ethyl (Vascepa) 1 g capsule Take 2 capsules (2 g) by mouth with breakfast and with evening meal. 120 capsule 02/15/20 25 026 Active insulin degludec (Tresiba FlexTouch) 200 UNIT/ML injection INJECT 50 UNITS SUBCUTANEOUSLY AT BEDTIME 18 mL 02/15/20 25 Active aspirin (Aspirin Low Dose) 81 MG EC tablet TAKE 1 TABLET BY MOUTH EVERY DAY IN THE MORNING 90 tablet 1 02/18/20 25 Active traMADol (Ultram) 50 MG tabletIndications :Chronic low back pain without sciatica, unspecified back pain laterality TAKE 1 TABLET BY MOUTH EVERY 8 (EIGHT) HOURS IF NEEDED FOR SEVERE PAIN FOR UP TO 28 DAYS. 84 tablet 03/06/20 25 Active amLODIPine (Norvasc) 10 MG tabletIndications :Hypertension, unspecified type TAKE 1 TABLET BY MOUTH EVERY DAY IN THE MORNING 90 tablet 1 04/04/20 25 Active cetirizine (ZyrTEC) 10 MG tabletIndications :Seasonal allergies TAKE 1 TABLET BY MOUTH EVERY DAY NEEDED 90 tablet 1 04/04/20 25 Active Dulaglutide 1.5 MG/0.5ML solution auto-injectorIndi cations:Type 2 diabetes mellitus with other circulatory complication, with long-term current use of insulin (CMS/[facility]) Inject 1.5 mg under the skin 1 (one) time per week. INJECT ONE PEN (=1.5 MG) SUBCUTANEOUSLY ONCE A WEEK 2 mL 04/24/20 25 026 Active lidocaine (Lidoderm) 5 % patchIndications: Type 2 diabetes mellitus with other circulatory complication, with long-term current use of insulin (CMS/HCC) Apply 1 patch topically Once per day. APPLY 1 PATCH TOPICALLY TO SKIN, LEAVE ON FOR 12 HOURS AND OFF FOR 12 HOURS DIRECTED 30 patch 2 05/16/20 25 Active acarbose (Precose) 100 MG tablet TAKE 1 TABLET BY MOUTH 3 TIMES A DAY WITH BREAKFAST LUNCH AND EVENING MEAL 270 tablet 05/29/20 25 Active acetaminophen (Tylenol 8 Hour) 650 MG ER tabletIndications :Pain TAKE 1 TABLET BY MOUTH EVERY 8 HOURS NEEDED. DO NOT CRUSH/BREAK/CHEW 100 tablet 05/29/20 25 Active metoprolol succinate XL (Toprol-XL) 100 MG 24 hr tablet TAKE 1 TABLET BY MOUTH TWICE A DAY 180 tablet 3 05/29/20 25 Active lidocaine (Xylocaine) 2 % solutionIndicatio ns:Type 2 diabetes mellitus with other circulatory complications (CMS/HCC) TAKE 15 ML BY MOUTH EVERY 3 HOURS. SWISH AND SWALLOW DIRECTED 200 mL 05/29/20 25 Active Active Problems Problem Noted Date Diagnosed [...] to use of clotrimazole -had UA w terrazzo tile setter in 12/2022 w neg ucx < 10col [...] atorvastatin 80 mg Coronary artery disease involving [place] coronar y artery 04/13/1994 Encounters Date Type Department Care Team Description 05/29/2025 Refill [facility] [address] [place] [phone] Suresh Rosenthal MD Pain; Type 2 diabetes mellitus with other circulatory complications ([facility]) 05/28/2025 Refill [facility] [address] [place] [address] Suresh Rosenthal MD 05/15/2025 Refill [facility] [address] [place] [address] Suresh Rosenthal MD Type 2 diabetes mellitus with other circulatory complication, with long-term current use of insulin ([facility]) 05/09/2025 Telephone [facility] [address] [place] [address] Suresh Rosenthal MD Durable Medical Equipment (Recert / Glucerna) 2025 Telephone [facility] [address] [place] [address] Suresh Rosenthal MD Prior Authorization 04/28/2025 Refill [facility] [address] [place] [address] Suresh Rosenthal MD Type 2 diabetes mellitus with other circulatory complication, with long-term current use of insulin ([facility]) 04/24/2025 Refill [facility] [address] [place] [address] Suresh Rosenthal MD Type 2 diabetes mellitus with other circulatory complication, with long-term current use of insulin ([facility]) 04/14/2025 Refill [facility] [address] [place] [address] Suresh Rosenthal MD 04/07/2025 Telephone [facility] [address] [place] [address] Suresh Rosenthal MD 04/04/2025 Telephone [facility] [address] [place] [address] Amos Cartagena [place] june recalls 04/03/2025 Telephone [facility] [address] [place] [address] Suresh Rosenthal MD Appointment Request 04/03/2025 Telephone [facility] [address] [place] [address] Suresh Rosenthal MD Record Request 04/03/[address] [address] Name, MD Suresh Durable Medical Equipment from Last 3 Months Immunizations Immunization Administration [...] Answer Date Recorded Internet Access Q1 Yes 04/16/2025 Internet Access Q2 Not on file 04/16/2025 Comments Unknown Sex and Gender Information Value Date Recorded Sex Assigned at Female 08/18/2022 10:14 AM EDT Legal Sex Female 10:14 AM EDT Gender Identity Female 08/18/2022 10:14 AM EDT Sexual Orientation Straight 08/18/2022 10 :14 AM EDT Last Filed Vital Signs Vital Sign Reading Time Taken Comments Blood Pressure 132/89 02/14/2025 2:31 PM EDT Pulse 69 02/14/2025 2:08 PM EDT Temperature 36.1 C (97 F) 02/14/2025 2:08 PM EDT Respiratory Rate 12 02/14/2025 2:08 PM EDT Oxygen Saturation 95% 02/14/2025 2:08 PM EDT Inhaled Oxygen Concentration - - Weight 69.2 kg (152 lb 9.6 oz) 02/14/2025 2:08 P M EDT Height 147.3 cm (4' 10 ) 02/14/2025 2:08 PM EDT Body Mass Index 31.89 02/14/2025 2:08 PM EDT Plan of Treatment Upcoming Encounters Date Type Department Care Team (Late st Contact Info) Description 07/12/2025 11:15 AM EDT Office Visit [facility] [address] [facility] [place] [address] Name, MD Suresh [address] [place] [address] Health Maintenance Due Date Last Done Comments Eye Exam 1955 Alcohol/Substance Use Screening 1956 Depression Screening 04/15/2025 04/15/2024, 04/15/20 24 Diabetes: Hemoglobin A1C 05/16/2025 025, 05/16/2024, 04/15/2024, Additional history exists COVID-19 Vaccine ( season) 2025 07/27/2024, 09/15/2023, 12/31/2022, Additional history exists Influenza Vaccine (#1) 2025 , 08/06/2023, 10/10/2022, Additional history exists SDOH Screening 02/02/2026 02/02/2025 Diabetes: Foot Exam 02/14/2026 02/14/2025, 02/14/2025, 02/14/2025, Additional history exists Tobacco Screening 02/14/2026 02/14/2025 Lipid Panel 02/18/2026 02/18/2025, 07/2 06/2024, 01/16/2023, Additional history exists Diabetes: Urine Protein Screening 03/29/2026 03/29/2025, 03/04/2025, 02/18/2025, Additional history exists DTaP/Tdap/Td Vaccines (2 - Td or Tdap) 10/22/2026 10/22/2016, 02/11/1996 Hepatitis B Vaccines Completed 04/12/2004, 12/18/2003, 11/17/2003 Pneumococcal Vaccine: 50+ Years Completed 11/18/2017, 11/06/2013, 11/06/2013, Additional history exists Zoster Vaccines Completed 05/28/2021, 01/2020, 10/22/2016, Additional history exists RSV Patients and Patients Aged 60 years or older Completed 09/15/2023 HIB Vaccines Aged Out No longer eligi [...] Diagnosis Comments ALBUMIN, RANDOM URINE W/CREATININE Routine 03/29/2025 12:30 PM EDT Proteinuria, unspecified type LIPID PANEL, STANDARD Routine 02/18/2025 7:13 AM EDT Type 2 diabetes mellitus with other circulatory complication, with long-term current use of insulin ([facility]) Coronary artery disease involving [place] coronary artery of [place] heart without angina pectoris High triglycerides POCT GLYCATED HEMOGLOBIN, TOTAL Routine 02/14/2025 2:09 PM EDT Type 2 diabetes mellitus with other circulatory complication, with long-term current use of insulin ([facility]) from Last 3 Months or Most Recently Relevant to Health Maintenance Results * (ABNORMAL) Albumin, Random Urine W/Creatinine (03/29/2025 12:30 PM EDT) Creatinine, Urine 105.91 mg/dL [facility] Microalbumin Urine 43.0 mg/L H [facility] Microalbum Creatinine Ratio Ur 40.6(H) <30 ug/mg cr [facility] Comment:Albumin/Creatinine R atio Reference Ranges: Normal: < 30 ug/mg creatinine Microalbuminuria: 30 - 300 ug/mg creatinineClinical Albuminuria: > 300 ug/mg creatinine Urine (Urine, Random) 03/29/2025 12:30 PM EDT 03/29/2025 1:48 PM EDT us Suresh Rosenthal MD LAB URINE ORDERABLES Final Resul t Performing Organization Address [facility] Co de Phone Number [facility] [address] [place] [address] [phone] * (ABNORMAL) Lipid Panel, Standard (02/18/2025 7:13 AM EDT) Triglycerides 320(H) <150 mg/dL [facility] Comment:Desirable Triglyceri de: less than 150 mg/dLBorderline High Triglyceride 150-199 mg/dLHigh Triglyceride: 200-499 mg/dLVery High Triglyceride: greater than or equal to 5OO mg/dL Cholesterol 164 <200 mg/dL [facility] Comment:Desirable Cholestero l: less than 200 mg/dLBorderline High Cholesterol: 200-239 mg/dLHigh Cholesterol: greater than 239 mg/dL LDL Cholesterol Calculated 60 <100 mg/dL [facility] Comment:Desirable LDL: less than 100 mg/dLNear Optimal/Above Optimal LDL: 110- 129 mg/dLBorderline High LDL: 130-159 mg/dLHigh LDL: 160-189 mg/dLVery High LDL: greater than or equal to 190 mg/dL HDL Cholesterol 40(L) >40 mg/dL [facility] Comment:Desirable HDL: great er than 40 mg/dL Note: This HDL assay may give artificially low results in patients with liver disease. Blood Venous blood specimen / Unknown 02/18/2025 7:13 AM EDT 02/18/2025 7:14 AM EDT us Suresh Rosenthal MD LAB BLOOD ORDERABLES Final Resul t Performing Organization Address [facility] Co de Phone Number [facility] [address] [place] [address] [phone] * (ABNORMAL) POCT HGB A1C (02/14/2025 2:09 PM EDT) Hemoglobin A1C 7.2(A) 4.0 - 6.0 % QC Media Lot # [id number] Lot# Expiration Date ,426 Blood 02/14/2025 2:09 PM EDT Suresh Rosenthal MD POINT OF CARE TEST ENTER/EDIT OR DERABLES Final Result from Last 3 Months or Most Recently Relevant to Health Maintenance [facility] JASEN CORTES [id number] Care Teams Currency Counter Relationship Specialty Start Date End Date Name, MD Suresh [address] [place], [place] [phone] PCP - General Family Medicine 11/18/17
--- OUTSIDE RECORDS SUMMARY | 2025-06-30 16:58 | XMS_ITS | Encounter Summary ---
Author Organization [employer] Address [address] [facility] 7t [place] [address] Care Team Providers Care Home Furnishings Sales Representative Name Role Phone Name, Suresh BENJAMIN Primary Care Provider [phone] Reason for Visit * Reason Onset Date Comments Med Refill 06/23/2023 Encounter Details Date Type Department Care Team (Late st Contact Info) Description 06/23/2023 Refill [facility] [address] [place] [address] Michelle Hernandez, MEETING SPECIALIST [address] [place] [address] Routine health maintenance Social History Tobacco Use [...] Description 07/12/2025 11:15 AM EDT Office Visit [facility] [address] [place] [address] Name, MD Suresh [address] [place] [address] documented as of this encounter Visit Diagnoses Diagnosis Routine health maintenance Unspecified examination documented in this encounter Care Teams Home Furnishings Sales Representative Relationship Specialty Start Date End Date Name, MD Suresh [address] [place] [address] PCP - General Family Medicine 11/18/17 documented as of this encounter
--- OUTSIDE RECORDS SUMMARY | 2025-06-30 16:58 | XMS_ITS | Encounter Summary ---
Author Organization [employer] Address [address] [facility] 7t [place] [address] Care Team Providers Care Microsoft Developer Name Role Phone Name, Suresh BENJAMIN Primary Care Provider [phone] Reason for Visit * Reason Comments Med Refill Encounter Details Date Type Department Care Team ([facility] st Contact Info) Description 01/02/[address] [facility] [address] [place] [address] Name, MD Suresh [address] [place] [address] Type 2 diabetes mellitus with other circulatory [...] Description 07/12/2025 11:15 AM EDT Office Visit [facility] [address] [place] [address] Name, MD Suresh [address] [place] [address] documented as of this encounter Visit Diagnoses Diagnosis Type 2 diabetes mellitus with other circulatory complications (CMS/HCC) Chronic low back pain without sciatica, unspecified back pain laterality documented in this encounter Care Teams Microsoft Developer Relationship Specialty Start Date End Date Name, MD Suresh [address] [place] [address] PCP - General Family Medicine 11/18/17 documented as of this encounter
--- OUTSIDE RECORDS SUMMARY | 2025-06-30 16:59 | XMS_ITS | Encounter Summary ---
Author Organization [employer] Address [address] [facility] 7t [place] [address] Care Team Providers Care Logistics Research Engineer Name Role Phone Name, Suresh BENJAMIN Primary Care Provider [phone] Reason for Visit * Reason Onset Date Comments Medication Question 09/23/2023 Durable Medical Equipment 09/23/2023 BOOST Encounter Details Date Type Department Care Team ([facility] st Contact Info) Description 09/23/2023 Telephone [facility] [address] [place] [address] Name, MD Suresh [address] [place] [address] Medication Question; Durable Medical Equipment (BOOST) Social [...] EDT Office Visit [facility] [address] [place] [address] Name, MD Suresh [address] [place] [address] documented as of this encounter Visit Diagnoses Not on filedocumented in this encounter Care Teams Logistics Research Engineer Relationship Specialty Start Date End Date NameSuresh MD [address] [place] [address] PCP - General Family Medicine 11/18/17 documented as of this encounter
--- OUTSIDE RECORDS SUMMARY | 2025-06-30 16:59 | XMS_ITS | Encounter Summary ---
Author Organization [email or web address] Address [address] [facility] 7t [place] [address] Care Team Providers Care Director External Communications Name Role Phone Name, Suresh BENJAMIN Primary Care Provider [phone] Reason for Visit * Reason Comments Med Refill Encounter Details Date Type Department Care Team ([facility] st Contact Info) Description 10/18/2023 Refill [facility] [address] [place] [address] Name, MD Suresh [address] [place] [address] Essential hypertension Social History Tobacco Use Types [...] 07/12/2025 11:15 AM EDT Office Visit [facility] [address] [place] [address] Name, MD Suresh [address] [place] [address] documented as of this encounter Visit Diagnoses Diagnosis Essential hypertension Unspecified essential hypertension documented in this encounter Care Teams Director External Communications Relationship Specialty Start Date End Date NameSuresh MD [address] [place] [address] PCP - General Family Medicine 11/18/17 documented as of this encounter
--- OUTSIDE RECORDS SUMMARY | 2025-06-30 16:59 | XMS_ITS | Encounter Summary ---
Author Organization [email or web address] Address [address] [facility] 7t [place] [address] Care Team Providers Care Cementer Helper Name Role Phone Name, Suresh BENJAMIN Primary Care Provider [phone] Encounter Details Date Type Department Care Team ([facility] st Contact Info) Description 11/13/2023 Abstract [facility] [address] [place] [address] Name, MD Suresh [address] [place] [address] Social History Tobacco Use Types Packs/Day Years [...] 11:15 AM EDT Office Visit [facility] [address] [place] [address] NameSuresh MD [address] [place] [address] documented as of this encounter Visit Diagnoses Not on filedocumented in this encounter Care Teams Cementer Helper Relationship Specialty Start Date End Date Suresh Rosenthal MD [address] [place] [address] PCP - General Family Medicine 11/18/17 documented as of this encounter
--- OUTSIDE RECORDS SUMMARY | 2025-06-30 16:59 | XMS_ITS | Patient Health Record ---
Author Organization [facility] Address [address] [place] [address] Care Team Providers Care Child Welfare Caseworker Name Role Phone Name Suresh BENJAMIN Primary Care Provider Juanpablo Medina Jr Unavailable [phone] Allergies Allergen (clinical drug ingredient) Drug/Non [...] Oral thr ee times a day Active [place] 3 1000 MG 1 capsule Orally twi [...] Problem Status W/U Status Risk Notes Problem 97440972 Irritable bowel syndrome without diarrhea (K58.9) Active confirmed Problem Dysphagia (87227239) Dysphagia (R13.10) Active confirmed Problem 729799142 Gastroesophageal reflux disease without esophagitis (K21.9) Active confirmed Problem Gastric polyp (34513937) Gastric polyp (K31.7) Active confirmed Problem 320014804 Esophageal dysmotility (K22.4) Active confirmed Problem 21148406 Dysphagia, unspecified type (R13.10) Active confirmed Problem 151566791 Abnormal CT scan (R93.89) Active confirmed Encounters Encounter Location Date Provider Diagnosis [facility] [address] [facility] [address] [place] [address] 03/30/2025 Juanpablo Madsen Jr Plan Of Treatment Pending Test Test Name [...] 04/10/2022 Next Appt Details Provider Name:Juanpablo cordon Jr, 07/20/2025 02:15:00 PM, [address], [address], [place], [address], Insurance Providers Payer Name Payer Address Payer Phone Subscriber Number Group Number Insured Name Patient Relationship to Insured Coverage Start Date Coverage End Date [facility] [address] Attn Claims JASEN Yousif [id number] CL AGUILERA Self - patient is the insured Medical (General) History Medical History History ICD Code Gastroesophageal reflux dise ase with esophageal dysmotility, last upper endoscopy with balloon dilation 05/09. 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 stroke -2017 Surgical History Surgery Date(Month/Year) cholecystectomy hysterectomy cleaned out artery 02/02/2018
--- OUTSIDE RECORDS SUMMARY | 2025-06-30 16:59 | XMS_ITS | Encounter Summary ---
Author Organization [employer] Address [address] [facility] 7t [place] [address] Care Team Providers Care Slasher Runner Name Role Phone Name, Suresh BENJAMIN Primary Care Provider [phone] Reason for Visit * Reason Onset Date Comments Appointment Request 12/21/2023 Encounter Details Date Type Department Care Team ([facility] st Contact Info) Description 12/21/2023 Telephone [facility] [address] [place] [address] Name, MD Suresh [address] [place] [address] Appointment Request Social History Tobacco Use Types [...] a telephone visit. Please contact daughter at [phone]. documented in this encounter Plan of Treatment Upcoming Encounters Date Type Department Care Team (Late st Contact Info) Description 07/12/2025 11:15 AM EDT Office Visit [facility] [address] [place] [address] Name, MD Suresh [address] [place] [address] documented as of this encounter Visit Diagnoses Not on filedocumented in this encounter Care Teams Slasher Runner Relationship Specialty Start Date End Date Name, MD Suresh [address] [place] [address] PCP - General Family Medicine 11/18/17 documented as of this encounter
--- OUTSIDE RECORDS SUMMARY | 2025-06-30 16:59 | XMS_ITS | Encounter Summary ---
Author Organization [employer] Address 75 [facility] 7t [place] [address] Care Team Providers Care Ethylene Compressor Operator Name Role Phone Name, Suresh BENJAMIN Primary Care Provider [phone] Reason for Visit * Reason Onset Date Comments Med Refill 06/23/2023 Encounter Details Date Type Department Care Team (Late st Contact Info) Description 06/23/2023 Refill [facility] MEDICINE [address] [place] [address] Gela Loza MD [address] [place] [address] Social History Tobacco Use Types Packs/Day Years [...] Description 07/12/2025 11:15 AM EDT Office Visit [facility] MEDICINE [address] [place] [address] Name, MD Suresh [address] [place] [address] documented as of this encounter Visit Diagnoses Not on filedocumented in this encounter Care Teams Ethylene Compressor Operator Relationship Specialty Start Date End Date Name, MD Suresh [address] [place] [address] PCP - General Family Medicine 11/18/17 documented as of this encounter
--- OUTSIDE RECORDS SUMMARY | 2025-06-30 16:59 | XMS_ITS | Encounter Summary ---
Author Organization [employer] Address 75 [facility] 7t [place] [address] Care Team Providers Care Block Saw Operator Name Role Phone Name, Suresh BENJAMIN Primary Care Provider [phone] Reason for Visit * Reason Comments Med Refill Encounter Details Date Type Department Care Team ([facility] st Contact Info) Description 08/12/2023 Refill [facility] MEDICINE [address] [place] [address] Michelle Hernandez, PRICILA [address] [place] [address] Type 2 diabetes mellitus with hyperglycemia, with long-term current use of insulin ([facility]) Social History Tobacco Use Types Packs/Day [...] Description 07/12/2025 11:15 AM EDT Office Visit [facility] MEDICINE [address] [place] [address] Name, MD Suresh [address] [place] [address] documented as of this encounter Visit Diagnoses Diagnosis Type 2 diabetes mellitus with hyperglycemia, with long-term current use of insulin ([facility]) documented in this encounter Care Teams Block Saw Operator Relationship Specialty Start Date End Date Name, MD Suresh [address] [place] [address] PCP - General Family Medicine 11/18/17 documented as of this encounter
== END 2025-06-30 14:31 | disposition home or self-care (01) ==
LOC: HO.PMC 14:02
PROVIDERS: PCP Internal Medicine Geriatric Medicine; Visit Provider Nurse Practitioner Family
DX: M47.816 Spondylosis without myelopathy or radiculopathy, lumbar region (principal); M53.3 Sacrococcygeal disorders, not elsewhere classified; G89.4 Chronic pain syndrome
CPT/HCPCS: 99213; G2211

== ENCOUNTER → 2025-06-30 14:01 | Outpatient (BNVA) | payer OTHER, SELFPAY | PROVIDERS: PCP Internal Medicine Geriatric Medicine; Visit Provider Nurse Practitioner Family | DX: G89.4 Chronic pain syndrome (principal); M47.816 Spondylosis without myelopathy or radiculopathy, lumbar region; M53.3 Sacrococcygeal disorders, not elsewhere classified | CPT/HCPCS: 99212 ==

== ENCOUNTER 2025-07-12 11:48 | Outpatient (REF) | payer OTHER, SELFPAY ==
--- OUTSIDE RECORDS SUMMARY | 2025-03-30 10:35 | XMS_ITS ---
Author Organization [facility] Address [address] [place] [address] Care Team Providers Care Structural Welder Name Role Phone Name Suresh BENJAMIN Primary Care Provider Eden Madsen Jr, Juanpablo Unavailable REASON FOR VISIT DYSPHAGIA Encounters Encounter Location Date Provider Diagnosis [facility] [address] [facility] [address] [place] [address] 03/30/2025 Juanpablo Madsen Jr Plan Of Treatment Next Appt Details Provider Name:Juanpablo cordon Jr, 11/02/2025 02:15:00 PM, [address], [address], [place], [address], Progress Notes * DONNA AGUILERAMERAJARONDOB:[birth year] (80 yo F)Acc No.[id number]:03/30/2025 Progress Notes Patient: CL PAULINO Provider: Jess Madsen MD :1945 A ge:79 Y S ex:Female Date:03/30/2025 Address:[address] [place] [address] , [place], [place] Pcp:Suresh Rosenthal MD Subjective: * Chief Complaints: * 1 . DYSPHAGIA. * Medical History: Objective: * Vitals: Assessment: Plan: * Treatment: * * The named appointment provid er may or may not be the originator of this progress note, and it is not deemed complete until electronically signed by the appointment provider. Sign off status: Pending * Provider: Jess Madsen MD Date: 0 03/30/2025 Generated for Nadege whiting/Chuckie/Mata on: 0 07/12/2025 10:35 AM LULUT
--- NOTE | ~2025-07-12 | XR_ITS ---
EXAMINATION: XR LUMBOSACRAL SPINE CLINICAL INFORMATION: worsening of chornic low back pain after fall in April. 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 TECHNIQUE: 6 views of the lumbar spine, inclusive of bilateral oblique views, were obtained. FINDINGS: Moderate right convex scoliosis, apex at L2. There is a normal lordosis. No fracture, compression deformity, or suspicious bone lesion. There are 3 mm degenerative retrolistheses of L2 on L3, and L3 upon L4. Moderate to severe disc degeneration present L2-3 and L3-4. There is otherwise mild disc degeneration. There is normal facet alignment. There are multilevel left greater than right hypertrophic degenerative facet changes. There are no pars defects on the oblique projections. Soft tissues demonstrate extensive vascular calcifications. There are cholecystectomy clips present. XR/XR lumbar spine 4V min IMPRESSION: 1. No acute bony abnormalities of the lumbar spine. 2. Moderate right convex scoliosis, and moderate multilevel lumbar spondylosis. Electronically signed by: Andreas Ceja MD 07/12/2025 02:14 PM EDT
--- OUTSIDE RECORDS SUMMARY | 2025-07-12 11:15 | XMS_ITS | Encounter Summary ---
Author Organization [employer] Address 75 [facility] 7t [place] [address] Care Team Providers Care Loaf Counter Name Role Phone Name, Suresh BENJAMIN Primary Care Provider [phone] Reason for Visit * Reason Comments Diabetes Encounter Details Date Type Department Care Team ([facility] st Contact Info) Description 07/12/2025 11:15 AM EDT Office Visit [facility] MEDICINE [address] [place] [address] Name, MD Suresh [address] [place] [address] Type 2 diabetes mellitus with other circulatory complication, with long-term current use of insulin ([facility]) (Primary Dx); Encounter for immunization; Acute on chronic back pain Social History Tobacco Use Types Packs/Day Years [...] Sign Reading Time Taken Comments Blood Pressure 126/54 07/12/2025 11:18 AM EDT Pulse 62 07/12/2025 11:18 AM EDT Temperature 35.9 C (96.7 F) 07/12/2025 11:18 AM EDT Respiratory Rate 12 07/12/2025 11:18 AM EDT Oxygen Saturation 96% 07/12/2025 11:18 AM EDT Inhaled Oxygen Concentration - - Weight 70 kg (154 lb 6.4 oz) 07/12/2025 11:18 AM EDT Height 147.3 cm (4' 10 ) 07/12/2025 11:18 AM EDT Body Mass Index 32.27 07/12/2025 11:18 AM EDT documented in this encounter Progress Notes * Suresh Rosenthal, - 07/12/2025 11:15 AM EDT Subjective Patient ID: Dori Urrutia is a 80 y.o. female who presents for Diabetes. Patient comes for a follow-up visit. She is accompanied by one of her daughters. She feels well today. She brings her glucose meter that shows good control. She had 2 episodes of hypoglycemia in the 50s a couple of weeks backs associated with skipping meals. No further episodes of hypoglycemia noted in her glucose meter. Her hemoglobin A1c is 6.8 which is consistent with her glucose meter readings. She is not having any chest pains or shortness of breath. She is using all of her medications as prescribed with the exception of the Vascepa because she does not like the fishy taste. She complains of exacerbation of low back pain after a fall several months ago while visiting her son out of state. She is having low back pain with radiation to the right buttock. The patient is already following at 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 HENT: Negative for sore throat. Respiratory: Negative for cough, shortness of breath and wheezing. Cardiovascular: Negative for chest pain, palpitations and leg swelling. Gastrointestinal: Negative for abdominal pain. Musculoskeletal: Positive for back pain. Objective Vitals: 07/12/25 1118 BP: 126/54 BP Location: Left arm Patient Position: Sitting BP Cuff Size: Adult Pulse: 62 Resp: 12 Temp: 96.7 ??F (35.9 ??C) TempSrc: Temporal SpO2: 96% Weight: 154 lb 6.4 oz (70 kg) Height: 4' 10 (1.473 m) Physical Exam Constitutional: Appearance: Normal appearance. She is obese. Cardiovascular: Rate and Rhythm: Normal rate and regular rhythm. Heart sounds: No murmur heard. No gallop. Pulmonary: Effort: Pulmonary effort is normal. No respiratory distress. Breath sounds: Normal breath sounds. No wheezing. Musculoskeletal: Lumbar back: Spasms present. No bony tenderness. Decreased range of motion. Right lower leg: No edema. Left lower leg: No edema. Comments: Antalgic gait, patient uses a walker Neurological: General: No focal deficit present. Mental Status: She is alert. Motor: No weakness. Assessment/Plan Diagnoses and all orders for this visit: Type 2 diabetes mellitus with other circulatory complication, with long-term current use of insulin([facility]) Comments: Continue current meds, avoid sweets Reminded to eat 3 times a day at a bedtime snack Flu vaccine today She had eye exam this month at [facility] (Leah) and we will get the results Orders: - POCT Glucose - POCT Hgb A1c - insulin pen needle (BD Pen Needle Mini Ultrafine) 31G x 5 mm misc; Use 4 times a day with insulin Encounter for immunization - FLU VACCINE TRIVALENT HIGH DOSE [phone] (Fluzone) 65 yrs + Acute on chronic back pain Comments: Continue current meds Keep appt at [facility] pain clinic Check X-ray of LS Orders: - XR Lumbar Spine Complete 4+ Views; Future Other orders - albuterol (Ventolin HFA) 108 (90 Base) MCG/ACT inhaler; TAKE 2 PUFFS BY MOUTH EVERY 4 TO 6 HOURS NEEDED documented in this encounter Plan of Treatment Not on file documented as of this encounter Procedures Procedure Name Priority Date/Time Associated Diagnosis Comments XR LUMBAR SPINE COMPLETE 4+ VIEWS Routine 07/12/2025 2:00 PM EDT Acute on chronic back pain POCT GLYCATED HEMOGLOBIN, TOTAL Routine 07/12/2025 11:20 AM EDT Type 2 diabetes mellitus with other circulatory complication, with long-term current use of insulin ([facility]) POCT GLUCOSE Routine 07/12/2025 11:20 AM EDT Type 2 diabetes mellitus with other circulatory complication, with long-term current use of insulin ([facility]) documented in this encounter Results * XR Lumbar Spine Complete 4+ Views (07/12/2025 2:00 PM EDT) Anatomical Region Laterality Modality Spine, L-spine Radiographic Mercedes ging 07/12/2025 2:00 PM EDT Narrative 07/12/2025 2:17 PM EDT [address] [address] XRay Report Signed Patient: Dori Calles MR#: [id number] : 1945 Acct:[id number] Age/Sex: 80 / F ADM Date: 07/12/25 Loc: HO.HHCX Attending Dr: Suresh Rosenthal MD Ordering Physician: Suresh Rosenthal MD Date of Service: 07/12/25 Procedure(s): XR lumbar spine 4V min Accession Number(s): [id number] cc: Ariadna,Suresh BENJAMIN Reason for Exam: worsening of chornic low back pain after fall in April. h/o DJD of the LS EXAMINATION: XR LUMBOSACRAL SPINE CLINICAL INFORMATION: worsening of chornic low back pain after fall in April. 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 TECHNIQUE: 6 views of the lumbar spine, inclusive of bilateral oblique views, were obtained. FINDINGS: Moderate right convex scoliosis, apex at L2. There is a normal lordosis. No fracture, compression deformity, or suspicious bone lesion. There are 3 mm degenerative retrolistheses of L2 on L3, and L3 upon L4. Moderate to severe disc degeneration present L2-3 and L3-4. There is otherwise mild disc degeneration. There is normal facet alignment. There are multilevel left greater than right hypertrophic degenerative facet changes. There are no pars defects on the oblique projections. Soft tissues demonstrate extensive vascular calcifications. There are cholecystectomy clips present. XR/XR lumbar spine 4V min IMPRESSION: 1. No acute bony abnormalities of the lumbar spine. 2. Moderate right convex scoliosis, and moderate multilevel lumbar spondylosis. Electronically signed by: Andreas Ceja MD 07/12/2025 02:14 PM EDT Dictated By: Andreas Ceja MD Signed By: <Electronically signed by Andreas Ceja MD in OV> 07/12/25 1414 DD/ 1400 TD/TT: 07/12/25 1406 Line Camera Operator: Procedure Note Donotuseinterpreter, Image - 07/12/[address] [address] XRay Report Signed Patient: Dori CallesMR#: [id number] : 1945cct:[id number] Age/Sex: 80 / FADM Date: 07/12/25 Loc: HO.HHCX Attending Dr: Suresh Rosenthal MD Ordering Physician: Suresh Rosenthal MD Date of Service: 07/12/25 Procedure(s): XR lumbar spine 4V min Accession Number(s): [id number] cc: Suresh Rosenthal MD Reason for Exam: worsening of chornic low back pain after fall in April.h/o DJD of the LS EXAMINATION: XR LUMBOSACRAL SPINE CLINICAL INFORMATION: worsening of chornic low back pain after fall in April. 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 TECHNIQUE: 6 views of the lumbar spine, inclusive of bilateral oblique views, were obtained. FINDINGS: Moderate right convex scoliosis, apex at L2. There is a normal lordosis. No fracture, compression deformity, or suspicious bone lesion. There are 3 mm degenerative retrolistheses of L2 on L3, and L3 upon L4. Moderate to severe disc degeneration present L2-3 and L3-4. There is otherwise mild disc degeneration. There is normal facet alignment. There are multilevel left greater than right hypertrophic degenerative facet changes. There are no pars defects on the oblique projections. Soft tissues demonstrate extensive vascular calcifications. There are cholecystectomy clips present. XR/XR lumbar spine 4V min IMPRESSION: 1. No acute bony abnormalities of the lumbar spine. 2. Moderate right convex scoliosis, and moderate multilevel lumbar spondylosis. Electronically signed by: Andreas Ceja MD 07/12/2025 02:14 PM EDT Dictated By: Andreas Ceja MD Signed By: <Electronically signed by Andreas Ceja MD in OV> 07/12/25 1414 DD/ 1400 TD/TT: 07/12/25 1406 Line Camera Operator: Suresh Rosenthal MD IMG XR PROCEDURES Final Result * (ABNORMAL) POCT Hgb A1c (07/12/2025 11:20 AM EDT) Hemoglobin A1C 6.8(A) 4.0 - 5.7 % QC Media Lot # [id number] Lot# Expiration Date 42,427 Blood 07/12/2025 11:2 0 AM EDT Suresh Rosenthal MD POINT OF CARE TEST ENTER/EDIT OR DERABLES Final Result * POCT Glucose (07/12/2025 11:20 AM EDT) Glucose Blood, POC 97 60 - 200 mg/dL QC Media Lot # [id number] Lot# Expiration Date Blood Capillary blood specimen / Unknown 07/12/2025 11:20 AM EDT Suresh Name POINT OF CARE TEST ENTER/EDIT OR DERABLES Final Result documented in this encounter Visit Diagnoses Diagnosis Type 2 diabetes mellitus with other circulatory complication, with long-term current use of insulin ([facility])- Primary Encounter for immunization Acute on chronic back pain documented in this encounter Additional Health Concerns Assessment Noted Time PHQ-9 Depression Total Score: 7 04/15/20 11:05 AM EDT documented as of this encounter Care Teams Loaf Counter Relationship Specialty Start Date End Date Name, MD Suresh [address] [place] [address] PCP - General Family Medicine 11/18/17 documented as of this encounter
--- OUTSIDE RECORDS SUMMARY | 2025-07-12 14:47 | XMS_ITS | Encounter Summary ---
Author Organization [employer] Address 75 [facility] 7t [place] [address] Care Team Providers Care Corporate Job Titles Name Role Phone Name, Suresh BENJAMIN Primary Care Provider [phone] Reason for Visit * Reason Onset Date Comments Appointment Request 01/09/2025 Encounter Details Date Type Department Care Team ([facility] st Contact Info) Description 01/09/2025 Telephone [facility] MEDICINE [address] [place] [address] Name, MD Suresh [address] [place] [address] Appointment Request Social History Tobacco Use Types [...] back to pt for schedule ov extended. [phone] (PT) documented in this encounter Plan of Treatment Not on file documented as of this encounter Visit Diagnoses Not on filedocumented in this encounter Additional Health Concerns Assessment Noted Time PHQ-9 Depression Total Score: 7 04/15/20 24 11:05 AM EDT documented as of this encounter Care Teams Corporate Job Titles Relationship Specialty Start Date End Date Name, MD Suresh [address] [place] [address] PCP - General Family Medicine 11/18/17 documented as of this encounter
--- OUTSIDE RECORDS SUMMARY | 2025-07-12 14:47 | XMS_ITS | Encounter Summary ---
Author Organization [employer] Address 75 [facility] 7t [place] [address] Care Team Providers Care Biology Instructor Name Role Phone Name, Suresh BENJAMIN Primary Care Provider Reason for Visit * Reason Comments Med Refill Encounter Details Date Type Department Care Team ([facility] st Contact Info) Description 12/01/2022 Refill [facility] MEDICINE [address] [place] [address] Michelle Hernandez, RADIOLOGIC TECHNOLOGIST [address] [place] [address] Tinea; Pain Social History Tobacco Use Types [...] pain documented in this encounter Care Teams Biology Instructor Relationship Specialty Start Date End Date Name, MD Suresh [address] [place] [address] PCP - General Family Medicine 11/18/17 documented as of this encounter
--- OUTSIDE RECORDS SUMMARY | 2025-07-12 14:47 | XMS_ITS | Encounter Summary ---
Author Organization [employer] Address 75 [facility] 7t [place] [address] Care Team Providers Care Pediatric Nephrologist Name Role Phone Name, Suresh BENJAMIN Primary Care Provider [phone] Reason for Visit * Reason Comments Med Refill Encounter Details Date Type Department Care Team ([facility] st Contact Info) Description 06/17/2024 Refill [facility] MEDICINE [address] [place] [address] Renata Ballard, PRICILA [address] [place] [address] Chronic low back pain without sciatica, unspecified [...] documented as of this encounter Care Teams Pediatric Nephrologist Relationship Specialty Start Date End Date Name, MD Suresh [address] [place] [address] PCP - General Family Medicine 11/18/17 documented as of this encounter
--- OUTSIDE RECORDS SUMMARY | 2025-07-12 14:47 | XMS_ITS | Encounter Summary ---
Author Organization [employer] Address 75 [facility] 7t [place] [address] Care Team Providers Care Metallographer Name Role Phone Name, Suresh BENJAMIN Primary Care Provider [phone] Reason for Visit * Reason Onset Date Comments Appointment Request 04/03/2025 Encounter Details Date Type Department Care Team ([facility] st Contact Info) Description 04/03/2025 Telephone [facility] MEDICINE [address] [place] [address] Name, MD Suresh [address] [place] [address] Appointment Request Social History Tobacco Use Types [...] encounter Miscellaneous Notes * Telephone Encounter - Kadentiffany Joe - 04/03/2025 4:14 PM EDT Tc from daughter requesting italia back regarding a letter they received to schedule a follow up appt.Coding Machine Operator unable to find availability. Please contact pt at [phone]. (Luxembourger Speaker) documented in this encounter Plan of Treatment Not on file documented as of this encounter Visit Diagnoses Not on filedocumented in this encounter Additional Health Concerns Assessment Noted Time PHQ-9 Depression Total Score: 7 04/15/20 24 11:05 AM EDT documented as of this encounter Care Teams Metallographer Relationship Specialty Start Date End Date Name, MD Suresh [address] [place] [address] PCP - General Family Medicine 11/18/17 documented as of this encounter
--- OUTSIDE RECORDS SUMMARY | 2025-07-12 14:47 | XMS_ITS | Encounter Summary ---
Author Organization [employer] Address 75 [facility] 7t [place] [address] Care Team Providers Care Plate Grinder Name Role Phone Name, Suresh BENJAMIN Primary Care Provider [phone] Reason for Visit * Reason Comments Med Refill Encounter Details Date Type Department Care Team ([facility] st Contact Info) Description 01/02/[address] [facility] MEDICINE [address] [place] [address] Name, MD Suresh [address] [place] [address] Type 2 diabetes mellitus with other circulatory [...] laterality documented in this encounter Care Teams Plate Grinder Relationship Specialty Start Date End Date Name, MD Suresh [address] [place] [address] PCP - General Family Medicine 11/18/17 documented as of this encounter
--- OUTSIDE RECORDS SUMMARY | 2025-07-12 14:47 | XMS_ITS | Encounter Summary ---
Author Organization [employer] Address 75 [facility] 7t [place] [address] Care Team Providers Care Ab Initio Etl Developer Name Role Phone Name, Suresh BENJAMIN Primary Care Provider [phone] Reason for Visit * Reason Comments Med Refill Encounter Details Date Type Department Care Team ([facility] st Contact Info) Description 06/07/2024 Refill [facility] MEDICINE [address] [place] [address] Renata Ballard FNP [address] [place] [address] Pain Social History Tobacco Use Types Packs/Day [...] documented as of this encounter Care Teams Ab Initio Etl Developer Relationship Specialty Start Date End Date Name, MD Suresh [address] [place] [address] PCP - General Family Medicine 11/18/17 documented as of this encounter
--- OUTSIDE RECORDS SUMMARY | 2025-07-12 14:47 | XMS_ITS | Clinical Summary ---
Author Organization [facility] Address [address] [place] [phone] Phone Care Team Providers Care Supervisor Hanging And Trimming Name Role Phone Name, Suresh BENJAMIN Primary Care Provider [phone] Allergies Active Allergy Reactions Criticality Noted Date [...] mg Active ergocalciferol (VITAMIN D-2) 1.25 MG (24961 UT) capsule Comments: Filled Date: Jul 30 [...] mouth 3 (three) times a day Active [place]-3 1000 MG capsule Take 2 capsules by [...] 1.5 mg 04/15/20 21 Active nystatin (MYCOSTATIN) 196505 UNIT/ML suspension TAKE 1 MILLILITER BY ORAL [...] Visit [facility] [address] [place] [address] [place] [address] Rolly Mishra MD [facility] [address] [place] [address] Health Maintenance Due Date Last [...] 50 % PVNMA Comments From [facility] PVNMA BUN 31(H) 9 - 20 mg/dl [...] % PVNMA 10/02/2020 us [facility] [id number] LICITED RESULTS Final Result PVNMA from Last 3 Months or Most Recently Relevant to Health Maintenance Insurance [address] [place] [address] [facility] ([id number]) , [facility] [address] [place] [address] [facility] ([id number]) Care Teams Supervisor Hanging And Trimming Relationship Specialty Start Date End Date Name, MD Suresh [address] [place], [place] [id number] PCP - General 10/29/20
--- OUTSIDE RECORDS SUMMARY | 2025-07-12 14:48 | XMS_ITS | Encounter Summary ---
Author Organization [employer] Address 75 [facility] 7t [place] [address] Care Team Providers Care Pharmacy Student Name Role Phone Name, Suresh BENJAMIN Primary Care Provider Encounter Details Date Type Department Care Team (Latest Contact Info) Description 07/12/2025 Travel Social History Tobacco Use Types Packs/Day [...] documented as of this encounter Care Teams Pharmacy Student Relationship Specialty Start Date End Date Name, MD Suresh [address] [place] [address] PCP - General Family Medicine 11/18/17 documented as of this encounter
--- OUTSIDE RECORDS SUMMARY | 2025-07-12 14:48 | XMS_ITS | Patient Health Record ---
Author Organization [facility] Address [address] [place] [address] Care Team Providers Care Forest Worker Name Role Phone Name Suresh BENJAMIN [...] Oral thr ee times a day Active [place] 3 1000 MG 1 capsule Orally twi [...] Problem Status W/U Status Risk Notes Problem 03955342 Irritable bowel syndrome without diarrhea (K58.9) Active confirmed Problem Dysphagia (90048627) Dysphagia (R13.10) Active confirmed Problem 622179500 Gastroesophageal reflux disease without esophagitis (K21.9) Active confirmed Problem Gastric polyp (01017371) Gastric polyp (K31.7) Active confirmed Problem 219472446 Esophageal dysmotility (K22.4) Active confirmed Problem 16740706 Dysphagia, unspecified type (R13.10) Active confirmed Problem 935125717 Abnormal CT scan (R93.89) Active confirmed Encounters Encounter Location Date Provider Diagnosis [facility] [address] [facility] [address] [place] [address] 03/30/2025 Juanpablo Madsen Jr Plan Of Treatment [...] Name:Juanpablo cordon Jr, 11/02/2025 02:15:00 PM, [address], [address], [place], [address], Insurance Providers Payer Name Payer Address Payer Phone Subscriber Number Group Number Insured Name Patient Relationship to Insured Coverage Start Date Coverage End Date [facility] [address] Attn Claims JASEN Yousif [id number] CL AGUILERA Self - patient is the insured Medical (General) History Medical History History ICD Code Gastroesophageal reflux dise ase with esophageal dysmotility, last upper endoscopy with balloon dilation 05/09. coronary artery disease,status-post SPREADER OPERATOR stent placement diabetes with diabetic neuropathy hyperlipidemia degenerative joint disease colonoscopy 2017, tubular adenoma, follo wup optional based on age. stroke -2017 Surgical History Surgery Date(Month/Year) cholecystectomy hysterectomy cleaned out artery 02/02/2018
--- OUTSIDE RECORDS SUMMARY | 2025-07-12 14:48 | XMS_ITS | Encounter Summary ---
Author Organization [employer] Address 75 [facility] 7t [place] [address] Care Team Providers Care Splitter Operator Name Role Phone Name, Suresh BENJAMIN Primary Care Provider [phone] Reason for Visit * Reason Comments Med Refill Encounter Details Date Type Department Care Team ([facility] st Contact Info) Description 10/18/2023 Refill [facility] MEDICINE [address] [place] [address] Name, MD Suresh [address] [place] [address] Essential hypertension Social History Tobacco Use Types [...] hypertension documented in this encounter Care Teams Splitter Operator Relationship Specialty Start Date End Date Name, MD Suresh [address] [place] [address] PCP - General Family Medicine 11/18/17 documented as of this encounter
--- OUTSIDE RECORDS SUMMARY | 2025-07-12 14:48 | XMS_ITS | Encounter Summary ---
Author Organization [employer] Address [address] [facility] 7[address] [place] [address] Care Team Providers Care Room Attendants Name Role Phone Name, Suresh BENJAMIN Primary Care Provider [phone] Reason for Visit * Reason Comments Med Refill Encounter Details Date Type Department Care Team ([facility] st Contact Info) Description 08/12/2023 Refill [facility] MEDICINE [address] [place] [address] Michelle Hernandez, PRICILA [address] [place] [address] Type 2 diabetes mellitus with hyperglycemia, with long-term current use of insulin ([facility]) Social History Tobacco Use Types Packs/Day [...] hyperglycemia, with long-term current use of insulin ([facility]) documented in this encounter Care Teams Room Attendants Relationship Specialty Start Date End Date Name, MD Suresh [address] [place] [address] PCP - General Family Medicine 11/18/17 documented as of this encounter
--- OUTSIDE RECORDS SUMMARY | 2025-07-12 14:48 | XMS_ITS | Encounter Summary ---
Author Organization [employer] Address [address] [facility] 7t [place] [address] Care Team Providers Care Back Tender Pulp Drier Name Role Phone Name, Suresh BENJAMIN Primary Care Provider [phone] Reason for Visit * Reason Comments Med Refill Encounter Details Date Type Department Care Team ([facility] st Contact Info) Description 05/22/[address] [facility] MEDICINE [address] [place] [address] Name, MD Suresh [address] [place] [phone] Social History Tobacco Use Types Packs/Day Years [...] on filedocumented in this encounter Care Teams Back Tender Pulp Drier Relationship Specialty Start Date End Date NameSuresh MD [address] [place] [phone] PCP - General Family Medicine 11/18/17 documented as of this encounter
--- OUTSIDE RECORDS SUMMARY | 2025-07-12 14:48 | XMS_ITS | Encounter Summary ---
Author Organization [employer] Address [address] [facility] 7t [place] [address] Care Team Providers Care Robotics Technician Name Role Phone Name, Suresh BENJAMIN Primary Care Provider [phone] Reason for Visit * Reason Onset Date Comments Med Refill 06/23/2023 Encounter Details Date Type Department Care Team (Late st Contact Info) Description 06/23/2023 Refill [facility] MEDICINE [address] [place] [address] Gela Loza MD [address] [place] [address] Social History Tobacco Use Types Packs/Day Years [...] on filedocumented in this encounter Care Teams Robotics Technician Relationship Specialty Start Date End Date Name, MD Suresh [address] [place] [address] PCP - General Family Medicine 11/18/17 documented as of this encounter
--- OUTSIDE RECORDS SUMMARY | 2025-07-12 14:48 | XMS_ITS | Encounter Summary ---
Author Organization [employer] Address [address] [facility] 7t [place] [address] Care Team Providers Care Condenser Tester Name Role Phone Name, Suresh BENJAMIN Primary Care Provider [phone] Encounter Details Date Type Department Care Team ([facility] st Contact Info) Description 09/27/2022 Orders Only [facility] [address] [place] [address] Name, MD Suresh [address] [place] [address] Social History Tobacco Use Types Packs/Day Years [...] 8 AM EDT 01/16/2023 11:29 AM EDT Comment:[facility] Narrative [facility] - 01/17/2023 1:11 PM EDT Urine Culture Report Result Urine Culture < 10,000 cfu/ml Specimen Source: Urine clean catch [facility] Exter nal Provider LAB MICROBIOLOGY - GENERAL ORDERABLES Final Result [facility] [address] [place] [address] [phone] * Protein Creatinine Ratio, Urine (01/16/2023 10:20 AM EDT) Protein, Total, Random Urine 10 <12 mg/dL [facility] Protein/Creatin ine Ratio, Ur 0.07 <0.2 [facility] Comment:The spot urine prote in:creatinine ratio may increase to 0.3during normal . 01/16/2023 10:2 0 AM EDT 01/16/2023 11:29 AM EDT [facility] External Provider LAB URI NE ORDERABLES Final Result Performing Organization Address [facility] Co de Phone Number [facility] [address] [place] [phone] * Albumin, Random Urine W/Creatinine (01/16/2023 10:20 AM EDT) Creatinine, Urine 147.17 mg/dL [facility] Microalbumin Urine 23.0 mg/L [facility] Microalbum Creatinine Ratio Ur 15.6 ug/mg cr [facility] Comment:Albumin/Creatinine R atio Reference Ranges: Normal: < 30 ug/mg creatinine Microalbuminuria: 30 - 300 ug/mg creatinineClinical Albuminuria: > 300 ug/mg creatinine 01/16/2023 10:2 0 AM EDT 01/16/2023 11:29 AM EDT [facility] External Provider LAB URI NE ORDERABLES Final Result Performing Organization Address [facility] Co de Phone Number [facility] [address] [place] [phone] * (ABNORMAL) Urinalysis Complete (01/16/2023 10:20 AM EDT) Color Urine Yellow [facility] Appearance Urine Clear [facility] PH 6.0 5.0 - 9.0 [facility] Glucose Urine UA Negative Negative mg/dL [facility] Urine Blood Negative Negative [facility] Specific [place] - Urine 1.020 1.005 - 1.025 [facility] Urine Protein Negative Neg-Trace mg/dL [facility] Urine Ketones Negative Negative mg/dL [facility] Nitrite Urine Negative Negative [facility] Leukocyte Esterase Urine Moderate (2+)(A) Negative [facility] RBC Urine 0-2 0 - 2 /HPF [facility] Urine WBC 11-20(A) 0 - 5 /HPF [facility] Urine Squamous Epithelial Cell 0-2 0 - 2 /HPF [facility] Urine Bacteria None Seen None Seen [facility] Hyaline Casts, Urine 0-2 0 - 2 /LPF [facility] 01/16/2023 10:2 0 AM EDT 01/16/2023 11:29 AM EDT [facility] External Provider LAB URI NE ORDERABLES Final Result [facility] [address] [place], [place] [phone] * (ABNORMAL) PTH, Intact Without Calcium (01/16/2023 10:10 AM EDT) PTHI 20 16 - 77 pg/mL [facility] Comment:Interpretive Guide I ntact PTH Calcium -------Normal Parathyroid Normal NormalHypoparathyroidism Low or Low Normal LowHyperparathyroidism Primary Normal or High High Secondary High Normal or Low Tertiary High HighNon-Parathyroid Hypercalcemia Low or Low Normal High Calcium (PTHI) 10.7(A) 8.6 - 10.4 mg/dL [facility] Comment:THIS TEST WAS PERFOR MED AT:[employer] [place] [phone] LEAHY MD 01/16/2023 10:1 0 AM EDT 01/16/2023 11:26 AM EDT [facility] External Provider LAB BLO OD ORDERABLES Final Result [facility] [address] [place] [address] [phone] * Vitamin D, 25-Hydroxy, Total, Immunoassay (01/16/2023 10:10 AM EDT) Vitamin D 25-OH Total 42.7 >30 ng/mL [facility] Comment:Health Based Referen ce Values*< 20 ng/mL [id number] ng/mL Insufficient> 30 ng/mL Sufficient*Whitney MARS. N [...] 0 AM EDT 01/16/2023 11:26 AM EDT [facility] External Provider LAB BLO OD ORDERABLES Final Result [facility] [address] [place] [address] [phone] * Albumin (01/16/2023 10:10 AM EDT) Albumin Level 4.2 3.5 - 5.0 g/dL [facility] 01/16/2023 10:1 0 AM EDT 01/16/2023 11:26 AM EDT [facility] External Provider LAB BLO OD ORDERABLES Final Result Performing Organization Address [facility] Co de Phone Number [facility] [address] [place] [phone] * Magnesium (01/16/2023 10:10 AM EDT) Magnesium 1.7 1.6 - 2.6 mg/dL [facility] 01/16/2023 10:1 0 AM EDT 01/16/2023 11:26 AM EDT [facility] External Provider LAB BLO OD ORDERABLES Final Result Performing Organization Address [facility] Phone Number [facility] [address] [place] [phone] * Phosphate (As Phosphorus) (01/16/2023 10:10 AM EDT) Phosphorus 3.6 2.7 - 4.5 mg/dL [facility] 01/16/2023 10:1 0 AM EDT 01/16/2023 11:26 AM EDT [facility] External Provider LAB BLO OD ORDERABLES Final Result Performing Organization Address [facility] de Phone Number [facility] [address] [place] [phone] * (ABNORMAL) Calcium (01/16/2023 10:10 AM EDT) Calcium 10.4(H) 8.4 - 10.2 mg/dL [facility] 01/16/2023 10:1 0 AM EDT 01/16/2023 11:26 AM EDT [facility] External Provider LAB BLO OD ORDERABLES Final Result Performing Organization Address City/[facility] Co de Phone Number [facility] [address] [place] [address] [phone] * Creatinine, Serum (01/16/2023 10:10 AM EDT) Creatinine, Serum 1.06 0.5 - 1.4 mg/dL [facility] Estimated Glomerular Filt Rate 50 [facility] Comment:NOTE: For -Am erican individuals, multiply the result by 1.210.Chronic Kidney Disease: Estimated GFR < 60 mL/min/[id number] Kidney Disease: Estimated GFR < 15 mL/min/1.73m2 01/16/2023 10:1 0 AM EDT 01/16/2023 11:26 AM EDT [facility] External Provider LAB BLO OD ORDERABLES Final Result Performing Organization Address [facility] Co de Phone Number [facility] [address] [place] [phone] * (ABNORMAL) BUN (Blood Urea Nitrogen) (01/16/2023 10:10 AM EDT) Urea Nitrogen (BUN) 27(H) 9 - 16 mg/dL [facility] 01/16/2023 10:1 0 AM EDT 01/16/2023 11:26 AM EDT [facility] External Provider LAB BLO OD ORDERABLES Final Result [facility] [address] [place] [phone] [phone] * Electrolyte Panel (01/16/2023 10:10 AM EDT) Sodium 140 135 - 145 mmol/L [facility] Potassium 4.0 3.3 - 5.1 mmol/L [facility] Chloride 102 96 - 108 mmol/L [facility] Carbon Dioxide 28 22 - 29 mmol/L [facility] Anion Gap 14 12 - 20 [facility] 01/16/2023 10:1 0 AM EDT 01/16/2023 11:26 AM EDT [facility] External Provider LAB BLO OD ORDERABLES Final Result Performing Organization Address [facility] Co de Phone Number [facility] [address] [place] [address] [phone] * Lipid Panel, Standard (01/16/2023 10:10 AM EDT) Triglycerides 260 mg/dL [facility] Comment:Desirable Triglyceri de: less than 150 mg/dLBorderline High Triglyceride 150-199 mg/dLHigh Triglyceride: 200-499 mg/dLVery High Triglyceride: greater than or equal to 5OO mg/dL Cholesterol 180 mg/dL [facility] Comment:Desirable Cholestero l: less than 200 mg/dLBorderline High Cholesterol: 200-239 mg/dLHigh Cholesterol: greater than 239 mg/dL LDL Cholesterol Calculated 94 mg/dl [facility] Comment:Desirable LDL: less than 100 mg/dLNear Optimal/Above Optimal LDL: 110- 129 mg/dLBorderline High LDL: 130-159 mg/dLHigh LDL: 160-189 mg/dLVery High LDL: greater than or equal to 190 mg/dL HDL Cholesterol 34 mg/dL [facility] Comment:Desirable HDL: great er than 40 mg/dL Note: This HDL assay may give artificially low results in patients with liver disease. 01/16/2023 10:1 0 AM EDT 01/16/2023 11:26 AM EDT [facility] External Provider LAB BLO OD ORDERABLES Final Result Performing Organization Address [facility] Co de Phone Number [facility] [address] [place] [address] [phone] * (ABNORMAL) Comprehensive Metabolic Panel, Fasting (01/16/2023 10:10 AM EDT) Sodium 140 135 - 145 mmol/L [facility] Potassium 4.0 3.3 - 5.1 mmol/L [facility] Chloride 101 96 - 108 mmol/L [facility] Carbon Dioxide 29 22 - 29 mmol/L [facility] Anion Gap 14 12 - 20 [facility] Urea Nitrogen (BUN) 27(H) 9 - 16 mg/dL [facility] Creatinine, Serum 1.08 0.5 - 1.4 mg/dL [facility] Estimated Glomerular Filt Rate 49 [facility] Comment:NOTE: For -Am erican individuals, multiply the result by 1.210.Chronic Kidney Disease: Estimated GFR < 60 mL/min/[id number] Kidney Disease: Estimated GFR < 15 mL/min/1.73m2 Glucose Fasting 164(H) 60 - 99 mg/dL [facility] Comment:A fasting glucose of 126 mg/dl or greater on more than oneoccasion is considered diagnostic of diabetes. Calcium 10.4(H) 8.4 - 10.2 mg/dL [facility] Bilirubin, Total 0.4 0.0 - 1.0 mg/dL [facility] Aspartate Amino Transferase 19 5 - 31 U/L [facility] Alanine Aminotransferase 13 0 - 31 U/L [facility] Total Protein 7.3 6.5 - 8.0 g/dL [facility] Albumin Level 4.2 3.5 - 5.0 g/dL [facility] Alkaline Phosphatase 51 39 - 117 U/L [facility] 01/16/2023 10:1 0 AM EDT 01/16/2023 11:26 AM EDT [facility] External Provider LAB BLO OD ORDERABLES Final Result [facility] [address] [place] [phone] * CBC auto differential (01/16/2023 10:10 AM EDT) Pathologist [facility] White Blood Count 7.5 4.8 - 10.8 X10*3/uL [facility] Red Blood Count 4.35 4.20 - 5.50 X10*6/uL [facility] Hemoglobin 12.2 12.0 - 16.0 g/dl [facility] Hematocrit 37.9 37.0 - 47.0 % [facility] Mean Corpuscular Volume 87.1 80.0 - 98.0 fL [facility] Mean Corpuscular Hemoglobin 28.0 27.0 - 33.0 pg [facility] Mean Corpuscular HGB Conc 32.2 31.0 - 35.0 g/dl [facility] Red Cell Distribution Width 14.0 11.0 - 16.0 % [facility] Platelet Count 334 160 - 400 X10*3/uL [facility] Mean Platelet Volume 10.4 9.4 - 12.3 fL [facility] Neutrophils Percent Auto 56.2 45 - 73 % [facility] Imm Gran Pct Auto 0.4 0.0 - 0.4 % [facility] Lymphocytes Percent Auto 29.1 20 - 40 % [facility] Monocytes Percent Auto 10.1 2 - 11 % [facility] Eosinophils Percent Auto 3.5 0 - 4 % [facility] Basophils Percent Auto 0.7 0 - 2 % [facility] NRBC Pct Auto 0.0 0.0 - 0.2 /100WBC [facility] Neutrophils Absolute Auto 4.2 2.0 - 8.3 x10*3/uL [facility] Imm Gran Abs Auto 0.03 0.00 - 0.03 X10*3/uL [facility] Lymphocytes Absolute Auto 2.2 1.2 - 4.9 X10*3/uL [facility] Monocytes Absolute Auto 0.8 0.1 - 1.2 X10*3/uL [facility] Eosinophils Absolute Auto 0.3 0.0 - 0.4 X10*3/uL [facility] Basophils Absolute Auto 0.1 0.0 - 0.2 X10*3/uL [facility] NRBC Abs Auto 0.000 0.0 - 0.012 X10*3/uL [facility] 01/16/2023 10:1 0 AM EDT 01/16/2023 11:26 AM EDT [facility] External Provider LAB BLO OD ORDERABLES Final Result [facility] [address] [place] [address] [phone] documented in this encounter Visit Diagnoses Not on filedocumented in this encounter Care Teams Condenser Tester Relationship Specialty Start Date End Date Name, MD Suresh [address] [place] [address] PCP - General Family Medicine 11/18/17 documented as of this encounter
--- OUTSIDE RECORDS SUMMARY | 2025-07-12 14:48 | XMS_ITS | Clinical Summary ---
Author Organization [employer] Address [address] [place] [address] 7[address] [place] [address] Care Team Providers Care Compliance Clerk Name Role Phone Name, Suresh BENJAMIN Primary Care Provider [phone] Allergies Active Allergy Reactions Criticality Noted Date [...] hyperglycemia, with long-term current use of insulin ([facility]) USE TO CHECK BLOOD SUGAR 3 TIMES A DAY 100 each 3 023 Active Blood Glucose Monitoring Suppl (ONE TOUCH ULTRA 2) w/Device kit Use 3 times a day 1 kit 023 Active clotrimazole (Lotrimin) 1 % creamIndications :Tinea APPLY TO AFFECTED AREA TWICE A DAY IN THE MORNING AND IN THE EVENING 15 g 1 023 Active omeprazole (PriLOSEC) [address] capsuleIndicatio ns:Gastroesophag eal reflux disease without esophagitis TAKE 1 CAPSULE BY MOUTH TWICE A DAY DIRECTED 180 capsule 1 024 Active lactulose (Chronulac) 10 GM/15ML solutionIndicati ons:Routine health maintenance TAKE 15MLS BY MOUTH EVERY DAY 473 mL 3 024 Active nitroglycerin (Nitrostat) 0.[address] 1 TABLET (0.4 MG) UNDER THE TONGUE EVERY 5 (FIVE) MINUTES IF NEEDED FOR CHEST PAIN. MAY USE UP TO THREE TABLETS. SEEK MEDICAL ATTENTION IF NO RELIEF. 300 tablet 1 024 Active losartan-hydroCH LOROthiazide (Hyzaar) 100-25 MG tabletIndication s:Essential hypertension TAKE 1 TABLET BY MOUTH EVERY DAY IN THE MORNING 90 tablet 3 024 Active glucose blood (OneTouch Ultra) test stripIndications :Type 2 diabetes mellitus with other circulatory complications ([facility]) USE TO CHECK BLOOD SUGAR BY SUBCUTANEOUS ROUTE THREE TIMES PER DAY. 100 strip 11 024 Active cholecalciferol VITAMIN D (Vitamin D-3) 50 MCG (1999 UT) capsule TAKE 1 CAPSULE BY MOUTH EVERY DAY 90 capsule 025 Active insulin aspart (NovoLOG FLEXPEN) 100 UNIT/ML pen INJECT 12-14 UNITS 3 TIMES A DAY WITH MEALS 15 mL 3 025 Active Icosapent Ethyl (Vascepa) 1 g capsule Take 2 capsules (2 g) by mouth with breakfast and with evening meal. 120 capsule 11 025 2025 Active insulin degludec (Tresiba FlexTouch) 200 UNIT/ML injection INJECT 50 UNITS SUBCUTANEOUSLY AT BEDTIME 18 mL 3 025 Active aspirin (Aspirin Low Dose) 81 MG EC tablet TAKE 1 TABLET BY MOUTH EVERY DAY IN THE MORNING 90 tablet 1 025 Active traMADol (Ultram) 50 MG tabletIndication s:Chronic low back pain without sciatica, unspecified back pain laterality TAKE 1 TABLET BY MOUTH EVERY 8 (EIGHT) HOURS IF NEEDED FOR SEVERE PAIN FOR UP TO 28 DAYS. 84 tablet 025 Active amLODIPine (Norvasc) 10 MG tabletIndication s:Hypertension, unspecified type TAKE 1 TABLET BY MOUTH EVERY DAY IN THE MORNING 90 tablet 1 025 Active cetirizine (ZyrTEC) 10 MG tabletIndication s:Seasonal allergies TAKE 1 TABLET BY MOUTH EVERY DAY NEEDED 90 tablet 1 025 Active Dulaglutide 1.5 MG/0.5ML solution auto-injectorInd ications:Type 2 diabetes mellitus with other circulatory complication, with long-term current use of insulin ([facility]) Inject 1.5 mg under the skin 1 (one) time per week. INJECT ONE PEN (=1.5 MG) SUBCUTANEOUSLY ONCE A WEEK 2 mL 3 025 2025 Active lidocaine (Lidoderm) 5 % patchIndications :Type 2 diabetes mellitus with other circulatory complication, with long-term current use of insulin (CMS/HCC) Apply 1 patch topically Once per day. APPLY 1 PATCH TOPICALLY TO SKIN, LEAVE ON FOR 12 HOURS AND OFF FOR 12 HOURS DIRECTED 30 patch 2 025 Active acarbose (Precose) 100 MG tablet TAKE 1 TABLET BY MOUTH 3 TIMES A DAY WITH BREAKFAST LUNCH AND EVENING MEAL 270 tablet 1 025 Active acetaminophen (Tylenol 8 Hour) 650 MG ER tabletIndication s:Pain TAKE 1 TABLET BY MOUTH EVERY 8 HOURS NEEDED. DO NOT CRUSH/BREAK/CHEW 100 tablet 1 025 Active metoprolol succinate XL (Toprol-XL) 100 MG 24 hr tablet TAKE 1 TABLET BY MOUTH TWICE A DAY 180 tablet 3 025 Active lidocaine (Xylocaine) 2 % solutionIndicati ons:Type 2 diabetes mellitus with other circulatory complications (CMS/HCC) TAKE 15 ML BY MOUTH EVERY 3 HOURS. SWISH AND SWALLOW DIRECTED 200 mL 025 Active rosuvastatin (Crestor) 40 MG tablet TAKE 1 TABLET BY MOUTH EVERY DAY 90 tablet 3 025 Active albuterol (Ventolin HFA) 108 (90 Base) MCG/ACT inhaler TAKE 2 PUFFS BY MOUTH EVERY 4 TO 6 HOURS NEEDED 18 g 1 025 Active insulin pen needle (BD Pen Needle Mini Ultrafine) 31G x 5 mm miscIndications: Type 2 diabetes mellitus with other circulatory complication, with long-term current use of insulin ([facility]) Use 4 times a day with insulin 100 each 12 025 2025 Active albuterol (Ventolin HFA) 108 (90 Base) MCG/ACT inhaler TAKE 2 PUFFS BY MOUTH EVERY 4 TO 6 HOURS NEEDED 18 g 1 023 2024 Discontinued(R eorder (will not trigger notification to Pharmacy)) rosuvastatin (Crestor) 40 MG tablet TAKE 1 TABLET BY MOUTH EVERY DAY 90 tablet 3 024 2024 Discontinued insulin pen needle (BD Pen Needle Mini Ultrafine) 31G x 5 mm misc Inject under the skin if needed. 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 w neg ucx < [...] atorvastatin 80 mg Coronary artery disease involving ekwok coronar y artery 04/13/1994 Encounters Date Type Department Care Team Description 07/12/2025 11:15 AM EDT Office Visit [facility] MED[facility] [address] [place] [address] NameSuresh MD Type 2 diabetes mellitus with other circulatory complication, with long-term current use of insulin ([facility]) (Primary Dx); Encounter for immunization; Acute on chronic back pain 07/12/2025 Telephone [facility] [address] [place], [place] [phone] Suresh Rosenthal MD Eye exam notes requested from Dr Lynn 07/12/2025 Travel 07/06/2025 Abstract [facility] [address] [place] [address] Suresh Rosenthal MD 07/01/2025 Refill [facility] [address] [place] [address] Suresh Rosenthal MD 05/29/2025 Refill [facility] [address] [place] [address] Suresh Rosenthal MD Pain; Type 2 diabetes mellitus with other circulatory complications ([facility]) 05/28/2025 Refill [facility] [address] [place] [address] Suresh Rosenthal MD 05/15/2025 Refill [facility] [address] [place] [address] Suresh Rosenthal MD Type 2 diabetes mellitus with other circulatory complication, with long-term current use of insulin ([facility]) 05/09/2025 Telephone [facility] [address] [place] [address] NameSuresh MD Durable Medical Equipment (Recert / Glucerna) 2025 Telephone [facility] [address] [place] [address] NameSuresh MD Prior Authorization 04/28/2025 Refill [facility] [address] [place] [address] NameSuresh MD Type 2 diabetes mellitus with other circulatory complication, with long-term current use of insulin ([facility]) 04/24/2025 Refill [facility] PEDS [address] [place], [place] [phone] Suresh Rosenthal MD Type 2 diabetes mellitus with other circulatory complication, with long-term current use of insulin ([facility]) 04/14/2025 Refill [facility] [address] [place] [address] NameSuresh MD from Last 3 Months Immunizations Immunization Administration Dates Next Due Hep B, adult 04/12/2004,12/18/2003,11/17/2003 Influenza High-dose Quadriva lent Preservative Free 08/06/2023,08/05/2021 Influenza Quadrivalent Adjuvanted 06/22/2020 Influenza injectable quadriv alent IIV4 with preservative 10/10/2022,10/22/2016 Influenza injectable quadriv alent preservative free 08/04/2019,09/19/2015 Influenza, High Dose Seasona l, Preservative Free 07/12/2025,08/03/2019,07/13/2018,07/06 Influenza, IIV3, injectable 06/19/2021, 8 Influenza, Unspecified [...] Mass Index 32.27 07/12/2025 11:18 AM EDT Plan of Treatment Health Maintenance Due Date Last Done Comments Eye Exam 1955 Alcohol/Substance Use Screening 1957 Depression Screening 04/15/2025 04/15/2024, 04/15/20 24 COVID-19 Vaccine ( season) 2025 07/27/2024, 09/15/2023, 12/31/2022, Additional history exists Diabetes: Hemoglobin A1C 01/09/2026 025, 02/14/2025, 05/16/2024, Additional history exists SDOH Screening 02/02/2026 02/02/2025 Diabetes: Foot Exam 02/14/2026 02/14/2025, 02/14/2025, 02/14/2025, Additional history exists Lipid Panel 02/18/2026 02/18/2025, 04/19, 01/16/2023, Additional history exists Diabetes: Urine Protein Screening 03/29/2026 03/29/2025, 03/04/2025, 02/18/2025, Additional history exists Tobacco Screening 07/12/2026 07/12/2025 DTaP/Tdap/Td Vaccines (2 - Td or Tdap) 10/22/2026 10/22/2016, 02/11/1996 Hepatitis B Vaccines Completed 04/12/2004, 12/18/2003, 11/17/2003 Pneumococcal Vaccine: 50+ Years Completed 11/18/2017, 11/06/2013, 11/06/2013, Additional history exists Zoster Vaccines Completed 05/28/2021, 01/2020, 10/22/2016, Additional history exists RSV Patients and Patients Aged 60 years or older Completed 09/15/2023 Influenza Vaccine Completed 07/12/2025, , 08/06/2023, Additional history exists HIB Vaccines [...] complication, with long-term current use of insulin ([facility]) POCT GLUCOSE Routine 07/12/2025 11:20 AM EDT Type 2 diabetes mellitus with other circulatory complication, with long-term current use of insulin ([facility]) ALBUMIN, RANDOM URINE W/CREATININE Routine 03/29/2025 12:30 PM EDT Proteinuria, unspecified type LIPID PANEL, STANDARD Routine 02/18/2025 7:13 AM EDT Type 2 diabetes mellitus with other circulatory complication, with long-term current use of insulin ([facility]) Coronary artery disease involving ekwok coronary artery of ekwok heart without angina pectoris High triglycerides from Last 3 Months or Most Recently Relevant to Health Maintenance Results * XR Lumbar Spine Complete 4+ Views (07/12/2025 2:00 PM EDT) Anatomical Region Laterality Modality Spine, L-spine Radiographic Mercedes ging 07/12/2025 2:00 PM EDT Narrative 07/12/2025 2:17 PM EDT [address] [address] XRay Report Signed Patient: Dori Calles MR#: [id number] : 1945 Acct:[id number] Age/Sex: 80 / F ADM Date: 07/12/25 Loc: .[facility] Attending Dr: Suresh Rosenthal MD Ordering Physician: Suresh Rosenthal MD Date of Service: 07/12/25 Procedure(s): XR lumbar spine 4V min Accession Number(s): [id number] cc: Suresh Rosenthal MD Reason for Exam: [...] 07/12/25 1414 DD/ 1400 TD/TT: 07/12/25 1406 Boiler Tester: Procedure Note Donotuseinterpreter, Image - 07/12/[address] [address] XRay Report Signed Patient: Dori CallesMR#: [id number] : 4Acct:[id number] Age/Sex: 80 / FADM Date: 07/12/25 [facility]: Suresh Rosenthal MD Ordering Physician: Suresh Rosenthal MD Date of Service: 07/12/25 Procedure(s): XR lumbar spine 4V min Accession Number(s): [id number] cc: Suresh Rosenthal MD Reason for Exam: [...] Andreas Ceja MD 07/12/2025 02:14 PM EDT RP Dictated By: Andreas Ceja MD Signed By: <Electronically signed by Andreas Ceja MD in OV> 07/12/25 1414 DD/ 1400 TD/TT: 07/12/25 1406 Boiler Tester: us Suresh Rosenthal MD IMG XR PROCEDURES Final Result * (ABNORMAL) POCT Hgb A1c (07/12/2025 11:20 AM EDT) Hemoglobin A1C 6.8(A) 4.0 - 5.7 % QC Media Lot # [id number] Lot# Expiration Date 42,[id number] Blood 07/12/2025 11:2 0 AM EDT us Suresh Rosenthal MD POINT OF CARE TEST ENTER/EDIT OR DERABLES Final Result * POCT Glucose (07/12/2025 11:20 AM EDT) Glucose Blood, POC 97 60 - 200 mg/dL QC Media Lot # [id number] Lot# Expiration Date 31,126 Blood Capillary blood specimen / Unknown 07/12/2025 11:20 AM EDT Result Mckinley Rosenthal MD POINT OF CARE TEST ENTER/EDIT OR DERABLES Final Result * (ABNORMAL) Albumin, Random Urine W/Creatinine (03/29/2025 12:30 PM EDT) Creatinine, Urine 105.91 mg/dL [facility] Microalbumin Urine 43.0 mg/L H [facility] Microalbum Creatinine Ratio Ur 40.6(H) <30 ug/mg cr [facility] Comment:Albumin/Creatinine R atio Reference Ranges: Normal: < 30 ug/mg creatinine Microalbuminuria: 30 - 300 ug/mg creatinineClinical Albuminuria: > 300 ug/mg creatinine Urine (Urine, Random) 03/29/2025 12:30 PM EDT 03/29/2025 1:48 PM EDT us Suresh Rosenthal MD LAB URINE ORDERABLES Final Resul t Performing Organization Address [facility] de Phone Number [facility] [address] [place] [address] [phone] * (ABNORMAL) Lipid Panel, Standard (02/18/2025 7:13 AM EDT) Triglycerides 320(H) <150 mg/dL [facility] Comment:Desirable Triglyceri de: less than 150 mg/dLBorderline High Triglyceride 150-199 mg/dLHigh Triglyceride: 200-499 mg/dLVery High Triglyceride: greater than or equal to 5OO mg/dL Cholesterol 164 <200 mg/dL [facility] Comment:Desirable Cholestero l: less than 200 mg/dLBorderline High Cholesterol: 200-239 mg/dLHigh Cholesterol: greater than 239 mg/dL LDL Cholesterol Calculated 60 <100 mg/dL [facility] Comment:Desirable LDL: less than 100 mg/dLNear Optimal/Above Optimal LDL: 110- 129 mg/dLBorderline High LDL: 130-159 mg/dLHigh LDL: 160-189 mg/dLVery High LDL: greater than or equal to 190 mg/dL HDL Cholesterol 40(L) >40 mg/dL [facility] Comment:Desirable HDL: great er than 40 mg/dL Note: This HDL assay may give artificially low results in patients with liver disease. Blood Venous blood specimen / Unknown 02/18/2025 7:13 AM EDT 02/18/2025 7:14 AM EDT us Suresh Rosenthal MD LAB BLOOD ORDERABLES Final Resul t Performing Organization Address [facility] Co de Phone Number [facility] [address] [place] [address] [phone] from Last 3 Months or Most Recently Relevant to Health Maintenance Insurance [facility] [employer] OPT[employer] (HMO D-SNP) JASEN CORTES [id number] Care Teams Compliance Clerk Relationship Specialty Start Date End Date Name, MD Suresh [address] [place] [address] PCP - General Family Medicine 11/18/17
--- OUTSIDE RECORDS SUMMARY | 2025-07-12 14:48 | XMS_ITS | Encounter Summary ---
Author Organization [employer] Address [address] [facility] [address] [place] [address] Care Team Providers Care Bandoleer Packer Name Role Phone Name, Suresh BENJAMIN Primary Care Provider Reason for Visit * Reason Onset Date Comments Appointment Request 12/21/2023 Encounter Details Date Type Department Care Team ([facility] st Contact Info) Description 12/21/2023 Telephone [facility] MED[facility] [address] [place] [address] Name, MD Suresh [address] [place] [address] Appointment Request Social History Tobacco Use Types [...] a telephone visit. Please contact daughter at [phone]. documented in this encounter Plan of Treatment Not on file documented as of this encounter Visit Diagnoses Not on filedocumented in this encounter Care Teams Bandoleer Packer Relationship Specialty Start Date End Date Name, MD Suresh [address] [place] [address] PCP - General Family Medicine 11/18/17 documented as of this encounter
--- OUTSIDE RECORDS SUMMARY | 2025-07-12 14:48 | XMS_ITS | Encounter Summary ---
Author Organization [employer] Address [address] [facility] [address]t [place] [address] Care Team Providers Care Orthodontic Treatment Coordinator Name Role Phone Name, Suresh BENJAMIN Primary Care Provider [phone] Reason for Visit * Reason Onset Date Comments Med Refill 06/23/2023 Encounter Details Date Type Department Care Team (Late st Contact Info) Description 06/23/2023 Refill [facility] MED[facility]INE [address] [place] [address] Michelle Hernandez FNP [address] [place] [address] Routine health maintenance Social History Tobacco Use [...] examination documented in this encounter Care Teams Orthodontic Treatment Coordinator Relationship Specialty Start Date End Date Name, MD Suresh [address] [place] [address] PCP - General Family Medicine 11/18/17 documented as of this encounter
--- OUTSIDE RECORDS SUMMARY | 2025-07-12 14:48 | XMS_ITS | Encounter Summary ---
Author Organization [employer] Address [address] [facility] [address]t [place] [address] Care Team Providers Care Smoke Jumper Supervisor Name Role Phone Name, Suresh BENJAMIN Primary Care Provider [phone] Encounter Details Date Type Department Care Team ([facility] st Contact Info) Description 07/06/2025 Abstract [facility] MED[facility]INE [address] [place] [address] Name, MD Suresh [address] [place] [address] Social History Tobacco Use Types Packs/Day Years [...] documented as of this encounter Care Teams Smoke Jumper Supervisor Relationship Specialty Start Date End Date Name, MD Suresh [address] [place] [address] PCP - General Family Medicine 11/18/17 documented as of this encounter
--- OUTSIDE RECORDS SUMMARY | 2025-07-12 14:48 | XMS_ITS | Encounter Summary ---
Author Organization [employer] Address [address] [facility] [address] [place] [address] Care Team Providers Care Repairer Welding Systems And Equipment Name Role Phone Name, Suresh BENJAMIN Primary Care Provider [phone] Encounter Details Date Type Department Care Team ([facility] st Contact Info) Description 11/13/2023 Abstract [facility] MED[facility]INE [address] [place] [address] Name, MD Suresh [address] [place] [address] Social History Tobacco Use Types Packs/Day Years [...] on filedocumented in this encounter Care Teams Repairer Welding Systems And Equipment Relationship Specialty Start Date End Date Name, MD Suresh [address] [place] [address] PCP - General Family Medicine 11/18/17 documented as of this encounter
--- OUTSIDE RECORDS SUMMARY | 2025-07-12 14:48 | XMS_ITS | Encounter Summary ---
Author Organization [email or web address] Address [address] [facility] [address]t [place] [address] Care Team Providers Care Termite Exterminator Name Role Phone Name, Suresh BENJAMIN Primary Care Provider [phone] Reason for Visit * Reason Onset Date Comments Medication Question 09/23/2023 Durable Medical Equipment 09/23/2023 BOOST Encounter Details Date Type Department Care Team ([facility] st Contact Info) Description 09/23/2023 Telephone [facility] MEDICINE [address] [place] [address] Name, MD Suresh [address] [place] [address] Medication Question; Durable Medical Equipment (BOOST) Social [...] on filedocumented in this encounter Care Teams Termite Exterminator Relationship Specialty Start Date End Date Name, MD Suresh [address] [place] [address] PCP - General Family Medicine 11/18/17 documented as of this encounter
--- OUTSIDE RECORDS SUMMARY | 2025-07-12 14:48 | XMS_ITS | Encounter Summary ---
Author Organization [employer] Address [address] [facility] [address] [place] [address] Care Team Providers Care Draw In Hand Name Role Phone Name, Suresh BENJAMIN Primary Care Provider [phone] Reason for Visit * Reason Onset Date Comments Eye exam notes requested from Dr Lynn 07/12 Encounter Details Date Type Department Care Team ([facility] st Contact Info) Description 07/12/2025 Telephone [facility] PED[facility] [address] [place] [address] Name, MD Suresh [address] [place] [address] Eye exam notes requested from Dr Lynn Social History Tobacco Use Types Packs/Day Years [...] encounter Miscellaneous Notes * Telephone Encounter - Rachael Tobar MA - 07/12/2025 11:46 AM EDT T\C To Dr Lynn for eye exam notes .Receptionest will be faxing notes to [phone] on 07/12/2025.Received fax scanned in. documented in this encounter Plan of Treatment Not on file documented as of this encounter Visit Diagnoses Not on filedocumented in this encounter Additional Health Concerns Assessment Noted Time PHQ-9 Depression Total Score: 7 04/15/20 11:05 AM EDT documented as of this encounter Care Teams Draw In Hand Relationship Specialty Start Date End Date Name, MD Sruesh [address] [place] [address] PCP - General Family Medicine 11/18/17 documented as of this encounter
== END 2025-07-12 11:49 | disposition home or self-care (01) ==
LOC: HO.HHCX 11:48
PROVIDERS: PCP Internal Medicine Geriatric Medicine; Visit Provider Internal Medicine Geriatric Medicine
DX: M54.9 Dorsalgia, unspecified (principal); G89.29 Other chronic pain
CPT/HCPCS: 72110

== ENCOUNTER → 2025-07-12 11:53 | Outpatient (BNV) | payer OTHER, SELFPAY | PROVIDERS: PCP Internal Medicine Geriatric Medicine; Visit Provider Radiology Diagnostic Radiology | DX: M47.816 Spondylosis without myelopathy or radiculopathy, lumbar region (principal) | CPT/HCPCS: 72110 ==